=== PATIENT | female | born 2000 | race Caucasian/White ===

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

== ENCOUNTER → 2018-07-03 | Outpatient (CLI) | payer SELFPAY ==
[~2018-07-03] MED LIST changes: +HYDR-4226 PO; -HYDR-757 PO; +NORE1PAT7
--- NOTE | 2018-07-03 13:47 | Diagnostic Imaging Report ---
INDICATION: Graves' disease TECHNIQUE: Grayscale sonographic images of the thyroid gland. CORRELATION STUDY: None FINDINGS: RIGHT LOBE: 4.5 x 1.5 x 1.5 cm. There is normal echotexture about the right lobe. LEFT LOBE: 4.3 x 1.3 x 1.5 cm. There is normal echotexture about the left lobe. Isthmus appears unremarkable. IMPRESSION: Unremarkable appearing thyroid ultrasound examination. (Normal gland size: 4-5 x 2 x 2 cm) Dictated by: Dictated on workstation # [id number]
== END ==
LOC: RAD 12:09
PROVIDERS: ATTEND Physician Assistant
DX: E05.00 Thyrotoxicosis with diffuse goiter without thyrotoxic crisis or storm (principal)
CPT/HCPCS: 76536

== ENCOUNTER 2018-08-21 11:19 | Emergency (ER) | payer MEDICAID, OTHER ==
[~2018-08-21] VITALS: Ht 162.6 cm; Wt 71.7 kg
--- OUTSIDE RECORDS SUMMARY | 2018-08-21 11:24 | XMS REPORT | Encounter Summary ---
Author Author [facility] Organization [facility] Address Unknown Phone Unavailable Care Team Providers Care Hematology Technologist Name Role Phone Unknown, Unknown Md PCP Unavailable Homer Sherman OD Unavailable Reason for Visit * Reason Comments Results Encounter Details Date Type Department Care Team Description 07/01/2018 Telephone [facility] Kalpesh Colvin, Results Physicians - Internal MD Medicine [address] [facility] [place] [address] [address] [place] [address] Social History Tobacco Use Types Packs/Day Years Used Date Never Smoker Smokeless Tobacco: Never Used Sex Assigned at Date Recorded Not on file as of this encounter Miscellaneous Notes * Telephone Encounter - Teena Clarke RN - 07/02/2018 2:59 PM CDT Spoke with pt's grandmother as permitted by privacy form. She reports pt has probably not been consistent with taking medication. She will discuss with pt tomorrow on the drive to thyroid US appt. Advised her to have pt commit to taking daily and then to repeat labs in 1 month. No further questions/concerns. * Telephone Encounter - Teena Clarke RN - 07/02/2018 9:47 AM CDT Called pt and had to [facility] for pt to return my phone call. * Telephone Encounter - Kalpesh Colvin MD - 07/01/2018 7:28 PM CDT Dear, Teena It seems like she does not take her medication. Please call her and ask her if she takes MMI regularly. She is supposed to take MMI 20 mg daily. If not , please ask her to take it and repeat TSH , TT3 , FT4 in 1 month in this encounter Plan of Treatment Not on fileas of this encounter Visit Diagnoses Not on filein this encounter
--- OUTSIDE RECORDS SUMMARY | 2018-08-21 11:24 | XMS REPORT ---
Author Author SINDI COLE [facility] Address [address] [place] [address] Care Team Providers Care Mathematical Physicist Name Role Phone SINDI COLE Unavailable PROBLEMS Type Condition ICD9-CM Code FLW83-ZX Code Onset Dates Condition Status SNOMED Code Problem Graves disease E05.00 Active 066211453 Problem Severe episode of recurrent major depressive disorder, without 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 Active 58249739 Problem Post traumatic stress disorder (PTSD) F43.10 Active 52834286 Problem Chronic migraine G43.709 Active 61139955 Problem Hyperthyroidism E05.90 Active 30309585 ALLERGIES No Information ENCOUNTERS Encounter Location Date Diagnosis [facility] [address] [address] Jul, Encounter for test, result unknown Z32.00 [facility] [address] [address] May, Graves disease E05.00 [facility] [id number] [place] [address] Feb, Dysuria R30.0 and Acute cystitis with hematuria N30.01 [facility] [id number] [place] [address] 6[address] January, [facility] [address] [address] Dec, Severe episode of recurrent major depressive disorder, without 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 [facility] [address] [address] Dec, [facility] [id number] [place] [address]- 9771 Dec, Severe episode of recurrent major depressive disorder, without 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 and Post traumatic stress disorder (PTSD) F43.10 [place] [id number] [place] [address]757- [address]248 Nov, [place] [address] [address] Nov, Severe episode of recurrent major depressive disorder, without 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 and Post traumatic stress disorder (PTSD) F43.10 [place] [id number] [place] [address]72- 5200 Oct, Encounter for counseling regarding contraception Z30.09 ; Hyperthyroidism E05.90 and Chronic migraine G43.[address] [address] Jul, Encounter for surveillance of injectable contraceptive Z30.42 [facility] [address] [address] Jul, Sore throat J02.9 ; Other viral agents as the cause of diseases classified elsewhere B97.89 and Acute upper respiratory infection, unspecified J06.9 [place] [id number] [place] [address] Jun, Visit for TB skin test Z11.1 [place] [id number] [place] [address]- [address]65 May, Physical exam, routine Z00.[address] [address] May, Hyperthyroidism E05.90 and Post traumatic stress disorder ( PTSD) F43.10 [place] [id number] [place] [address] 65[address]- [address]6 Apr, Routine gynecological examination Z01.419 ; High risk sexual behavior Z72.51 ; Encounter for surveillance of injectable contraceptive Z30.42 ; Hyperthyroidism E05.90 and Encounter for Depo-Provera contraception Z30.42 [facility] [place] [id number] [place] [address] Apr, Tinea corporis B35.4 [place] [address] [place] [address] 77[address]- 0[address] Mar, Thyrotoxicosis without thyroid storm, unspecified thyrotoxicosis type E05.90 [place] [id number] [place] [address]36- 23[address] Mar, [place] [id number] [place] [address] 27996- [address] Mar, [place] [id number] [place] [address] 86[address]- 7052 Mar, Post traumatic stress disorder (PTSD) F43.10 and Hyperthyroidism E05.90 [place] [id number] [place] [address] 06990- 6654 Feb, Hyperthyroidism E05.90 ; Post traumatic stress disorder ( PTSD) F43.10 and Overdose, intentional self-harm, subsequent encounter T50.902D [place] [id number] [place] [address]9957- 57[address] January, Post traumatic stress disorder (PTSD) F43.10 [place] [id number] [place] [address] 44155- [address] 18 Dec, 2016 Hx of migraines Z86.69 ; Insect bite (nonvenomous), left thigh, initial encounter S70.362A and Post traumatic stress disorder (PTSD) F43.10 [place] [address] [place] [address]45- 7[address] 11 Dec, 2016 [place] [id number] [place] [address] 45750- 0843 Nov, [place] [id number] [place] [address] 23842- 4524 10 Nov, 2015 Adjustment disorder with depressed mood F43.21 and Major depression, recurrent F33.9 [place] [id number] [place] [address] 34262- 9215 10 Nov, 2015 Oral contraceptive pill surveillance Z30.41 ; Routine screening for STI (sexually transmitted infection) Z11.3 ; Dysmenorrhea N94.6 ; Hx of migraines Z86.69 ; Deliberate self-cutting Z72.89 and Major depressive disorder, recurrent, moderate F33.1 [place] [id number] [place] [address]20- 6561 Nov, [place] [address] [address] May, [place] [address] [address]- [address] 17 May, [address] [address]- [address] 15 May, 2015 Migraine headache 346.90 and Abdominal pain 789.[address] [address]- [address] May, [place] [address] [address]- [address] Apr, Oligomenorrhea 626.1 and Screening for diabetes mellitus V77.[address] 6[address]25- [address]69 Apr, Oligomenorrhea 626.1 ; Dark urine 791.9 and Screening for diabetes mellitus V77.1 [place] [id number] [place] [address] 53762- 1621 Feb, Bipolar disorder, unspecified 296.80 [place] [id number] [place] [address] 14601- 2688 Dec, [address] [address]- [address] Dec, [place] [address] [address]62- [address] Dec, [place] [address] [address]- [address] Dec, [facility] [place] [facility] [address] [id number] [place] [address] Dec, [facility] [place] [facility] [address] [id number] [place] [address]- 4530 Jul, [facility] [place] [facility] [address] [id number] [place] [address]- 7636 Jul, [facility] [place] [facility] [address] [id number] [place] [address]- 7787 Jul, [facility] [place] [facility] [address] [id number] [place] [address]- 4979 Jul, [facility] [place] [facility] [address] [id number] [place] [address]- 5536 Jun, [facility] [place] [facility] [address] [id number] [place] [address]- 5038 May, [facility] [place] [facility] [address] [id number] [place] [address]- 3720 Apr, [facility] [place] [facility] [address] [id number] [place] [address]- 9940 Apr, [facility] [place] [facility] [address] [id number] [place] [address]- 6860 Mar, [facility] [place] [facility] [address] [id number] [address] Feb, [facility] [place] [facility] [address] [id number] [place] [address]- 5762 Feb, [facility] [place] [facility] [address] [id number] [place] [address]- 0611 Feb, [facility] [place] [facility] [address] [id number] [place] [address]- 9460 January, [facility] [place] [facility] [address] [id number] [place] [address]- 9645 January, [facility] [place] [facility] [address] [id number] [place] [address]- 6770 29 Dec, 2012 [facility] [address] [id number] [place] [address]- 9402 Dec, [facility] [place] [facility] [address] [id number] [place] [address] 2546 Nov, [facility] [address] [id number] [place] [address]- 7839 Nov, [facility] [place] [facility] [address] [id number] [place] [address]- 8025 Sep, [facility] [address] [id number] [place] [address]- 0762 Jun, [facility] [address] [id number] [place] [address]- 9771 Jun, [facility] [address] [id number] [place] [address]- 4381 May, [facility] [address] [id number] [place] [address]- 3950 Mar, [facility] [place] [facility] [address] [id number] [place] [address]- 5005 Mar, [facility] [address] [id number] [place] [address]- 2817 Mar, [facility] [place] [facility] [address] [id number] [place] [address]- 0097 30 Mar, 2012 [facility] [place] [facility] [address] [id number] [place] [address]- 9298 Feb, [facility] [place] [facility] [address] [id number] [place] [address]- 7019 Feb, [facility] [place] [facility] [address] [id number] [place] [address]- 2546 18 Feb, 2012 [facility] [place] [facility] [address] [id number] [place] [address]- 6830 Feb, [facility] [address] [id number] [place] [address]- 9273 Feb, [facility] [place] [facility] [address] [id number] [place] [address]- 3936 January, [facility] [place] [facility] [address] [id number] [place] [address]- 3726 January, [facility] [place] [facility] [address] [id number] [place] [address]- 4226 January, [facility] [place] [facility] [address] [id number] [place] [address]- 3049 January, [facility] [place] [facility] [address] [id number] [place] [address]- 5426 January, [facility] [place] [facility] [address] [id number] [place] [address]- 1792 Dec, [facility] [place] [facility] [address] [id number] [place] [address]- 7066 Dec, [facility] [place] [facility] [address] [id number] [place] [address]- 5818 Dec, [facility] [place] [facility] [address] [id number] [place] [address]- 3147 Nov, [facility] [place] [facility] [address] [id number] [place] [address]- 1306 Oct, [facility] [place] [facility] [address] [id number] [place] [address]- 3870 Sep, [facility] [place] [facility] [address] [id number] [place] [address]- 9669 Jul, [facility] [place] [facility] [address] [id number] [place] [address]- 9766 Aug, [facility] [place] [facility] [address] [id number] [place] [address]- 2546 Jul, [facility] [place] [facility] [address] [address] Jun, [facility] [address] [place] [address]- 0179 Jun, [facility] [address] [place] [address]- [address]287 Jul, [facility] [address] [place] [address]- 7214 Jul, [facility] [address] [place] [address]- 7736 Aug, [facility] [address] [place] [address] 149300- 8513 Aug, [facility] [address] [place] [address] 91388- 1710 Jul, [facility] [address] [place] [address] 80944- 9168 Jul, [facility] [address] [place] [address]- 7967 Apr, [facility] [address] [place] [address]- 0129 Oct, [facility] [address] [place] [address]- 0[address] Jul, [facility] [id number] [address]- 15[address] Apr, IMMUNIZATIONS No Known Immunizations SOCIAL HISTORY Never Assessed REASON FOR VISIT test (walk-in) PLAN OF CARE VITAL SIGNS MEDICATIONS Unknown Medications RESULTS Name Result Date Reference Range TEST, URINE (IN HOUSE) 2018-07-25 RESULTS Positive Lot # [id number] Control + Exp date 12/2019 PROCEDURES Procedure Date Ordered Result Body Site URINE TEST Jul 25, 2018 INSTRUCTIONS MEDICATIONS ADMINISTERED No Known Medications MEDICAL (GENERAL) HISTORY Type Description Date Medical History migraine headaches Medical History Unspecified episodic mood disorder Medical History Posttraumatic stress disorder Medical History Deliberate self-cutting Medical History Dysmenorrhea Medical History Overdose Zoloft 2016 Medical History Hyperthyroidism Medical History Gaves disease Surgical History No Surgical history information Hospitalization History rule out appendicitis 2007 Hospitalization History [facility] 2017 Hospitalization History [facility] Hyperthyroidism and overdose on Zoloft 02-23-2017
--- OUTSIDE RECORDS SUMMARY | 2018-08-21 11:24 | XMS REPORT | Clinical Summary ---
Author Author [facility] Organization [facility] Address Unknown Phone Unavailable Care Team Providers Care Vice President Sales And Marketing Name Role Phone Unknown, Unknown Md PCP Unavailable Homer Sherman OD Unavailable Source Comments Some departments are not documenting in the electronic medical record. If you do not see the information that you expected, contact Release of Information in the Health Information Management department at [phone] for further assistance in locating additional records.[facility] Allergies Active Allergy Reactions Severity Noted Date Comments Iodinated Contrast- Oral CHEST TIGHTNESS, HIVES, High 08/15/2017 And Iv Dye RASH, SHORTNESS OF BREATH Current Medications Prescription Sig. Disp. Refills Start End Date Status Date sertraline (ZOLOFT) 100 Take 100 mg by mouth Active mg tablet daily. rizatriptan (MAXALT) 10 Take 10 mg by mouth once Active mg tablet as needed for Headache. May repeat in 2 hours in needed propranolol (INDERAL) 20 Take 20 mg by mouth three Active mg tablet times daily. methIMAzole (TAPAZOLE) 10 Take 2 tablets by mouth 60 tablet 1 Active mg tablet daily. 17 Active Problems Not on file Encounters Date Type Specialty Care Team Description 08/19/2018 Telephone Endocrinology, Metabolism Kalpesh Colvin Results & Genetics 08/14/2018 Orders Only Endocrinology, Metabolism Kalpesh Clovin , Hyperthyroidism & Genetics 07/01/2018 Telephone Endocrinology, Metabolism Kalpesh Colvin Results & Genetics 06/28/2018 Orders Only Endocrinology, Metabolism Kalpesh Colvin , Hyperthyroidism & Genetics MD from Last 3 Months Family History Medical History Relation Name Comments Heart Disease Father Thyroid Disease Maternal Hypothyroidism Grandmother Diabetes Mother High Cholesterol Mother Hypertension Mother Thyroid Disease Mother Hypothyroidism Relation Name Status Comments Father Alive Maternal Grandmother Mother Alive Social History Tobacco Use Types Packs/Day Years Used Date Never Smoker Smokeless Tobacco: Never Used Sex Assigned at Date Recorded Not on file Last Filed Vital Signs Vital Sign Reading Time Taken Blood Pressure 110/67 08/21/2017 2:51 PM LOADING UNIT OPERATOR POWDER CHARGING Pulse 76 08/21/2017 2:51 PM LOADING UNIT OPERATOR POWDER CHARGING Temperature - - Respiratory Rate - - Oxygen Saturation - - Inhaled Oxygen - - Concentration Weight 73 kg (161 lb) 08/21/2017 2:51 PM LOADING UNIT OPERATOR POWDER CHARGING Height 162.5 cm (5' 3.98") 08/21/2017 2:51 PM LOADING UNIT OPERATOR POWDER CHARGING Body Mass Index 27.66 08/21/2017 2:51 PM LOADING UNIT OPERATOR POWDER [employer]ARGING Plan of Treatment Health Maintenance Due Date Last Done Comments PHYSICAL (COMPREHENSIVE) 2005 EXAM HPV VACCINES (1 of 3 - 2009 Female 3-dose series) HIV SCREENING 2013 MENINGOCOCCAL VACCINE 2014 (ACWY,Menactra) (1 of 1 - 2-dose series) DTAP/TDAP VACCINES (1 - 2016 Tdap) INFLUENZA VACCINE 04/24/2018 Procedures Procedure Name Priority Date/Time Associated Diagnosis Comments FREE T4 (FREE THYROXINE) Routine 08/13/2018 Hyperthyroidism Results for this ONLY 12:00 AM LOADING UNIT OPERATOR POWDER CHARGING procedure are in the results section. THYROID STIMULATING Routine 08/13/2018 Hyperthyroidism Results for this HORMONE-TSH 12:00 AM LOADING UNIT OPERATOR POWDER CHARGING procedure are in the results section. THYROID STIMULATING Routine 06/21/2018 Hyperthyroidism Results for this HORMONE-TSH 1:22 PM CDT procedure are in the results section. FREE T4 (FREE THYROXINE) Routine 06/21/2018 Hyperthyroidism Results for this ONLY 12:00 AM CDT procedure are in the results section. from Last 3 Months Results * THYROID STIMULATING HORMONE-TSH (08/13/2018) Only the most recent of 2 results within the time period is included. TSH <0.008 (L)Comment: PT IS 0.350 - 4.940 uIU/mL OTHER OUTSIDE LAB AND HAS STOPPED METHIMAZOLE-SEE ATTACHED FILE FOR FULL LABS Specimen Blood - Blood Narrative Performed At Performing Organization Address City/State/Zipcode Phone Number OTHER OUTSIDE LAB * FREE T4 (FREE THYROXINE) ONLY (08/13/2018) Only the most recent of 2 results within the time period is included. T4-Free 1.20Comment: PT IS 0.70 - 1.48 ng/dL OTHER OUTSIDE LAB AND HAS STOPPED METHIMAZOLE-SEE ATTACHED FILE FOR FULL LABS Specimen Blood - Blood Narrative Performed At Performing Organization Address City/State/Zipcode Phone Number OTHER OUTSIDE LAB from Last 3 Months
--- OUTSIDE RECORDS SUMMARY | 2018-08-21 11:24 | XMS REPORT | Encounter Summary ---
Author Author [facility] Organization [facility] Address Unknown Phone Unavailable Care Team Providers Care Immigration Specialist Name Role Phone Unknown, Unknown Md PCP Unavailable Homer Sherman OD Unavailable Encounter Details Date Type Department Care Team Description 08/14/2018 Orders Only [facility], Hyperthyroidism Physicians - Internal MD Medicine [address] [facility] [place] [address] [address] [place] [address] Social History Tobacco Use Types Packs/Day Years Used Date Never Smoker Smokeless Tobacco: Never Used Sex Assigned at Date Recorded Not on file as of this encounter Progress Notes * Yolanda Jo MD - 08/14/2018 4:31 PM SLIP OPERATOR Reviewed. See phone note. LME in this encounter Plan of Treatment Not on fileas of this encounter Procedures Procedure Name Priority Date/Time Associated Diagnosis Comments THYROID STIMULATING Routine 08/13/2018 Hyperthyroidism Results for this HORMONE-TSH 12:00 AM SLIP OPERATOR procedure are in the results section. FREE T4 (FREE THYROXINE) Routine 08/13/2018 Hyperthyroidism Results for this ONLY 12:00 AM SLIP OPERATOR procedure are in the results section. in this encounter Results * FREE T4 (FREE THYROXINE) ONLY (08/13/2018) T4-Free 1.20Comment: PT IS 0.70 - 1.48 ng/dL OTHER OUTSIDE LAB AND HAS STOPPED METHIMAZOLE-SEE ATTACHED FILE FOR FULL LABS Specimen Blood - Blood Narrative Performed At Performing Organization Address City/State/Zipcode Phone Number OTHER OUTSIDE LAB * THYROID STIMULATING HORMONE-TSH (08/13/2018) TSH <0.008 (L)Comment: PT IS 0.350 - 4.940 uIU/mL OTHER OUTSIDE LAB AND HAS STOPPED METHIMAZOLE-SEE ATTACHED FILE FOR FULL LABS Specimen Blood - Blood Narrative Performed At Performing Organization Address City/State/Zipcode Phone Number OTHER OUTSIDE LAB in this encounter Visit Diagnoses Diagnosis Hyperthyroidism Thyrotoxicosis without mention of goiter or other cause, without mention of thyrotoxic crisis or storm
--- OUTSIDE RECORDS SUMMARY | 2018-08-21 11:24 | XMS REPORT | Encounter Summary ---
Author Author [facility] Organization [facility] Address Unknown Phone Unavailable Care Team Providers Care Filenet Architect Name Role Phone Unknown, Unknown Md PCP Unavailable Homer Sherman OD Unavailable Encounter Details Date Type Department Care Team Description 06/28/2018 Orders Only [facility] prado, Hyperthyroidism Physicians - Internal MD Medicine [address] [facility] [place] [address] [address] [place] [address] Social History Tobacco Use Types Packs/Day Years Used Date Never Smoker Smokeless Tobacco: Never Used Sex Assigned at Date Recorded Not on file as of this encounter Progress Notes * Yolanda Jo MD - 06/28/2018 2:04 PM CDT Reviewed. See phone note. LME in this encounter Plan of Treatment Not on fileas of this encounter Procedures Procedure Name Priority Date/Time Associated Diagnosis Comments THYROID STIMULATING Routine 06/21/2018 Hyperthyroidism Results for this HORMONE-TSH 1:22 PM CDT procedure are in the results section. FREE T4 (FREE THYROXINE) Routine 06/21/2018 Hyperthyroidism Results for this ONLY 12:00 AM CDT procedure are in the results section. in this encounter Results * THYROID STIMULATING HORMONE-TSH (06/21/2018 1:22 PM) TSH 0.01 mIU/L OTHER OUTSIDE LAB T4-Free 2.5 (A) 0.8 - 1.4 ng/dL OTHER OUTSIDE LAB Specimen Blood - Blood Narrative Performed At Performing Organization Address City/State/Zipcode Phone Number OTHER OUTSIDE LAB * FREE T4 (FREE THYROXINE) ONLY (06/21/2018) T4-Free 2.5 (A) 0.8 - 1.4 ng/dL OTHER OUTSIDE LAB Specimen Blood - Blood Narrative Performed At Please see scanned results under TSH dated 06.21.18. OTHER OUTSIDE LAB Performing Organization Address City/State/Zipcode Phone Number OTHER OUTSIDE LAB in this encounter Visit Diagnoses Diagnosis Hyperthyroidism Thyrotoxicosis without mention of goiter or other cause, without mention of thyrotoxic crisis or storm
--- OUTSIDE RECORDS SUMMARY | 2018-08-21 11:24 | XMS REPORT | Encounter Summary ---
Author Author [facility] Organization [facility] Address Unknown Phone Unavailable Care Team Providers Care Food Service Lead Name Role Phone Unknown, Unknown Md PCP Unavailable Homer Sherman OD Unavailable Reason for Visit * Reason Comments Results Encounter Details Date Type Department Care Team Description 08/19/2018 Telephone [facility] Kalpesh Colvin, Results Physicians - Internal MD Medicine [address] [facility] [facility] [place] [address] Pavilion Level 5A [address] [place] [address] Social History Tobacco Use Types Packs/Day Years Used Date Never Smoker Smokeless Tobacco: Never Used Sex Assigned at Date Recorded Not on file as of this encounter Miscellaneous Notes * Telephone Encounter - Yolanda Jo MD - 08/20/2018 2:22 PM DIFFERENTIAL REPAIRER Formatting of this note may be different from the original. Teena -- thank you. Await repeat free T4 / total t3 results to make decision about initiation of PTU in first trimester. Future Appointments Date Time Provider Department Center 09/04/2018 1:30 PM QV [facility] RAY CONTROL EQUIPMENT REPAIRER 09/04/2018 2:00 PM V [facility] X RAY CONTROL EQUIPMENT REPAIRER * Telephone Encounter - Teena Clarke RN - 08/20/2018 1:33 PM DIFFERENTIAL REPAIRER Spoke with patient and she reports she is 8 weeks . Pt was instructed by local physician to d/c MMI on 08/13/18. Pt states her local physician is referring her to glass mechanic. Pt will f/u on referral at local appt next week. Relayed need for labs now. Faxed lab orders to: [facility]# [phone] Fx# [phone]; fax confirmation rec'd 11.27.18@1:44PM. * Telephone Encounter - Yolanda Jo MD - 08/19/2018 9:02 PM DIFFERENTIAL REPAIRER Let us get TSH / TT3 / free T4 now. We do need to know how far she is in should we need to resume anti- thyroid medication: PTU if first trimester / methimazole if beyond first trimester. Thanks, all. LME * Telephone Encounter - Teena Clarke RN - 08/19/2018 2:49 PM DIFFERENTIAL REPAIRER Called pt and had to [facility] for [place] to return my phone call. The cover page from the physician informed us of her and that MMI discontinued; presuming by their direction. * Telephone Encounter - Kalpesh Colvin MD - 08/19/2018 2:36 PM DIFFERENTIAL REPAIRER She has Graves' disease She stopped her medication on her own? We were not informed about this. Is she still following with us ? How far along is her ? I would like to repeat labs and will add TSI, TRab as well in 4 weeks. Follow up with me in 3 months or when first available Thank you * Telephone Encounter - Teena Clarke RN - 08/19/2018 2:23 PM DIFFERENTIAL REPAIRER Please see lab result notes: Patient is and is no longer taking MMI. Please advise as to plan moving forward. * Telephone Encounter - Kalpesh Colvin MD - 08/19/2018 1:42 PM DIFFERENTIAL REPAIRER Pleas let her know that her TSH is still suppressed but FT4 is in normal range Continue her MMI and please check her compliance as well. Pleas ask pt to follow up with me in 3-4 months Will check her TSH , FT4 , TT3 in 6 weeks : standing order ordered Thank you in this encounter Plan of Treatment Name Priority Associated Diagnoses Order Schedule THYROID STIMULATING HORMONE-TSH Routine Hyperthyroidism ONE TIME for 6 Occurrences starting 08/19/2018 until 02/17/2020 FREE T4 (FREE THYROXINE) ONLY Routine Hyperthyroidism ONE TIME for 6 Occurrences starting 08/19/2018 until 02/17/2020 TOTAL T3 (TRIIODOTHYRONINE) Routine Hyperthyroidism ONE TIME for 6 Occurrences starting 08/19/2018 until 02/17/2020 THYROID STIM IMMUNOGLOBULIN(TSI) Routine Hyperthyroidism Expected: 09/18, Expires: 08/19/2019 THYROTROPIN (TSH) RECEPTOR AB Routine Hyperthyroidism Expected: 2017 (Approximate), Expires: 08/19/2019 as of this encounter Visit Diagnoses Diagnosis Hyperthyroidism - Primary Thyrotoxicosis without mention of goiter or other cause, without mention of thyrotoxic crisis or storm
--- OUTSIDE RECORDS SUMMARY | 2018-08-21 11:25 | XMS REPORT ---
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 Name Role Phone DUKESALINE Unavailable PROBLEMS Type Condition ICD9-CM Code RCZ16-IE Code Onset Dates Condition Status SNOMED Code Problem Graves disease E05.00 Active 042185782 Problem Severe episode of recurrent major depressive disorder, without 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 Active 09529517 Problem Post traumatic stress disorder (PTSD) F43.10 Active 17289946 Problem Chronic migraine G43.709 Active 18946718 Problem Hyperthyroidism E05.90 Active 69712278 ALLERGIES Substance Reaction Event Type Date Status IV contrast Unknown Non Drug Allergy May, Active ENCOUNTERS Encounter Location Date Diagnosis [facility] [id number] [place] [address]- [address] May, Graves disease E05.00 [facility] [address] [address] Feb, Dysuria R30.0 and Acute cystitis with hematuria N30.01 [facility] [id number] [place] [address]3677- 8406 January, [facility] [id number] [place] [address]134- 6472 Dec, Severe episode of recurrent major depressive disorder, without 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 [facility] [id number] [place] [address] 58141- 4641 Dec, [facility] [address] [address] Dec, Severe episode of recurrent major depressive disorder, without 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 and Post traumatic stress disorder (PTSD) F43.10 [facility] [address] [place] [address] Nov, [place] [id number] [place] [address]- [address]208 Nov, Severe episode of recurrent major depressive disorder, without 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 and Post traumatic stress disorder (PTSD) F43.10 [place] [id number] [place] [address]6417- 1578 Oct, Encounter for counseling regarding contraception Z30.09 ; Hyperthyroidism E05.90 and Chronic migraine G43.709 [place] [id number] [place] [address]- [address] Jul, Encounter for surveillance of injectable contraceptive Z30.42 [facility] [place] [id number] [place] [address]67 Jul, Sore throat J02.9 ; Other viral agents as the cause of diseases classified elsewhere B97.89 and Acute upper respiratory infection, unspecified J06.9 [place] [id number] [place] [address] 6[address]- 9786 Jun, Visit for TB skin test Z11.[address] [address] May, Physical exam, routine Z00.00 [place] [id number] [place] [address]- 9292 May, Hyperthyroidism E05.90 and Post traumatic stress disorder ( PTSD) F43.10 [place] [id number] [place] [address]86- 1324 Apr, Routine gynecological examination Z01.419 ; High risk sexual behavior Z72.51 ; Encounter for surveillance of injectable contraceptive Z30.42 ; Hyperthyroidism E05.90 and Encounter for Depo-Provera contraception Z30.42 [facility] [id number] [place] [address] Apr, Tinea corporis B35.4 [place] [address] [address] Mar, Thyrotoxicosis without thyroid storm, unspecified thyrotoxicosis type E05.90 [place] [address] [address] Mar, [place] [address] [place] [address]- 5601 Mar, [place] [id number] [place] [address] 65580- 4080 Mar, Post traumatic stress disorder (PTSD) F43.10 and Hyperthyroidism E05.90 [place] [id number] [place] [address] 78482- 1052 13 Feb, 2017 Hyperthyroidism E05.90 ; Post traumatic stress disorder ( PTSD) F43.10 and Overdose, intentional self-harm, subsequent encounter T50.902D [place] [id number] [place] [address] 02231- 8691 January, Post traumatic stress disorder (PTSD) F43.10 [place] [id number] [place] [address] 84526- 0636 18 Dec, 2016 Hx of migraines Z86.69 ; Insect bite (nonvenomous), left thigh, initial encounter S70.362A and Post traumatic stress disorder (PTSD) F43.10 [address] [place] [address] 07064- 1172 11 Dec, 2016 [place] [address] [place] [address] 35854- 5601 29 Nov, 2016 [place] [id number] [place] [address] 64517- 5823 10 Nov, 2015 Adjustment disorder with depressed mood F43.21 and Major depression, recurrent F33.9 [address] [address] 10 Nov, 2016 Oral contraceptive pill surveillance Z30.41 ; Routine screening for STI (sexually transmitted infection) Z11.3 ; Dysmenorrhea N94.6 ; Hx of migraines Z86.69 ; Deliberate self-cutting Z72.89 and Major depressive disorder, recurrent, moderate F33.1 [facility] [id number] [place] [address] 37242- 5404 09 Nov, 2015 [facility] [id number] [place] [address] 62180- 0818 May, [facility] [id number] [place] [address] 11746- 8537 17 May, 2015 [facility] [id number] [place] [address] 60621- 2395 15 May, 2015 Migraine headache 346.90 and Abdominal pain 789.00 [place] [id number] [place] [address] 06358- 4181 May, [place] [address] [address] Apr, Oligomenorrhea 626.1 and Screening for diabetes mellitus V77.1 [place] [id number] [place] [address] 29560- 5348 Apr, Oligomenorrhea 626.1 ; Dark urine 791.9 and Screening for diabetes mellitus V77.1 [place] [id number] [place] [address] 54647- 9478 Feb, Bipolar disorder, unspecified 296.80 [facility] [id number] [place] [address] 08606- 9834 Dec, [facility] [id number] [place] [address] 18914- 7647 Dec, [place] [address] [address]- 7792 Dec, [place] [id number] [place] [address] 38348- 6612 Dec, [facility] [address] [place] [address]- 3905 Dec, [facility] [address] [id number] [place] [address]- 6979 Jul, [facility] [place] [facility] [address] [id number] [place] [address]- 5917 Jul, [facility] [place] [facility] [address] [id number] [place] [address]- 6458 Jul, [facility] [place] [facility] [address] [id number] [place] [address]- 1791 Jul, [facility] [place] [facility] [address] [id number] [place] [address]- 6076 Jun, [facility] [place] [facility] [address] [id number] [place] [address]- 7046 May, [facility] [place] [facility] [address] [id number] [place] [address]- 1246 Apr, [facility] [place] [facility] [address] [id number] [place] [address]- 8227 Apr, [facility] [place] [facility] [address] [id number] [place] [address]- 6313 Mar, [facility] [place] [facility] [address] [id number] [place] [address]- 3917 Feb, [facility] [place] [facility] [address] [id number] [place] [address]- 6171 Feb, [facility] [place] [facility] [address] [id number] [place] [address]- 6003 Feb, [facility] [place] [facility] [address] [id number] [place] [address]- 1107 January, [facility] [place] [facility] [address] [id number] [place] [address]- 7475 January, [facility] [place] [facility] [address] [id number] [place] [address]- 9820 Dec, [facility] [place] [facility] [address] [id number] [place] [address]- 5074 Dec, [facility] [place] [facility] [address] [id number] [place] [address]- 1316 Nov, [facility] [place] [facility] [address] [id number] [place] [address]- 4995 Nov, [facility] [place] [facility] [address] [id number] [place] [address]- 0810 Sep, [facility] [place] [facility] [address] [id number] [place] [address]- 5304 Jun, [facility] [place] [facility] [address] [id number] [place] [address]- 4260 Jun, [facility] [place] [facility] [address] [id number] [place] [address]- 8214 May, [facility] [place] [facility] [address] [id number] [place] [address]- 5766 Mar, [facility] [place] [facility] [address] [id number] [place] [address]- 0683 Mar, [facility] [place] [facility] [address] [id number] [place] [address]- 1848 Mar, [facility] [place] [facility] [address] [id number] [place] [address]- 8577 Mar, [facility] [place] [facility] [address] [id number] [place] [address]- 9269 Feb, [facility] [place] [facility] [address] [id number] [place] [address]- 4922 Feb, [facility] [place] [facility] [address] [id number] [place] [address]- 7075 18 Feb, 2012 [facility] [place] [facility] [address] [id number] [place] [address]- 3848 13 Feb, 2012 [facility] [place] [facility] [address] [id number] [place] [address]- 9394 Feb, [facility] [place] [facility] [address] [id number] [place] [address]- 9036 January, [facility] [place] [facility] [address] [id number] [place] [address]- 0856 January, [facility] [place] [facility] [address] [id number] [place] [address] 2546 January, [facility] [place] [facility] [address] [id number] [place] [address]- 9087 January, [facility] [place] [facility] [address] [id number] [place] [address]- 1243 January, [facility] [place] [facility] [address] [id number] [place] [address]- 4736 Dec, [facility] [place] [facility] [address] [id number] [place] [address]- 4826 Dec, [facility] [place] [facility] [address] [id number] [place] [address]- 7834 Dec, [facility] [place] [facility] [address] [id number] [place] [address]- 7068 Nov, [facility] [place] [facility] [address] [id number] [place] [address]- 6446 Oct, [facility] [place] [facility] [address] [id number] [place] [address]- 9112 Sep, [facility] [place] [facility] [address] [id number] [place] [address]- 1131 Jul, [facility] [place] [facility] [address] [id number] [place] [address]- 5796 Aug, [facility] [place] [facility] [address] [id number] [place] [address]- 7746 Jul, [facility] [place] [facility] [address] [id number] [place] [address]- 4876 Jun, [facility] [place] [facility] [address] [address]- 6[address] Jun, [facility] [address] [address]- 6446 Jul, [facility] [address] Jul, [facility] [address] [place] [address] 883456- 4570 Aug, [facility] [id number] [place] [address] 92174- 5207 Aug, [facility] [id number] [place] [address] 007887- 5180 Jul, [facility] [id number] [place] [address] 20618- 5471 Jul, [facility] [id number] [place] [address] 55004- 7503 Apr, [facility] [address] [address]- 4541 Oct, [facility] [id number] [place] [address] 30819- 1950 Jul, [facility] [address] [address]- 5534 Apr, IMMUNIZATIONS No Known Immunizations SOCIAL HISTORY Never Assessed REASON FOR VISIT New provider visit-MANNY ríos, patient has gaves disease and the medicine she on isn't working. she is having lots of pain PLAN OF CARE Activity Details Follow Up prn Reason: Pending Test Ultrasound : Thyroid VITAL SIGNS Height 64 in 2018-06-21 Weight 160.2 lbs 2018-06-21 Temperature 98.876 degrees Fahrenheit 2018-06-21 Respiratory Rate 18 2018-06-21 Oximetry on room air:98 % 2018-06-21 BMI 27.50 kg/m2 2018-06-21 Blood pressure systolic 100 mmHg 2018-06-21 Blood pressure diastolic 60 mmHg 2018-06-21 MEDICATIONS Medication Instructions Dosage Frequency Start Date End Date Duration Status Propranolol HCl 20 mg TAKE ONE TABLET BY MOUTH THREE TIMES DAILY 30 Active Zoloft 50 MG Orally Once a day 1 tablet 24h 15 days Active Methimazole 5 mg Orally 3 times a day 3 tablets with food 8h 30 Active Maxalt 10 mg Orally Once a day; may repeat in 2 hours if needed, no more than 2 doses in 24 hours 1 tablet at onset of headache May, 30 days Active Trintellix 10 mg orally once a day 1 tablet 24h 28 Nov, 2017 Not- Taking Trintellix 20 mg Orally Once a day 1 tablet 24h 04 Dec, 2017 90 days Not-Taking RESULTS No Results PROCEDURES Procedure Date Ordered Result Body Site ASSAY THYROID STIM HORMONE Jun 21, 2018 ASSAY OF FREE THYROXINE Jun 21, 2018 FREE ASSAY (FT-3) Jun 21, 2018 VENIPUNCT, ROUTINE* Jun 21, 2018 INSTRUCTIONS MEDICATIONS ADMINISTERED No Known Medications [...] 2007 Hospitalization History Rosa Gibbs- Mental Stay 2016 Hospitalization History [facility] Hyperthyroidism and overdose on Zoloft 02-23-2017
--- OUTSIDE RECORDS SUMMARY | 2018-08-21 11:25 | XMS REPORT ---
Author Author RACHEL DUKES Organization [facility] Address [address] [place] [address] Care Team Providers Care Core Machine Operator Name Role Phone RACHEL DUKES Unavailable PROBLEMS Type Condition ICD9-CM Code [id number] Code Onset Dates Condition Status SNOMED Code Problem Severe episode of recurrent major depressive disorder, without 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 Active 66762559 Problem Chronic migraine G43.709 Active 52373017 Problem Hyperthyroidism E05.90 Active 33331505 Problem Post traumatic stress disorder (PTSD) F43.10 Active 61774307 ALLERGIES Substance Reaction Event Type Date Status IV contrast Unknown Non Drug Allergy Feb, Active ENCOUNTERS Encounter Location Date Diagnosis [facility] [id number] [place] [address] -3860 Feb, Dysuria R30.0 and Acute cystitis with hematuria N30.01 [facility] [id number] [place] [address] 07216- 6214 January, [facility] [id number] [place] [address] 59961- 5536 Dec, Severe episode of recurrent major depressive disorder, without 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 [facility] [id number] [place] [address] 06447- 8062 Dec, [facility] [id number] [place] [address] 78748- 4039 Dec, Severe episode of recurrent major depressive disorder, without 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 and Post traumatic stress disorder (PTSD) F43.10 [facility] [id number] [place] [address] 42949- 1509 Nov, [facility] [address] [address]- 6567 Nov, Severe episode of recurrent major depressive disorder, without 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 and Post traumatic stress disorder (PTSD) F43.[address] [address]- 6462 Oct, Encounter for counseling regarding contraception Z30.09 ; Hyperthyroidism E05.90 and Chronic migraine G43.[address] 8[address]10- 6283 Jul, Encounter for surveillance of injectable contraceptive Z30.42 [facility] [address] [place] [address]46 -5178 Jul, Sore throat J02.9 ; Other viral agents as the cause of diseases classified elsewhere B97.89 and Acute upper respiratory infection, unspecified J06.[address] 66899- 6183 Jun, Visit for TB skin test Z11.[address] 65910- 8683 May, Physical exam, routine Z00.[address] 99279- 7644 May, Hyperthyroidism E05.90 and Post traumatic stress disorder ( PTSD) F43.[address] 69016- 6365 Apr, Routine gynecological examination Z01.419 ; High risk sexual behavior Z72.51 ; Encounter for surveillance of injectable contraceptive Z30.42 ; Hyperthyroidism E05.90 and Encounter for Depo-Provera contraception Z30.42 [facility] [address] [place] [address] 79208 -1454 Apr, Tinea corporis B35.[address] 19378- 8727 Mar, Thyrotoxicosis without thyroid storm, unspecified thyrotoxicosis type E05.90 [facility] [id number] [place] [address] 74802- 5140 Mar, [facility] [id number] [place] [address] 84635- 4274 Mar, [facility] [id number] [place] [address] 51225- 7029 Mar, Post traumatic stress disorder (PTSD) F43.10 and Hyperthyroidism E05.90 [facility] [address] 36558- 2290 13 Feb, 2017 Hyperthyroidism E05.90 ; Post traumatic stress disorder ( PTSD) F43.10 and Overdose, intentional self-harm, subsequent encounter T50.902D [facility] [id number] [place] [address] 11758- 3517 16 Jan, 2017 Post traumatic stress disorder (PTSD) F43.10 [facility] [id number] [place] [address] 14252- 6612 18 Dec, 2016 Hx of migraines Z86.69 ; Insect bite (nonvenomous), left thigh, initial encounter S70.362A and Post traumatic stress disorder (PTSD) F43.10 [facility] [id number] [place] [address] 58415- 3119 Dec, [facility] [id number] [place] [address] 91914- 3091 Nov, [place] [id number] [place] [address] 32403- 5117 Nov, Adjustment disorder with depressed mood F43.21 and Major depression, recurrent F33.9 [place] [id number] [place] [address] 80141- 9445 10 Nov, 2016 Oral contraceptive pill surveillance Z30.41 ; Routine screening for STI (sexually transmitted infection) Z11.3 ; Dysmenorrhea N94.6 ; Hx of migraines Z86.69 ; Deliberate self-cutting Z72.89 and Major depressive disorder, recurrent, moderate F33.1 [facility] [address] [address] 3626 09 Nov, 2015 [facility] [id number] [place] [address] 66636- 6325 25 May, 2015 [facility] [id number] [place] [address] 81757- 0101 17 May, 2015 [facility] [id number] [place] [address] 22016- 9705 15 May, 2015 Migraine headache 346.90 and Abdominal pain 789.00 [facility] [id number] [place] [address] 23136- 9046 14 May, 2015 [facility] [id number] [place] [address] 82536- 2692 Apr, Oligomenorrhea 626.1 and Screening for diabetes mellitus V77.1 [facility] [id number] [place] [address] 78154- 9892 Apr, Oligomenorrhea 626.1 ; Dark urine 791.9 and Screening for diabetes mellitus V77.1 [facility] [id number] [place] [address] 08063- 9001 Feb, Bipolar disorder, unspecified 296.80 [facility] [id number] [place] [address] 61375- 6071 Dec, [facility] [id number] [place] [address] 02953- 6694 Dec, [facility] [address] [place] [address] 07697- 0159 Dec, [facility] [id number] [place] [address] 30839- 1267 Dec, [facility] [id number] [place] [address] 09195- 3271 Dec, [facility] [id number] [place] [address] 67679- 3332 Jul, [facility] [place] [facility] [address] [id number] [place] [address]- 7983 Jul, [facility] [place] [facility] [address] [id number] [place] [address]- 1613 Jul, [facility] [place] [facility] [address] [id number] [place] [address]- 4193 Jul, [facility] [place] [facility] [address] [id number] [place] [address]- 6929 Jun, [facility] [place] [facility] [address] [id number] [place] [address]- 7757 May, [facility] [place] [facility] [address] [id number] [place] [address]- 0494 Apr, [facility] [place] [facility] [address] [id number] [place] [address]- 0752 Apr, [facility] [place] [facility] [address] [id number] [place] [address]- 1352 Mar, [facility] [place] [facility] [address] [id number] [place] [address]- 7860 Feb, [facility] [place] [facility] [address] [id number] [address]- 6754 Feb, [facility] [place] [facility] [address] [id number] [address]- 6135 Feb, [facility] [place] [facility] [address] [id number] [address]- 7495 January, [facility] [place] [facility] [address] [id number] [place] [address]- 8248 January, [facility] [place] [facility] [address] [id number] [address]- 1046 29 Dec, 2012 [facility] [place] [facility] [address] [id number] [address]- 8856 Dec, [facility] [place] [facility] [address] [id number] [address]- 6639 Nov, [facility] [place] [facility] [address] [id number] [place] [address]- 0447 Nov, [facility] [place] [facility] [address] [id number] [place] [address]- 4346 Sep, [facility] [place] [facility] [address] [id number] [place] [address]- 5871 Jun, [facility] [place] [facility] [address] [id number] [place] [address]- 1535 Jun, [facility] [place] [facility] [address] [id number] [place] [address]- 2633 May, [facility] [place] [facility] [address] [id number] [place] [address]- 5712 Mar, [facility] [place] [facility] [address] [facility] [id number] [place] [address]- 4762 Mar, [facility] [place] [facility] [address] [id number] [place] [address]- 1302 Mar, [facility] [place] [facility] [address] [id number] [place] [address]- 6280 Mar, [facility] [place] [facility] [address] [facility] [id number] [place] [address]- 7765 Feb, [facility] [place] [facility] [address] [id number] [place] [address]- 7518 Feb, [facility] [place] [facility] [address] [id number] [place] [address]- 6295 Feb, [facility] [place] [facility] [address] [id number] [place] [address]- 7472 Feb, [facility] [place] [facility] [address] [facility] [id number] [place] [address]- 9572 Feb, [facility] [place] [facility] [address] [facility] [id number] [place] [address]- 1278 January, [facility] [place] [facility] [address] [id number] [place] [address]- 6193 January, [facility] [place] [facility] [address] [id number] [place] [address]- 9228 January, [facility] [place] [facility] [address] [id number] [place] [address]- 9536 January, [facility] [place] [facility] [address] [id number] [place] [address]- 4722 January, [facility] [place] [facility] [address] [id number] [place] [address]- 0226 Dec, [facility] [place] [facility] [address] [id number] [place] [address]- 7083 Dec, [facility] [place] [facility] [address] [id number] [place] [address]- 6376 Dec, [facility] [place] [facility] [address] [id number] [place] [address]- 2802 Nov, [facility] [place] [facility] [address] [id number] [place] [address]- 1894 Oct, [facility] [place] [facility] [address] [id number] [place] [address]- 3453 Sep, [facility] [place] [facility] [address] [id number] [place] [address]- 4812 Jul, [facility] [place] [facility] [address] [id number] [place] [address]- 8925 Aug, [facility] [place] [facility] [address] [id number] [place] [address]- 9652 Jul, [facility] [place] [facility] [address] [id number] [place] [address]- 9643 Jun, [facility] [place] [facility] [address] [id number] [place] [address] Jun, [facility] [place] [facility] [address] [id number] [place] [address]- 8394 Jul, [facility] [address] [facility] [id number] 6680 Jul, [facility] [address] [address]- 3833 Aug, [facility] [id number] [address]- 8007 Aug, [facility] [address] 3626 Jul, [facility] [address] 4092 Jul, [facility] [address] [address]- 0860 Apr, [facility] [address] 9197 Oct, [facility] [id number] 8561 Jul, [facility] [id number] 5273 Apr, IMMUNIZATIONS No Known Immunizations SOCIAL HISTORY Never Assessed REASON FOR VISIT uti symptoms started yesterday JStrasserRN PLAN OF CARE Activity Details Follow Up 1 Week, prn Reason:if symptoms worsening or not improving VITAL SIGNS Height 64 in 2018-03-01 Weight 162.8 lbs 2018-03-01 Temperature 99.4 degrees Fahrenheit 2018-03-01 Heart Rate 92 bpm 2018-03-01 Respiratory Rate 18 2018-03-01 BMI 27.94 kg/m2 2018-03-01 Blood pressure systolic 112 mmHg 2018-03-01 Blood pressure diastolic 70 mmHg 2018-03-01 MEDICATIONS Medication Instructions Dosage Frequency Start Date End Date Duration Status Trintellix 10 mg orally once a day 1 tablet 24h Nov, Active Propranolol HCl 20 mg TAKE ONE TABLET BY MOUTH THREE TIMES DAILY 30 Active Methimazole 5 mg Orally 3 times a day 3 tablets with food 8h 30 Active Zoloft 50 MG Orally Once a day 1 tablet 24h 15 days Active Macrobid 100 mg Orally every 12 hrs 1 capsule with food 12h Feb, Feb, 7 day(s) Active Trintellix 20 mg Orally Once a day 1 tablet 24h Dec, 90 days Active Maxalt 10 mg Orally Once a day; may repeat in 2 hours if needed, no more than 2 doses in 24 hours 1 tablet at onset of headache May, 30 days Active RESULTS No Results PROCEDURES Procedure Date Ordered Result Body Site URINALYSIS, AUTO, W/O SCOPE March 01, 2018 URINE CULTURE/COLONY COUNT March 01, 2018 INSTRUCTIONS MEDICATIONS ADMINISTERED No Known Medications MEDICAL (GENERAL) HISTORY Type Description Date Medical History migraine headaches Medical History Unspecified episodic mood disorder Medical History Posttraumatic stress disorder Medical History Deliberate self-cutting Medical History Dysmenorrhea Medical History Overdose Zoloft 2016 Medical History Hyperthyroidism Medical History Gaves disease Hospitalization History rule out appendicitis 2006 Hospitalization History [facility]- [facility] Stay 2016 Hospitalization History [facility] Hyperthyroidism and overdose on Zoloft 02-23-2017
--- OUTSIDE RECORDS SUMMARY | 2018-08-21 11:25 | XMS REPORT ---
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 Name Role Phone KEVIN OLSONCHARLINE Unavailable PROBLEMS Type Condition ICD9-CM Code IKY81-BC Code Onset Dates Condition Status SNOMED Code Problem Severe episode of recurrent major depressive disorder, without 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 Active 54986111 Problem Chronic migraine G43.709 Active 83192354 Problem Hyperthyroidism E05.90 Active 15317878 Problem Post traumatic stress disorder (PTSD) F43.10 Active 04092340 ALLERGIES Substance Reaction Event Type Date Status IV contrast Unknown Non Drug Allergy Dec, Active ENCOUNTERS Encounter Location Date Diagnosis [facility] [id number] [place] [address]473 Feb, Dysuria R30.0 and Acute cystitis with hematuria N30.01 [facility] [address] [address] January, [facility] [id number] [place] [address]03- 2054 Dec, Severe episode of recurrent major depressive disorder, without 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 [facility] [id number] [place] [address] 71065- 2776 Dec, [facility] [id number] [place] [address] 50878- 8338 Dec, Severe episode of recurrent major depressive disorder, without 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 and Post traumatic stress disorder (PTSD) F43.10 [facility] [id number] [place] [address] 16048- 1554 Nov, [facility] [address] [address] Nov, Severe episode of recurrent major depressive disorder, without 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 and Post traumatic stress disorder (PTSD) F43.[address] [address]- [address] Oct, Encounter for counseling regarding contraception Z30.09 ; Hyperthyroidism E05.90 and Chronic migraine G43.[address] [address]- [address] Jul, Encounter for surveillance of injectable contraceptive Z30.42 [facility] [address] [place] [address]8894 Jul, Sore throat J02.9 ; Other viral agents as the cause of diseases classified elsewhere B97.89 and Acute upper respiratory infection, unspecified J06.[address] [address]- [address] Jun, Visit for TB skin test Z11.[address] [address]- [address] May, Physical exam, routine Z00.[address] [address]- [address]797 May, Hyperthyroidism E05.90 and Post traumatic stress disorder ( PTSD) F43.[address] [address]- [address]70 Apr, Routine gynecological examination Z01.419 ; High risk sexual behavior Z72.51 ; Encounter for surveillance of injectable contraceptive Z30.42 ; Hyperthyroidism E05.90 and Encounter for Depo-Provera contraception Z30.42 [facility] [address] [place] [address]98 -1772 Apr, Tinea corporis B35.[address] [address]- [address] Mar, Thyrotoxicosis without thyroid storm, unspecified thyrotoxicosis type E05.90 [place] [id number] [place] [address] 35758- 4137 Mar, [place] [id number] [place] [address] 20396- 4485 Mar, [place] [id number] [place] [address] 59730- 1846 Mar, Post traumatic stress disorder (PTSD) F43.10 and Hyperthyroidism E05.90 [address] [address] [address]- [address] 13 Feb, 2017 Hyperthyroidism E05.90 ; Post traumatic stress disorder ( PTSD) F43.10 and Overdose, intentional self-harm, subsequent encounter T50.902D [place] [id number] [place] [address] 60283- 5773 16 Jan, 2017 Post traumatic stress disorder (PTSD) F43.10 [place] [id number] [place] [address] 24215- 5587 18 Dec, 2016 Hx of migraines Z86.69 ; Insect bite (nonvenomous), left thigh, initial encounter S70.362A and Post traumatic stress disorder (PTSD) F43.10 [place] [id number] [place] [address] 54715- 7742 Dec, [place] [id number] [place] [address] 87489- 4528 Nov, [id number] [place] [address] 64507- 0756 Nov, Adjustment disorder with depressed mood F43.21 and Major depression, recurrent F33.9 [id number] [place] [address] 10521- 8014 10 Nov, 2016 Oral contraceptive pill surveillance Z30.41 ; Routine screening for STI (sexually transmitted infection) Z11.3 ; Dysmenorrhea N94.6 ; Hx of migraines Z86.69 ; Deliberate self-cutting Z72.89 and Major depressive disorder, recurrent, moderate F33.1 [address] [place] [id number] [address] 09 Nov, 2015 [facility] [id number] [place] [address] 93385- 0683 25 May, 2015 [facility] [id number] [place] [address] 74893- 0307 17 May, 2015 [facility] [id number] [place] [address] 68240- 0186 15 May, 2015 Migraine headache 346.90 and Abdominal pain 789.00 [facility] [id number] [place] [address] 41528- 4274 14 May, 2015 [facility] [id number] [place] [address] 10312- 6804 Apr, Oligomenorrhea 626.1 and Screening for diabetes mellitus V77.1 [facility] [id number] [place] [address] 52565- 3692 Apr, Oligomenorrhea 626.1 ; Dark urine 791.9 and Screening for diabetes mellitus V77.1 [facility] [id number] [place] [address] 03542- 2492 Feb, Bipolar disorder, unspecified 296.80 [facility] [id number] [place] [address] 88323- 7932 Dec, [facility] [id number] [place] [address] 33168- 7453 Dec, [facility] [id number] [place] [address] 95417- 8116 Dec, [facility] [id number] [place] [address] 92640- 8060 Dec, [facility] [id number] [place] [address] 34991- 1330 Dec, [facility] [id number] [place] [address] 52959- 0460 Jul, [facility] [place] [facility] [address] [id number] [place] [address]- 8186 Jul, [facility] [place] [facility] [address] [id number] [place] [address]- 6059 Jul, [facility] [place] [facility] [address] [id number] [place] [address]- 3336 Jul, [facility] [place] [facility] [address] [id number] [place] [address]- 0587 Jun, [facility] [place] [facility] [address] [id number] [place] [address]- 8864 May, [facility] [place] [facility] [address] [id number] [place] [address]- 1905 Apr, [facility] [place] [facility] [address] [id number] [place] [address]- 9175 Apr, [facility] [place] [facility] [address] [id number] [place] [address]- 3743 Mar, [facility] [place] [facility] [address] [id number] [place] [address]- 7898 Feb, [facility] [place] [facility] [address] [id number] [address]- 6405 Feb, [facility] [place] [facility] [address] [id number] [address]- 5546 Feb, [facility] [place] [facility] [address] [id number] [address]- 4425 January, [facility] [place] [facility] [address] [id number] [place] [address]- 5176 January, [facility] [place] [facility] [address] [id number], [place] [address]- 2056 29 Dec, 2012 [facility] [place] [facility] [address] [id number], [place] [address]- 0920 Dec, [facility] [place] [facility] [address] [id number] [address]- 8048 Nov, [facility] [place] [facility] [address] [id number] [place] [address]- 6202 Nov, [facility] [place] [facility] [address] [id number] [place] [address]- 8642 Sep, [facility] [place] [facility] [address] [id number] [place] [address]- 1745 Jun, [facility] [place] [facility] [address] [id number] [place] [address]- 9203 Jun, [facility] [place] [facility] [address] [id number] [place] [address]- 0841 May, [facility] [place] [facility] [address] [id number] [place] [address]- 1295 Mar, [facility] [place] [facility] [address] [facility] [id number] [place] [address]- 9444 Mar, [facility] [place] [facility] [address] [id number] [place] [address]- 5468 Mar, [facility] [place] [facility] [address] [id number] [place] [address]- 3234 Mar, [facility] [place] [facility] [address] [facility] [id number] [place] [address]- 2020 Feb, [facility] [place] [facility] [address] [id number] [place] [address]- 3907 Feb, [facility] [place] [facility] [address] [id number] [place] [address]- 5531 Feb, [facility] [place] [facility] [address] [id number] [place] [address]- 9582 Feb, [facility] [place] [facility] [address] [facility] [id number] [place] [address]- 8933 Feb, [facility] [place] [facility] [address] [facility] [id number] [place] [address]- 9086 January, [facility] [place] [facility] [address] [id number] [place] [address]- 3739 January, [facility] [place] [facility] [address] [id number] [place] [address]- 6301 January, [facility] [place] [facility] [address] [id number] [place] [address]- 4806 January, [facility] [place] [facility] [address] [id number] [place] [address]- 6654 January, [facility] [place] [facility] [address] [id number] [place] [address]- 7489 Dec, [facility] [place] [facility] [address] [id number] [place] [address]- 7796 Dec, [facility] [place] [facility] [address] [id number] [place] [address]- 3502 Dec, [facility] [place] [facility] [address] [id number] [place] [address]- 5117 Nov, [facility] [place] [facility] [address] [id number] [place] [address]- 3925 Oct, [facility] [place] [facility] [address] [id number] [place] [address]- 8063 Sep, [facility] [place] [facility] [address] [id number] [place] [address]- 1342 Jul, [facility] [place] [facility] [address] [id number] [place] [address]- 7681 Aug, [facility] [place] [facility] [address] [id number] [place] [address]- 3637 Jul, [facility] [place] [facility] [address] [id number] [place] [address]- 9065 Jun, [facility] [place] [facility] [address] [id number] [place] [address] Jun, [facility] [place] [facility] [address] [id number] [place] [address]- 7490 Jul, [facility] [id number] [address] Jul, [facility] [id number] [address]- 0374 Aug, [facility] [id number] [address]- 7187 Aug, [facility] [id number] [address] Jul, [facility] [id number] 8911 Jul, [facility] [id number] [place] [address]- 3954 Apr, [facility] [id number], [place] [address]- 5873 Oct, [facility] [id number] [address]- 5685 Jul, [facility] [id number] [address]- 3177 Apr, IMMUNIZATIONS No Known Immunizations SOCIAL HISTORY Never Assessed REASON FOR VISIT f/u PLAN OF CARE Activity Details Follow Up 4 Weeks, 6 Weeks Reason: VITAL SIGNS Height 64 in 2017-12-26 Weight 161.6 lbs 2017-12-26 Heart Rate 80 bpm 2017-12-26 Respiratory Rate 20 2017-12-26 BMI 27.74 kg/m2 2017-12-26 Blood pressure systolic 112 mmHg 2017-12-26 Blood pressure diastolic 72 mmHg 2017-12-26 MEDICATIONS Medication Instructions Dosage Frequency Start Date End Date Duration Status Trintellix 20 MG Orally Once a day 1 tablet 24h Dec, 30 day(s) Active Propranolol HCl 20 mg TAKE ONE TABLET BY MOUTH THREE TIMES DAILY 30 Active Trintellix 10 mg orally once a day 1 tablet 24h Nov, Active Zoloft 50 MG Orally Once a day 1 tablet 24h 15 days Active Maxalt 10 mg Orally Once a day; may repeat in 2 hours if needed, no more than 2 doses in 24 hours 1 tablet at onset of headache 15 May, 2015 Not- Taking Methimazole 5 mg Orally 3 times a day 3 tablets with food 8h 30 Active RESULTS No Results PROCEDURES No Known procedures INSTRUCTIONS MEDICATIONS ADMINISTERED No Known Medications MEDICAL [...]
--- OUTSIDE RECORDS SUMMARY | 2018-08-21 11:25 | XMS REPORT ---
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 Name Role Phone MORGANSofia SMITH Unavailable PROBLEMS Type Condition ICD9-CM Code WSO49-IA Code Onset Dates Condition Status SNOMED Code Problem Severe episode of recurrent major depressive disorder, without 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 Active 84685325 Problem Chronic migraine G43.709 Active 19004269 Problem Hyperthyroidism E05.90 Active 13147443 Problem Post traumatic stress disorder (PTSD) F43.10 Active [id number] ALLERGIES No Information ENCOUNTERS Encounter Location Date Diagnosis [facility] [id number] [place] [address]256 -5161 Feb, Dysuria R30.0 and Acute cystitis with hematuria N30.01 [facility] [id number] [place] [address] 36127- 6676 January, [facility] [id number] [place] [address] 17540- 8997 Dec, Severe episode of recurrent major depressive disorder, without 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 [facility] [id number] [place] [address] 14208- 4909 Dec, [facility] [id number] [place] [address] 87285- 7863 Dec, Severe episode of recurrent major depressive disorder, without 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 and Post traumatic stress disorder (PTSD) F43.10 [facility] [id number] [place] [address] 60358- 2493 Nov, [facility] [id number] [place] [address] 93025- 6491 Nov, Severe episode of recurrent major depressive disorder, without 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 and Post traumatic stress disorder (PTSD) F43.10 [facility] [id number] [place] [address] 69204- 1760 Oct, Encounter for counseling regarding contraception Z30.09 ; Hyperthyroidism E05.90 and Chronic migraine G43.709 [facility] [id number] [place] [address] 87981- 8406 Jul, Encounter for surveillance of injectable contraceptive Z30.42 [facility] [place] [id number] [place] [address] 18561 -9890 Jul, Sore throat J02.9 ; Other viral agents as the cause of diseases classified elsewhere B97.89 and Acute upper respiratory infection, unspecified J06.9 [facility] [facility] [id number] [place] [address] 80859- 4051 Jun, Visit for TB skin test Z11.1 [place] [address] 8[address]97- 4364 May, Physical exam, routine Z00.00 [address] [place] [id number] [place] [address] 32011- 0770 May, Hyperthyroidism E05.90 and Post traumatic stress disorder ( PTSD) F43.10 [facility] [facility] [id number] [place] [address] 80755- 3820 Apr, Routine gynecological examination Z01.419 ; High risk sexual behavior Z72.51 ; Encounter for surveillance of injectable contraceptive Z30.42 ; Hyperthyroidism E05.90 and Encounter for Depo-Provera contraception Z30.42 [facility] [place] [id number] [place] [address] 45260 -3124 Apr, Tinea corporis B35.4 [facility] [id number] [place] [address] 34078- 6552 Mar, Thyrotoxicosis without thyroid storm, unspecified thyrotoxicosis type E05.90 [facility] [id number] [place] [address] 55345- 6012 Mar, [facility] [id number] [place] [address] 10726- 6576 Mar, [facility] [id number] [place] [address] 39404- 0721 Mar, Post traumatic stress disorder (PTSD) F43.10 and Hyperthyroidism E05.90 [place] [address] 17451- 1252 13 Feb, 2017 Hyperthyroidism E05.90 ; Post traumatic stress disorder ( PTSD) F43.10 and Overdose, intentional self-harm, subsequent encounter T50.902D [place] [id number] [place] [address] 84469- 0353 16 Jan, 2017 Post traumatic stress disorder (PTSD) F43.10 [facility] [id number] [place] [address] 68540- 1838 18 Dec, 2016 Hx of migraines Z86.69 ; Insect bite (nonvenomous), left thigh, initial encounter S70.362A and Post traumatic stress disorder (PTSD) F43.10 [place] [id number] [place] [address] 85594- 6302 Dec, [place] [id number] [place] [address] 15350- 3433 Nov, [facility] [id number] [place] [address] 21385- 8105 Nov, Adjustment disorder with depressed mood F43.21 and Major depression, recurrent F33.9 [place] [id number] [place] [address] 96541- 4405 10 Nov, 2016 Oral contraceptive pill surveillance Z30.41 ; Routine screening for STI (sexually transmitted infection) Z11.3 ; Dysmenorrhea N94.6 ; Hx of migraines Z86.69 ; Deliberate self-cutting Z72.89 and Major depressive disorder, recurrent, moderate F33.1 [place] [id number] [place] [address] 60081- 8059 Nov, [facility] [address] [address]- 8011 25 May, 2015 [facility] [id number] [place] [address] 04323- 5591 17 May, 2015 [facility] [id number] [place] [address] 70887- 2878 15 May, 2015 Migraine headache 346.90 and Abdominal pain 789.00 [facility] [id number] [place] [address] 87155- 1322 14 May, 2015 [facility] [id number] [place] [address] 63706- 1828 Apr, Oligomenorrhea 626.1 and Screening for diabetes mellitus V77.1 [facility] [id number] [place] [address] 50040- 8203 Apr, Oligomenorrhea 626.1 ; Dark urine 791.9 and Screening for diabetes mellitus V77.1 [facility] [address] [place] [address] 46530- 0583 Feb, Bipolar disorder, unspecified 296.80 [facility] [address] [address]- 6426 Dec, [facility] [address] [address]- 4397 Dec, [facility] [address] [address]- 2388 Dec, [facility] [address] [address]- 5520 Dec, [facility] [id number] [place] [address] 82803- 3095 Dec, [facility] [address] [address]- 2494 Jul, [facility] [id number] [address]- [address] Jul, [facility] [address] [id number] [place] [address]- 2706 Jul, [facility] [address] [id number] [place] [address]- 3722 Jul, [facility] [address] [id number] [place] [address]- 2443 Jun, [facility] [address] [id number] [place] [address]- 8507 May, [facility] [address] [id number] [place] [address]- 6078 Apr, [facility] [address] [id number] [place] [address]- 8955 Apr, [facility] [address] [id number] [place] [address]- 4881 Mar, [facility] [address] [id number] [place] [address]- 5280 Feb, [facility] [address] [id number] [place] [address]- 9490 Feb, [facility] [address] [id number] [place] [address]- 1847 Feb, [facility] [address] [id number] [place] [address]- 7210 January, [facility] [address] [id number] [place] [address]- 2170 January, [facility] [place] [facility] [address] [id number] [place] [address]- 7032 29 Dec, 2012 [facility] [place] [facility] [address] [id number] [place] [address]- 3902 Dec, [facility] [place] [facility] [address] [id number] [place] [address]- 1311 Nov, [facility] [place] [facility] [address] [id number] [place] [address]- 2466 Nov, [facility] [place] [facility] [address] [id number] [place] [address]- 9923 Sep, [facility] [place] [facility] [address] [id number] [place] [address]- 7479 Jun, [facility] [place] [facility] [address] [id number] [place] [address]- 1467 Jun, [facility] [place] [facility] [address] [id number] [place] [address]- 6063 May, [facility] [place] [facility] [address] [id number] [place] [address]- 0796 Mar, [facility] [place] [facility] [address] [id number] [place] [address]- 5995 Mar, [facility] [place] [facility] [address] [id number] [place] [address]- 6108 Mar, [facility] [place] [facility] [address] [id number] [place] [address]- 5021 Mar, [facility] [place] [facility] [address] [id number] [place] [address]- 7082 Feb, [facility] [place] [facility] [address] [id number] [place] [address]- 5958 Feb, [facility] [place] [facility] [address] [id number] [address]- 5107 18 Feb, 2012 [facility] [place] [facility] [address] [id number] [place] [address]- 8066 Feb, [facility] [place] [facility] [address] [id number] [place] [address]- 2016 Feb, [facility] [place] [facility] [address] [id number] [place] [address]- 6401 January, [facility] [place] [facility] [address] [id number] [address]- 4813 January, [facility] [address] [id number] [place] [address]- 6736 January, [facility] [place] [facility] [address] [id number] [place] [address]- 0571 January, [facility] [address] [facility] [id number] [place] [address]- 9600 January, [facility] [place] [facility] [address] [id number] [place] [address]- 1965 Dec, [facility] [address] [id number] [place] [address]- 7611 Dec, [facility] [place] [facility] [address] [id number] [place] [address]- 4538 Dec, [facility] [address] [facility] [id number] [place] [address]- 6047 Nov, [facility] [place] [facility] [address] [id number] [place] [address]- 0112 Oct, [facility] [address] [facility] [id number] [place] [address]- 2972 Sep, [facility] [address] [facility] [id number] [place] [address]- 5625 Jul, [facility] [address] [id number] [place] [address]- 4826 Aug, [facility] [place] [facility] [address] [id number] [address]- 9085 Jul, [facility] [place] [facility] [address] [id number] [place] [address]- 0866 Jun, [facility] [place] [facility] [address] [facility] [id number] [place] [address]- 8912 Jun, [facility] [place] [facility] [address] [facility] [id number] [place] [address]- 1655 Jul, [facility] [place] [facility] [id number] [address]- 9116 Jul, [facility] [id number] [address] Aug, [facility] [address] [address]- 1540 Aug, [facility] [address] [address]- 6707 Jul, [facility] [address] [address]- 5381 Jul, [facility] [address] [address]- 0992 Apr, [facility] [address] [address]- 4585 Oct, [facility] [address] [address]- 8568 Jul, [facility] [id number] [address]- 0889 Apr, IMMUNIZATIONS No Known Immunizations SOCIAL HISTORY Never Assessed REASON FOR VISIT refill request PLAN OF CARE VITAL SIGNS MEDICATIONS Medication Instructions Dosage Frequency Start Date End Date Duration Status Maxalt 10 mg Orally Once a day; may repeat in 2 hours if needed, no more than 2 doses in 24 hours 1 tablet at onset of headache May, 30 days Active RESULTS No Results PROCEDURES No Known procedures INSTRUCTIONS MEDICATIONS ADMINISTERED No Known Medications MEDICAL (GENERAL) HISTORY Type Description Date Medical History migraine headaches Medical History Unspecified episodic mood disorder Medical History Posttraumatic stress disorder Medical History Deliberate self-cutting Medical History Dysmenorrhea Medical History Overdose Zoloft 2016 Medical History Hyperthyroidism Medical History Gaves disease Hospitalization History rule out appendicitis 2007 Hospitalization History [facility]- [facility] Stay 2017 Hospitalization History [facility] Hyperthyroidism and overdose on Zoloft 02-23-2017
--- OUTSIDE RECORDS SUMMARY | 2018-08-21 11:26 | XMS REPORT ---
Author Author KEY OLSON [facility] [address] Address [address] [place] [address] Care Team Providers Care Customer Care Team Coach Name Role Phone KEVIN OLSONCHARLINE Unavailable PROBLEMS Type Condition ICD9-CM Code SPP70-YS Code Onset Dates Condition Status SNOMED Code Problem Severe episode of recurrent major depressive disorder, without 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 Active 74073487 Problem Chronic migraine G43.709 Active 09609018 Problem Hyperthyroidism E05.90 Active 56986572 Problem Post traumatic stress disorder (PTSD) F43.10 Active 43607371 ALLERGIES No Information ENCOUNTERS Encounter Location Date Diagnosis [facility] WALK IN [facility] [id number] [place] [address] 79904 -7427 Feb, Dysuria R30.0 and Acute cystitis with hematuria N30.01 [facility] [id number] [place] [address] 38345- 8312 January, [facility] [id number] [place] [address] 60356- 7703 Dec, Severe episode of recurrent major depressive disorder, without 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 [facility] [id number] [place] [address] 97071- 5197 Dec, [facility] [id number] [place] [address] 28674- 6094 Dec, Severe episode of recurrent major depressive disorder, without 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 and Post traumatic stress disorder (PTSD) F43.10 [facility] [id number] [place] [address] 45601- 6837 Nov, [facility] [id number] [place] [address] 15964- 2501 Nov, Severe episode of recurrent major depressive disorder, without 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 and Post traumatic stress disorder (PTSD) F43.10 [place] [id number] [place] [address] 60242- 1390 Oct, Encounter for counseling regarding contraception Z30.09 ; Hyperthyroidism E05.90 and Chronic migraine G43.709 [place] [id number] [place] [address] 38719- 8479 Jul, Encounter for surveillance of injectable contraceptive Z30.42 [facility] [place] [id number] [place] [address] 37051 -7379 Jul, Sore throat J02.9 ; Other viral agents as the cause of diseases classified elsewhere B97.89 and Acute upper respiratory infection, unspecified J06.9 [place] [id number] [place] [address] 37510- 5585 Jun, Visit for TB skin test Z11.1 [place] [id number] [place] [address] 43278- 7748 May, Physical exam, routine Z00.00 [place] [id number] [place] [address] 73102- 7136 May, Hyperthyroidism E05.90 and Post traumatic stress disorder ( PTSD) F43.10 [place] [id number] [place] [address] 67956- 4919 16 Apr, 2017 Routine gynecological examination Z01.419 ; High risk sexual behavior Z72.51 ; Encounter for surveillance of injectable contraceptive Z30.42 ; Hyperthyroidism E05.90 and Encounter for Depo-Provera contraception Z30.42 [facility] WALK IN [facility] [id number] [place] [address] 95780 -5270 Apr, Tinea corporis B35.4 [place] [id number] [place] [address] 86227- 8519 Mar, Thyrotoxicosis without thyroid storm, unspecified thyrotoxicosis type E05.90 [place] [id number] [place] [address] 50398- 6857 Mar, [place] [id number] [place] [address] 53363- 5017 Mar, [place] [id number] [place] [address] 73072- 4602 Mar, Post traumatic stress disorder (PTSD) F43.10 and Hyperthyroidism E05.90 [place] [address] 40009- 0031 13 Feb, 2017 Hyperthyroidism E05.90 ; Post traumatic stress disorder ( PTSD) F43.10 and Overdose, intentional self-harm, subsequent encounter T50.902D [place] [id number] [place] [address] 47552- 9958 16 Jan, 2017 Post traumatic stress disorder (PTSD) F43.10 [place] [id number] [place] [address] 17254- 5449 18 Dec, 2016 Hx of migraines Z86.69 ; Insect bite (nonvenomous), left thigh, initial encounter S70.362A and Post traumatic stress disorder (PTSD) F43.10 [place] [id number] [place] [address] 56058- 0627 11 Dec, 2016 [place] [id number] [place] [address] 16606- 1468 Nov, [place] [id number] [place] [address] 42106- 5971 Nov, Adjustment disorder with depressed mood F43.21 and Major depression, recurrent F33.9 [place] [id number] [place] [address] 31560- 6658 10 Nov, 2016 Oral contraceptive pill surveillance Z30.41 ; Routine screening for STI (sexually transmitted infection) Z11.3 ; Dysmenorrhea N94.6 ; Hx of migraines Z86.69 ; Deliberate self-cutting Z72.89 and Major depressive disorder, recurrent, moderate F33.1 [place] [id number] [place] [address] 04709- 9494 Nov, [facility] [address] [address]- 5731 25 May, 2015 [facility] [id number] [place] [address] 668203- 0749 17 May, 2015 [facility] [id number] [place] [address] 40146- 6828 15 May, 2015 Migraine headache 346.90 and Abdominal pain 789.00 [facility] [id number] [place] [address] 29917- 1644 14 May, 2015 [facility] [id number] [place] [address] 27595- 1526 Apr, Oligomenorrhea 626.1 and Screening for diabetes mellitus V77.1 [facility] [id number] [place] [address] 39773- 3212 Apr, Oligomenorrhea 626.1 ; Dark urine 791.9 and Screening for diabetes mellitus V77.1 [facility] [id number] [place] [address] 71550- 8417 Feb, Bipolar disorder, unspecified 296.80 [facility] [id number] [address]- 3976 14 Dec, 2014 [facility] [address] [address]- 9626 Dec, [facility] [id number] [place] [address] 05754- 6384 Dec, [facility] [address] [address]- 3486 Dec, [facility] [id number] [place] [address] 20075- 9308 Dec, [facility] [address] [address]- 3356 Jul, [facility] [address] [place] [id number] [place] [address] Jul, [facility] [address] [id number] [place] [address]- 4447 Jul, [facility] [place] [facility] [address] [id number] [place] [address]- 6935 Jul, [facility] [place] [facility] [address] [id number] [place] [address]- 0229 Jun, [facility] [place] [facility] [address] [id number] [place] [address]- 6261 May, [facility] [place] [facility] [address] [id number] [place] [address]- 2279 Apr, [facility] [place] [facility] [address] [id number] [place] [address]- 3445 Apr, [facility] [place] [facility] [address] [id number] [place] [address]- 4915 Mar, [facility] [place] [facility] [address] [id number] [place] [address]- 6420 Feb, [facility] [place] [facility] [address] [id number] [place] [address]- 9614 Feb, [facility] [place] [facility] [address] [id number] [place] [address]- 4968 Feb, [facility] [place] [facility] [address] [id number] [place] [address]- 5594 January, [facility] [place] [facility] [address] [id number] [place] [address]- 4301 January, [facility] [place] [facility] [address] [id number] [place] [address]- 3812 29 Dec, 2012 [facility] [place] [facility] [address] [id number] [place] [address]- 3438 Dec, [facility] [place] [facility] [address] [id number] [place] [address]- 2047 Nov, [facility] [place] [facility] [address] [id number] [place] [address]- 4596 Nov, [facility] [place] [facility] [address] [id number] [place] [address]- 9676 Sep, [facility] [place] [facility] [address] [id number] [place] [address]- 6919 Jun, [facility] [place] [facility] [address] [id number] [place] [address]- 8242 Jun, [facility] [place] [facility] [address] [id number] [place] [address]- 9717 May, [facility] [place] [facility] [address] [id number] [place] [address]- 3426 Mar, [facility] [place] [facility] [address] [id number] [place] [address]- 9633 Mar, [facility] [place] [facility] [address] [id number] [place] [address]- 4845 Mar, [facility] [place] [facility] [address] [id number] [place] [address]- 8876 Mar, [facility] [place] [facility] [address] [id number] [place] [address]- 1491 Feb, [facility] [place] [facility] [address] [id number] [place] [address]- 7857 Feb, [facility] [place] [facility] [address] [id number] [place] [address]- 9670 Feb, [facility] [place] [facility] [address] [id number] [place] [address]- 1862 Feb, [facility] [place] [facility] [address] [id number] [place] [address]- 2009 Feb, [facility] [place] [facility] [address] [id number] [place] [address]- 1104 January, [facility] [place] [facility] [address] [id number] [place] [address]- 7284 January, [facility] [address] [id number] [place] [address]- 2240 January, [facility] [place] [facility] [address] [id number] [place] [address]- 7466 January, [facility] [place] [facility] [address] [id number] [place] [address]- 6421 January, [facility] [place] [facility] [address] [id number] [place] [address]- 6422 Dec, [facility] [place] [facility] [address] [id number] [place] [address]- 7202 Dec, [facility] [place] [facility] [address] [id number] [place] [address]- 3540 Dec, [facility] [address] [id number] [place] [address]- 8474 Nov, [facility] [place] [facility] [address] [id number] [place] [address]- 4954 Oct, [facility] [address] [id number] [place] [address]- 7289 Sep, [facility] [place] [facility] [address] [id number] [place] [address]- 2086 Jul, [facility] [place] [facility] [address] [id number], [place] [address]- 1026 Aug, [facility] [place] [facility] [address] [id number] [place] [address]- 7359 Jul, [facility] [place] [facility] [address] [id number] [place] [address]- 9647 Jun, [facility] [place] [facility] [address] [id number] [place] [address]- 0440 Jun, [facility] [place] [facility] [address] [id number] [place] [address]- 6579 Jul, [facility] [place] [facility] [address] [id number], [place] [address]- 8406 Jul, [facility] [id number] [address]- 1721 Aug, [facility] [id number] [address]- 4304 Aug, [facility] [id number] 9630 Jul, [facility] [address] 7766 Jul, [facility] [address] [place] [address]- 5149 Apr, [facility] [address] [place] [address]- 9023 Oct, [facility] [address] [place] [address]- 5243 Jul, [facility] [id number] [address]- 4255 Apr, IMMUNIZATIONS No Known Immunizations SOCIAL HISTORY Never Assessed REASON FOR VISIT PALS-trintellix PLAN OF CARE VITAL SIGNS MEDICATIONS Medication Instructions Dosage Frequency Start Date End Date Duration Status Trintellix 20 mg Orally Once a day 1 tablet 24h Dec, 90 days Active RESULTS No Results PROCEDURES No [...]
--- OUTSIDE RECORDS SUMMARY | 2018-08-21 11:26 | XMS REPORT ---
Author Author SMITH STEPHENSON Organization [facility] Address [address] [place] [address] Care Team Providers Care Hourly Team Members Name Role Phone MORGANSofia SMITH Unavailable PROBLEMS Type Condition ICD9-CM Code [id number] Code Onset Dates Condition Status SNOMED Code Problem Severe episode of recurrent major depressive disorder, without 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 Active 82663971 Problem Chronic migraine G43.709 Active 46584528 Problem Hyperthyroidism E05.90 Active 62136216 Problem Post traumatic stress disorder (PTSD) F43.10 Active [id number] ALLERGIES No Information ENCOUNTERS Encounter Location Date Diagnosis [facility] [id number] [place] [address]85 -0513 Feb, Dysuria R30.0 and Acute cystitis with hematuria N30.01 [facility] [id number] [place] [address] 35412- 1712 January, [facility] [id number] [place] [address] 04966- 0099 Dec, Severe episode of recurrent major depressive disorder, without 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 [facility] [id number] [place] [address] 70111- 9130 Dec, [facility] [id number] [place] [address] 37072- 8267 Dec, Severe episode of recurrent major depressive disorder, without 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 and Post traumatic stress disorder (PTSD) F43.10 [facility] [id number] [place] [address] 85754- 2866 Nov, [facility] [id number] [place] [address] 55964- 9888 Nov, Severe episode of recurrent major depressive disorder, without 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 and Post traumatic stress disorder (PTSD) F43.10 [place] [id number] [place] [address] 00307- 5786 Oct, Encounter for counseling regarding contraception Z30.09 ; Hyperthyroidism E05.90 and Chronic migraine G43.709 [place] [id number] [place] [address] 99528- 2567 Jul, Encounter for surveillance of injectable contraceptive Z30.42 [facility] [place] [id number] [place] [address] 46382 -0888 Jul, Sore throat J02.9 ; Other viral agents as the cause of diseases classified elsewhere B97.89 and Acute upper respiratory infection, unspecified J06.9 [place] [id number] [place] [address] 68962- 7003 Jun, Visit for TB skin test Z11.1 [place] [address] 07145- 4629 May, Physical exam, routine Z00.00 [place] [id number] [place] [address] 41189- 6669 May, Hyperthyroidism E05.90 and Post traumatic stress disorder ( PTSD) F43.10 [place] [id number] [place] [address] 13728- 9065 Apr, Routine gynecological examination Z01.419 ; High risk sexual behavior Z72.51 ; Encounter for surveillance of injectable contraceptive Z30.42 ; Hyperthyroidism E05.90 and Encounter for Depo-Provera contraception Z30.42 [facility] [place] [id number] [place] [address] 65807 -8175 Apr, Tinea corporis B35.4 [place] [id number] [place] [address] 91456- 8704 Mar, Thyrotoxicosis without thyroid storm, unspecified thyrotoxicosis type E05.90 [place] [id number] [place] [address] 03192- 4441 Mar, [place] [id number] [place] [address] 48320- 1493 Mar, [place] [id number] [place] [address] 59930- 3395 Mar, Post traumatic stress disorder (PTSD) F43.10 and Hyperthyroidism E05.90 [place] [address] 45894- 7548 13 Feb, 2017 Hyperthyroidism E05.90 ; Post traumatic stress disorder ( PTSD) F43.10 and Overdose, intentional self-harm, subsequent encounter T50.902D [place] [id number] [place] [address] 73692- 4606 16 Jan, 2017 Post traumatic stress disorder (PTSD) F43.10 [place] [id number] [place] [address] 00183- 9831 18 Dec, 2016 Hx of migraines Z86.69 ; Insect bite (nonvenomous), left thigh, initial encounter S70.362A and Post traumatic stress disorder (PTSD) F43.10 [place] [id number] [place] [address] 84450- 7429 Dec, [place] [id number] [place] [address] 77404- 7685 Nov, [place] [id number] [place] [address] 19219- 8436 Nov, Adjustment disorder with depressed mood F43.21 and Major depression, recurrent F33.9 [place] [address] [place] [address] 38503- 0852 10 Nov, 2016 Oral contraceptive pill surveillance Z30.41 ; Routine screening for STI (sexually transmitted infection) Z11.3 ; Dysmenorrhea N94.6 ; Hx of migraines Z86.69 ; Deliberate self-cutting Z72.89 and Major depressive disorder, recurrent, moderate F33.1 [place] [id number] [place] [address] 57207- 0966 Nov, [facility] [address] [address] 4055 25 May, 2015 [facility] [address] [place] [address] 05071- 6791 17 May, 2015 [facility] [address] [place] [address] 86784- 5919 15 May, 2015 Migraine headache 346.90 and Abdominal pain 789.00 [facility] [id number] [place] [address] 01895- 4180 14 May, 2015 [facility] [id number] [place] [address] 28482- 1403 Apr, Oligomenorrhea 626.1 and Screening for diabetes mellitus V77.1 [facility] [id number] [place] [address] 46585- 6560 Apr, Oligomenorrhea 626.1 ; Dark urine 791.9 and Screening for diabetes mellitus V77.1 [facility] [address] [place] [address] 41034- 9067 Feb, Bipolar disorder, unspecified 296.80 [facility] [address] [address] 2612 Dec, [facility] [address] [address]- 2342 Dec, [facility] [address] [place] [address] 1959 Dec, [facility] [address] [address]- 0965 Dec, [facility] [address] [place] [address] 23732- 6756 Dec, [facility] [address] [place] [address]- 7094 Jul, [facility] [id number] [place] [address] 2111 Jul, [facility] [address] [id number] [place] [address]- 5407 Jul, [facility] [address] [id number] [place] [address]- 3453 Jul, [facility] [address] [id number] [place] [address]- 0406 Jun, [facility] [address] [id number] [place] [address]- 3564 May, [facility] [address] [id number] [place] [address]- 9712 Apr, [facility] [address] [id number] [place] [address]- 8259 Apr, [facility] [address] [id number] [place] [address]- 7037 Mar, [facility] [address] [id number] [place] [address]- 4959 Feb, [facility] [address] [id number] [place] [address]- 1908 Feb, [facility] [address] [id number] [place] [address]- 9987 Feb, [facility] [address] [id number] [place] [address]- 3255 January, [facility] [address] [id number] [place] [address]- 9468 January, [facility] [place] [facility] [address] [id number] [place] [address]- 7598 29 Dec, 2012 [facility] [place] [facility] [address] [id number] [place] [address]- 2993 Dec, [facility] [place] [facility] [address] [id number] [place] [address]- 5130 Nov, [facility] [place] [facility] [address] [id number] [place] [address]- 9928 Nov, [facility] [place] [facility] [address] [id number] [place] [address]- 1945 Sep, [facility] [place] [facility] [address] [id number] [place] [address]- 5339 Jun, [facility] [place] [facility] [address] [id number] [place] [address]- 5526 Jun, [facility] [place] [facility] [address] [id number] [place] [address]- 1059 May, [facility] [place] [facility] [address] [id number] [place] [address]- 8333 Mar, [facility] [place] [facility] [address] [id number] [place] [address]- 7260 Mar, [facility] [place] [facility] [address] [id number] [place] [address]- 1682 Mar, [facility] [place] [facility] [address] [id number] [place] [address]- 6136 Mar, [facility] [place] [facility] [address] [id number] [place] [address]- 7402 Feb, [facility] [place] [facility] [address] [id number] [place] [address]- 8744 Feb, [facility] [place] [facility] [address] [id number], [place] [address]- 4378 18 Feb, 2012 [facility] [place] [facility] [address] [id number] [place] [address]- 9419 Feb, [facility] [place] [facility] [address] [id number] [place] [address]- 4856 Feb, [facility] [place] [facility] [address] [id number] [place] [address]- 3290 January, [facility] [place] [facility] [address] [id number], [place] [address]- 0982 January, [facility] [address] [id number] [place] [address]- 4450 January, [facility] [place] [facility] [address] [id number] [place] [address]- 9800 January, [facility] [address] [facility] [id number] [place] [address]- 3830 January, [facility] [place] [facility] [address] [id number] [place] [address]- 1474 Dec, [facility] [address] [id number] [place] [address]- 1736 Dec, [facility] [place] [facility] [address] [id number] [place] [address]- 3126 Dec, [facility] [address] [facility] [id number] [place] [address]- 3659 Nov, [facility] [place] [facility] [address] [id number] [place] [address]- 7960 Oct, [facility] [address] [facility] [id number] [place] [address]- 4646 Sep, [facility] [address] [facility] [id number] [place] [address]- 2350 Jul, [facility] [address] [id number] [place] [address]- 5239 Aug, [facility] [place] [facility] [address] [id number], [place] [address]- 2820 Jul, [facility] [place] [facility] [address] [id number] [place] [address]- 6007 Jun, [facility] [place] [facility] [address] [facility] [id number] [place] [address]- 9816 Jun, [facility] [place] [facility] [address] [facility] [id number] [place] [address]- 7662 Jul, [facility] [place] [facility] [id number] [address]- 9642 Jul, [facility] [id number] [address]- 3642 Aug, [facility] [address] [address] Aug, [facility] [id number] 2073 Jul, [facility] [address] 2910 Jul, [facility] [address], [place] [address]- 0091 Apr, [facility] [address], [place] [address]- 9933 Oct, [facility] [address], [place] [address]- 6598 Jul, [facility] [id number] [address]- 3523 Apr, IMMUNIZATIONS No Known Immunizations SOCIAL HISTORY Never Assessed REASON FOR VISIT repository request PLAN OF CARE VITAL SIGNS MEDICATIONS Medication Instructions Dosage Frequency Start Date End Date Duration Status Methimazole 5 mg Orally 3 times a day 3 tablets with food 8h 30 Active RESULTS No Results PROCEDURES No Known procedures INSTRUCTIONS MEDICATIONS ADMINISTERED No Known Medications MEDICAL (GENERAL) HISTORY Type Description Date Medical History migraine headaches Medical History Unspecified episodic mood disorder Medical History Posttraumatic stress disorder Medical History Deliberate self-cutting Medical History Dysmenorrhea Medical History Overdose Zoloft 2017 Medical History Hyperthyroidism Medical History Gaves disease Hospitalization History rule out appendicitis 2007 Hospitalization History [facility]- [facility] Stay 2017 Hospitalization History [facility] Hyperthyroidism and overdose on Zoloft 02-23-2017
--- OUTSIDE RECORDS SUMMARY | 2018-08-21 11:26 | XMS REPORT ---
Author Author KEY OLSON [facility] [address] Address [address] [place] [address] Care Team Providers Care Building Consultant Name Role Phone KEVIN OLSONCHARLINE Unavailable PROBLEMS Type Condition ICD9-CM Code EJO66-JV Code Onset Dates Condition Status SNOMED Code Problem Severe episode of recurrent major depressive disorder, without 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 Active 45416923 Problem Chronic migraine G43.709 Active 96398765 Problem Hyperthyroidism E05.90 Active 69855317 Problem Post traumatic stress disorder (PTSD) F43.10 Active [id number] ALLERGIES Substance Reaction Event Type Date Status IV contrast Unknown Non Drug Allergy Nov, Active ENCOUNTERS Encounter Location Date Diagnosis [facility] [id number] [place] [address]37 -8651 Feb, Dysuria R30.0 and Acute cystitis with hematuria N30.01 [facility] [id number] [place] [address] 05560- 7729 January, [facility] [id number] [place] [address] 87116- 9164 Dec, Severe episode of recurrent major depressive disorder, without 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 [facility] [id number] [place] [address] 50026- 9904 Dec, [facility] [id number] [place] [address] 07125- 6192 Dec, Severe episode of recurrent major depressive disorder, without 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 and Post traumatic stress disorder (PTSD) F43.10 [facility] [id number] [place] [address] 42840- 3816 Nov, [facility] [address] [address]- 4651 Nov, Severe episode of recurrent major depressive disorder, without 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 and Post traumatic stress disorder (PTSD) F43.[address] [address]- [address]27 Oct, Encounter for counseling regarding contraception Z30.09 ; Hyperthyroidism E05.90 and Chronic migraine G43.[address] 19699- 8649 Jul, Encounter for surveillance of injectable contraceptive Z30.42 [facility] [address] [place] [address]146 -2585 Jul, Sore throat J02.9 ; Other viral agents as the cause of diseases classified elsewhere B97.89 and Acute upper respiratory infection, unspecified J06.[address] 88692- 8079 Jun, Visit for TB skin test Z11.[address] 58625- 6447 May, Physical exam, routine Z00.[address] 31730- 1282 May, Hyperthyroidism E05.90 and Post traumatic stress disorder ( PTSD) F43.[address] [address]60- 6618 Apr, Routine gynecological examination Z01.419 ; High risk sexual behavior Z72.51 ; Encounter for surveillance of injectable contraceptive Z30.42 ; Hyperthyroidism E05.90 and Encounter for Depo-Provera contraception Z30.42 [facility] [address] [place] [address] 12134 -9320 Apr, Tinea corporis B35.[address] 83130- 4226 Mar, Thyrotoxicosis without thyroid storm, unspecified thyrotoxicosis type E05.90 [facility] [id number] [place] [address] 00078- 3146 Mar, [facility] [id number] [place] [address] 64439- 8820 Mar, [facility] [id number] [place] [address] 28991- 2615 Mar, Post traumatic stress disorder (PTSD) F43.10 and Hyperthyroidism E05.90 [address] [address] 95302- 6386 13 Feb, 2017 Hyperthyroidism E05.90 ; Post traumatic stress disorder ( PTSD) F43.10 and Overdose, intentional self-harm, subsequent encounter T50.902D [facility] [facility] [id number] [place] [address] 46181- 2292 16 Jan, 2017 Post traumatic stress disorder (PTSD) F43.10 [facility] [facility] [id number] [place] [address] 95668- 0545 18 Dec, 2016 Hx of migraines Z86.69 ; Insect bite (nonvenomous), left thigh, initial encounter S70.362A and Post traumatic stress disorder (PTSD) F43.10 [facility] [facility] [id number] [place] [address] 36583- 1480 Dec, [facility] [id number] [place] [address] 65944- 4957 Nov, [id number] [place] [address] 01894- 3290 Nov, Adjustment disorder with depressed mood F43.21 and Major depression, recurrent F33.9 [id number] [place] [address] 98384- 3475 10 Nov, 2016 Oral contraceptive pill surveillance Z30.41 ; Routine screening for STI (sexually transmitted infection) Z11.3 ; Dysmenorrhea N94.6 ; Hx of migraines Z86.69 ; Deliberate self-cutting Z72.89 and Major depressive disorder, recurrent, moderate F33.1 [place] [address] [address] [address] 09 Nov, 2015 [facility] [id number] [place] [address] 68947- 4623 25 May, 2015 [facility] [id number] [place] [address] 92313- 4559 17 May, 2015 [facility] [id number] [place] [address] 73473- 8111 15 May, 2015 Migraine headache 346.90 and Abdominal pain 789.00 [facility] [id number] [place] [address] 52236- 3619 14 May, 2015 [facility] [id number] [place] [address] 02641- 9749 Apr, Oligomenorrhea 626.1 and Screening for diabetes mellitus V77.1 [facility] [id number] [place] [address] 69034- 1082 Apr, Oligomenorrhea 626.1 ; Dark urine 791.9 and Screening for diabetes mellitus V77.1 [facility] [id number] [place] [address] 95897- 5921 Feb, Bipolar disorder, unspecified 296.80 [facility] [id number] [place] [address] 49962- 5884 Dec, [facility] [id number] [place] [address] 43880- 2001 Dec, [facility] [address] [place] [address] 14247- 4281 Dec, [facility] [id number] [place] [address] 07050- 5525 Dec, [facility] [id number] [place] [address] 57531- 6356 Dec, [facility] [id number] [place] [address] 43508- 0942 Jul, [facility] [place] [facility] [address] [id number] [place] [address]- 3046 Jul, [facility] [place] [facility] [address] [id number] [place] [address]- 7496 Jul, [facility] [place] [facility] [address] [id number] [place] [address]- 3792 Jul, [facility] [place] [facility] [address] [id number] [place] [address]- 3091 Jun, [facility] [place] [facility] [address] [id number] [place] [address]- 7102 May, [facility] [place] [facility] [address] [id number] [place] [address]- 3600 Apr, [facility] [place] [facility] [address] [id number] [place] [address]- 3088 Apr, [facility] [place] [facility] [address] [id number] [place] [address]- 1761 Mar, [facility] [place] [facility] [address] [id number] [place] [address]- 1276 Feb, [facility] [place] [facility] [address] [id number], [place] [address] 5589 Feb, [facility] [place] [facility] [address] [id number], [place] [address]- 4606 Feb, [facility] [place] [facility] [address] [id number], [place] [address] 3696 January, [facility] [place] [facility] [address] [id number] [place] [address]- 9579 January, [facility] [place] [facility] [address] [id number], [place] [address]- 7570 29 Dec, 2012 [facility] [place] [facility] [address] [id number], [place] [address]- 2247 Dec, [facility] [place] [facility] [address] [id number], [place] [address]- 7659 Nov, [facility] [place] [facility] [address] [id number] [place] [address]- 2731 Nov, [facility] [place] [facility] [address] [id number] [place] [address]- 5325 Sep, [facility] [place] [facility] [address] [id number] [place] [address]- 2389 Jun, [facility] [place] [facility] [address] [id number] [place] [address]- 2965 Jun, [facility] [place] [facility] [address] [id number] [place] [address]- 1963 May, [facility] [place] [facility] [address] [id number] [place] [address]- 6974 Mar, [facility] [place] [facility] [address] [facility] [id number] [place] [address]- 7055 Mar, [facility] [place] [facility] [address] [id number] [place] [address]- 5298 Mar, [facility] [place] [facility] [address] [id number] [place] [address]- 1697 Mar, [facility] [place] [facility] [address] [facility] [id number] [place] [address]- 6047 Feb, [facility] [place] [facility] [address] [id number] [place] [address]- 1727 Feb, [facility] [place] [facility] [address] [id number] [place] [address]- 1080 Feb, [facility] [place] [facility] [address] [id number] [place] [address]- 8847 Feb, [facility] [place] [facility] [address] [facility] [id number] [place] [address]- 5963 Feb, [facility] [place] [facility] [address] [facility] [id number] [place] [address]- 2082 January, [facility] [place] [facility] [address] [id number] [place] [address]- 3543 January, [facility] [place] [facility] [address] [id number] [place] [address]- 1771 January, [facility] [place] [facility] [address] [id number] [place] [address]- 2976 January, [facility] [place] [facility] [address] [id number] [place] [address]- 2232 January, [facility] [place] [facility] [address] [id number] [place] [address]- 2509 Dec, [facility] [place] [facility] [address] [id number] [place] [address]- 6707 Dec, [facility] [place] [facility] [address] [id number] [place] [address]- 2662 Dec, [facility] [place] [facility] [address] [id number] [place] [address]- 4418 Nov, [facility] [place] [facility] [address] [id number] [place] [address]- 8271 Oct, [facility] [place] [facility] [address] [id number] [place] [address]- 7778 Sep, [facility] [place] [facility] [address] [id number] [place] [address]- 9166 Jul, [facility] [place] [facility] [address] [id number] [place] [address]- 0059 Aug, [facility] [place] [facility] [address] [id number] [place] [address]- 0766 Jul, [facility] [place] [facility] [address] [id number] [place] [address]- 5434 Jun, [facility] [place] [facility] [address] [id number] [place] [address]398 Jun, [facility] [place] [facility] [address] [id number] [place] [address]- 2818 Jul, [facility] [id number] [address] Jul, [facility] [address] [place] [address]- 1321 Aug, [facility] [address] [address]- 9270 Aug, [facility] [address] [place] [address]- 0569 Jul, [facility] [address] 1225 Jul, [facility] [address] [place] [address] 87683- 6947 Apr, [facility] [address] [address]- 2896 Oct, [facility] [address], [place] [address]- 3419 Jul, [facility] [address] [address]482 Apr, IMMUNIZATIONS No Known Immunizations SOCIAL HISTORY Never Assessed REASON FOR VISIT [facility] intake-here for med refill. Enrique PLAN OF CARE Activity Details Follow Up 2 Weeks Reason: VITAL SIGNS Height 64 in 2017-12-19 Weight 161.9 lbs 2017-12-19 Heart Rate 96 bpm 2017-12-19 Respiratory Rate 20 2017-12-19 BMI 27.79 kg/m2 2017-12-19 Blood pressure systolic 110 mmHg 2017-12-19 Blood pressure diastolic 66 mmHg 2017-12-19 MEDICATIONS Medication Instructions Dosage Frequency Start Date End Date Duration Status Zoloft 50 MG Orally Once a day 1 tablet 24h 15 days Active Propranolol HCl 20 MG TAKE ONE TABLET BY MOUTH THREE TIMES DAILY 30 Active Maxalt 10 mg Orally Once a day; may repeat in 2 hours if needed, no more than 2 doses in 24 hours 1 tablet at onset of headache May, Not- Taking Trintellix 10 mg orally once a day 1 tablet 24h Nov, Active Methimazole 5 mg Orally 3 times [...] History rule out appendicitis 2006 Hospitalization History [facility] 2016 Hospitalization History [facility] Hyperthyroidism and overdose on Zoloft 02-23-2017
--- OUTSIDE RECORDS SUMMARY | 2018-08-21 11:26 | XMS REPORT ---
Author Author SMITH STEPHENSON Organization [facility] Address [address] [place] [address] Care Team Providers Care Consumer Lending Manager Name Role Phone MORGANSofia SMITH Unavailable PROBLEMS Type Condition ICD9-CM Code HUL45-LA Code Onset Dates Condition Status SNOMED Code Problem Severe episode of recurrent major depressive disorder, without 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 Active 56858709 Problem Chronic migraine G43.709 Active 17769824 Problem Hyperthyroidism E05.90 Active 20715773 Problem Post traumatic stress disorder (PTSD) F43.10 Active 36117710 ALLERGIES No Information ENCOUNTERS Encounter Location Date Diagnosis [facility] [id number] [place] [address] 72832 -2470 Feb, Dysuria R30.0 and Acute cystitis with hematuria N30.01 [facility] [id number] [place] [address] 78118- 3241 January, [facility] [id number] [place] [address] 24754- 8537 Dec, Severe episode of recurrent major depressive disorder, without 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 [facility] [id number] [place] [address] 77935- 7886 Dec, 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 [id number] [place] [address] 00953- 7568 Nov, [facility] [id number] [place] [address] 07711- 9550 Nov, Severe episode of recurrent major depressive disorder, without 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 and Post traumatic stress disorder (PTSD) F43.10 [place] [id number] [place] [address] 98871- 8079 Oct, Encounter for counseling regarding contraception Z30.09 ; Hyperthyroidism E05.90 and Chronic migraine G43.709 [place] [id number] [place] [address] 04020- 2789 Jul, Encounter for surveillance of injectable contraceptive Z30.42 [facility] [place] [id number] [place] [address] 22569 -4049 Jul, Sore throat J02.9 ; Other viral agents as the cause of diseases classified elsewhere B97.89 and Acute upper respiratory infection, unspecified J06.9 [place] [id number] [place] [address] 24239- 2500 Jun, Visit for TB skin test Z11.1 [place] [address] 21604- 8676 May, Physical exam, routine Z00.00 [place] [id number] [place] [address] 81829- 1737 May, Hyperthyroidism E05.90 and Post traumatic stress disorder ( PTSD) F43.10 [place] [id number] [place] [address] 12846- 1917 Apr, Routine gynecological examination Z01.419 ; High risk sexual behavior Z72.51 ; Encounter for surveillance of injectable contraceptive Z30.42 ; Hyperthyroidism E05.90 and Encounter for Depo-Provera contraception Z30.42 [facility] [place] [id number] [place] [address] 40628 -7284 Apr, Tinea corporis B35.4 [place] [id number] [place] [address] 77630- 1956 Mar, Thyrotoxicosis without thyroid storm, unspecified thyrotoxicosis type E05.90 [place] [id number] [place] [address] 32177- 6137 Mar, [place] [id number] [place] [address] 30051- 0399 Mar, [place] [id number] [place] [address] 32962- 1437 Mar, Post traumatic stress disorder (PTSD) F43.10 and Hyperthyroidism E05.90 [place] [address] 27347- 3876 13 Feb, 2017 Hyperthyroidism E05.90 ; Post traumatic stress disorder ( PTSD) F43.10 and Overdose, intentional self-harm, subsequent encounter T50.902D [place] [id number] [place] [address] 69111- 8258 16 Jan, 2017 Post traumatic stress disorder (PTSD) F43.10 [place] [id number] [place] [address] 43554- 3986 18 Dec, 2016 Hx of migraines Z86.69 ; Insect bite (nonvenomous), left thigh, initial encounter S70.362A and Post traumatic stress disorder (PTSD) F43.10 [place] [id number] [place] [address] 93217- 7816 Dec, [place] [id number] [place] [address] 43021- 6558 Nov, [place] [id number] [place] [address] 91020- 4075 Nov, Adjustment disorder with depressed mood F43.21 and Major depression, recurrent F33.9 [place] [id number] [place] [address] 06844- 7582 10 Nov, 2016 Oral contraceptive pill surveillance Z30.41 ; Routine screening for STI (sexually transmitted infection) Z11.3 ; Dysmenorrhea N94.6 ; Hx of migraines Z86.69 ; Deliberate self-cutting Z72.89 and Major depressive disorder, recurrent, moderate F33.1 [place] [id number] [place] [address] 27748- 2145 Nov, [facility] [address] [address] 4895 25 May, 2015 [facility] [id number] [place] [address] 71818- 4053 17 May, 2015 [facility] [id number] [place] [address] 94943- 4869 15 May, 2015 Migraine headache 346.90 and Abdominal pain 789.00 [facility] [id number] [place] [address] 74985- 0061 14 May, 2015 [facility] [id number] [place] [address] 11963- 7877 Apr, Oligomenorrhea 626.1 and Screening for diabetes mellitus V77.1 [facility] [id number] [place] [address] 04261- 2333 Apr, Oligomenorrhea 626.1 ; Dark urine 791.9 and Screening for diabetes mellitus V77.1 [facility] [id number] [place] [address] 81342- 3338 Feb, Bipolar disorder, unspecified 296.80 [facility] [address] [address] 0439 Dec, [facility] [address] [address] 5381 Dec, [facility] [address] [address] 7045 Dec, [facility] [address] [address] 6105 Dec, [facility] [id number] [place] [address] 05843- 7712 Dec, [facility] [address] [address]- 7043 Jul, [facility] [id number] [place] [address]- 8693 Jul, [facility] [address] [id number] [place] [address]- 2562 Jul, [facility] [address] [id number] [place] [address]- 3583 Jul, [facility] [address] [id number] [place] [address]- 3114 Jun, [facility] [address] [id number] [place] [address]- 5601 May, [facility] [address] [id number] [place] [address]- 2951 Apr, [facility] [address] [id number] [place] [address]- 8241 Apr, [facility] [address] [id number] [place] [address]- 3218 Mar, [facility] [address] [id number] [place] [address]- 4144 Feb, [facility] [address] [id number] [place] [address]- 1676 Feb, [facility] [address] [id number] [place] [address]- 0012 Feb, [facility] [address] [id number] [place] [address]- 5622 January, [facility] [address] [id number] [place] [address]- 7317 January, [facility] [place] [facility] [address] [id number] [place] [address]- 0682 29 Dec, 2012 [facility] [place] [facility] [address] [id number] [place] [address]- 6538 Dec, [facility] [place] [facility] [address] [id number] [place] [address]- 4234 Nov, [facility] [place] [facility] [address] [id number] [place] [address]- 0818 Nov, [facility] [place] [facility] [address] [id number] [place] [address]- 6409 Sep, [facility] [place] [facility] [address] [id number] [place] [address]- 6001 Jun, [facility] [place] [facility] [address] [id number] [place] [address]- 3591 Jun, [facility] [place] [facility] [address] [id number] [place] [address]- 5461 May, [facility] [place] [facility] [address] [id number] [place] [address]- 1282 Mar, [facility] [place] [facility] [address] [id number] [place] [address]- 6565 Mar, [facility] [place] [facility] [address] [id number] [place] [address]- 6594 Mar, [facility] [place] [facility] [address] [id number] [place] [address]- 0890 Mar, [facility] [place] [facility] [address] [id number] [place] [address]- 7379 Feb, [facility] [place] [facility] [address] [id number] [place] [address]- 6318 Feb, [facility] [place] [facility] [address] [id number], [place] [address]- 9380 18 Feb, 2012 [facility] [place] [facility] [address] [id number] [place] [address]- 9323 Feb, [facility] [place] [facility] [address] [id number] [place] [address]- 0816 Feb, [facility] [place] [facility] [address] [id number] [place] [address]- 2689 January, [facility] [place] [facility] [address] [id number], [place] [address]- 5300 January, [facility] [address] [id number] [place] [address]- 5998 January, [facility] [place] [facility] [address] [id number] [place] [address]- 9447 January, [facility] [address] [facility] [id number] [place] [address]- 1659 January, [facility] [place] [facility] [address] [id number] [place] [address]- 5731 Dec, [facility] [address] [id number] [place] [address]- 1693 Dec, [facility] [place] [facility] [address] [id number] [place] [address]- 5312 Dec, [facility] [address] [facility] [id number] [place] [address]- 9366 Nov, [facility] [place] [facility] [address] [id number] [place] [address]- 1729 Oct, [facility] [address] [facility] [id number] [place] [address]- 4105 Sep, [facility] [address] [facility] [id number] [place] [address]- 6563 Jul, [facility] [address] [id number] [place] [address]- 5948 Aug, [facility] [place] [facility] [address] [id number], [place] [address]- 3423 Jul, [facility] [place] [facility] [address] [id number] [place] [address]- 2023 Jun, [facility] [place] [facility] [address] [facility] [id number] [place] [address]- 7231 Jun, [facility] [place] [facility] [address] [facility] [id number] [place] [address]- 0669 Jul, [facility] [place] [facility] [id number] [address]- 0102 Jul, [facility] [address] [address] 2138 Aug, [facility] [address], [place] [address]- 1715 Aug, [facility] [address], [place] [address]- 6786 Jul, [facility] [address], [place] [address]- 7783 Jul, [facility] [address], [place] [address]- 7938 Apr, [facility] [address] [address] 1632 Oct, [facility] [address], [place] [address]- 1126 Jul, [facility] [id number], [place] [address]- 4263 Apr, IMMUNIZATIONS No Known Immunizations SOCIAL HISTORY Never Assessed REASON FOR VISIT Repository Medication PLAN OF CARE VITAL SIGNS MEDICATIONS Medication Instructions Dosage Frequency Start Date End Date Duration Status Propranolol HCl 20 mg TAKE ONE TABLET BY MOUTH THREE TIMES DAILY 30 Active RESULTS No Results PROCEDURES No [...]
--- OUTSIDE RECORDS SUMMARY | 2018-08-21 11:27 | XMS REPORT ---
Author Author SMITH STEPHENSON [facility] Address [address] [place] [address] Care Team Providers Care Gun Club Manager Name Role Phone SEEMA SMITH Unavailable PROBLEMS Type Condition ICD9-CM Code VGP28-FF Code Onset Dates Condition Status SNOMED Code Problem Severe episode of recurrent major depressive disorder, without 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 Active 99442777 Problem Chronic migraine G43.709 Active 88654139 Problem Hyperthyroidism E05.90 Active 29943798 Problem Post traumatic stress disorder (PTSD) F43.10 Active 17777762 ALLERGIES No Information ENCOUNTERS Encounter Location Date Diagnosis [facility] [address] [address]- 4091 Dec, [facility] [id number] [place] [address] 53207- 2814 Nov, [address] [address]- 1238 Nov, Severe episode of recurrent major depressive disorder, without 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 and Post traumatic stress disorder (PTSD) F43.10 [facility] [id number] [place] [address] 04604- 6826 Oct, Encounter for counseling regarding contraception Z30.09 ; Hyperthyroidism E05.90 and Chronic migraine G43.709 [facility] [id number] [place] [address] 88455- 2379 Jul, Encounter for surveillance of injectable contraceptive Z30.42 [facility] [id number] [place] [address] 51838 -2117 17 Jul, 2017 Sore throat J02.9 ; Other viral agents as the cause of diseases classified elsewhere B97.89 and Acute upper respiratory infection, unspecified J06.9 [place] [address] [place] [address] 13383- 5976 17 Jun, 2017 Visit for TB skin test Z11.1 [place] [id number] [place] [address] 25164- 3748 21 May, 2017 Physical exam, routine Z00.00 [place] [id number] [place] [address] 57523- 9322 May, Hyperthyroidism E05.90 and Post traumatic stress disorder ( PTSD) F43.10 [place] [id number] [place] [address] 79770- 8231 Apr, Routine gynecological examination Z01.419 ; High risk sexual behavior Z72.51 ; Encounter for surveillance of injectable contraceptive Z30.42 ; Hyperthyroidism E05.90 and Encounter for Depo-Provera contraception Z30.42 [facility] [id number] [place] [address] 86507 -2828 Apr, Tinea corporis B35.4 [place] [id number] [place] [address] 90643- 7184 Mar, Thyrotoxicosis without thyroid storm, unspecified thyrotoxicosis type E05.90 [place] [id number] [place] [address] 82888- 7046 Mar, [place] [id number] [place] [address] 94576- 0756 Mar, [place] [id number] [place] [address] 25556- 9228 Mar, Post traumatic stress disorder (PTSD) F43.10 and Hyperthyroidism E05.90 [place] [id number] [place] [address] 13971- 2187 Feb, Hyperthyroidism E05.90 ; Post traumatic stress disorder ( PTSD) F43.10 and Overdose, intentional self-harm, subsequent encounter T50.902D [place] [id number] [place] [address] 48337- 1923 January, Post traumatic stress disorder (PTSD) F43.10 [place] [id number] [place] [address] 36921- 4798 Dec, Hx of migraines Z86.69 ; Insect bite (nonvenomous), left thigh, initial encounter S70.362A and Post traumatic stress disorder (PTSD) F43.10 [place] [address] 25453- 0103 Dec, [place] [address] 83824- 9349 Nov, [place] [address] 89863- 8263 Nov, Adjustment disorder with depressed mood F43.21 and Major depression, recurrent F33.9 [place] [address] 09201- 5901 10 Nov, 2015 Oral contraceptive pill surveillance Z30.41 ; Routine screening for STI (sexually transmitted infection) Z11.3 ; Dysmenorrhea N94.6 ; Hx of migraines Z86.69 ; Deliberate self-cutting Z72.89 and Major depressive disorder, recurrent, moderate F33.1 [place] [id number] [place] [address] 18976- 4613 Nov, [place] [id number] [place] [address] 63134- 9916 May, [place] [address] 11360- 3239 17 May, 2015 [place] [address] 35370- 9852 May, Migraine headache 346.90 and Abdominal pain 789.00 [place] [id number] [place] [address] 19896- 7538 14 May, 2015 [place] [address] 85374- 2023 Apr, Oligomenorrhea 626.1 and Screening for diabetes mellitus V77.1 [facility] [id number] [place] [address] 40064- 9139 Apr, Oligomenorrhea 626.1 ; Dark urine 791.9 and Screening for diabetes mellitus V77.1 [facility] [id number] [place] [address] 66514- 7455 Feb, Bipolar disorder, unspecified 296.80 [facility] [id number] [place] [address] 03265- 2253 Dec, [facility] [id number] [place] [address] 62740- 3988 Dec, [facility] [id number] [place] [address] 71394- 9302 Dec, [facility] [id number] [place] [address] 86852- 4318 Dec, [facility] [id number] [place] [address] 60169- 2216 Dec, [facility] [id number] [place] [address] 86771- 3572 Jul, [facility] [id number] [address]- 9741 Jul, [facility] [id number] [place] [address] 82967- 9505 Jul, [facility] [id number] [address]- 7221 Jul, [facility] [id number] [place] [address] 436320- 3897 Jun, [facility] [id number] [place] [address] 588822- 0647 May, [facility] [id number] 6128 Apr, [facility] [address] [id number] [place] [address]- 1552 Apr, [facility] [place] [facility] [address] [id number] [place] [address]- 0189 Mar, [facility] [place] [facility] [address] [id number] [place] [address]- 2568 Feb, [facility] [place] [facility] [address] [id number] [place] [address]- 0816 Feb, [facility] [place] [facility] [address] [id number] [place] [address]- 0394 Feb, [facility] [place] [facility] [address] [id number] [place] [address]- 9732 January, [facility] [place] [facility] [address] [id number] [place] [address]- 2279 January, [facility] [place] [facility] [address] [id number] [place] [address]- 6396 Dec, [facility] [place] [facility] [address] [id number] [place] [address]- 7373 Dec, [facility] [place] [facility] [address] [id number] [place] [address]- 7585 Nov, [facility] [place] [facility] [address] [id number] [place] [address]- 4062 Nov, [facility] [place] [facility] [address] [id number] [place] [address]- 8831 Sep, [facility] [place] [facility] [address] [id number] [place] [address]- 2006 Jun, [facility] [place] [facility] [address] [id number] [place] [address]- 0246 Jun, [facility] [place] [facility] [address] [id number] [place] [address]- 3326 04 May, 2012 [facility] [place] [facility] [address] [id number] [place] [address]- 4795 Mar, [facility] [place] [facility] [address] [id number] [place] [address]- 0298 Mar, [facility] [place] [facility] [address] [id number] [place] [address]- 1565 Mar, [facility] [place] [facility] [address] [id number] [place] [address]- 4228 Mar, [facility] [place] [facility] [address] [id number] [place] [address]- 1779 Feb, [facility] [place] [facility] [address] [id number] [place] [address]- 9106 Feb, [facility] [place] [facility] [address] [id number] [place] [address]- 5541 Feb, [facility] [place] [facility] [address] [id number] [place] [address]- 4320 Feb, [facility] [place] [facility] [address] [id number] [place] [address]- 6559 Feb, [facility] [place] [facility] [address] [id number] [place] [address]- 4460 January, [facility] [place] [facility] [address] [id number] [place] [address]- 8230 January, [facility] [place] [facility] [address] [id number] [place] [address] January, [facility] [place] [facility] [address] [id number], [place] [address] January, [facility] [place] [facility] [address] [id number] [place] [address] January, [facility] [place] [facility] [address] [id number] [place] [address] Dec, [facility] [place] [facility] [address] [id number] [place] [address] Dec, [facility] [place] [facility] [address] [id number] [place] [address] Dec, [facility] [address] [id number] [place] [address] Nov, [facility] [place] [facility] [address] [id number] [place] [address] Oct, [facility] [address] [id number] [place] [address] Sep, [facility] [address] [id number] [place] [address] Jul, [facility] [address] [id number] [place] [address] Aug, [facility] [address] [id number] [place] [address] Jul, [facility] [address] [facility] [id number] [place] [address] Jun, [facility] [address] [facility] [id number] [place] [address] Jun, [facility] [address] [facility] [id number] [place] [address] Jul, [facility] [address] [facility] [id number] [place] [address] Jul, [facility] [address] [facility] [id number] [place] [address] Aug, [facility] [place] [facility] [address] [facility] [id number] [place] [address] Aug, [facility] [place] [facility] [address] [id number] [place] [address] Jul, [facility] [place] [facility] [address] [facility] [id number] [place] [address] Jul, [facility] [place] [facility] [address] [id number] [place] [address] Apr, [facility] [address] [facility] [id number] [place] [address] Oct, [facility] [address] [facility] [id number] [place] [address] Jul, [facility] [address] [facility] [id number] [place] [address] Apr, IMMUNIZATIONS No Known Immunizations SOCIAL HISTORY Never Assessed REASON FOR VISIT Loestrin refill PLAN OF CARE VITAL SIGNS MEDICATIONS Unknown Medications RESULTS No Results PROCEDURES No Known procedures [...]
--- OUTSIDE RECORDS SUMMARY | 2018-08-21 11:27 | XMS REPORT ---
Author Author SMITH STEPHENSON [facility] Address [address] [place] [address] Care Team Providers Care System Administration Advisor Name Role Phone SEEMA SMITH Unavailable PROBLEMS Type Condition ICD9-CM Code WHW45-IE Code Onset Dates Condition Status SNOMED Code Problem Severe episode of recurrent major depressive disorder, without 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 Active 77776195 Problem Chronic migraine G43.709 Active 96788812 Problem Hyperthyroidism E05.90 Active 83037214 Problem Post traumatic stress disorder (PTSD) F43.10 Active [id number] ALLERGIES No Information ENCOUNTERS Encounter Location Date Diagnosis [place] [id number] [place] [address] 44180- 4444 January, [facility] [id number] [place] [address] 77783- 0978 January, [facility] [id number] [place] [address] 73629- 5130 Dec, Severe episode of recurrent major depressive disorder, without 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 [facility] [id number] [place] [address] 09290- 7694 Dec, [facility] [id number] [place] [address] 65723- 4064 Dec, Severe episode of recurrent major depressive disorder, without 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 and Post traumatic stress disorder (PTSD) F43.10 [facility] [id number] [place] [address] 16581- 1249 Nov, [facility] [id number] [place] [address] 63234- 0511 Nov, Severe episode of recurrent major depressive disorder, without 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 and Post traumatic stress disorder (PTSD) F43.10 [place] [id number] [place] [address] 30990- 1565 Oct, Encounter for counseling regarding contraception Z30.09 ; Hyperthyroidism E05.90 and Chronic migraine G43.709 [place] [id number] [place] [address] 42570- 1183 Jul, Encounter for surveillance of injectable contraceptive Z30.42 [facility] [place] [id number] [place] [address] 90154 -8690 Jul, Sore throat J02.9 ; Other viral agents as the cause of diseases classified elsewhere B97.89 and Acute upper respiratory infection, unspecified J06.9 [place] [id number] [place] [address] 48176- 0218 Jun, Visit for TB skin test Z11.[address] 40358- 0887 May, Physical exam, routine Z00.00 [place] [id number] [place] [address] 84527- 5177 May, Hyperthyroidism E05.90 and Post traumatic stress disorder ( PTSD) F43.10 [place] [id number] [place] [address] 41387- 7198 Apr, Routine gynecological examination Z01.419 ; High risk sexual behavior Z72.51 ; Encounter for surveillance of injectable contraceptive Z30.42 ; Hyperthyroidism E05.90 and Encounter for Depo-Provera contraception Z30.42 [facility] [id number] [place] [address] 32833 -2538 Apr, Tinea corporis B35.4 [place] [id number] [place] [address] 05287- 3012 Mar, Thyrotoxicosis without thyroid storm, unspecified thyrotoxicosis type E05.90 [place] [id number] [place] [address] 66330- 1875 Mar, [place] [address] [address] 1545 Mar, [place] [id number] [place] [address] 38441- 0130 Mar, Post traumatic stress disorder (PTSD) F43.10 and Hyperthyroidism E05.90 [place] [id number] [place] [address] 46114- 6985 Feb, Hyperthyroidism E05.90 ; Post traumatic stress disorder ( PTSD) F43.10 and Overdose, intentional self-harm, subsequent encounter T50.902D [place] [id number] [place] [address] 14500- 0509 January, Post traumatic stress disorder (PTSD) F43.10 [place] [id number] [place] [address] 22928- 2765 18 Dec, 2016 Hx of migraines Z86.69 ; Insect bite (nonvenomous), left thigh, initial encounter S70.362A and Post traumatic stress disorder (PTSD) F43.10 [place] [id number] [place] [address] 99012- 7842 Dec, [place] [id number] [place] [address] 22078- 9153 Nov, [place] [id number] [place] [address] 92380- 2194 Nov, Adjustment disorder with depressed mood F43.21 and Major depression, recurrent F33.9 [place] [id number] [place] [address] 73389- 0071 10 Nov, 2015 Oral contraceptive pill surveillance Z30.41 ; Routine screening for STI (sexually transmitted infection) Z11.3 ; Dysmenorrhea N94.6 ; Hx of migraines Z86.69 ; Deliberate self-cutting Z72.89 and Major depressive disorder, recurrent, moderate F33.1 [place] [id number] [place] [address] 56430- 4268 Nov, [facility] [address] [address]- 5836 25 May, 2015 [facility] [id number] [place] [address] 76128- 1629 17 May, 2015 [facility] [id number] [place] [address] 88093- 9793 15 May, 2015 Migraine headache 346.90 and Abdominal pain 789.00 [facility] [id number] [place] [address] 35551- 8343 14 May, 2015 [facility] [id number] [place] [address] 56925- 2418 Apr, Oligomenorrhea 626.1 and Screening for diabetes mellitus V77.1 [facility] [id number] [place] [address] 40221- 0913 Apr, Oligomenorrhea 626.1 ; Dark urine 791.9 and Screening for diabetes mellitus V77.1 [facility] [id number] [place] [address] 40565- 8821 Feb, Bipolar disorder, unspecified 296.80 [facility] [id number] [place] [address] 24896- 9455 14 Dec, 2014 [facility] [address] [address]- 9855 Dec, [facility] [address] [address]- 6305 Dec, [facility] [id number] [place] [address] 07714- 4079 Dec, [facility] [id number] [place] [address] 36154- 4505 Dec, [facility] [address] [address]- 0076 Jul, [facility] [id number] [place] [address] 35244- 4332 Jul, [facility] [place] [facility] [address] [id number] [place] [address]- 3044 Jul, [facility] [place] [facility] [address] [id number] [place] [address]- 6667 Jul, [facility] [place] [facility] [address] [id number] [place] [address]- 5453 Jun, [facility] [place] [facility] [address] [id number] [place] [address]- 9474 May, [facility] [place] [facility] [address] [id number] [place] [address]- 3125 Apr, [facility] [place] [facility] [address] [id number] [place] [address]- 4612 Apr, [facility] [place] [facility] [address] [id number] [place] [address]- 5927 Mar, [facility] [place] [facility] [address] [id number] [place] [address]- 4956 Feb, [facility] [place] [facility] [address] [id number] [place] [address]- 6671 Feb, [facility] [place] [facility] [address] [id number] [place] [address]- 1013 Feb, [facility] [place] [facility] [address] [id number] [place] [address]- 9194 January, [facility] [place] [facility] [address] [id number] [address]- 7327 January, [facility] [place] [facility] [address] [id number] [place] [address]- 8116 Dec, [facility] [place] [facility] [address] [id number] [place] [address]- 9239 Dec, [facility] [place] [facility] [address] [id number] [place] [address]- 5048 Nov, [facility] [place] [facility] [address] [id number] [place] [address]- 1753 Nov, [facility] [address] [id number] [place] [address]- 5763 Sep, [facility] [place] [facility] [address] [id number] [place] [address]- 0862 Jun, [facility] [place] [facility] [address] [id number] [place] [address]- 5446 Jun, [facility] [place] [facility] [address] [id number] [place] [address]- 4928 May, [facility] [place] [facility] [address] [id number] [place] [address]- 6357 Mar, [facility] [place] [facility] [address] [id number] [place] [address]- 7603 Mar, [facility] [place] [facility] [address] [id number] [place] [address]- 6878 Mar, [facility] [place] [facility] [address] [id number] [place] [address]- 6335 Mar, [facility] [place] [facility] [address] [id number] [place] [address]- 7018 Feb, [facility] [place] [facility] [address] [id number] [place] [address]- 7435 Feb, [facility] [place] [facility] [address] [id number] [place] [address]- 0564 18 Feb, 2012 [facility] [place] [facility] [address] [id number] [place] [address]- 0842 Feb, [facility] [place] [facility] [address] [id number] [place] [address]- 7433 Feb, [facility] [place] [facility] [address] [id number] [place] [address]- 5608 January, [facility] [place] [facility] [address] [id number] [place] [address]- 5426 January, [facility] [place] [facility] [address] [id number] [place] [address]- 6446 January, [facility] [address] [id number] [place] [address]- 8630 January, [facility] [place] [facility] [address] [id number] [place] [address]- 7360 January, [facility] [address] [id number] [place] [address]- 0865 Dec, [facility] [address] [id number] [place] [address]- 2698 Dec, [facility] [place] [facility] [address] [id number] [place] [address]- 8726 Dec, [facility] [address] [id number] [place] [address]- 4788 Nov, [facility] [address] [id number] [place] [address]- 4662 Oct, [facility] [address] [id number] [place] [address]- 2347 Sep, [facility] [address] [id number] [place] [address]- 9678 Jul, [facility] [address] [id number] [place] [address]- 2502 Aug, [facility] [place] [facility] [address] [id number] [place] [address]- 6767 Jul, [facility] [place] [facility] [address] [id number] [place] [address]- 0880 Jun, [facility] [place] [facility] [address] [id number] [place] [address]- 4871 Jun, [facility] [place] [facility] [address] [id number] [place] [address]- 0254 Jul, [facility] [place] [facility] [address] [id number] [address]- 2546 Jul, [facility] [id number] [address]- 3112 Aug, [facility] [id number] [address]- 7306 Aug, [facility] [id number] [address]- 1569 Jul, [facility] [address] [address]- 5899 Jul, [facility] [id number] [address]- 7486 Apr, [facility] [address] [address]- 5869 Oct, [facility] [id number] [address]- 9013 Jul, [facility] [id number] [address]- 9014 Apr, IMMUNIZATIONS No Known Immunizations SOCIAL HISTORY Never Assessed REASON FOR VISIT TB skin test-Monie TURNER, This is the second TB recently. The first TB the PT didn't come back to get it read PLAN OF CARE Activity Details Follow Up 48-72 hours Reason: VITAL SIGNS MEDICATIONS Unknown Medications RESULTS No Results PROCEDURES Procedure Date Ordered Result Body Site TB INTRADERMAL 2017-07-10 N/A TB INTRADERMAL TEST Jul 10, 2017 LAB NOT BILLED BY [facility] Jul 10, 2017 INSTRUCTIONS MEDICATIONS ADMINISTERED No Known Medications MEDICAL [...]
--- OUTSIDE RECORDS SUMMARY | 2018-08-21 11:27 | XMS REPORT ---
Author Author MSITH STEPHENSON [facility] Address [address] [place] [address] Care Team Providers Care Intelligence Agent Name Role Phone MORGANSofia SMITH Unavailable PROBLEMS Type Condition ICD9-CM Code PXS56-IH Code Onset Dates Condition Status SNOMED Code Problem Severe episode of recurrent major depressive disorder, without 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 Active 25622740 Problem Chronic migraine G43.709 Active 09420635 Problem Hyperthyroidism E05.90 Active 48043036 Problem Post traumatic stress disorder (PTSD) F43.10 Active 91291747 ALLERGIES Substance Reaction Event Type Date Status IV contrast Unknown Non Drug Allergy Oct, Active ENCOUNTERS Encounter Location Date Diagnosis [facility] [id number] [place] [address] -0750 Feb, Dysuria R30.0 and Acute cystitis with hematuria N30.01 [facility] [id number] [place] [address] 99936- 6810 January, [facility] [id number] [place] [address] 05451- 3025 Dec, Severe episode of recurrent major depressive disorder, without 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 [facility] [id number] [place] [address] 89313- 2151 Dec, [facility] [id number] [place] [address] 27037- 8797 Dec, Severe episode of recurrent major depressive disorder, without 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 and Post traumatic stress disorder (PTSD) F43.10 [facility] [id number] [place] [address] 98586- 5701 Nov, [facility] [address] 57[address]- 9891 Nov, Severe episode of recurrent major depressive disorder, without 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 and Post traumatic stress disorder (PTSD) F43.10 [address] [id number] [place] [address] 86696- 9738 Oct, Encounter for counseling regarding contraception Z30.09 ; Hyperthyroidism E05.90 and Chronic migraine G43.[address] 18400- 6348 Jul, Encounter for surveillance of injectable contraceptive Z30.42 [facility] [address] [place] [address] -4663 Jul, Sore throat J02.9 ; Other viral agents as the cause of diseases classified elsewhere B97.89 and Acute upper respiratory infection, unspecified J06.[address] 61828- 9533 Jun, Visit for TB skin test Z11.[address] 10752- 8805 May, Physical exam, routine Z00.[address] 27843- 4268 May, Hyperthyroidism E05.90 and Post traumatic stress disorder ( PTSD) F43.10 [id number] [place] [address] 62366- 4682 Apr, Routine gynecological examination Z01.419 ; High risk sexual behavior Z72.51 ; Encounter for surveillance of injectable contraceptive Z30.42 ; Hyperthyroidism E05.90 and Encounter for Depo-Provera contraception Z30.42 [facility] [address] [place] [address] 09466 -3365 Apr, Tinea corporis B35.[address] 46809- 1721 Mar, Thyrotoxicosis without thyroid storm, unspecified thyrotoxicosis type E05.90 [address] [id number] [place] [address] 99629- 9709 Mar, [place] [address] 79085- 0446 14 Mar, 2017 [place] [id number] [place] [address] 91421- 9134 12 Mar, 2017 Post traumatic stress disorder (PTSD) F43.10 and Hyperthyroidism E05.90 [place] [address] 67203- 4537 13 Feb, 2017 Hyperthyroidism E05.90 ; Post traumatic stress disorder ( PTSD) F43.10 and Overdose, intentional self-harm, subsequent encounter T50.902D [place] [id number] [place] [address] 83648- 5054 16 Jan, 2017 Post traumatic stress disorder (PTSD) F43.10 [place] [address] 32855- 8028 18 Dec, 2016 Hx of migraines Z86.69 ; Insect bite (nonvenomous), left thigh, initial encounter S70.362A and Post traumatic stress disorder (PTSD) F43.10 [place] [id number] [place] [address] 95200- 8059 Dec, [place] [id number] [place] [address] 74026- 3399 Nov, [place] [id number] [place] [address] 73179- 0583 Nov, Adjustment disorder with depressed mood F43.21 and Major depression, recurrent F33.[address] 76260- 2146 10 Nov, 2016 Oral contraceptive pill surveillance Z30.41 ; Routine screening for STI (sexually transmitted infection) Z11.3 ; Dysmenorrhea N94.6 ; Hx of migraines Z86.69 ; Deliberate self-cutting Z72.89 and Major depressive disorder, recurrent, moderate F33.1 [facility] [address] [address] 7322 09 Nov, 2015 [facility] [id number] [place] [address] 81800- 0431 25 May, 2015 [facility] [id number] [place] [address] 81306- 5222 17 May, 2015 [facility] [address] 14021- 2133 15 May, 2015 Migraine headache 346.90 and Abdominal pain 789.00 [facility] [id number] [place] [address] 99186- 0845 14 May, 2015 [facility] [id number] [place] [address] 88436- 8979 Apr, Oligomenorrhea 626.1 and Screening for diabetes mellitus V77.1 [facility] [id number] [place] [address] 41354- 2254 Apr, Oligomenorrhea 626.1 ; Dark urine 791.9 and Screening for diabetes mellitus V77.1 [facility] [id number] [place] [address] 73234- 1682 Feb, Bipolar disorder, unspecified 296.80 [facility] [id number] [place] [address] 80975- 4729 14 Dec, 2014 [facility] [id number] [place] [address] 25020- 1701 13 Dec, 2014 [facility] [id number] [place] [address] 76000- 1147 Dec, [facility] [id number] [place] [address] 83430- 3378 Dec, [facility] [id number] [place] [address] 68230- 9839 Dec, [facility] [id number] [place] [address] 72157- 8685 Jul, [facility] [place] [facility] [address] [id number] [place] [address]- 1306 Jul, [facility] [place] [facility] [address] [id number] [place] [address]- 8525 Jul, [facility] [place] [facility] [address] [id number] [place] [address]- 6235 Jul, [facility] [place] [facility] [address] [id number] [place] [address]- 2686 Jun, [facility] [place] [facility] [address] [id number] [place] [address]- 1073 May, [facility] [place] [facility] [address] [id number] [place] [address]- 2292 Apr, [facility] [place] [facility] [address] [id number] [place] [address]- 2589 Apr, [facility] [place] [facility] [address] [id number] [place] [address]- 6512 Mar, [facility] [place] [facility] [address] [id number] [place] [address]- 3128 Feb, [facility] [place] [facility] [address] [id number] [place] [address]- 0057 Feb, [facility] [place] [facility] [address] [id number] [address]- 3450 Feb, [facility] [place] [facility] [address] [id number] [address]- 9034 January, [facility] [place] [facility] [address] [id number] [place] [address]- 8410 January, [facility] [place] [facility] [address] [id number] [place] [address]- 5882 29 Dec, 2012 [facility] [place] [facility] [address] [id number] [place] [address]- 3688 Dec, [facility] [place] [facility] [address] [id number] [place] [address]- 6031 Nov, [facility] [place] [facility] [address] [id number] [place] [address]- 1324 Nov, [facility] [place] [facility] [address] [id number] [place] [address]- 4470 Sep, [facility] [place] [facility] [address] [id number] [place] [address]- 3452 Jun, [facility] [place] [facility] [address] [id number] [place] [address]- 8928 Jun, [facility] [place] [facility] [address] [id number] [place] [address]- 8997 May, [facility] [place] [facility] [address] [id number] [place] [address]- 9572 Mar, [facility] [place] [facility] [address] [id number] [place] [address]- 1143 Mar, [facility] [place] [facility] [address] [id number] [place] [address]- 5937 Mar, [facility] [place] [facility] [address] [id number] [place] [address]- 1323 Mar, [facility] [place] [facility] [address] [id number] [place] [address]- 1974 Feb, [facility] [place] [facility] [address] [id number] [place] [address]- 4741 Feb, [facility] [place] [facility] [address] [id number] [place] [address]- 2254 18 Feb, 2012 [facility] [place] [facility] [address] [id number] [place] [address]- 1766 Feb, [facility] [place] [facility] [address] [id number] [place] [address]- 0829 Feb, [facility] [place] [facility] [address] [id number] [place] [address]- 8264 January, [facility] [place] [facility] [address] [id number] [place] [address]- 8980 January, [facility] [address] [id number] [place] [address]- 7947 January, [facility] [place] [facility] [address] [id number] [place] [address]- 3358 January, [facility] [address] [id number] [place] [address]- 6196 January, [facility] [address] [id number] [place] [address]- 9563 Dec, [facility] [place] [facility] [address] [id number] [place] [address]- 5136 Dec, [facility] [address] [id number] [place] [address]- 5552 Dec, [facility] [address] [id number] [place] [address]- 8182 Nov, [facility] [address] [id number] [place] [address]- 6722 Oct, [facility] [address] [id number] [place] [address]- 5580 Sep, [facility] [address] [id number] [place] [address]- 7134 Jul, [facility] [address] [id number] [place] [address]- 4313 Aug, [facility] [place] [facility] [address] [id number] [place] [address]- 7929 Jul, [facility] [place] [facility] [address] [id number] [place] [address]- 0519 Jun, [facility] [place] [facility] [address] [id number] [place] [address]- 9674 Jun, [facility] [place] [facility] [address] [id number] [address]- 4707 Jul, [facility] [address] [address]- 9412 Jul, [facility] [address] [address] Aug, [facility] [address] [address]- 7876 Aug, [facility] [id number] [place] [address] 505207- 7337 Jul, [facility] [address] 7677 Jul, [facility] [id number] [place] [address] 699408- 1731 Apr, [facility] [id number] [place] [address] 36056- 3996 Oct, [facility] [address] [address]- 7044 Jul, [facility] [address] [address]- 7704 Apr, IMMUNIZATIONS No Known Immunizations SOCIAL HISTORY Never Assessed REASON FOR VISIT control f/u, pt has a patch, states does not work well, states she gets migraines, has had a bad reaction to depo shot-AHarrymanRN, Has lab orders from , recently lost insurance PLAN OF CARE Activity Details Follow Up 6 Months, prn Reason:migraines VITAL SIGNS Height 64 in 2017-11-14 Weight 159.4 lbs 2017-11-14 Temperature 98.9 degrees Fahrenheit 2017-11-14 Heart Rate 72 bpm 2017-11-14 Respiratory Rate 20 2017-11-14 BMI 27.36 kg/m2 2017-11-14 Blood pressure systolic 104 mmHg 2017-11-14 Blood pressure diastolic 68 mmHg 2017-11-14 MEDICATIONS Medication Instructions Dosage Frequency Start Date End Date Duration Status Maxalt 10 mg Orally Once a day; may repeat in 2 hours if needed, no more than 2 doses in 24 hours 1 tablet at onset of headache May, Active Zoloft 100 mg Orally Once a day 1 tablet 24h 30 Active Propranolol HCl 20 MG TAKE ONE TABLET BY MOUTH THREE TIMES DAILY 30 Active Methimazole 5 mg Orally 3 times a day 3 tablets with food 8h 30 Active RESULTS No Results PROCEDURES Procedure Date Ordered Result Body Site FREE ASSAY (FT-3) Nov 14, 2017 VENIPUNCT, ROUTINE* Nov 14, 2017 INSTRUCTIONS MEDICATIONS ADMINISTERED No Known Medications [...]
--- OUTSIDE RECORDS SUMMARY | 2018-08-21 11:27 | XMS REPORT ---
Author Author SMITH STEPHENSON [facility] Address [address] [place] [address] Care Team Providers Care Strategic Planning Director Name Role Phone RAFAEL STEPHENSONA Unavailable PROBLEMS Type Condition ICD9-CM Code LLP07-JJ Code Onset Dates Condition Status SNOMED Code Problem Severe episode of recurrent major depressive disorder, without 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 Active 34150547 Problem Chronic migraine G43.709 Active 35728278 Problem Hyperthyroidism E05.90 Active 29110430 Problem Post traumatic stress disorder (PTSD) F43.10 Active 02081609 ALLERGIES No Information ENCOUNTERS Encounter Location Date Diagnosis [place] [id number] [place] [address] 39190- 3510 January, [place] [id number] [place] [address] 33372- 5199 Dec, Severe episode of recurrent major depressive disorder, without 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 [place] [id number] [place] [address] 89566- 3273 Dec, [place] [id number] [place] [address] 85967- 5884 Dec, Severe episode of recurrent major depressive disorder, without 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 and Post traumatic stress disorder (PTSD) F43.10 [facility] [id number] [place] [address] 75392- 1176 Nov, [facility] [id number] [place] [address] 14278- 1937 Nov, Severe episode of recurrent major depressive disorder, without 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 and Post traumatic stress disorder (PTSD) F43.10 [place] [id number] [place] [address] 28028- 2167 Oct, Encounter for counseling regarding contraception Z30.09 ; Hyperthyroidism E05.90 and Chronic migraine G43.709 [place] [id number] [place] [address] 95160- 5571 Jul, Encounter for surveillance of injectable contraceptive Z30.42 [facility] [id number] [place] [address] 78223 -3430 Jul, Sore throat J02.9 ; Other viral agents as the cause of diseases classified elsewhere B97.89 and Acute upper respiratory infection, unspecified J06.9 [place] [id number] [place] [address] 56381- 2134 Jun, Visit for TB skin test Z11.1 [place] [id number] [place] [address] 92206- 2869 May, Physical exam, routine Z00.[address] 20631- 4516 May, Hyperthyroidism E05.90 and Post traumatic stress disorder ( PTSD) F43.10 [place] [id number] [place] [address] 05789- 4209 Apr, Routine gynecological examination Z01.419 ; High risk sexual behavior Z72.51 ; Encounter for surveillance of injectable contraceptive Z30.42 ; Hyperthyroidism E05.90 and Encounter for Depo-Provera contraception Z30.42 [facility] [id number] [place] [address] 90695 -9102 Apr, Tinea corporis B35.4 [place] [id number] [place] [address] 41376- 6993 Mar, Thyrotoxicosis without thyroid storm, unspecified thyrotoxicosis type E05.90 [place] [id number] [place] [address] 82956- 4676 Mar, [place] [id number] [place] [address] 88242- 1562 Mar, [place] [id number] [place] [address] 61972- 8813 12 Mar, 2017 Post traumatic stress disorder (PTSD) F43.10 and Hyperthyroidism E05.90 [place] [id number] [place] [address] 22691- 1100 13 Feb, 2017 Hyperthyroidism E05.90 ; Post traumatic stress disorder ( PTSD) F43.10 and Overdose, intentional self-harm, subsequent encounter T50.902D [place] [id number] [place] [address] 47245- 4328 16 Jan, 2017 Post traumatic stress disorder (PTSD) F43.10 [place] [id number] [place] [address] 87041- 1149 18 Dec, 2016 Hx of migraines Z86.69 ; Insect bite (nonvenomous), left thigh, initial encounter S70.362A and Post traumatic stress disorder (PTSD) F43.10 [place] [id number] [place] [address] 91005- 4546 Dec, [place] [id number] [place] [address] 65562- 1907 Nov, [place] [id number] [place] [address] 65215- 8502 10 Nov, 2015 Adjustment disorder with depressed mood F43.21 and Major depression, recurrent F33.9 [place] [id number] [place] [address] 97187- 8158 10 Nov, 2015 Oral contraceptive pill surveillance Z30.41 ; Routine screening for STI (sexually transmitted infection) Z11.3 ; Dysmenorrhea N94.6 ; Hx of migraines Z86.69 ; Deliberate self-cutting Z72.89 and Major depressive disorder, recurrent, moderate F33.1 [place] [id number] [place] [address] 22430- 1308 09 Nov, 2015 [place] [id number] [place] [address] 56194- 3147 May, [facility] [address] [address] 2065 17 May, 2015 [facility] [id number] [place] [address] 04910- 5790 15 May, 2015 Migraine headache 346.90 and Abdominal pain 789.00 [facility] [id number] [place] [address] 85391- 3999 14 May, 2015 [facility] [id number] [place] [address] 21241- 7579 Apr, Oligomenorrhea 626.1 and Screening for diabetes mellitus V77.1 [facility] [id number] [place] [address] 59534- 4514 Apr, Oligomenorrhea 626.1 ; Dark urine 791.9 and Screening for diabetes mellitus V77.1 [facility] [id number] [place] [address] 03933- 4256 Feb, Bipolar disorder, unspecified 296.80 [facility] [id number] [place] [address] 18768- 0857 Dec, [facility] [id number] [place] [address] 66171- 2983 Dec, [facility] [address] [address]- 4443 Dec, [facility] [id number] [place] [address] 28905- 2559 Dec, [facility] [id number] [place] [address] 52635- 7484 Dec, [facility] [id number] [place] [address] 886425- 1563 Jul, [facility] [address] 6905 Jul, [facility] [id number] [place] [address] 942367- 3627 Jul, [facility] [place] [facility] [address] [id number] [place] [address]- 7690 Jul, [facility] [place] [facility] [address] [id number] [place] [address]- 2264 Jun, [facility] [place] [facility] [address] [id number] [place] [address]- 1426 May, [facility] [place] [facility] [address] [id number] [place] [address]- 1215 Apr, [facility] [place] [facility] [address] [id number] [place] [address]- 9387 Apr, [facility] [place] [facility] [address] [id number] [place] [address]- 4525 Mar, [facility] [place] [facility] [address] [id number] [place] [address]- 3570 Feb, [facility] [place] [facility] [address] [id number] [place] [address]- 8782 Feb, [facility] [place] [facility] [address] [id number] [place] [address]- 6183 Feb, [facility] [place] [facility] [address] [id number] [place] [address]- 8323 January, [facility] [place] [facility] [address] [id number] [place] [address]- 9023 January, [facility] [place] [facility] [address] [id number], [place] [address]- 7696 Dec, [facility] [place] [facility] [address] [id number] [place] [address]- 7304 Dec, [facility] [place] [facility] [address] [id number] [place] [address]- 5353 Nov, [facility] [place] [facility] [address] [id number] [place] [address]- 0332 Nov, [facility] [place] [facility] [address] [id number] [place] [address]- 9785 08 Sep, 2012 [facility] [place] [facility] [address] [id number] [place] [address]- 4906 Jun, [facility] [place] [facility] [address] [id number] [place] [address]- 9126 Jun, [facility] [place] [facility] [address] [id number] [place] [address]- 3576 May, [facility] [place] [facility] [address] [id number] [place] [address]- 5713 Mar, [facility] [place] [facility] [address] [id number] [place] [address]- 9136 Mar, [facility] [place] [facility] [address] [id number] [place] [address]- 1282 Mar, [facility] [place] [facility] [address] [id number] [place] [address]- 9729 Mar, [facility] [place] [facility] [address] [id number] [place] [address]- 9201 Feb, [facility] [place] [facility] [address] [id number] [place] [address]- 6260 Feb, [facility] [place] [facility] [address] [id number] [place] [address]- 3929 Feb, [facility] [place] [facility] [address] [id number] [place] [address]- 4403 Feb, [facility] [place] [facility] [address] [id number] [place] [address]- 8326 Feb, [facility] [place] [facility] [address] [id number] [place] [address]- 0943 January, [facility] [place] [facility] [address] [id number] [place] [address]- 0336 January, [facility] [place] [facility] [address] [id number] [place] [address]- 0199 January, [facility] [place] [facility] [address] [id number] [place] [address]- 6485 January, [facility] [address] [id number] [place] [address]- 0952 January, [facility] [place] [facility] [address] [id number] [place] [address]- 9993 Dec, [facility] [place] [facility] [address] [id number] [place] [address]- 8871 Dec, [facility] [place] [facility] [address] [id number] [place] [address]- 8956 Dec, [facility] [place] [facility] [address] [id number] [place] [address]- 1438 Nov, [facility] [address] [id number] [place] [address]- 0081 Oct, [facility] [address] [id number] [place] [address]- 7562 Sep, [facility] [address] [id number] [place] [address]- 5667 Jul, [facility] [address] [id number] [place] [address]- 4711 Aug, [facility] [place] [facility] [address] [id number] [place] [address]- 0599 Jul, [facility] [place] [facility] [address] [id number] [place] [address]- 5418 Jun, [facility] [place] [facility] [address] [id number] [place] [address]- 5467 Jun, [facility] [place] [facility] [address] [id number] [place] [address]- 7765 Jul, [facility] [place] [facility] [address] [id number] [place] [address]- 1850 Jul, [facility] [place] [facility] [address] [id number], [place] [address]- 2546 Aug, [facility] [address] [facility] [id number] [address]- 3292 Aug, [facility] [address] [facility] [id number], [place] [address]- 7036 Jul, [facility] [id number] [address]- 6707 Jul, [facility] [id number] [address]- 0824 Apr, [facility] [id number] [address]- 3821 Oct, [facility] [address] [place] [address]- 9507 Jul, [facility] [id number] [address]- 0284 Apr, IMMUNIZATIONS No Known Immunizations SOCIAL HISTORY Never Assessed REASON FOR VISIT Refill request PLAN OF CARE VITAL SIGNS MEDICATIONS Medication Instructions Dosage Frequency Start Date End Date Duration Status Zoloft 100 mg Orally Once a day 1 tablet 24h 30 days Active Methimazole 5 mg Orally 3 times a day 3 tablets with food 8h Active RESULTS No Results PROCEDURES No Known [...]
--- OUTSIDE RECORDS SUMMARY | 2018-08-21 11:28 | XMS REPORT ---
Author Author NERY MARIA Organization [facility] Address [address] 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 [id number] [place] [address] 03135- 1710 Nov, [facility] [address] [address]- [address] Nov, Severe episode of recurrent major depressive disorder, without 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 and Post traumatic stress disorder (PTSD) F43.10 [place] [id number] [place] [address] 76114- 4354 Oct, Encounter for counseling regarding contraception Z30.09 ; Hyperthyroidism E05.90 and Chronic migraine G43.709 [facility] [id number] [place] [address] 30454- 3936 Jul, Encounter for surveillance of injectable contraceptive Z30.42 [facility] [id number] [place] [address] 48144 -6872 Jul, Sore throat J02.9 ; Other viral agents as the cause of diseases classified elsewhere B97.89 and Acute upper respiratory infection, unspecified J06.9 [facility] [id number] [place] [address] 42414- 1896 17 Jun, 2017 Visit for TB skin test Z11.1 [place] [id number] [place] [address] 26265- 3218 21 May, 2017 Physical exam, routine Z00.00 [place] [id number] [place] [address] 80689- 3611 May, Hyperthyroidism E05.90 and Post traumatic stress disorder ( PTSD) F43.10 [place] [id number] [place] [address] 96255- 0171 Apr, Routine gynecological examination Z01.419 ; High risk sexual behavior Z72.51 ; Encounter for surveillance of injectable contraceptive Z30.42 ; Hyperthyroidism E05.90 and Encounter for Depo-Provera contraception Z30.42 [facility] [id number] [place] [address] 52088 -0403 Apr, Tinea corporis B35.4 [place] [id number] [place] [address] 76929- 2934 Mar, Thyrotoxicosis without thyroid storm, unspecified thyrotoxicosis type E05.90 [place] [id number] [place] [address] 36891- 4689 Mar, [place] [id number] [place] [address] 55990- 1613 Mar, [place] [id number] [place] [address] 39304- 6292 Mar, Post traumatic stress disorder (PTSD) F43.10 and Hyperthyroidism E05.90 [place] [id number] [place] [address] 06024- 4750 Feb, Hyperthyroidism E05.90 ; Post traumatic stress disorder ( PTSD) F43.10 and Overdose, intentional self-harm, subsequent encounter T50.902D [place] [id number] [place] [address] 59060- 3545 January, Post traumatic stress disorder (PTSD) F43.10 [facility] [id number] [place] [address] 13470- 8147 Dec, Hx of migraines Z86.69 ; Insect bite (nonvenomous), left thigh, initial encounter S70.362A and Post traumatic stress disorder (PTSD) F43.10 [place] [id number] [place] [address] 08461- 1885 Dec, [place] [id number] [place] [address] 92727- 6645 Nov, [place] [address] 15277- 9136 Nov, Adjustment disorder with depressed mood F43.21 and Major depression, recurrent F33.9 [place] [id number] [place] [address] 41140- 5404 10 Nov, 2015 Oral contraceptive pill surveillance Z30.41 ; Routine screening for STI (sexually transmitted infection) Z11.3 ; Dysmenorrhea N94.6 ; Hx of migraines Z86.69 ; Deliberate self-cutting Z72.89 and Major depressive disorder, recurrent, moderate F33.1 [place] [id number] [place] [address] 30096- 2179 Nov, [place] [id number] [place] [address] 70987- 2441 May, [place] [id number] [place] [address] 59184- 5013 May, [place] [id number] [place] [address] 22686- 8809 15 May, 2015 Migraine headache 346.90 and Abdominal pain 789.00 [place] [id number] [place] [address] 67059- 7057 14 May, 2015 [place] [id number] [place] [address] 31621- 6770 Apr, Oligomenorrhea 626.1 and Screening for diabetes mellitus V77.1 [facility] [address] [address] 5978 Apr, Oligomenorrhea 626.1 ; Dark urine 791.9 and Screening for diabetes mellitus V77.1 [facility] [address] [address] 0368 Feb, Bipolar disorder, unspecified 296.80 [facility] [id number] [place] [address] 96161- 4229 Dec, [facility] [id number] [place] [address] 26043- 0587 Dec, [facility] [id number] [place] [address] 83896- 5447 Dec, [facility] [id number] [place] [address] 77058- 8465 Dec, [facility] [id number] [address] 0415 Dec, [facility] [address] [address] 7284 Jul, [facility] [id number] [address] 5799 Jul, [facility] [address] [address] 1350 Jul, [facility] [address] [address] Jul, [facility] [address] [address] 4822 Jun, [facility] [address] [address]226 May, [facility] [address] [address]- 5924 Apr, [facility] [address] [place] [id number] [place] [address]- 1846 Apr, [facility] [address] [id number] [place] [address]- 0578 Mar, [facility] [address] [id number] [place] [address]- 9606 Feb, [facility] [address] [id number] [place] [address]- 8814 Feb, [facility] [address] [id number] [place] [address]- 8318 Feb, [facility] [address] [id number] [place] [address]- 8169 January, [facility] [address] [id number] [place] [address]- 1136 January, [facility] [address] [id number] [place] [address]- 3729 Dec, [facility] [address] [id number] [place] [address]- 2912 Dec, [facility] [address] [id number] [place] [address]- 6722 Nov, [facility] [address] [id number] [place] [address]- 7911 Nov, [facility] [address] [id number] [place] [address]- 9905 Sep, [facility] [address] [id number] [place] [address]- 2133 Jun, [facility] [place] [facility] [address] [id number] [place] [address]- 8766 Jun, [facility] [address] [id number] [place] [address]- 2546 May, [facility] [address] [id number] [place] [address]- 6085 Mar, [facility] [place] [facility] [address] [id number] [place] [address]- 7268 Mar, [facility] [place] [facility] [address] [id number] [place] [address]- 8592 Mar, [facility] [place] [facility] [address] [id number] [place] [address]- 2341 30 Mar, 2012 [facility] [place] [facility] [address] [id number] [place] [address]- 8662 Feb, [facility] [place] [facility] [address] [id number] [place] [address]- 7569 Feb, [facility] [place] [facility] [address] [id number] [place] [address]- 3276 Feb, [facility] [place] [facility] [address] [id number] [place] [address]- 1751 Feb, [facility] [place] [facility] [address] [id number] [place] [address]- 5948 Feb, [facility] [place] [facility] [address] [id number] [place] [address]- 9826 January, [facility] [place] [facility] [address] [id number] [place] [address]- 9475 January, [facility] [place] [facility] [address] [id number] [place] [address]- 2767 January, [facility] [place] [facility] [address] [id number], [place] [address]- 2620 January, [facility] [place] [facility] [address] [id number] [place] [address]- 9848 January, [facility] [place] [facility] [address] [id number] [place] [address]- 7656 Dec, [facility] [place] [facility] [address] [id number] [place] [address]- 6648 Dec, [facility] [place] [facility] [address] [id number], [place] [address]- 1699 Dec, [facility] [place] [facility] [address] [id number] [place] [address]- 0736 Nov, [facility] [place] [facility] [address] [id number], [place] [address]- 0141 Oct, [facility] [place] [facility] [address] [facility] [id number] [place] [address]- 0319 Sep, [facility] [place] [facility] [address] [id number] [place] [address]- 4193 Jul, [facility] [place] [facility] [address] [facility] [id number] [place] [address]- 6772 Aug, [facility] [place] [facility] [address] [facility] [id number] [place] [address]- 5409 Jul, [facility] [place] [facility] [id number] [address]- 4472 Jun, [facility] [place] [facility] [address] [facility] [id number], [place] [address]- 1332 Jun, [facility] [place] [facility] [id number] [place] [address]- 4933 Jul, [facility] [place] [facility] [id number] [address]- 0951 Jul, [facility] [place] [facility] [address] [facility] [id number], [place] [address]- 1131 Aug, [facility] [place] [facility] [address] [facility] [id number], [place] [address]- 2171 Aug, [facility] [place] [facility] [address] [facility] [id number], [place] [address]- 9206 Jul, [facility] [place] [facility] [address] [facility] [id number], [place] [address]- 5565 Jul, [facility] [place] [facility] [id number] 6301 Apr, [facility] [place] [facility] [address] [facility] [id number] [place] [address]- 4767 Oct, [facility] [address] [facility] [id number], [place] [address]- 6[address] Jul, [facility] [address] [facility] [id number] [place] [address] Apr, IMMUNIZATIONS No Known Immunizations SOCIAL HISTORY Never Assessed REASON FOR VISIT Endo Referral PLAN OF CARE VITAL SIGNS MEDICATIONS Unknown [...] 2006 Hospitalization History [facility]- Mental Stay 2017 Hospitalization History [facility] Hyperthyroidism and overdose on Zoloft 02-23-2017
--- OUTSIDE RECORDS SUMMARY | 2018-08-21 11:28 | XMS REPORT ---
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 Phone LENIN KENNEDY Unavailable PROBLEMS Type Condition ICD9-CM Code [id number] Code Onset Dates Condition Status SNOMED Code Problem Severe episode of recurrent major depressive disorder, without 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 Active 47374361 Problem Chronic migraine G43.709 Active 89315923 Problem Hyperthyroidism E05.90 Active 91570399 Problem Post traumatic stress disorder (PTSD) F43.10 Active [id number] ALLERGIES Substance Reaction Event Type Date Status IV contrast Unknown Non Drug Allergy May, Active ENCOUNTERS Encounter Location Date Diagnosis [place] [id number] [place] [address] 78861- 7490 January, [facility] [id number] [place] [address] 20655- 0919 Dec, Severe episode of recurrent major depressive disorder, without 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 [facility] [id number] [place] [address] 32456- 8531 Dec, [facility] [id number] [place] [address] 94799- 1051 Dec, Severe episode of recurrent major depressive disorder, without 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 and Post traumatic stress disorder (PTSD) F43.10 [facility] [id number] [place] [address] 04559- 4642 Nov, [facility] [id number] [place] [address] 59712- 6156 Nov, Severe episode of recurrent major depressive disorder, without 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 and Post traumatic stress disorder (PTSD) F43.10 [place] [id number] [place] [address] 35822- 8750 Oct, Encounter for counseling regarding contraception Z30.09 ; Hyperthyroidism E05.90 and Chronic migraine G43.709 [place] [id number] [place] [address] 89622- 7987 Jul, Encounter for surveillance of injectable contraceptive Z30.42 [facility] [address] [address] Jul, Sore throat J02.9 ; Other viral agents as the cause of diseases classified elsewhere B97.89 and Acute upper respiratory infection, unspecified J06.[address] 9[address]82- [address]68 Jun, Visit for TB skin test Z11.[address] 38386- 6636 May, Physical exam, routine Z00.[address] 28685- 7545 May, Hyperthyroidism E05.90 and Post traumatic stress disorder ( PTSD) F43.[address] 62339- 3567 Apr, Routine gynecological examination Z01.419 ; High risk sexual behavior Z72.51 ; Encounter for surveillance of injectable contraceptive Z30.42 ; Hyperthyroidism E05.90 and Encounter for Depo-Provera contraception Z30.42 [facility] [place] [id number] [place] [address] 99[address] -1039 Apr, Tinea corporis B35.[address] 09126- 4775 Mar, Thyrotoxicosis without thyroid storm, unspecified thyrotoxicosis type E05.[address] 29688- 5479 Mar, [address] 49878- 3331 14 Mar, 2017 [place] [id number] [place] [address] 62643- 3703 12 Mar, 2017 Post traumatic stress disorder (PTSD) F43.10 and Hyperthyroidism E05.90 [facility] [id number] [place] [address] 36910- 5595 13 Feb, 2017 Hyperthyroidism E05.90 ; Post traumatic stress disorder ( PTSD) F43.10 and Overdose, intentional self-harm, subsequent encounter T50.902D [place] [id number] [place] [address] 33002- 2267 16 Jan, 2017 Post traumatic stress disorder (PTSD) F43.10 [place] [id number] [place] [address] 07020- 5833 18 Dec, 2016 Hx of migraines Z86.69 ; Insect bite (nonvenomous), left thigh, initial encounter S70.362A and Post traumatic stress disorder (PTSD) F43.10 [place] [id number] [place] [address] 23193- 5401 11 Dec, 2016 [place] [id number] [place] [address] 60691- 4900 Nov, [place] [id number] [place] [address] 46333- 6157 10 Nov, 2015 Adjustment disorder with depressed mood F43.21 and Major depression, recurrent F33.9 [place] [id number] [place] [address] 06406- 2759 10 Nov, 2015 Oral contraceptive pill surveillance Z30.41 ; Routine screening for STI (sexually transmitted infection) Z11.3 ; Dysmenorrhea N94.6 ; Hx of migraines Z86.69 ; Deliberate self-cutting Z72.89 and Major depressive disorder, recurrent, moderate F33.1 [place] [id number] [place] [address] 32974- 2289 09 Nov, 2015 [place] [id number] [place] [address] 19737- 5107 25 May, 2015 [facility] [id number] [place] [address] 60903- 9284 17 May, 2015 [facility] [id number] [place] [address] 792783- 7567 15 May, 2015 Migraine headache 346.90 and Abdominal pain 789.00 [facility] [id number] [place] [address] 65661- 3258 14 May, 2015 [facility] [id number] [place] [address] 31434- 9775 Apr, Oligomenorrhea 626.1 and Screening for diabetes mellitus V77.1 [facility] [address] [address]- [address] Apr, Oligomenorrhea 626.1 ; Dark urine 791.9 and Screening for diabetes mellitus V77.1 [facility] [id number] [place] [address] 97979- 1402 Feb, Bipolar disorder, unspecified 296.80 [facility] [id number] [place] [address] 18432- 8160 Dec, [facility] [id number] [place] [address] 11150- 7047 Dec, [facility] [id number] [place] [address] 37774- 1420 Dec, [facility] [id number] [place] [address] 29649- 8893 Dec, [facility] [id number] [place] [address] 86940- 2786 Dec, [facility] [id number] [place] [address] 41925- 9022 Jul, [facility] [id number] [place] [address] 50019- 2079 Jul, [facility] [address] [place] [address]- 2760 Jul, [facility] [address] [id number] [place] [address]- 2317 Jul, [facility] [place] [facility] [address] [id number] [place] [address]- 7139 Jun, [facility] [place] [facility] [address] [id number] [place] [address]- 5693 May, [facility] [place] [facility] [address] [id number] [place] [address]- 2651 Apr, [facility] [place] [facility] [address] [id number] [place] [address]- 2501 Apr, [facility] [place] [facility] [address] [id number] [place] [address]- 7823 Mar, [facility] [address] [id number] [place] [address]- 5138 Feb, [facility] [place] [facility] [address] [id number] [place] [address]- 6032 Feb, [facility] [place] [facility] [address] [id number] [place] [address]- 4063 Feb, [facility] [place] [facility] [address] [id number] [place] [address]- 2563 January, [facility] [place] [facility] [address] [id number] [place] [address]- 8772 January, [facility] [place] [facility] [address] [id number] [place] [address]- 7232 29 Dec, 2012 [facility] [place] [facility] [address] [id number] [place] [address]- 6181 Dec, [facility] [place] [facility] [address] [id number] [place] [address]- 6697 Nov, [facility] [place] [facility] [address] [id number] [place] [address]- 8396 Nov, [facility] [place] [facility] [address] [id number] [place] [address]- 4463 Sep, [facility] [place] [facility] [address] [id number] [place] [address]- 4902 Jun, [facility] [place] [facility] [address] [id number] [place] [address]- 0633 Jun, [facility] [place] [facility] [address] [id number] [place] [address]- 4162 May, [facility] [place] [facility] [address] [id number] [place] [address]- 2444 Mar, [facility] [place] [facility] [address] [id number] [place] [address]- 2261 Mar, [facility] [place] [facility] [address] [id number] [place] [address]- 6075 Mar, [facility] [place] [facility] [address] [id number] [place] [address]- 6991 Mar, [facility] [place] [facility] [address] [id number] [place] [address]- 6968 Feb, [facility] [place] [facility] [address] [id number] [place] [address]- 9369 Feb, [facility] [place] [facility] [address] [id number] [place] [address]- 8745 Feb, [facility] [place] [facility] [address] [id number] [place] [address]- 6815 Feb, [facility] [place] [facility] [address] [id number] [place] [address]- 8202 Feb, [facility] [place] [facility] [address] [id number] [place] [address]- 1794 January, [facility] [place] [facility] [address] [id number] [place] [address]- 0294 January, [facility] [place] [facility] [address] [id number] [place] [address]- 0188 January, [facility] [place] [facility] [address] [id number] [place] [address]- 1220 January, [facility] [place] [facility] [address] [id number] [place] [address]- 9946 January, [facility] [place] [facility] [address] [id number] [place] [address]- 4173 Dec, [facility] [place] [facility] [address] [id number] [place] [address]- 0914 Dec, [facility] [place] [facility] [address] [id number] [place] [address]- 7872 Dec, [facility] [place] [facility] [address] [id number] [place] [address]- 9151 Nov, [facility] [place] [facility] [address] [id number] [place] [address]- 2070 Oct, [facility] [place] [facility] [address] [id number] [place] [address]- 0836 Sep, [facility] [place] [facility] [address] [id number] [place] [address]- 2773 Jul, [facility] [place] [facility] [address] [id number] [place] [address]- 8762 Aug, [facility] [place] [facility] [address] [id number] [address]- 2021 Jul, [facility] [place] [facility] [address] [id number], [place] [address]- 5099 Jun, [facility] [place] [facility] [address] [id number] [place] [address]- 2339 Jun, [facility] [place] [facility] [address] [facility] [id number] [place] [address]- 3993 Jul, [facility] [place] [facility] [address] [id number] [place] [address]- 8086 Jul, [facility] [place] [facility] [address] [id number] [address]- 6285 Aug, [facility] [id number] [place] [address]- 3400 Aug, [facility] [id number] [address]- 9305 Jul, [facility] [id number] [place] [address]- 1704 Jul, [facility] [id number] [place] [address]- 3736 Apr, [facility] [id number] [place] [address]- 9563 Oct, [facility] [id number], [place] [address]- 6958 Jul, [facility] [id number] [place] [address]- 2782 Apr, IMMUNIZATIONS No Known Immunizations SOCIAL HISTORY Never Assessed REASON FOR VISIT 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, 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- Monie [employer] PLAN OF CARE Activity Details Follow Up prn Reason: VITAL SIGNS Height 64 in 2017-06-14 Weight 142.6 lbs 2017-06-14 Temperature 97.8 degrees Fahrenheit 2017-06-14 Heart Rate 96 bpm 2017-06-14 Respiratory Rate 20 2017-06-14 BMI 24.47 kg/m2 2017-06-14 Blood pressure systolic 112 mmHg 2017-06-14 Blood pressure diastolic 62 mmHg 2017-06-14 MEDICATIONS Medication Instructions Dosage Frequency Start Date End Date Duration Status Propranolol HCl 20 mg Orally 3 times a day 1 tablet 8h Active Methimazole 5 mg Orally 3 times a day 3 tablets with food 8h 30 Active Depo-Provera 150 MG/ML Intramuscular 90 days 1 ml Apr, Jul, 90 days Active Zoloft 100 mg Orally Once a day 1 tablet 24h 30 Active Maxalt 10 MG Orally Once a day; may repeat in 2 hours if needed, no more than 2 doses in 24 hours 1 tablet at onset of headache May, Active RESULTS No Results PROCEDURES Procedure Date Ordered Result Body Site TB INTRADERMAL 2017-06-14 N/A LAB NOT BILLED BY [facility] Jun 14, 2017 INSTRUCTIONS MEDICATIONS ADMINISTERED No Known Medications MEDICAL (GENERAL) HISTORY Type Description Date Medical History migraine headaches Medical History Unspecified episodic mood disorder Medical History Posttraumatic stress disorder Medical History Deliberate self-cutting Medical History Dysmenorrhea Medical History Overdose Zoloft 2016 Medical History Hyperthyroidism Medical History Gaves disease Hospitalization History rule out appendicitis 2006 Hospitalization History [facility] 2016 Hospitalization History [facility] Hyperthyroidism and overdose on Zoloft 02-23-2017
--- OUTSIDE RECORDS SUMMARY | 2018-08-21 11:28 | XMS REPORT ---
Author Author NERY MARIA Organization [facility] Address [address] [place] [address] Care Team Providers Care [place] Worker Name Role Phone SHARON MARIAIE Unavailable PROBLEMS Type Condition ICD9-CM Code CNZ09-PE Code Onset Dates Condition Status SNOMED Code Problem Severe episode of recurrent major depressive disorder, without 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 Active 25457014 Problem Chronic migraine G43.709 Active 57623468 Problem Hyperthyroidism E05.90 Active 99038344 Problem Post traumatic stress disorder (PTSD) F43.10 Active 46867497 ALLERGIES Substance Reaction Event Type Date Status IV contrast Unknown Non Drug Allergy Mar, Active ENCOUNTERS Encounter Location Date Diagnosis [facility] [id number] [place] [address] 31528- 4395 Dec, [facility] [address] [address]- [address] Nov, [facility] [address] 22384- 1644 Nov, Severe episode of recurrent major depressive disorder, without 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 and Post traumatic stress disorder (PTSD) F43.10 [facility] [id number] [place] [address] 46418- 0115 Oct, Encounter for counseling regarding contraception Z30.09 ; Hyperthyroidism E05.90 and Chronic migraine G43.709 [facility] [id number] [place] [address] 79569- 4221 Jul, Encounter for surveillance of injectable contraceptive Z30.42 [facility] [id number] [place] [address] 06700 -9516 17 Jul, 2017 Sore throat J02.9 ; Other viral agents as the cause of diseases classified elsewhere B97.89 and Acute upper respiratory infection, unspecified J06.9 [facility] [id number] [place] [address] 01883- 1978 17 Jun, 2017 Visit for TB skin test Z11.1 [facility] [id number] [place] [address] 36310- 7714 21 May, 2017 Physical exam, routine Z00.00 [facility] [id number] [place] [address] 90443- 9457 May, Hyperthyroidism E05.90 and Post traumatic stress disorder ( PTSD) F43.10 [facility] [id number] [place] [address] 46251- 6620 16 Apr, 2017 Routine gynecological examination Z01.419 ; High risk sexual behavior Z72.51 ; Encounter for surveillance of injectable contraceptive Z30.42 ; Hyperthyroidism E05.90 and Encounter for Depo-Provera contraception Z30.42 [facility] [id number] [place] [address] 78449 -0765 Apr, Tinea corporis B35.4 [facility] [id number] [place] [address] 60019- 9889 Mar, Thyrotoxicosis without thyroid storm, unspecified thyrotoxicosis type E05.90 [facility] [id number] [place] [address] 88436- 2162 Mar, [facility] [id number] [place] [address] 94018- 2278 Mar, [facility] [id number] [place] [address] 50171- 7520 Mar, Post traumatic stress disorder (PTSD) F43.10 and Hyperthyroidism E05.90 [facility] [id number] [place] [address] 08111- 7892 13 Feb, 2017 Hyperthyroidism E05.90 ; Post traumatic stress disorder ( PTSD) F43.10 and Overdose, intentional self-harm, subsequent encounter T50.902D [facility] [id number] [place] [address] 78402- 6162 January, Post traumatic stress disorder (PTSD) F43.10 [facility] [id number] [place] [address] 84219- 4833 Dec, Hx of migraines Z86.69 ; Insect bite (nonvenomous), left thigh, initial encounter S70.362A and Post traumatic stress disorder (PTSD) F43.10 [facility] [address] 60903- 5291 Dec, [facility] [id number] [place] [address] 86482- 1901 Nov, [facility] [address] 73189- 7684 10 Nov, 2015 Adjustment disorder with depressed mood F43.21 and Major depression, recurrent F33.[address] 56106- 6730 10 Nov, 2015 Oral contraceptive pill surveillance Z30.41 ; Routine screening for STI (sexually transmitted infection) Z11.3 ; Dysmenorrhea N94.6 ; Hx of migraines Z86.69 ; Deliberate self-cutting Z72.89 and Major depressive disorder, recurrent, moderate F33.1 [facility] [id number] [place] [address] 00702- 1509 09 Nov, 2015 [facility] [id number] [place] [address] 30064- 0031 May, [facility] [address] 27473- 4214 17 May, [address] 80342- 1204 15 May, 2015 Migraine headache 346.90 and Abdominal pain 789.00 [facility] [id number] [place] [address] 17275- 1926 14 May, 2015 [facility] [address] 10921- 3751 Apr, Oligomenorrhea 626.1 and Screening for diabetes mellitus V77.1 [facility] [id number] [place] [address] 338539- 0709 Apr, Oligomenorrhea 626.1 ; Dark urine 791.9 and Screening for diabetes mellitus V77.1 [facility] [id number] [place] [address] 60342- 1390 Feb, Bipolar disorder, unspecified 296.80 [facility] [id number] [place] [address] 29195- 8972 Dec, [facility] [id number] [place] [address] 80851- 1564 Dec, [facility] [id number] [place] [address] 70363- 2026 Dec, [facility] [id number] [place] [address] 59981- 8631 Dec, [facility] [id number] [place] [address] 72690- 9528 Dec, [facility] [id number] [place] [address] 94143- 1618 Jul, [facility] [address] [address] 1051 Jul, [facility] [id number] [place] [address] 68832- 9164 Jul, [facility] [address] [place] [address] 254 Jul, [facility] [id number] [place] [address] 99664- 6527 Jun, [facility] [address] [place] [address]- 4896 May, [facility] [id number] [place] [address] 35497- 7687 Apr, [facility] [place] [facility] [address] [id number] [place] [address]- 6387 Apr, [facility] [place] [facility] [address] [id number] [place] [address]- 2916 Mar, [facility] [place] [facility] [address] [id number] [place] [address]- 9470 Feb, [facility] [place] [facility] [address] [id number] [place] [address]- 5487 Feb, [facility] [place] [facility] [address] [id number] [place] [address]- 9737 Feb, [facility] [place] [facility] [address] [id number] [place] [address]- 2570 January, [facility] [place] [facility] [address] [id number] [place] [address]- 8914 January, [facility] [place] [facility] [address] [id number] [place] [address]- 2445 Dec, [facility] [place] [facility] [address] [id number] [place] [address]- 8965 Dec, [facility] [place] [facility] [address] [id number] [place] [address]- 6255 Nov, [facility] [place] [facility] [address] [id number] [place] [address]- 8827 Nov, [facility] [place] [facility] [address] [id number] [address] 0440 Sep, [facility] [place] [facility] [address] [id number] [place] [address]- 9669 Jun, [facility] [place] [facility] [address] [id number] [place] [address]- 3329 Jun, [facility] [place] [facility] [address] [id number] [place] [address]- 7177 May, [facility] [place] [facility] [address] [id number] [place] [address]- 8623 31 Mar, 2012 [facility] [place] [facility] [address] [id number] [place] [address]- 0343 31 Mar, 2012 [facility] [place] [facility] [address] [id number] [place] [address]- 7787 31 Mar, 2012 [facility] [place] [facility] [address] [id number] [place] [address]- 1649 30 Mar, 2012 [facility] [place] [facility] [address] [id number] [place] [address]- 7320 Feb, [facility] [place] [facility] [address] [id number] [place] [address]- 2213 Feb, [facility] [place] [facility] [address] [id number] [place] [address]- 2008 18 Feb, 2012 [facility] [place] [facility] [address] [id number] [place] [address]- 3827 Feb, [facility] [place] [facility] [address] [id number] [place] [address]- 5818 Feb, [facility] [place] [facility] [address] [id number] [place] [address]- 7102 January, [facility] [place] [facility] [address] [id number] [place] [address]- 2487 January, [facility] [place] [facility] [address] [id number] [place] [address]- 3820 January, [facility] [place] [facility] [address] [id number] [place] [address]- 0878 January, [facility] [place] [facility] [address] [id number] [place] [address]- 5642 January, [facility] [place] [facility] [address] [id number] [place] [address]- 4576 Dec, [facility] [place] [facility] [address] [id number] [place] [address]- 7339 Dec, [facility] [place] [facility] [address] [id number] [place] [address]- 1983 Dec, [facility] [place] [facility] [address] [id number] [place] [address]- 1864 Nov, [facility] [place] [facility] [address] [id number] [place] [address]- 7204 Oct, [facility] [place] [facility] [address] [id number] [place] [address]- 5951 Sep, [facility] [place] [facility] [address] [id number] [place] [address]- 6934 Jul, [facility] [place] [facility] [address] [id number] [place] [address]- 7935 Aug, [facility] [place] [facility] [address] [id number] [place] [address]- 7648 Jul, [facility] [place] [facility] [address] [id number] [place] [address]- 4776 Jun, [facility] [place] [facility] [address] [id number] [place] [address]- 0948 Jun, [facility] [place] [facility] [address] [id number] [place] [address]- 6793 Jul, [facility] [place] [facility] [address] [id number] [place] [address]- 8633 Jul, [facility] [place] [facility] [address] [id number], [place] [address]- 6692 Aug, [facility] [place] [facility] [address] [id number] [place] [address]- 8551 Aug, [facility] [place] [facility] [address] [id number] [place] [address]- 5164 Jul, [facility] [place] [facility] [address] [id number] [place] [address]- 5275 Jul, [facility] [place] [facility] [address] [id number] [place] [address]- 2546 Apr, [facility] [address] [facility] [id number] [place] [address]- 2546 Oct, [facility] [address] [facility] [id number] [address]- 2546 Jul, [facility] [address] [facility] [id number] [place] [address]- 2546 Apr, IMMUNIZATIONS No Known Immunizations SOCIAL HISTORY Never Assessed REASON FOR VISIT [facility] follow up, Coco Landry had referred her to dr. english and she cannot see her till june so would like to have a referral to someone else , GILLES Santiago PLAN OF CARE Activity Details Follow Up with Coco after appt with ALIDA Reason: VITAL SIGNS Height 65 in 2017-04-04 Weight 140.7 lbs 2017-04-04 Temperature 97.6 degrees Fahrenheit 2017-04-04 Heart Rate 77 bpm 2017-04-04 Respiratory Rate 18 2017-04-04 Oximetry 98 % 2017-04-04 BMI 23.41 kg/m2 2017-04-04 Blood pressure systolic 118 mmHg 2017-04-04 Blood pressure diastolic 76 mmHg 2017-04-04 MEDICATIONS Medication Instructions Dosage Frequency Start Date End Date Duration Status Zoloft 100 mg Orally Once a day 1 tablet 24h 30 days Active Methimazole 5 mg Orally 3 times a day 3 tablets with food 8h Active Propranolol HCl 20 mg Orally 3 times a day 1 tablet 8h Active Loestrin 1/20 (21) 1-20 MG-MCG Orally Once a day 1 tablet 24h Apr, Active Maxalt 10 MG Orally Once a day; may repeat in 2 hours if needed, no more than 2 doses in 24 hours 1 tablet at onset of headache May, Active RESULTS No Results PROCEDURES Procedure Date Ordered Result Body Site MEASURE BLOOD OXYGEN LEVEL April 04, 2017 INSTRUCTIONS MEDICATIONS ADMINISTERED No Known Medications [...]
--- NOTE | 2018-08-21 11:30 | ED Abdominal Pain ---
General Stated Complaint: BLEEDING;8 WKS PREG Source of Information: Patient, Family Exam Limitations: No Limitations History of Present Illness Date Seen by Provider: Aug 21, 2018 Time Seen by Provider: 11:29 Initial Comments To ER with reports of vaginal bleeding that started at 10:30 AM this morning. She is about 8 weeks gestation, . No abdominal or back pain, no cramping. She noticed 2 clots of blood on the toilet paper when wiping after urinating this morning. She does have hyperthyroidism followed by [facility]. She is not currently on any medication for this as she was told to stop it when she became . Timing/Duration: 1-3 Hours Associated Symptoms: Denies Symptoms Allergies and Home Medications Allergies Uncoded Allergies: CONTRAST DYE (Allergy, Mild, 01/19/10) Home Medications Methimazole 5 Mg Tablet, 15 MG PO TID, (Reported) TAKES 3 (5 MG) TABLETS Propranolol HCl 20 Mg Tablet, 20 MG PO TID Prescribed by: NERY MARIA on 04/02/17 1044 Rizatriptan Benzoate 10 Mg Tablet, 10 MG PO UD, (Reported) TAKE ONE TABLET BY MOUTH AT ONSET OF HEADACHE; MAY REPEAT IN 2 HOURS IF NEEDED, NO MORE THAN 2 TABS/24 HOURS Sertraline HCl 100 Mg Tablet, 100 MG PO DAILY, (Reported) LAST FILLED 02/06/17 #30 Patient Home Medication List Home Medication List Reviewed: Yes Review of Systems Review of Systems Constitutional: see HPI EENTM: No Symptoms Reported Respiratory: No Symptoms Reported Cardiovascular: No Symptoms Reported Gastrointestinal: See HPI; Denies Abdominal Pain, Denies Diarrhea, Denies Nausea Musculoskeletal: see HPI Skin: no symptoms reported Psychiatric/Neurological: No Symptoms Reported Endocrine: No Symptoms Reported Hematologic/Lymphatic: No Symptoms Reported Past Fekskwq-Edfocc-Getjmm Hx Patient Social History 2nd Hand Smoke Exposure: No Recent Hopitalizations: No Immunizations Up To Date Tetanus Booster (TDap): Less than 5yrs PED Vaccines UTD: Yes Seasonal Allergies Seasonal Allergies: No Past Medical History Surgeries: No Respiratory: No Currently Using CPAP: No Currently Using BIPAP: No Cardiac: Yes (HIGH HEART RATE) Neurological: Yes Headaches /Migraines Reproductive Disorders: No Genitourinary: No Gastrointestinal: No Musculoskeletal: No Endocrine: Yes Hyperthyroidism HEENT: No Cancer: No Psychosocial: Yes Anxiety, Depression Integumentary: No Blood Disorders: No Family Medical History Cardiovascular disease 19 FATHER (heart problems pt not sure what kind) G8 SISTER (heart defect) Congenital disease G8 BROTHER (cerebral palsey) Diabetes mellitus 19 MOTHER Psychosocial problem G8 SISTER (adhd) Physical Exam Vital Signs Vital Signs - First Documented 08/21/18 11:24 Temp 99.5 Pulse 81 Resp 17 B/P (MAP) 111/68 (82) Pulse Ox 97 O2 Delivery Room Air Capillary Refill : Height/Weight/BMI Height: 5'4.00" Weight: 150lbs. 12.8oz. 68.883893rl; 21.09 BMI Method:Stated General Appearance: WD/WN, no apparent distress HEENT: PERRL/EOMI, normal ENT inspection Respiratory: no respiratory distress, no accessory muscle use Cardiovascular: regular rate, rhythm, no murmur Gastrointestinal: normal bowel sounds, non tender, soft Extremities: normal range of motion, non-tender Neurologic/Psychiatric: alert, normal mood/affect, oriented x 3 Skin: normal color, warm/dry Progress/Results/Core Measures Results/Orders Lab Results Laboratory Tests Test 08/21/18 11:35 08/21/18 12:15 Range/Units White Blood Count 8.0 4.3-11.0 10^3/uL Red Blood Count 4.94 4.35-5.85 10^6/uL Hemoglobin 14.0 11.5-16.0 G/DL Hematocrit 39 35-52 % Mean Corpuscular Volume 79 L 80-99 FL Mean Corpuscular Hemoglobin 28 25-34 PG Mean Corpuscular Hemoglobin Concent 36 32-36 G/DL Red Cell Distribution Width 13.6 10.0-14.5 % Platelet Count 282 130-400 10^3/uL Mean Platelet Volume 10.3 7.4-10.4 FL Neutrophils (%) (Auto) 66 42-75 % Lymphocytes (%) (Auto) 24 12-44 % Monocytes (%) (Auto) 8 0-12 % Eosinophils (%) (Auto) 3 0-10 % Basophils (%) (Auto) 0 0-10 % Neutrophils # (Auto) 5.3 1.8-7.8 X 10^3 Lymphocytes # (Auto) 1.9 1.0-4.0 X 10^3 Monocytes # (Auto) 0.6 0.0-1.0 X 10^3 Eosinophils # (Auto) 0.2 0.0-0.3 10^3/uL Basophils # (Auto) 0.0 0.0-0.1 10^3/uL Thyroid Stimulating Hormone (TSH) 0.00 L 0.35-4.94 UIU/ML Free Thyroxine 1.30 0.70-1.48 NG/DL Human Chorionic Gonadotropin, Quant [id number] H <5 MIU/ML Urine Color YELLOW Urine Clarity CLEAR Urine pH 7 5-9 Urine Specific [place] 1.015 L 1.016-1.022 Urine Protein 2+ H NEGATIVE Urine Glucose (UA) NEGATIVE NEGATIVE Urine Ketones NEGATIVE NEGATIVE Urine Nitrite NEGATIVE NEGATIVE Urine Bilirubin NEGATIVE NEGATIVE Urine Urobilinogen NORMAL NORMAL MG/DL Urine Leukocyte Esterase 3+ H NEGATIVE Urine RBC (Auto) 5+ H NEGATIVE Urine RBC 0-2 /HPF Urine WBC 10-25 H /HPF Urine Squamous Epithelial Cells 10-25 H /HPF Urine Renal Epithelial Cells NONE /HPF Urine Crystals NONE /LPF Urine Bacteria MODERATE H /HPF Urine Casts NONE /LPF Urine Mucus LARGE H /LPF Urine Culture Indicated YES My Orders Orders - SHADIA SALDIVAR APRN Abo Rh Type (08/21/18 11:22) Cbc With Automated Diff (08/21/18 11:22) Hcg,Quantitative (08/21/18 11:22) Ua Culture If Indicated (08/21/18 11:22) Thyroid Stimulating Hormone (08/21/18 11:31) Free T4 (Free Thyroxine) (08/21/18 11:31) Us Ob Single Fetus<14 [id number] (08/21/18 11:22) Urine Culture (08/21/18 12:15) Vital Signs/I&O 08/21/18 11:24 Temp 99.5 Pulse 81 Resp 17 B/P (MAP) 111/68 (82) Pulse Ox 97 O2 Delivery Room Air Diagnostic Imaging Diagonstic Imaging: Ultrasound Comments NAME: ILDEFONSOBINTA Varela MED REC#: [id number] PT STATUS: REG ER : 2000 PHYSICIAN: SHADIA SALDIVAR APRN ADMIT DATE: 08/21/18/ER Draft Date of Exam:08/21/18 US OB SINGLE FETUS<14 [id number] PROCEDURE: US OB SINGLE FETUS <14 WKS. TECHNIQUE: Multiple real-time grayscale images were obtained over the gravid uterus in various projections. INDICATION: Bleeding at eight weeks . There is single intrauterine gestation with pole demonstrating crown-rump length of 3.9 cm. Embryonic cardiac activity is present with rate of 160 beats per minutes. There does appear to be elevation of the placenta likely related to subchorionic hematoma. There is blood flow to the placenta. No maternal adnexal region abnormality is seen. IMPRESSION: Subchorionic hematoma along the inferior margin of the placenta. This may involve approximately 30-40% of the placental surface area, however, no embryonic distress is identified. Clinical correlation and short-term ultrasound followup would be useful. Dictated on workstation # [id number] Dict: 08/21/18 1218 Trans: 08/21/18 1236 [facility] [id number] Interpreted by: ANTELMO VERA MD Electronically signed by: Departure Impression Primary Impression: Subchorionic hematoma in first trimester Qualified Codes: O41.8X10 - Other specified disorders of amniotic fluid and membranes, first trimester, not applicable or unspecified; O46.8X1 - Other antepartum hemorrhage, first trimester Additional Impression: Urinary tract infection Qualified Codes: N30.00 - Acute cystitis without hematuria Disposition: HOME, SELF-CARE Condition: Stable Departure-Patient Inst. Decision time for Depature: 12:28 Referrals: SINDI COLE DO (PCP/Family) Primary Care Physician Patient Instructions: Threatened Miscarriage, Urinary Tract Infection, Adult ( DC) Add. Discharge Instructions: 1. Follow-up with your dispatcher service. Call this week to make an appointment. Return to ER for any concerns. Scripts Cefuroxime Axetil (Cefuroxime) 250 Mg Tablet 250 MG PO BID, #10 TAB Prov: SHADIA SALDIVAR MASTER PLANNER 08/21/18 SHADIA SALDIVAR APRN Aug 21, 2018 11:30
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
[2018-08-21 11:45] LABS: BASOPHILS % (AUTO) 0 % (0-10); EOSINOPHILS # (AUTO) 0.2 10^3/uL (0.0-0.3); EOSINOPHILS % (AUTO) 3 % (0-10); HEMATOCRIT 39 % (35-52); LYMPHOCYTES # (AUTO) 1.9 X 10^3 (1.0-4.0); LYMPHOCYTES % (AUTO) 24 % (12-44); MEAN CORPUSCULAR HEMOGLOBIN 28 PG (25-34); MEAN CORPUSCULAR HGB CONC 36 G/DL (32-36); MEAN CORPUSCULAR VOLUME 79 FL (80-99); MEAN PLATELET VOLUME 10.3 FL (7.4-10.4); MONOCYTES # (AUTO) 0.6 X 10^3 (0.0-1.0); MONOCYTES % (AUTO) 8 % (0-12); NEUTROPHILS # (AUTO) 5.3 X 10^3 (1.8-7.8); NEUTROPHILS % (AUTO) 66 % (42-75); PLATELET COUNT 282 10^3/uL (130-400); RED BLOOD COUNT 4.94 10^6/uL (4.35-5.85); RED CELL DISTRIBUTION WIDTH 13.6 % (10.0-14.5)
[2018-08-21 12:23] LABS: FREE T4 (FREE THYROXINE) 1.3 NG/DL (0.70-1.48)
[2018-08-21 12:25] LABS: BILIRUBIN,URINE NEGATIVE (NEGATIVE); CLARITY,URINE CLEAR; COLOR,URINE YELLOW; GLUCOSE, URINE (UA) NEGATIVE (NEGATIVE); KETONES,URINE NEGATIVE (NEGATIVE); LEUKOCYTE ESTERASE ,URINE 3+ (NEGATIVE); NITRITE,URINE NEGATIVE (NEGATIVE); PH,URINE 7 (5-9); PROTEIN,URINE 2+ (NEGATIVE); UROBILINOGEN,URINE NORMAL (NORMAL)
--- NOTE | 2018-08-21 12:36 | Diagnostic Imaging Report ---
PROCEDURE: US OB SINGLE FETUS <14 WKS. TECHNIQUE: Multiple real-time grayscale images were obtained over the gravid uterus in various projections. INDICATION: Bleeding at eight weeks . There is single intrauterine gestation with pole demonstrating crown-rump length of 3.9 cm. Embryonic cardiac activity is present with rate of 160 beats per minutes. There does appear to be elevation of the placenta likely related to subchorionic hematoma. There is blood flow to the placenta. No maternal adnexal region abnormality is seen. IMPRESSION: Subchorionic hematoma along the inferior margin of the placenta. This may involve approximately 30-40% of the placental surface area, however, no embryonic distress is identified. Clinical correlation and short-term ultrasound followup would be useful. Dictated by: Dictated on workstation # [id number]
[2018-08-21 12:41] LABS: RBC,URINE 0-2 /HPF
[2018-08-21 12:42] LABS: BACTERIA,URINE MODERATE /HPF
[2018-08-21] MEDS ORDERED: CEFU250T80 PO (12:57)
[2018-08-21 13:05] VITALS: BP 110/69
== END 2018-08-21 13:05 | disposition home or self-care (01) ==
LOC: EDUNIT# 11:19 → ER 11:20
DX: O41.8X10 Other specified disorders of amniotic fluid and membranes, first trimester, not applicable or unspecified (principal); O23.41 Unspecified infection of urinary tract in pregnancy, first trimester; O99.351 Diseases of the nervous system complicating pregnancy, first trimester; G43.909 Migraine, unspecified, not intractable, without status migrainosus; O99.281 Endocrine, nutritional and metabolic diseases complicating pregnancy, first trimester; E05.90 Thyrotoxicosis, unspecified without thyrotoxic crisis or storm; O99.341 Other mental disorders complicating pregnancy, first trimester; F41.9 Anxiety disorder, unspecified; F32.9 Major depressive disorder, single episode, unspecified; Z3A.08 8 weeks gestation of pregnancy; Z82.49 Family history of ischemic heart disease and other diseases of the circulatory system; Z91.041 Radiographic dye allergy status
CPT/HCPCS: 36415; 76801; 81000; 84439; 84443; 84702; 85025; 86900; 86901; 87088

== ENCOUNTER 2018-09-25 22:17 | Emergency (ER) | payer MEDICAID ==
[~2018-09-25] VITALS: Ht 162.6 cm; Wt 71.2 kg
[~2018-09-25 22:17] MED LIST changes: +CEFU250T80 PO
--- NOTE | 2018-09-25 22:30 | NUR ---
PROVIDER IN ROOM DURING TRIAGE. PT REPORTS HX SUBCHORIONIC BLEEDING @ APPROX 11 WKS. PT REPORTS REPORTS CONDITION RESOLVED ITSELF.
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
[2018-09-25 22:44] LABS: BASOPHILS % (AUTO) 0 % (0-10); EOSINOPHILS # (AUTO) 0.4 10^3/uL (0.0-0.3); EOSINOPHILS % (AUTO) 4 % (0-10); HEMATOCRIT 35 % (35-52); HEMOGLOBIN 12.3 G/DL (11.5-16.0); LYMPHOCYTES # (AUTO) 2.7 X 10^3 (1.0-4.0); LYMPHOCYTES % (AUTO) 24 % (12-44); MEAN CORPUSCULAR HEMOGLOBIN 29 PG (25-34); MEAN CORPUSCULAR HGB CONC 36 G/DL (32-36); MEAN CORPUSCULAR VOLUME 82 FL (80-99); MEAN PLATELET VOLUME 10.2 FL (7.4-10.4); MONOCYTES # (AUTO) 0.8 X 10^3 (0.0-1.0); MONOCYTES % (AUTO) 7 % (0-12); NEUTROPHILS # (AUTO) 7.4 X 10^3 (1.8-7.8); NEUTROPHILS % (AUTO) 65 % (42-75); PLATELET COUNT 246 10^3/uL (130-400); RED BLOOD COUNT 4.19 10^6/uL (4.35-5.85); RED CELL DISTRIBUTION WIDTH 14.2 % (10.0-14.5); WHITE BLOOD COUNT 11.4 10^3/uL (4.3-11.0)
[2018-09-25 22:51] LABS: BILIRUBIN,URINE NEGATIVE (NEGATIVE); CLARITY,URINE SLIGHTLY CLOUDY; COLOR,URINE YELLOW; GLUCOSE, URINE (UA) NEGATIVE (NEGATIVE); KETONES,URINE NEGATIVE (NEGATIVE); LEUKOCYTE ESTERASE ,URINE 2+ (NEGATIVE); NITRITE,URINE NEGATIVE (NEGATIVE); PH,URINE 7 (5-9); PROTEIN,URINE NEGATIVE (NEGATIVE); UROBILINOGEN,URINE NORMAL (NORMAL)
[2018-09-25 23:02] LABS: ALANINE AMINOTRANSFERASE 13 U/L (0-55); ALBUMIN 3.8 GM/DL (3.2-4.5); ALKALINE PHOSPHATASE 37 U/L (40-136); BILIRUBIN,TOTAL 0.2 MG/DL (0.1-1.0); BUN/CREATININE RATIO 14; CALCIUM 8.7 MG/DL (8.5-10.1); CARBON DIOXIDE 19 MMOL/L (21-32); CHLORIDE 109 MMOL/L (98-107); CREATININE SERUM 0.63 MG/DL (0.60-1.30); GFR ESTIMATED > 60; GLUCOSE 72 MG/DL (70-105); POTASSIUM 3.6 MMOL/L (3.6-5.0); SODIUM 138 MMOL/L (135-145); TOTAL PROTEIN 6.6 GM/DL (6.4-8.2)
[2018-09-25 23:03] LABS: AMORPHOUS SEDIMENT,UR LARGE AMOR URATES /LPF; SQUAMOUS EPITHELIAL CELL,UR 25-50 /HPF
--- NOTE | 2018-09-26 00:15 | NUR ---
RHo(D) IIMUNE GLOBULIN BLOOD PRODUCT CONSENT SIGNED. RISKS AND BENEFITS EXPLAINED BY PROVIDER.
--- NOTE | 2018-09-26 00:27 | NUR ---
RHo(D) IMMUNE GLOBULIN IM INJECTION TO RT VENTROGLUTEAL.
[2018-09-26 00:55] VITALS: BP 113/53
== END 2018-09-26 00:55 | disposition home or self-care (01) ==
LOC: EDUNIT# 22:17 → ER 22:19
DX: G43.909 Migraine, unspecified, not intractable, without status migrainosus (principal); O20.9 Hemorrhage in early pregnancy, unspecified; O99.282 Endocrine, nutritional and metabolic diseases complicating pregnancy, second trimester; E05.90 Thyrotoxicosis, unspecified without thyrotoxic crisis or storm; O99.342 Other mental disorders complicating pregnancy, second trimester; F41.9 Anxiety disorder, unspecified; F32.9 Major depressive disorder, single episode, unspecified; Z3A.16 16 weeks gestation of pregnancy; Z91.041 Radiographic dye allergy status; Z82.49 Family history of ischemic heart disease and other diseases of the circulatory system
CPT/HCPCS: 36415; 80053; 81000; 84703; 85025; 87088; 96372

== ENCOUNTER 2018-10-12 17:24 | Emergency (ER) | payer MEDICAID | END 2018-10-12 21:01 | disposition home or self-care (01) | LOC: ER 17:24 ==

== ENCOUNTER 2019-02-07 01:15 | Outpatient (CLI) | payer MEDICAID ==
[~2019-02-07] VITALS: Ht 162.6 cm; Wt 86.6 kg
[~2019-02-07 01:15] MED LIST changes: +ONDN4T PO
--- NOTE | 2019-02-07 01:20 | NUR ---
BINTA FREGOSO presented to unit via W/C from ED, accompanied by cmm technician & SO, with c/o DIZZY,TINGLELY,BACK & ABD PAIN,MUCUS WHEN WIPED. BINTA FREGOSO weighed, gowned, voided, and to bed. EFHM and TOCO applied, VS taken. BINTA FREGOSO oriented to bed controls, call light, TV, heat, and A/C controls.
[2019-02-07 01:36] VITALS: BP 115/61
[2019-02-07] MEDS ORDERED: PREN-142 PO (01:44)
[2019-02-07] MEDS ORDERED: PROP50TA2 PO (01:44)
[2019-02-07 01:46] LABS: BILIRUBIN,URINE NEGATIVE (NEGATIVE); CLARITY,URINE SLIGHTLY CLOUDY; COLOR,URINE YELLOW; GLUCOSE, URINE (UA) NEGATIVE (NEGATIVE); KETONES,URINE NEGATIVE (NEGATIVE); LEUKOCYTE ESTERASE ,URINE 3+ (NEGATIVE); NITRITE,URINE NEGATIVE (NEGATIVE); PH,URINE 7 (5-9); PROTEIN,URINE 1+ (NEGATIVE); UROBILINOGEN,URINE NORMAL (NORMAL)
[2019-02-07 01:54] LABS: BACTERIA,URINE MODERATE /HPF; SQUAMOUS EPITHELIAL CELL,UR 25-50 /HPF
--- NOTE | 2019-02-07 01:56 | NUR ---
Andrés Narvaez RN called Dr. Isaac, no answer.
--- NOTE | 2019-02-07 01:58 | NUR ---
Andrés Narvaez RN called Dr. Isaac, no answer, left message & sent text message.
[2019-02-07] MEDS ORDERED: LEVETIRACETAM 500 MG (KEPPRA) TAB PO ONE (02:11)
[2019-02-07] MEDS ORDERED: CEPH-507 PO (02:12)
[2019-02-07] MEDS ORDERED: CEPHALEXIN 250 MG (KEFLEX) CAP PO ONE ×2 (02:13→02:30)
[2019-02-07 02:28] LABS: BASOPHILS % (AUTO) 0 % (0-10); EOSINOPHILS # (AUTO) 0.2 10^3/uL (0.0-0.3); EOSINOPHILS % (AUTO) 1 % (0-10); HEMATOCRIT 35 % (35-52); HEMOGLOBIN 12.5 G/DL (11.5-16.0); LYMPHOCYTES # (AUTO) 3.2 X 10^3 (1.0-4.0); LYMPHOCYTES % (AUTO) 26 % (12-44); MEAN CORPUSCULAR HEMOGLOBIN 30 PG (25-34); MEAN CORPUSCULAR HGB CONC 36 G/DL (32-36); MEAN CORPUSCULAR VOLUME 84 FL (80-99); MONOCYTES # (AUTO) 1.2 X 10^3 (0.0-1.0); MONOCYTES % (AUTO) 10 % (0-12); NEUTROPHILS # (AUTO) 7.9 X 10^3 (1.8-7.8); NEUTROPHILS % (AUTO) 63 % (42-75); PLATELET COUNT 245 10^3/uL (130-400); RED CELL DISTRIBUTION WIDTH 12.8 % (10.0-14.5); WHITE BLOOD COUNT 12.5 10^3/uL (4.3-11.0)
[2019-02-07 02:45] LABS: ALANINE AMINOTRANSFERASE 13 U/L (0-55); ALBUMIN 3.3 GM/DL (3.2-4.5); ALKALINE PHOSPHATASE 82 U/L (40-136); BILIRUBIN,TOTAL 0.3 MG/DL (0.1-1.0); BUN/CREATININE RATIO 9; CALCIUM 9.2 MG/DL (8.5-10.1); CARBON DIOXIDE 17 MMOL/L (21-32); CHLORIDE 109 MMOL/L (98-107); CREATININE SERUM 0.58 MG/DL (0.60-1.30); GFR ESTIMATED > 60; GLUCOSE 101 MG/DL (70-105); POTASSIUM 3.3 MMOL/L (3.6-5.0); SODIUM 138 MMOL/L (135-145); TOTAL PROTEIN 6.4 GM/DL (6.4-8.2)
--- NOTE | 2019-02-07 03:20 | NUR ---
D/C instructions given & explained per Andrés Narvaez RN, copy of D/C instructions to pt, Rx called to [facility] per pt's request. Pt. left [facility] ambulatory escorted by Andrés Narvaez RN & SO, to home via private vehicle.
--- NOTE | 2019-02-11 22:50 | Physician Query-Final Dx ---
RAHUL ROBERTS 02/11/19 2250: Clinic Account Progress/Dx Physician Query: Please give diagnosis Need diagnosis and weeks of gestation. Date of Service February 07, 2019 at 01:15 LAURENCE GUERRERO DO 02/12/19 0823: Clinic Account Progress/Dx DIAGNOSIS: Diagnosis 35 weeks low back pain RAHUL ROBERTS February 11, 2019 22:50 LAURENCE GUERRERO DO February 12, 2019 08:23
== END 2019-02-07 03:20 | disposition home or self-care (01) ==
LOC: WSo 01:15 → LDRP 01:17 → WSo 03:20
PROVIDERS: ATTEND Obstetrics & Gynecology
DX: M54.5 Low back pain (principal); Z3A.35 35 weeks gestation of pregnancy
CPT/HCPCS: 36415; 80053; 81000; 84443; 85025; 87088; 99213

== ENCOUNTER → 2019-02-26 | Outpatient (CLI) | payer MEDICAID ==
[~2019-02-26] MED LIST changes: +CEPH-507 PO; +PREN-142 PO; +PROP50TA2 PO
--- NOTE | 2019-02-26 12:47 | Diagnostic Imaging Report ---
INDICATION: and Graves' disease. FINDINGS: The fetus is cephalic. The heart rate was recorded at 130 BPM. The amniotic fluid index is 13.7 cm. The overall biophysical profile score is 6 out of 8. A 2 point deduction was given for lack of breathing movements visualized. IMPRESSION: Biophysical profile score of 6 out of 8. Dictated by: Dictated on workstation # [id number]
== END ==
LOC: RAD 10:22
PROVIDERS: ATTEND Obstetrics & Gynecology
DX: O99.280 Endocrine, nutritional and metabolic diseases complicating pregnancy, unspecified trimester (principal); E05.00 Thyrotoxicosis with diffuse goiter without thyrotoxic crisis or storm; Z3A.00 Weeks of gestation of pregnancy not specified
CPT/HCPCS: 76819

== ENCOUNTER 2019-03-05 15:22 | Inpatient (IN) | payer MEDICAID ==
[~2019-03-05] VITALS: Ht 162.6 cm; Wt 87.1 kg
[2019-03-05] VITALS (10 sets, daily range): BP systolic 110–129; BP diastolic 65–78
--- NOTE | 2019-03-05 15:27 | NUR ---
BINTA FREGOSO presented to unit via wheelchair from ED, accompanied by S.O., with c/o N/V, contractions. BINTA FREGOSO weighed, gowned, voided, and to bed. EFHM and TOCO applied, VS taken. BINTA FREGOSO oriented to bed controls, call light, TV, heat, and A/C controls.
--- NOTE | 2019-03-05 15:47 | NUR ---
Dr Stark called and notified of pt arrival. Notified of pt c/o ctx, n/v, constant lower R sided pain and back pain since awaking at approx 1430 today. notified of VS, SVE, ctx pattern, FHR, history, and other assessment findings. Orders rec'd to make pt inpt. and for labs and IV fluids. Addendum: 03/05/19 at 1946 by WILSON ROSALES RN also notified of pt c/o leaking since Sunday, nitrazine negative. US order rec'd to check fluid level. Pt denies vaginal bleeding or recent intercourse. Pt reports not feeling well for approx 2 weeks and does not recall being around anyone who has been ill.
[2019-03-05] MEDS ORDERED: D5 LR IV SOLUTION 1,000 ML IV ONE (15:50)
[2019-03-05] MEDS ORDERED: CATHETER FLUSH 10 ML SYR IV PRN (16:00)
[2019-03-05] MEDS: D5 LR IV SOLUTION 1,000 ML IV SCH (16:02)
[2019-03-05] MEDS ORDERED: ACETAMINOPHEN 500 MG TAB (TYLENOL) PO ONE (16:15)
--- NOTE | 2019-03-05 16:15 | NUR ---
Dr Stark called for pain medication request. Order rec'd for 1,000mg tylenol PO. RN updates and requests he present to evaluate pt. states he has one more clinic pt and will be here.
[2019-03-05 16:18] LABS: BASOPHILS % (AUTO) 0 % (0-10); EOSINOPHILS % (AUTO) 0 % (0-10); HEMATOCRIT 40 % (35-52); LYMPHOCYTES # (AUTO) 1.1 X 10^3 (1.0-4.0); LYMPHOCYTES % (AUTO) 6 % (12-44); MEAN CORPUSCULAR HEMOGLOBIN 29 PG (25-34); MEAN CORPUSCULAR HGB CONC 35 G/DL (32-36); MEAN CORPUSCULAR VOLUME 84 FL (80-99); MEAN PLATELET VOLUME 11.2 FL (7.4-10.4); MONOCYTES # (AUTO) 1.4 X 10^3 (0.0-1.0); MONOCYTES % (AUTO) 8 % (0-12); NEUTROPHILS # (AUTO) 16.1 X 10^3 (1.8-7.8); NEUTROPHILS % (AUTO) 86 % (42-75); PLATELET COUNT 211 10^3/uL (130-400); RED CELL DISTRIBUTION WIDTH 13.2 % (10.0-14.5); WHITE BLOOD COUNT 18.6 10^3/uL (4.3-11.0)
--- NOTE | 2019-03-05 16:30 | NUR ---
Dr. Stark notified pt meeds sepsis risk. states it does not apply as she is , no orders rec'd.
[2019-03-05 16:31] LABS: BILIRUBIN,URINE NEGATIVE (NEGATIVE); CLARITY,URINE SLIGHTLY CLOUDY; COLOR,URINE YELLOW; GLUCOSE, URINE (UA) NEGATIVE (NEGATIVE); KETONES,URINE 4+ (NEGATIVE); LEUKOCYTE ESTERASE ,URINE 2+ (NEGATIVE); NITRITE,URINE NEGATIVE (NEGATIVE); PH,URINE 6 (5-9); PROTEIN,URINE NEGATIVE (NEGATIVE); UROBILINOGEN,URINE NORMAL (NORMAL)
[2019-03-05] MEDS ORDERED: ACETAMINOPHEN 500 MG TAB (TYLENOL) ONE (16:35)
[2019-03-05 16:38] LABS: BACTERIA,URINE FEW /HPF
[2019-03-05 16:40] LABS: ALANINE AMINOTRANSFERASE 13 U/L (0-55); ALBUMIN 3.5 GM/DL (3.2-4.5); ALKALINE PHOSPHATASE 117 U/L (40-136); BILIRUBIN,TOTAL 0.6 MG/DL (0.1-1.0); BUN/CREATININE RATIO 6; CALCIUM 9.2 MG/DL (8.5-10.1); CARBON DIOXIDE 14 MMOL/L (21-32); CHLORIDE 107 MMOL/L (98-107); CREATININE SERUM 0.66 MG/DL (0.60-1.30); GFR ESTIMATED > 60; GLUCOSE 114 MG/DL (70-105); POTASSIUM 3.7 MMOL/L (3.6-5.0); SODIUM 135 MMOL/L (135-145); TOTAL PROTEIN 6.9 GM/DL (6.4-8.2)
[2019-03-05] MEDS ORDERED: cefTRIAXone FOR IV USE 1,000 MG in WATER (STERILE) FOR INJECTION 10 ML IV SCH (16:45)
[2019-03-05] MEDS ORDERED: morphine INJ 10 MG/ML 1ML (SYR OR VIAL) IVP STA (16:55)
[2019-03-05] MEDS ORDERED: morphine INJ 10 MG/ML 1ML (SYR OR VIAL) ONE (16:56)
--- NOTE | 2019-03-05 17:03 | Diagnostic Imaging Report ---
INDICATION: Induction, assess amniotic fluid. COMPARISON: 02/26/2019. TECHNIQUE: Limited target sonographic imaging of the gravid uterus was performed. FINDINGS AND IMPRESSION: 1. The BONITA measures 14.8 cm. 2. Fetus is in cephalic position and has a heart rate of 167 beats per minute. Dictated by: Dictated on workstation # [id number]
[2019-03-05] MEDS ORDERED: metroNIDAZOLE 500MG/100ML IVPB 100 ML ONE (17:16)
[2019-03-05] MEDS: metroNIDAZOLE 500MG/100ML IVPB 100 ML IV SCH (17:26)
--- NOTE | 2019-03-05 18:15 | NUR ---
Dr. Stark called unit to check on pt. Dr. Stark updated on pt status, ctx pattern, FHR. Pt resting currently, so no updated VS as RN wanted to allow pt to rest. No further orders rec'd. Plan to continue with current plan of care, will call unit around 1999 to give further orders.
[2019-03-05] MEDS ORDERED: TERBUTALINE INJ 1 MG/ML (BRETHINE) AMP SC PRN (21:00)
[2019-03-05] MEDS: MISOPROSTOL 100 MCG (CYTOTEC) TAB PO SCH (21:45)
[2019-03-06] VITALS (67 sets, daily range): BP systolic 106–146; BP diastolic 53–91
--- NOTE | 2019-03-06 01:00 | NUR ---
Report received from Yumi Brewer RN.
[2019-03-06] MEDS: MISOPROSTOL 100 MCG (CYTOTEC) TAB PO SCH ×2 (01:46→06:37)
[2019-03-06] MEDS: D5 LR IV SOLUTION 1,000 ML IV SCH (02:50)
[2019-03-06] MEDS: metroNIDAZOLE 500MG/100ML IVPB 100 ML IV SCH (05:50)
[2019-03-06] MEDS ORDERED: SUFENTA 0.6MCG/ML BUPIVA 0.125 100 ML ONE (07:13)
[2019-03-06] MEDS ORDERED: BUPIVACAINE 0.25% 30 ML (SENSORCAINE) VIAL ONE (07:38)
[2019-03-06] MEDS ORDERED: fentaNYL INJECTION 100 MCG/2 ML AMP ONE (07:38)
[2019-03-06] MEDS ORDERED: LACTATED RINGERS 1,000 ML IV ONE (08:13)
[2019-03-06] MEDS ORDERED: EPIDURAL (SUFENTA 0.6MCG/ML BUPIVA 0.125%) 100 ML BAG EPI SCH (08:15)
[2019-03-06] MEDS ORDERED: NALOXONE 0.4 MG/ML 1 ML (NARCAN) VIAL IV PRN (08:15)
[2019-03-06] MEDS ORDERED: CATHETER FLUSH 10 ML SYR IV PRN (08:15)
[2019-03-06] MEDS ORDERED: diphenhydrAMINE 50 MG/ML INJ (BENADRYL) IV PRN (08:15)
[2019-03-06] MEDS ORDERED: ONDANSETRON 4 MG/2 ML (SDV) Z0FRAN IV PRN (08:15)
--- NOTE | 2019-03-06 09:05 | NUR ---
dr jung updated on patient status, latest cervical exam and contraction/fhr pattern. no new orders at this time.
--- NOTE | 2019-03-06 09:41 | History & Physical-OB ---
OB - Chief Complaint & HPI Date/Time Date of Admission: Date of Admission: Mar 05, 2019 at 15:22 Date seen by a Provider: Mar 06, 2019 Time Seen by a Provider: 17:00 Chief Complaint/History OB-Reason for Admission/Chief: Onset of Labor Hx : 1 Expected Date of Delivery: Mar 13, 2019 Gestational Age in Weeks: 38 Gestational Age in Days: 6 Admission Nurse Assessment Rev: Yes Allergies and Home Medications Allergies Uncoded Allergies: CONTRAST DYE (Allergy, Mild, 01/19/10) Home Medications Vit No.124/Iron/FA 1 Each Tablet, 1 EACH PO DAILY, (Reported) Propylthiouracil 50 Mg Tablet, 50 MG PO DAILY, (Reported) Patient Home Medication List Home Medication List Reviewed: Yes OB - History Hx of Present Care: Yes Ultrasounds: Normal mid trimester US Obstetrical Complications: None Medical Complications: Other (Graves disease) Delivery History Hx Blood Disorders: No Adverse Rxn to Tranfusion: No Patient Past Medical History Graves disease Social History/Family History HIV/AIDS: No Sexually Transmitted Disease: No Alcohol Use: Denies Use Recreational Drug Use: No 2nd Hand Smoke Exposure: No Immunizations Tetanus Booster (TDap): Less than 5yrs OB - Admission Exam Physical Exam Vitals: Vital Signs 03/05/19 03/06/19 17:15 06:15 Temp 97.7 Pulse 100 Resp 18 B/P (MAP) 124/74 (91) Pulse Ox 95 O2 Delivery Room Air HEENT: NCAT Heart: Rhythm Normal Lungs: Clear Abdomen: Gravid Extremities: Normal Reflexes: Normal Cervical Dilatation: 2cm Heart Rate: 150's (180s on admission) Decelerations: No Decelerations Short Term Variability: Present Care Home Variability: Average (6-25) Contractions on Admission: < 5 Minutes Apart Intensity: Mild Labs Laboratory Tests Test 03/05/19 16:00 03/05/19 16:02 Range/Units Urine Color YELLOW Urine Clarity SLIGHTLY CLOUDY Urine pH 6 5-9 Urine Specific [place] 1.020 1.016-1.022 Urine Protein NEGATIVE NEGATIVE Urine Glucose (UA) NEGATIVE NEGATIVE Urine Ketones 4+ H NEGATIVE Urine Nitrite NEGATIVE NEGATIVE Urine Bilirubin NEGATIVE NEGATIVE Urine Urobilinogen NORMAL NORMAL MG/DL Urine Leukocyte Esterase 2+ H NEGATIVE Urine RBC (Auto) NEGATIVE NEGATIVE Urine RBC NONE /HPF Urine WBC 2-5 /HPF Urine Squamous Epithelial Cells 10-25 H /HPF Urine Crystals NONE /LPF Urine Bacteria FEW H /HPF Urine Casts NONE /LPF Urine Mucus NEGATIVE /LPF Urine Culture Indicated NO White Blood Count 18.6 H 4.3-11.0 10^3/uL Red Blood Count 4.77 4.35-5.85 10^6/uL Hemoglobin 14.0 11.5-16.0 G/DL Hematocrit 40 35-52 % Mean Corpuscular Volume 84 80-99 FL Mean Corpuscular Hemoglobin 29 25-34 PG Mean Corpuscular Hemoglobin Concent 35 32-36 G/DL Red Cell Distribution Width 13.2 10.0-14.5 % Platelet Count 211 130-400 10^3/uL Mean Platelet Volume 11.2 H 7.4-10.4 FL Neutrophils (%) (Auto) 86 H 42-75 % Lymphocytes (%) (Auto) 6 L 12-44 % Monocytes (%) (Auto) 8 0-12 % Eosinophils (%) (Auto) 0 0-10 % Basophils (%) (Auto) 0 0-10 % Neutrophils # (Auto) 16.1 H 1.8-7.8 X 10^3 Lymphocytes # (Auto) 1.1 1.0-4.0 X 10^3 Monocytes # (Auto) 1.4 H 0.0-1.0 X 10^3 Eosinophils # (Auto) 0.0 0.0-0.3 10^3/uL Basophils # (Auto) 0.0 0.0-0.1 10^3/uL Sodium Level 135 135-145 MMOL/L Potassium Level 3.7 3.6-5.0 MMOL/L Chloride Level 107 98-107 MMOL/L Carbon Dioxide Level 14 L 21-32 MMOL/L Anion Gap 14 5-14 MMOL/L Blood Urea Nitrogen 4 L 7-18 MG/DL Creatinine 0.66 0.60-1.30 MG/DL Estimat Glomerular Filtration Rate > 60 BUN/Creatinine Ratio 6 Glucose Level 114 H 70-105 MG/DL Calcium Level 9.2 8.5-10.1 MG/DL Corrected Calcium 9.6 8.5-10.1 MG/DL Total Bilirubin 0.6 0.1-1.0 MG/DL Aspartate Amino Transf (AST/SGOT) 17 5-34 U/L Alanine Aminotransferase (ALT/SGPT) 13 0-55 U/L Alkaline Phosphatase 117 40-136 U/L Total Protein 6.9 6.4-8.2 GM/DL Albumin 3.5 3.2-4.5 GM/DL Thyroid Stimulating Hormone (TSH) 0.32 L 0.35-4.94 UIU/ML OB - Assessment/Plan/Diagnosis Assessment Assessment: active labor Admission Dx 18 yo @ 38 weeks Acute gastroenteritis Leukocytosis Active labor GBS neg Admission Status: Inpatient Order (span 2 midnights) Reason for Inpatient Admission: 18 yo @ 38 weeks Acute gastroenteritis Leukocytosis Active labor GBS neg Plan Other Plan Due to febrile and tachy on admission although the likely tachycardic due to pain and anxiety, I did treat as suspecion for sepsis and did blood cx, urine cx, and started on Rocephin/ Flagyl. WIll proceed with induction once improved, and tachycardia resolves. ALINE DE LA GARZA DO Mar 06, 2019 09:41
[2019-03-06] MEDS ORDERED: OXYTOCIN/NORMAL SALINE 500 ML IV ONE ×2 (10:25→18:52)
[2019-03-06] MEDS ORDERED: LIDOCAINE/EPI 2% 1:200,00 (XYLOCAINE) 10 ML VIAL ONE (17:55)
--- NOTE | 2019-03-06 18:27 | NUR ---
spontaneous vaginal delivery of intact placenta by dr jung. sent to lab for processing. ebl [address] jung. pitocin increased to 999ml/hr per dr charles. assessing perineum and blood loss.
--- NOTE | 2019-03-06 18:30 | NUR ---
peRICARE PERFORMED BY THIS RN. VPAD AND UNDERWEAR PLACED TO PERINEUM. FFU/2. DENIES NEED AT THIS TIME. 1832 ASSISTED OUT OF STIRRUPS. REPOSITIONED TO HIGH FOWLERS EPIDURAL OFF. AND REMOVED TIP INTACT. PATIENT DENIES FURTHER NEED.
--- NOTE | 2019-03-06 18:40 | NUR ---
fundal massage by this RN. u/2 light flow no clots expressed. denies need at this time.
[2019-03-06] MEDS ORDERED: OXYTOCIN/NORMAL SALINE 500 ML IV SCH (18:46)
--- NOTE | 2019-03-06 18:50 | NUR ---
INFANT SKIN TO SKIN, NURSERY RN AT BEDSIDE ASSISTING WITH .
--- NOTE | 2019-03-06 18:55 | OB Labor & Delivery Record ---
L&D History Date of Service Date of Service: Mar 06, 2019 History Expected Date of Delivery: Mar 13, 2019 Gestational Age in Weeks: 38 Hx : 1 Complications Events: Routine care (Graves disease) Operative Indications (Cesarea: N/A-Vaginal Delivery Intrapartal Events: None L&D Stage1 Stage One Onset of Labor - Date: Mar 06, 2019 Monitors and Tracing Monitor Mode: External Heart Rate: 135 Monitor Accelerations: Uniform Monitor Decelerations: Variable Station: -1 Longterm Variability: Average (6-10) Short Term Variability: Present Presentation: Vertex Vital Signs VS - Last 72 Hours, by Label 03/05/19 03/05/19 03/05/19 03/05/19 15:40 16:40 17:15 18:40 Temp 102.8 101.9 101.6 98.3 Pulse 134 134 124 102 Resp 26 26 26 26 B/P (MAP) 117/67 (84) 129/78 (95) 122/73 (89) Pulse Ox 96 95 O2 Delivery Room Air Room Air 03/05/19 03/05/19 03/05/19 03/05/19 20:30 21:00 21:30 22:00 Temp 97.8 Pulse 95 91 104 104 Resp 18 18 18 18 B/P (MAP) 119/69 (86) 118/72 (87) 117/67 (84) 114/69 (84) O2 Delivery Room Air Room Air Room Air Room Air 03/05/19 03/05/19 03/05/19 03/06/19 22:30 23:00 23:30 00:00 Temp 98.1 Pulse 111 110 101 94 Resp 18 18 18 18 B/P (MAP) 118/65 (82) 116/67 (83) 110/66 (81) 116/72 (87) O2 Delivery Room Air Room Air Room Air Room Air 03/06/19 03/06/19 03/06/19 03/06/19 00:30 01:15 02:15 03:15 Pulse 105 113 103 98 Resp 18 18 18 18 B/P (MAP) 112/63 (79) 124/72 (89) 118/76 (90) 106/57 (73) O2 Delivery Room Air Room Air Room Air Room Air 03/06/19 03/06/19 03/06/19 03/06/19 04:15 05:15 06:15 07:20 Temp 99.2 97.7 98.8 Pulse 104 100 100 88 Resp 18 18 18 20 B/P (MAP) 120/71 (87) 115/61 (79) 124/74 (91) 146/90 (108) O2 Delivery Room Air Room Air Room Air Room Air 03/06/19 03/06/19 03/06/19 03/06/19 08:00 08:05 08:10 08:15 Pulse 100 96 93 97 Resp 22 20 18 18 B/P (MAP) 128/67 (87) 117/66 (83) 109/64 (79) 113/72 (86) Pulse Ox 98 100 100 100 O2 Delivery Room Air Room Air Room Air Room Air 03/06/19 03/06/19 03/06/19 03/06/19 08:20 08:25 08:30 08:45 Pulse 96 100 93 101 Resp 16 18 16 16 B/P (MAP) 124/73 (90) 112/63 (79) 116/68 (84) 125/73 (90) Pulse Ox 100 100 100 100 O2 Delivery Room Air Room Air Room Air Room Air 03/06/19 03/06/19 03/06/19 03/06/19 09:00 09:15 09:30 09:45 Pulse 105 88 106 90 Resp 16 18 18 20 B/P (MAP) 122/59 (80) 112/63 (79) 122/67 (85) 115/73 (87) Pulse Ox 100 100 100 100 O2 Delivery Room Air Room Air Room Air Room Air 03/06/19 03/06/19 03/06/19 03/06/19 10:00 10:15 10:30 10:45 Pulse 103 93 100 92 Resp 20 20 20 18 B/P (MAP) 116/77 (90) 114/70 (85) 116/74 (88) 113/73 (86) Pulse Ox 98 99 98 99 O2 Delivery Room Air Room Air Room Air Room Air 03/06/19 03/06/19 03/06/19 03/06/19 11:00 11:15 11:30 11:40 Pulse 97 95 100 91 Resp 18 20 20 20 B/P (MAP) 116/76 (89) 114/71 (85) 111/71 (84) 116/76 (89) Pulse Ox 99 98 99 100 O2 Delivery Room Air Room Air Room Air Room Air 03/06/19 03/06/19 03/06/19 03/06/19 12:00 12:15 12:30 12:40 Temp 97.8 Pulse 102 96 98 96 Resp 20 20 20 20 B/P (MAP) 120/71 (87) 108/76 (87) 110/76 (87) 111/73 (86) Pulse Ox 99 99 99 99 O2 Delivery Room Air Room Air Room Air Room Air 03/06/19 03/06/19 03/06/19 03/06/19 12:55 13:10 13:30 13:40 Pulse 95 95 92 99 Resp 20 20 20 20 B/P (MAP) 113/70 (84) 114/70 (85) 117/65 (82) 120/74 (89) Pulse Ox 100 100 100 98 O2 Delivery Room Air Room Air Room Air Room Air 03/06/19 03/06/19 03/06/19 03/06/19 14:00 14:20 14:30 14:40 Pulse 103 100 100 107 Resp 20 20 20 20 B/P (MAP) 121/78 (92) 122/86 (98) 119/76 (90) 115/76 (89) Pulse Ox 100 100 99 99 O2 Delivery Room Air Room Air Room Air Room Air 03/06/19 03/06/19 03/06/19 03/06/19 14:50 15:00 15:10 15:40 Pulse 100 104 96 104 Resp 20 18 18 18 B/P (MAP) 119/74 (89) 111/83 (92) 121/76 (91) 134/78 (96) Pulse Ox 92 100 99 94 O2 Delivery Room Air Room Air Room Air Room Air 03/06/19 03/06/19 03/06/19 16:00 16:10 16:20 Pulse 100 103 105 Resp 18 20 20 B/P (MAP) 134/91 (105) 135/90 (105) 139/87 (104) Pulse Ox 94 99 99 O2 Delivery Room Air Room Air Room Air Rupture of Membranes Spontaneous Ruture of Membrane: Yes Amniotic Membrane Rupture Time: 0600 Amniotic Membrane Fluid Desc.: Clear Vaginal Bleeding Description: Normal Show Progress/Notes Patient SROM this AM after receiving cytotec overnight for induction, she received an epidural shortly after SROM due to discomfort, Pitocin augmentation was then used to a max dose of 2 mu/min, she progressed to complete and +1 station L&D Stage2 Stage Two Stage II Date: Mar 06, 2019 Monitors and Tracing Monitor Mode: External Heart Rate: 135 Monitor Accelerations: Uniform Monitor Decelerations: Variable Laundry Operator Finishing Variability: Average (6-10) Position: Right Occiput Anterior Presentation: Vertex Cord Descript/Complications Cord Vessel Description: 3 Vessels Complications Patient progress infant to large crown, and then lost ability to progress further despite dyscomfort and urge, FHR in the 90s at this point so low vacuum extraction done using Kiwi. 450mm Hg applied by hand held device after it is placed between anterior and posterior fontanelles. Gentle extension facilitates delivery over RML. Nuchal cord reduced x 1 Delivery Type Delivery Method: Low Vacuum Extraction Anterior Shoulder: Left Episiotomy/Perineal Laceration Laceraction(s)/Extensions: Yes Episiotomy Description: Right Mediolateral Degree (describe repair) RML repaired in usual fashion using 3-0 and 2-0 vicryl suture Condition of Delivery 1 minute Comment: 8 5 minute Comment: 9 Notes Live female weight 7lbs 2 oz Condition of Infant Condition of Infant: Living Exam: No Observed Abnormalities Resuscitation Resuscitation: N/A - Spontaneous Resp L&D Stage3 Stage Three Stage III Date: Mar 06, 2019 Pictocin Pitocin Administration mu/min: 4 Pitocin ml/hr: 4 Pitocin Administration Comment: 30 mu wide open at delivery of placenta Placenta Delivery Placenta Delivery: Spontaneous Delivery Summary Summary Estimated blood loss (mL): 350 Attending at delivery: Aline De La Garza DO Condition of Delivery Examined: Cervix Examined, Uterus Explored Post Hemorrhage: No Condition of Mother stable Condition of (s) stable ALINE DE LA GARZA DO Mar 06, 2019 18:54
--- NOTE | 2019-03-06 18:57 | Discharge Inst-Women's Service ---
Discharge Inst-Women's Serv Depart Medication/Instructions New, Converted or Re-Newed RX: RX on Chart Final Diagnosis PPD 1 VAVD Consults/Follow Up Orders/Referrals Dr. De La Garza in 6 weeks Activity Activity: Activity as Tolerated Driving Instructions: No Driving for 1 Week NO SMOKING: NO SMOKING Nothing Inside Vagina: No Douching, No Tampons Diet Discharge Diet: No Restrictions Symptoms to Report to : Bleeding Excessive, Pain Increased, Fever Over 101 Degrees F, Vaginal Bleeding Increase, Questions/Concerns For Any Problems or Questions: Contact Your Physician ALINE DE LA GARZA DO Mar 06, 2019 18:57
[2019-03-06] MEDS ORDERED: ACHD5005 PO (18:59)
[2019-03-06] MEDS ORDERED: IBUP-844 PO (18:59)
[2019-03-06] MEDS ORDERED: DOCU100C37 PO (18:59)
[2019-03-06] MEDS ORDERED: Benzocaine/Menthol TP (18:59)
[2019-03-06] MEDS ORDERED: MEASLES,MUMPS,RUBELLA 1 EA INJ SQ ONE (19:00)
[2019-03-06] MEDS ORDERED: HYDROcodone/APAP 5 MG/325 MG (LORTAB) TAB PO PRN (19:00)
[2019-03-06] MEDS ORDERED: WITCH HAZEL(TUCKS) 40 EA JAR TOP PRN (19:00)
[2019-03-06] MEDS ORDERED: TETANUS,DIPTH,PERTUSS P/F (BOOSTRIX) 0.5 ML VIAL IM ONE (19:00)
[2019-03-06] MEDS ORDERED: BENZOCAINE/MENTHOL (DERMOPLAST) 56 ML CAN TP PRN (19:00)
--- NOTE | 2019-03-06 21:10 | NUR ---
Epidural cath tip removed prior to this rn assuming care.
[2019-03-06] MEDS: IBUPROFEN 600 MG (MOTRIN) TAB PO SCH (21:35)
[2019-03-06] MEDS ORDERED: CATHETER FLUSH 10 ML SYR IV SCH (22:00)
--- NOTE | 2019-03-06 22:00 | NUR ---
Pt up to bathroom, pericare pads and gown changed, to w/c and tranfered to pp unit. Oriented to call system, surroundings and info packet, pt attention on phone, denies needs or concerns, Will cont to monitor. Pt remains under care of this RN.
[2019-03-07 00:38] VITALS: BP 112/67
[2019-03-07 03:25] VITALS: BP 104/71
[2019-03-07] MEDS: IBUPROFEN 600 MG (MOTRIN) TAB PO SCH ×4 (03:25→23:07)
[2019-03-07 07:58] LABS: BASOPHILS % (AUTO) 0 % (0-10); EOSINOPHILS # (AUTO) 0.1 10^3/uL (0.0-0.3); EOSINOPHILS % (AUTO) 1 % (0-10); HEMATOCRIT 34 % (35-52); HEMOGLOBIN 11.6 G/DL (11.5-16.0); LYMPHOCYTES # (AUTO) 3.1 X 10^3 (1.0-4.0); LYMPHOCYTES % (AUTO) 25 % (12-44); MEAN CORPUSCULAR HEMOGLOBIN 30 PG (25-34); MEAN CORPUSCULAR HGB CONC 35 G/DL (32-36); MEAN CORPUSCULAR VOLUME 86 FL (80-99); MEAN PLATELET VOLUME 10.7 FL (7.4-10.4); MONOCYTES # (AUTO) 1.2 X 10^3 (0.0-1.0); MONOCYTES % (AUTO) 10 % (0-12); NEUTROPHILS % (AUTO) 64 % (42-75); PLATELET COUNT 204 10^3/uL (130-400); RED CELL DISTRIBUTION WIDTH 13.4 % (10.0-14.5); WHITE BLOOD COUNT 12.4 10^3/uL (4.3-11.0)
--- NOTE | 2019-03-07 09:21 | NUR ---
DR. DE LA GARZA TO PT'S BEDSIDE.
--- NOTE | 2019-03-07 09:25 | NUR ---
ICE CUTTER TO PT'S BEDSIDE.
--- NOTE | 2019-03-07 09:33 | Postpartum Progress Note ---
Note Note Day # 1 Subjective: Patient is without complaints. Ambulating, voiding. Tolerating a regular diet without nausea or vomiting. Normal lochia. Pain is well controlled with oral pain medications. Objective: Physical Exam: General - Alert and oriented, no apparent distress Abdomen - Soft, appropriately tender to palpation, non-distended, fundus firm at umbilicus Extremities - no edema, negative Mac's bilaterally Assessment: PPD 1 VAVD Acute blood loss anemia Plan: Routine care. Encourage breast feeding. Encourage ambulation. Ferrous sulfate supplementation. Plan for discharge tomorrow Vitals - Labs Vital Signs - I&O Vital Signs Date Time Temp Pulse Resp B/P (MAP) Pulse Ox O2 Delivery O2 Flow Rate FiO2 03/07/19 03:25 98.3 88 18 104/71 (82) 98 Room Air 03/07/19 00:38 98.6 88 18 112/67 (82) 97 Room Air 03/06/19 21:07 129 18 142/64 (90) Room Air 03/06/19 20:47 115 18 116/62 (80) Room Air 03/06/19 20:36 120 18 122/67 (85) Room Air 03/06/19 20:26 102 18 117/65 (82) Room Air 03/06/19 20:16 94 18 116/58 (77) Room Air 03/06/19 20:07 93 18 119/58 (78) Room Air 03/06/19 19:47 109 18 142/64 (90) 99 Room Air 03/06/19 19:27 105 18 114/57 (76) Room Air 03/06/19 19:07 111 18 120/71 (87) Room Air 03/06/19 19:00 99.4 105 18 116/76 (89) 99 Room Air 03/06/19 18:45 99.6 111 20 126/67 (86) 99 Room Air 03/06/19 18:35 99.8 123 20 126/61 (82) 99 Room Air 03/06/19 18:30 121 18 122/53 (76) Room Air 03/06/19 17:40 92 18 106/59 (75) 100 Room Air 03/06/19 17:30 88 18 107/63 (78) 100 Room Air 03/06/19 17:10 101 18 127/71 (89) 96 Room Air 03/06/19 17:00 96 20 140/84 (102) 99 Room Air 03/06/19 16:45 96 20 141/83 (102) 99 Room Air 03/06/19 16:30 100 20 143/87 (105) 99 Room Air 03/06/19 16:20 105 20 139/87 (104) 99 Room Air 03/06/19 16:10 103 20 135/90 (105) 99 Room Air 03/06/19 16:00 100 18 134/91 (105) 94 Room Air 03/06/19 15:40 104 18 134/78 (96) 94 Room Air 03/06/19 15:10 96 18 121/76 (91) 99 Room Air 03/06/19 15:00 104 18 111/83 (92) 100 Room Air 03/06/19 14:50 100 20 119/74 (89) 92 Room Air 03/06/19 14:40 107 20 115/76 (89) 99 Room Air 03/06/19 14:30 100 20 119/76 (90) 99 Room Air 03/06/19 14:20 100 20 122/86 (98) 100 Room Air 03/06/19 14:00 103 20 121/78 (92) 100 Room Air 03/06/19 13:40 99 20 120/74 (89) 98 Room Air 03/06/19 13:30 92 20 117/65 (82) 100 Room Air 03/06/19 13:10 95 20 114/70 (85) 100 Room Air 03/06/19 12:55 95 20 113/70 (84) 100 Room Air 03/06/19 12:40 96 20 111/73 (86) 99 Room Air 03/06/19 12:30 98 20 110/76 (87) 99 Room Air 03/06/19 12:15 96 20 108/76 (87) 99 Room Air 03/06/19 12:00 97.8 102 20 120/71 (87) 99 Room Air 03/06/19 11:40 91 20 116/76 (89) 100 Room Air 03/06/19 11:30 100 20 111/71 (84) 99 Room Air 03/06/19 11:15 95 20 114/71 (85) 98 Room Air 03/06/19 11:00 97 18 116/76 (89) 99 Room Air 03/06/19 10:45 92 18 113/73 (86) 99 Room Air 03/06/19 10:30 100 20 116/74 (88) 98 Room Air 03/06/19 10:15 93 20 114/70 (85) 99 Room Air 03/06/19 10:00 103 20 116/77 (90) 98 Room Air 03/06/19 09:45 90 20 115/73 (87) 100 Room Air I & O 03/07/19 07:00 Intake Total 1000 ml Balance 1000 ml Labs Laboratory Tests 03/07/19 07:45: White Blood Count 12.4H, Red Blood Count 3.92L, Hemoglobin 11.6, Hematocrit 34L, Mean Corpuscular Volume 86, Mean Corpuscular Hemoglobin 30, Mean Corpuscular Hemoglobin Concent 35, Red Cell Distribution Width 13.4, Platelet Count 204, Mean Platelet Volume 10.7H, Neutrophils (%) (Auto) 64, Lymphocytes (%) (Auto) 25, Monocytes (%) (Auto) 10, Eosinophils (%) (Auto) 1, Basophils (%) (Auto) 0, Neutrophils # (Auto) 8.0H, Lymphocytes # (Auto) 3.1, Monocytes # (Auto) 1.2H, Eosinophils # (Auto) 0.1, Basophils # (Auto) 0.0 Microbiology 03/05/19 Blood Culture - Preliminary, Resulted No growth 03/05/19 Influenza Types A,B Antigen (RAFFY) - Final, Complete ALINE DE LA GARZA DO Mar 07, 2019 09:33
--- NOTE | 2019-03-07 09:54 | NUR ---
CM/SS spoke with patient in regards to the SS consult. Patient and her s/o stated that they have car seat, crib, and all necessary baby needs. Discussed community resources such as Parents As Teacher / Healthy Families. Parents state they are not interested in these services at this time.
[2019-03-07 09:57] VITALS: BP 88/63
[2019-03-07] MEDS: DOCUSATE SODIUM 100 MG (COLACE) CAP PO SCH ×2 (09:58→21:51)
--- NOTE | 2019-03-07 10:00 | NUR ---
PT IN BED. VS OBTAINED. MEDS GIVEN; SEE EMAR FOR FURTHER. INITIAL SHIFT ASSESSMENT COMPLETED; SEE INTERVENTION FOR FURTHER. S/O AT THE BEDSIDE. PT DENIES ANY PAIN OR NEEDS AT THIS TIME. CALL LIGHT WITHIN REACH.
--- NOTE | 2019-03-07 11:10 | NUR ---
PT SITTING UP ON THE SIDE OF THE BED, FACING 'S CRIB. DENIES ANY NEEDS AT THIS TIME. S/O AT THE BEDSIDE. LIGHTS REMAIN OFF.
[2019-03-07 12:59] VITALS: BP 113/70
--- NOTE | 2019-03-07 12:59 | NUR ---
PT IN BED, ON HER PHONE. VISITORS AT THE BEDSIDE. VS OBTAINED. PT DENIES ANY PAIN OR NEEDS AT THIS TIME.
--- NOTE | 2019-03-07 14:16 | Anesthesia-Regional Post-Op ---
Regional Patient Condition Mental Status: Alert, Oriented x3 Circulation: Same as Pre-Op Headache: Absent Sensation: Full Recovery Motor Block: Absent Post Op Complications Complications None Follow Up Care/Instructions Patient Instructions None needed. Anesthesia/Patient Condition Patient is doing well, no complaints, stable vital signs, no apparent adverse anesthesia problems. JENNA TAVERAS DO Mar 07, 2019 14:16
[2019-03-07 17:08] VITALS: BP 115/64
--- NOTE | 2019-03-07 17:13 | NUR ---
PT IN BED, VISITORS AT THE BEDSIDE. ROUTINE MOTRIN GIVEN PO; SEE EMAR FOR FURTHER. VS OBTAINED. FRESH ICE WATER PROVIDED. NO NEEDS VOICED.
--- NOTE | 2019-03-07 21:00 | NUR ---
pt sitting up in bed. family at bedside. assessment completed. pt requesting wet wipes for the bathroom. 2 packages given. pt denies any other needs at this time. will continue to monitor.
[2019-03-07 22:12] VITALS: BP 101/59
[2019-03-08 04:00] VITALS: BP 94/63
[2019-03-08] MEDS: IBUPROFEN 600 MG (MOTRIN) TAB PO SCH ×3 (06:07→18:14)
--- NOTE | 2019-03-08 06:46 | Postpartum Progress Note ---
Note Note Day # 2 Subjective: Patient is without complaints. Ambulating, voiding. Tolerating a regular diet without nausea or vomiting. Normal lochia. Pain is well controlled with oral pain medications. Objective: [ Physical Exam: General - Alert and oriented, no apparent distress Abdomen - Soft, appropriately tender to palpation, non-distended, fundus firm at umbilicus Extremities - no edema, negative Mac's bilaterally Assessment: PPD 2 VAVD Plan: Routine care. Encourage breast feeding. Encourage ambulation. Ferrous sulfate supplementation. Plan for discharge today Vitals - Labs Vital Signs - I&O Vital Signs Date Time Temp Pulse Resp B/P (MAP) Pulse Ox O2 Delivery O2 Flow Rate FiO2 03/08/19 04:00 98.5 72 18 94/63 (73) 100 Room Air 03/07/19 22:12 98.1 82 18 101/59 (73) 100 Room Air 03/07/19 17:08 97.8 83 18 115/64 (81) 97 Room Air 03/07/19 12:59 97.4 77 18 113/70 (84) 98 Room Air 03/07/19 09:57 97.2 72 18 88/63 (71) 98 Room Air Labs Laboratory Tests 03/07/19 07:45: White Blood Count 12.4H, Red Blood Count 3.92L, Hemoglobin 11.6, Hematocrit 34L, Mean Corpuscular Volume 86, Mean Corpuscular Hemoglobin 30, Mean Corpuscular Hemoglobin Concent 35, Red Cell Distribution Width 13.4, Platelet Count 204, Mean Platelet Volume 10.7H, Neutrophils (%) (Auto) 64, Lymphocytes (%) (Auto) 25, Monocytes (%) (Auto) 10, Eosinophils (%) (Auto) 1, Basophils (%) (Auto) 0, Neutrophils # (Auto) 8.0H, Lymphocytes # (Auto) 3.1, Monocytes # (Auto) 1.2H, Eosinophils # (Auto) 0.1, Basophils # (Auto) 0.0 Microbiology 03/05/19 Blood Culture - Preliminary, Resulted No growth 03/05/19 Influenza Types A,B Antigen (RAFFY) - Final, Complete ALINE DE LA GARZA DO Mar 08, 2019 6:46 am
[2019-03-08 08:00] VITALS: BP 104/62
--- NOTE | 2019-03-08 08:00 | NUR ---
ASSESSMENT COMPLETED. PT HAS BEEN SLEEPING BETWEEN FEEDS. NIPPLES NOTED TOO BE RED WITH EXCORIATION NOTED. USING LANOLIN AND A NIPPLE SHIELD.
[2019-03-08] MEDS ORDERED: TETANUS,DIPTH,PERTUSS P/F (BOOSTRIX) 0.5 ML VIAL IM ONE (09:43)
[2019-03-08] MEDS: DOCUSATE SODIUM 100 MG (COLACE) CAP PO SCH (09:43)
--- NOTE | 2019-03-08 09:50 | NUR ---
TDAP GIVEN IM IN LEFT DELTOID. SITE CLEAR.
--- NOTE | 2019-03-08 10:00 | NUR ---
CONTINUES TO CARE FOR IN ROOM.
--- NOTE | 2019-03-08 12:30 | NUR ---
RESTING WHEN ENTERED ROOM. S.O. AT BEDSIDE. CARING FOR IN ROOM. PT STATES SHE IS TIRED.
[2019-03-08 13:00] VITALS: BP 109/59
--- NOTE | 2019-03-08 14:00 | NUR ---
INFANT WHEN ENTERED ROOM. INFANT HAS TO HAVE A REPEAT BILIRUBIN AT 2000.
--- NOTE | 2019-03-08 17:55 | NUR ---
PT UP IN THE SHOWER. FAMILY AT BEDSIDE WITH INFANT.
[2019-03-08 18:15] VITALS: BP 115/55
--- NOTE | 2019-03-08 18:30 | NUR ---
NURSERY RN HAS BEEN IN WITH MOM TO ASSIST WITH . SEE NURSERY NOTES.
--- NOTE | 2019-03-08 19:10 | NUR ---
DISCHARGE INSTRUCTIONS REVIEWED WITH COPY TO PT. STATES UNDERSTANDING OF ALL INSTRUCTIONS AND NEED TO F/U SCHEDULED AND NEEDED.
--- NOTE | 2019-03-08 19:15 | NUR ---
RHOGAM GIVEN IM IN LEFT VG SITE. SITE CLEAR.
[2019-03-08 19:30] VITALS: BP 115/55
--- NOTE | 2019-03-08 19:30 | NUR ---
DISMISSED FROM WS IN STABLE CONDITION TO ROOMING -IN PARENT R/T INFANT HAVING TO STAY A PT. FAMILY AT BEDSIDE.
== END 2019-03-08 19:30 | disposition home or self-care (01) | DRG 807 ==
LOC: LDRP 15:22
PROVIDERS: ADMIT Obstetrics & Gynecology; ATTEND Obstetrics & Gynecology
PROC: 10D07Z6 Extraction of Products of Conception, Vacuum, Via Natural or Artificial Opening (ICD-10-PCS; principal; 2019-03-06)
PROC: 0W8NXZZ Division of Female Perineum, External Approach (ICD-10-PCS; 2019-03-06)
DX: O99.613 Diseases of the digestive system complicating pregnancy, third trimester (principal); K52.9 Noninfective gastroenteritis and colitis, unspecified; O62.2 Other uterine inertia; O69.81X0 Labor and delivery complicated by cord around neck, without compression, not applicable or unspecified; O99.283 Endocrine, nutritional and metabolic diseases complicating pregnancy, third trimester; E05.00 Thyrotoxicosis with diffuse goiter without thyrotoxic crisis or storm; Z3A.38 38 weeks gestation of pregnancy; Z37.0 Single live birth
CPT/HCPCS: 36415; 76815; 80053; 81000; 83033; 84443; 85025; 86850; 86900; 86901; 87040; 87804; 90715; 99212

== ENCOUNTER 2019-03-15 03:57 | Inpatient (IN) | payer MEDICAID ==
[~2019-03-15] VITALS: Ht 162.6 cm; Wt 81.7 kg
[~2019-03-15 03:57] MED LIST changes: +ACHD5005 PO; +Benzocaine/Menthol TP; +DOCU100C37 PO; +IBUP-844 PO
[2019-03-15] MEDS ORDERED: LACTATED RINGERS 1,000 ML IV ONE ×2 (04:17)
[2019-03-15 04:26] LABS: BASOPHILS % (AUTO) 0 % (0-10); EOSINOPHILS # (AUTO) 0.1 10^3/uL (0.0-0.3); EOSINOPHILS % (AUTO) 1 % (0-10); HEMATOCRIT 42 % (35-52); HEMOGLOBIN 14.5 G/DL (11.5-16.0); LYMPHOCYTES % (AUTO) 5 % (12-44); MEAN CORPUSCULAR HEMOGLOBIN 29 PG (25-34); MEAN CORPUSCULAR HGB CONC 35 G/DL (32-36); MEAN CORPUSCULAR VOLUME 83 FL (80-99); MEAN PLATELET VOLUME 9.2 FL (7.4-10.4); MONOCYTES # (AUTO) 0.6 X 10^3 (0.0-1.0); MONOCYTES % (AUTO) 3 % (0-12); NEUTROPHILS # (AUTO) 19.2 X 10^3 (1.8-7.8); NEUTROPHILS % (AUTO) 92 % (42-75); PLATELET COUNT 411 10^3/uL (130-400); RED CELL DISTRIBUTION WIDTH 12.9 % (10.0-14.5); WHITE BLOOD COUNT 20.9 10^3/uL (4.3-11.0)
--- NOTE | 2019-03-15 04:28 | ED Abdominal Pain ---
General Chief Complaint: Fever-Adult/Adol Stated Complaint: STITCHES HURT,SAUER,NAUSEA Source of Information: Patient, Other (boyfriend) Exam Limitations: No Limitations (SYDNEY ANDERSON) History of Present Illness Date Seen by Provider: Mar 15, 2019 Time Seen by Provider: 04:11 Initial Comments The patient presents to ER by private conveyance with her boyfriend and chief complaint that for about 1 maybe 2 days she's been having progressively worsening abdominal pain bilateral breast pain, nausea and vomiting yesterday and feeling feverish and weak. Her boyfriend brought her in because she was not acting right. She took some ibuprofen 9:00 AM yesterday for the pain and laid down and slept most of the day. She went to the urgent care at [facility] yesterday and they felt her breasts and on her belly and told her that her vi tals were okay and she should go home. They deny that any blood or urine was tested. She says she is feeling a lot of pain where she had an episiotomy and sutures placed. She is known to Dr. DE LA GARZA for her OB and was just status post delivery by spontaneous vaginal about a week ago. She's having some bleeding from the vagina little more than a period. She says she's had chlamydia in the past but was negative on all her tests with Dr. DE LA GARZA. She denies any discharge or foul odor. Constipation with her last bowel movement 2 days ago. Abdominal pain all over. (SYDNEY ANDERSON) Allergies and Home Medications Allergies Uncoded Allergies: CONTRAST DYE (Allergy, Mild, 01/19/10) Home Medications Docusate Sodium 100 Mg Capsule, 100 MG PO BID Prescribed by: ALINE DE LA GARZA on 03/06/191858 Hydrocodone Bit/Acetaminophen 1 Tab Tab, 1 TAB PO Q4H PRN for PAIN-MODERATE Prescribed by: ALINE DE LA GARAZ on 03/06/191858 Ibuprofen 600 Mg Tablet, 600 MG PO Q6HR Prescribed by: ALINE DE LA GARZA on 03/06/191858 Vit No.124/Iron/FA 1 Each Tablet, 1 EACH PO DAILY, (Reported) Patient Home Medication List Home Medication List Reviewed: Yes (SYDNEY ANDERSON) Review of Systems Review of Systems Constitutional: No chills, No diaphoresis EENTM: No Blurred Vision, No Double Vision Respiratory: Denies Cough, Denies Shortness of Air Cardiovascular: Denies Chest Pain, Denies Edema Gastrointestinal: See HPI; Denies Abdomen Distended; Abdominal Pain, Constipated; Denies Diarrhea; Nausea, Poor Fluid Intake, Vomiting Genitourinary: Denies Burning; Discharge; Denies Frequency, Denies Flank Pain (bloody) Musculoskeletal: No back pain, No joint pain Skin: No change in color, No pruritus, No rash Psychiatric/Neurological: Denies Headache, Denies Numbness (SYDNEY ANDERSON) Past Ihnawqr-Nonfml-Yranwx Hx Patient Social History Alcohol Use: Denies Use Recreational Drug Use: No Smoking Status: Never a Smoker 2nd Hand Smoke Exposure: No Recent Foreign Travel: No Contact w/Someone Who Travel: No Recent Hopitalizations: Yes (post delivery) (SYDNEY ANDERSON) Immunizations Up To Date Tetanus Booster (TDap): Less than 5yrs PED Vaccines UTD: Yes (SYDNEY ANDERSON) Seasonal Allergies Seasonal Allergies: No (SYDNEY ANDERSON) Past Medical History Surgeries: No Respiratory: No Currently Using CPAP: No Currently Using BIPAP: No Cardiac: No Neurological: Yes Headaches /Migraines Hx : 1 Hx Para: 1 Reproductive Disorders: No Female Reproductive Disorders: Denies Sexually Transmitted Disease: No HIV/AIDS: No Genitourinary: Yes UTI-Chronic Gastrointestinal: No Gastroesophageal Reflux Musculoskeletal: No Endocrine: Yes (Graves Disease) Hyperthyroidism HEENT: No Loss of Vision: Denies Hearing Impairment: Denies Cancer: No Psychosocial: Yes Sleep Difficulties, Anxiety, PTSD, Suicide Attempts, Bipolar, Depression Integumentary: No Blood Disorders: No Adverse Reaction/Blood Tranf: No (SYDNEY ANDERSON) Family Medical History Alcoholism Grandparents (Maternal Grandmother) Arthritis Grandparents (Maternal Grandmother) Asthma Grandparents (Maternal Grandmother) Cardiovascular disease 19 FATHER (heart problems pt not sure what kind) G8 SISTER (heart defect) Cataracts Grandparents (Maternal Grandmother) Completed stroke 19 FATHER, Onset:30's - 40 Congenital disease Deafness or hearing loss Grandparents (Maternal Grandmother-hearing loss) Diabetes mellitus 19 MOTHER Grandparents (Maternal Grandmother) Drug abuse 19 FATHER 19 MOTHER (Meth, Marijuana-Clean 7 years) FH: aortic stenosis 19 FATHER FH: brain cancer Grandparents (Paternal Grandfather) Fibrocystic disease of breast Grandparents (Paternal Grandmother-) Gastroenteritis Grandparents (Maternal Grandmother) Glaucoma Grandparents (Maternal Grandmother) Heart murmur G8 SISTER Hypercholesterolemia 19 FATHER 19 MOTHER Grandparents (Maternal Grandmother) Osteoporosis Grandparents (Maternal Grandmother) Psychosocial problem 19 FATHER G8 SISTER (adhd) Grandparents (Maternal Grandmother-depression/anxiety) Respiratory disorder Grandparents (Maternal Grandmother-COPD) Thyroid disease 19 MOTHER (Hypothyroidism) Grandparents (Maternal Grandmother-Hypothyroidism) Physical Exam Vital Signs Vital Signs - First Documented 03/15/19 04:05 Temp 103.0 Pulse 146 Resp 22 B/P (MAP) 114/63 (80) Pulse Ox 99 O2 Delivery Room Air (GIGI BARRAGAN MD) Vital Signs Capillary Refill : (SYDNEY ANDERSON) Height/Weight/BMI Height: 5'4.00" Weight: 192lbs. 0.0oz. 87.521871fn; 33.0 BMI Method:Estimated General Appearance: WD/WN, moderate distress HEENT: PERRL/EOMI, normal ENT inspection, pharynx normal Neck: full range of motion, normal inspection Respiratory: lungs clear, normal breath sounds, no respiratory distress, no accessory muscle use Cardiovascular: normal peripheral pulses, regular rate, rhythm, no edema Peripheral Pulses: 2+ Radial Pulses (R), 2+ Radial Pulses (L) Gastrointestinal: normal bowel sounds, guarding, tenderness (all 4 quadrants including McBurney's point tenderness), other (positive for psoas sign and other mesenteric signs.) Genital/Rectal: tenderness (the posterior portion of the vaginal wall 6:00 has some sutures in place that appear to be healing well. Cervix is friable with some brownish thick mucoid discharge. Nothing pooling in the vaginal vault. Chandelier sign positive) Extremities: normal range of motion, non-tender, normal capillary refill (SYDNEY ANDERSON) Focused Exam Lactate Level 03/15/19 04:15: Lactic Acid Level 1.47 (GIGI BARRAGAN MD) Lactic Acid Level Laboratory Tests Test 03/15/19 04:15 Lactic Acid Level 1.47 MMOL/L (0.50-2.00) (GIGI BARRAGAN MD) Progress/Results/Core Measures Results/Orders Lab Results Laboratory Tests Test 03/15/19 04:15 03/15/19 04:40 Range/Units White Blood Count 20.9 H 4.3-11.0 10^3/uL Red Blood Count 4.99 4.35-5.85 10^6/uL Hemoglobin 14.5 11.5-16.0 G/DL Hematocrit 42 35-52 % Mean Corpuscular Volume 83 80-99 FL Mean Corpuscular Hemoglobin 29 25-34 PG Mean Corpuscular Hemoglobin Concent 35 32-36 G/DL Red Cell Distribution Width 12.9 10.0-14.5 % Platelet Count 411 H 130-400 10^3/uL Mean Platelet Volume 9.2 7.4-10.4 FL Neutrophils (%) (Auto) 92 H 42-75 % Lymphocytes (%) (Auto) 5 L 12-44 % Monocytes (%) (Auto) 3 0-12 % Eosinophils (%) (Auto) 1 0-10 % Basophils (%) (Auto) 0 0-10 % Neutrophils # (Auto) 19.2 H 1.8-7.8 X 10^3 Lymphocytes # (Auto) 1.0 1.0-4.0 X 10^3 Monocytes # (Auto) 0.6 0.0-1.0 X 10^3 Eosinophils # (Auto) 0.1 0.0-0.3 10^3/uL Basophils # (Auto) 0.0 0.0-0.1 10^3/uL Neutrophils % (Manual) 95 % Lymphocytes % (Manual) 4 % Monocytes % (Manual) 1 % Prothrombin Time 15.3 H 12.2-14.7 SEC INR Comment 1.2 0.8-1.4 Activated Partial Thromboplast Time 44 H 24-35 SEC Sodium Level 132 L 135-145 MMOL/L Potassium Level 3.3 L 3.6-5.0 MMOL/L Chloride Level 103 98-107 MMOL/L Carbon Dioxide Level 15 L 21-32 MMOL/L Anion Gap 14 5-14 MMOL/L Blood Urea Nitrogen 11 7-18 MG/DL Creatinine 0.94 0.60-1.30 MG/DL Estimat Glomerular Filtration Rate > 60 BUN/Creatinine Ratio 12 Glucose Level 128 H 70-105 MG/DL Lactic Acid Level 1.47 0.50-2.00 MMOL/L Calcium Level 9.3 8.5-10.1 MG/DL Corrected Calcium 9.2 8.5-10.1 MG/DL Total Bilirubin 0.6 0.1-1.0 MG/DL Aspartate Amino Transf (AST/SGOT) 18 5-34 U/L Alanine Aminotransferase (ALT/SGPT) 16 0-55 U/L Alkaline Phosphatase 91 40-136 U/L Total Protein 7.7 6.4-8.2 GM/DL Albumin 4.1 3.2-4.5 GM/DL Lipase 31 8-78 U/L (GIGI BARRAGAN MD) My Orders (GIGI BARRAGAN MD) Medications Given in ED Current Medications Medications Dose Ordered Sig/Baljit Route Start Time Stop Time Status Last Admin Dose Admin Ceftriaxone Sodium 1000 mg/ Sterile Water 10 ml @ 200 mls/hr ONCE ONCE IV 03/15/19 04:30 03/15/19 04:32 DC 03/15/19 04:37 200 MLS/HR Fentanyl Citrate 50 mcg ONCE ONCE IVP 03/15/19 05:30 03/15/19 05:31 DC 03/15/19 05:34 50 MCG Ketorolac Tromethamine 30 mg ONCE ONCE IVP 03/15/19 04:30 03/15/19 04:31 DC 03/15/19 04:34 30 MG Lactated Ringer's 1,000 ml @ 0 mls/hr Q0M ONCE IV 03/15/19 04:17 03/15/19 04:22 DC 03/15/19 04:34 0 MLS/HR Lactated Ringer's 1,000 ml @ 0 mls/hr Q0M ONCE IV 03/15/19 04:17 03/15/19 04:22 DC 03/15/19 04:37 0 MLS/HR Metronidazole 100 ml @ 100 mls/hr ONCE ONCE IV 03/15/19 04:30 03/15/19 05:29 DC 03/15/19 04:38 100 MLS/HR Ondansetron HCl 4 mg PRN PRN IV 03/15/19 04:30 03/15/19 04:34 DC 03/15/19 04:34 4 MG (GIGI BARRAGAN MD) Vital Signs/I&O 03/15/19 03/15/19 03/15/19 03/15/19 04:05 04:15 04:34 04:47 Temp 103.0 103.0 102.8 Pulse 146 117 Resp 22 26 B/P (MAP) 114/63 (80) 119/66 Pulse Ox 99 99 98 O2 Delivery Room Air Room Air Room Air 03/15/19 05:30 Temp 101.6 Pulse 108 Resp 12 B/P (MAP) 124/68 (86) Pulse Ox 96 O2 Delivery Room Air (GIGI BARRAGAN MD) Progress Progress Note : Time: 04:27 Progress Note Plan to do a speculum vaginal exam. Patient has an acute abdomen and is septic with heart rate in the 140s. Zofran, Toradol, 2 L of saline which would be more than 20 mL/kg. She is breast-feeding but grossly her breast do not appear to be consistent with mastitis. She denies discharge. UTI versus endometritis versus PID Versus colitis versus appendicitis versus other. Wet prep, GC and chlamydia obtained. (SYDNEY ANDERSON) Progress Note : Time: 06:44 Progress Note Care of this patient was assumed from Dr. Anderson at shift change. She had received 2 L of LR, Flagyl, Rocephin, fentanyl, Toradol, and Zofran. Per Dr. Anderson's verbal report, pelvic exam was performed and she had an exquisitely tender friable cervix and very tender pelvis. Episiotomy sutures appeared intact with no evidence of localized infection at the episiotomy. Cultures were sent by Dr. Anderson. A general genital culture order had not been placed yet. I placed an order and confirmed that the specimen was available in lab. Patient's symptoms are controlled at present. CT was reviewed and there were no acute findings to suggest any other cause for her pain. Urine returned suggesting possible urinary tract infection as well. Case was discussed with Dr. Tang. He excepts admission and recommends Zosyn. This was added to the bridging orders to start on the floor. (GIGI BARRAGAN MD) Diagnostic Imaging Diagonstic Imaging: Xray Plain Films/CT/US/NM/MRI: chest (one view) Comments No acute cardiopulmonary process noted. Reviewed: Reviewed by Me Diagonstic Imaging: CT (without contrast) Plain Films/CT/US/NM/MRI: abdomen, pelvis Comments No acute inflammatory process. No abnormal fluid collection. No evidence for free air. Reviewed: Reviewed by Me (SYDNEY ANDERSON) Transfer of Care Time: 06:06 Care transferred to: Dr. Sanders (SYDNEY ANDERSON) Departure Communication (Admissions) Time/Spoke to Admitting Phy: 06:35 Dr. Tang (GIGI BARRAGAN MD) Impression Primary Impression: Sepsis Qualified Codes: A41.9 - Sepsis, unspecified organism Additional Impressions: Cervicitis Generalized abdominal pain Urinary tract infection Qualified Codes: N39.0 - Urinary tract infection, site not specified Disposition: ADMITTED INPATIENT Condition: Stable Admissions Decision to Admit Reason: Admit from ER (General) Decision to Admit/Date: Mar 15, 2019 Time/Decision to Admit Time: 05:00 (SYDNEY ANDERSON) Decision to Admit Reason: Admit from ER (General) Decision to Admit/Date: Mar 15, 2019 Time/Decision to Admit Time: 05:00 (GIGI BARRAGAN MD) Departure-Patient Inst. [facility] Primary Care Physician SYDNEY ANDERSON Mar 15, 2019 04:28 GIGI BARRAGAN MD Mar 15, 2019 06:48
[2019-03-15] MEDS ORDERED: cefTRIAXone FOR IV USE 1,000 MG in WATER (STERILE) FOR INJECTION 10 ML IV ONE (04:30)
[2019-03-15] MEDS ORDERED: KETOROLAC 30 MG/ML VIAL IVP ONE (04:30)
[2019-03-15] MEDS ORDERED: ONDANSETRON 4 MG/2 ML (SDV) Z0FRAN IV PRN ×2 (04:30→07:45)
[2019-03-15] MEDS ORDERED: metroNIDAZOLE 500MG/100ML IVPB 100 ML IV ONE (04:30)
[2019-03-15 04:43] LABS: INR 1.2 (0.8-1.4); PROTHROMBIN TIME PATIENT 15.3 SEC (12.2-14.7)
[2019-03-15 04:52] LABS: ALANINE AMINOTRANSFERASE 16 U/L (0-55); ALBUMIN 4.1 GM/DL (3.2-4.5); ALKALINE PHOSPHATASE 91 U/L (40-136); BILIRUBIN,TOTAL 0.6 MG/DL (0.1-1.0); BUN/CREATININE RATIO 12; CALCIUM 9.3 MG/DL (8.5-10.1); CARBON DIOXIDE 15 MMOL/L (21-32); CHLORIDE 103 MMOL/L (98-107); CREATININE SERUM 0.94 MG/DL (0.60-1.30); GFR ESTIMATED > 60; GLUCOSE 128 MG/DL (70-105); LIPASE 31 U/L (8-78); POTASSIUM 3.3 MMOL/L (3.6-5.0); SODIUM 132 MMOL/L (135-145); TOTAL PROTEIN 7.7 GM/DL (6.4-8.2)
--- OUTSIDE RECORDS SUMMARY | 2019-03-15 05:23 | XMS REPORT | Clinical Summary ---
Author Author [facility] Organization [facility] Address Unknown Phone Unavailable Care Team Providers Care Aeronautical Engineering Technologist Name Role Phone Homer Sherman OD Unavailable LincolnJeff DO Unavailable Primitivo, [facility] PCP Source Comments Some departments are not documenting in the electronic medical record. If you d o not see the information that you expected, contact Release of Information in [facility]yla Information Management department at [phone] for further assistan ce in locating additional records.[facility] Allergies Comments Active Allergy Reactions Severity Noted Date Iodinated Contrast- Oral CHEST High 08/15/2017 And Iv Dye TIGHTNESS, HIVES, RASH, SHORTNESS OF BREATH Medications End Date Status Medication Sig Dispensed Refills Start Date Active vit Take by 0 calc,iron,folic ( mouth daily. VITAMIN PO) Active propylthiouracil (PTU) 50 Take one 90 tablet 3 11/26/201 mg tabletIndications: tablet by 9 Hyperthyroidism affecting mouth daily. , antepartum Active Problems Problem Noted Date Thyroid disease affecting 11/20/2018 Estimated Date of Delivery Comments Yes 03/15/2019 Based on Other Basis, per Dr. Baca and LIZZIE Encounters Care Team Description Date Type Specialty Yolanda Jo MD 12/18/2018 Hospital Lab Encounter Yolanda Jo MD Graves disease (Primary Dx); Depression affecting 12/18/2018 Office Visit Diabetes Services from Last 3 Months Immunizations Name Administration Dates Next Due Rho D Immune Globulin 11/20/2018 (Rhogam) Family History Medical History Relation Name Comments Heart Disease Father Thyroid Disease Maternal Hypothyroidism Grandmother Diabetes Mother High Cholesterol Mother Hypertension Mother Thyroid Disease Mother Hypothyroidism Relation Name Status Comments Father Alive Maternal Grandmother Mother Alive Social History Date Tobacco Use Types Packs/Day Years Used Never Smoker Smokeless Tobacco: Never Used Tobacco Cessation: Counseling Given: No Drinks/Week oz/Week Comments Alcohol Use No Alcohol Habits Answer Date Recorded How often do you have a drink containing alcohol? Never 11/20/2018 How many drinks containing alcohol do you have on Not asked a typical day when you are drinking? How often do you have six or more drinks on one Not asked occasion? Estimated Date of Delivery Comments Yes 03/15/2019 Based on Other Basis, per Dr. Baca and LIZZIE Sex Assigned at Date Recorded Not on file Industry Job Start Date Occupation Not on file Not on file Not on file Travel End Travel History Travel Start No recent travel history available. Last Filed Vital Signs Reading Time Taken Comments Vital Sign 111/68 12/18/2018 11:37 AM CDT Blood Pressure 88 12/18/2018 11:37 AM CDT Pulse 37.2 C (98.9 F) 11/20/2018 11:40 AM REHABILITATION LIAISON Temperature - - Respiratory Rate 100% 11/20/2018 2:45 PM REHABILITATION LIAISON Oxygen Saturation - - Inhaled Oxygen Concentration 82.3 kg (181 lb 6.4 oz) 12/18/2018 11:37 AM CDT Weight 162.4 cm (5' 3.94") 12/18/2018 11:37 AM CDT Height 31.2 12/18/2018 11:37 AM CDT Body Mass Index Plan of Treatment Health Maintenance Due Date Last Done Comments PHYSICAL (COMPREHENSIVE) 2005 EXAM HIV SCREENING 2013 HPV VACCINES (1 - Female 2013 3-dose series) DTAP/TDAP VACCINES (1 - 2016 Tdap) INFLUENZA VACCINE 06/24/2019 08/16/2018 MENINGOCOCCAL VACCINE Aged Out No longer eligible based (ACWY,Menactra) on patient's age to complete this topic Procedures Comments Procedure Name Priority Date/Time Associated Diagnosis COMPREHENSIVE METABOLIC Routine 12/18/2018 Graves disease PANEL 12:32 PM CDT THYROTROPIN (TSH) Routine 12/18/2018 Graves disease RECEPTOR AB 12:32 PM CDT THYROID STIMULATING Routine 12/18/2018 Graves disease HORMONE-TSH 12:32 PM CDT FREE T4 (FREE THYROXINE) Routine 12/18/2018 Graves disease ONLY 12:32 PM CDT TOTAL T3 Routine 12/18/2018 Hyperthyroidism (TRIIODOTHYRONINE) 12:32 PM CDT from Last 3 Months Results * THYROTROPIN (TSH) RECEPTOR AB (12/18/2018 12:32 PM CDT) TSH Receptor AB 1.95 (H) REFERENCE LAB Comment: Reference range: 0.00to1.75 Unit: IU/L ADDITIONAL INFORMATION At a decision limit of 1.75 IU/L, this assay has 97% sensitivity and 99% specificity for detection of Graves' disease. In healthy individuals and in patients with thyroid disease without diagnosis of Graves' disease, the upper limit of anti-TSHR values are 1.22 IU/L and 1.58 IU/L, respectively (97.5th percentiles). [facility], [address] [place] [address] Specimen Blood Performing Organization Address [facility] Phone Number REFERENCE LAB REFERENCE LAB See results for address. * TOTAL T3 (TRIIODOTHYRONINE) (12/18/2018 12:32 PM CDT) T3 (Total) 155 87 - 180 NG/DL MAIN LAB Specimen Blood Performing Organization Address [facility] Center[facility] Phone Number MAIN LAB [address] [place] [address] * THYROID STIMULATING HORMONE-TSH (12/18/2018 12:32 PM CDT) TSH 0.150 (L) 0.35 - 5.00 MCU/ML MAIN LAB Specimen Blood Performing Organization Address [facility] Phone Number MAIN LAB [address] [place] [address] * FREE T4 (FREE THYROXINE) ONLY (12/18/2018 12:32 PM CDT) T4-Free 0.7 0.6 - 1.6 NG/DL MAIN LAB Specimen Blood Performing Organization Address [facility] Cent[facility]ode Phone Number MAIN LAB [address] [facility] [place] [address] * COMPREHENSIVE METABOLIC PANEL (12/18/2018 12:32 PM CDT) Sodium 133 (L) 137 - 147 MMOL/L [facility] Potassium 3.7 3.5 - 5.1 MMOL/L [facility] Chloride 104 98 - 110 MMOL/L [facility] Glucose 87 70 - 100 MG/DL [facility] Blood Urea 5 (L) 7 - 25 MG/DL [facility] Nitrogen Creatinine 0.49 0.4 - 1.00 MG/DL [facility] Calcium 9.3 8.5 - 10.6 MG/DL [facility] Total Protein 6.8 6.0 - 8.0 G/DL [facility] Total Bilirubin 0.3 0.3 - 1.2 MG/DL [facility] Albumin 3.6 3.5 - 5.0 G/DL [facility] Alk Phosphatase 49 25 - 110 U/L [facility] AST (SGOT) 12 7 - 40 U/L [facility] CO2 21 21 - 30 MMOL/L [facility] ALT (SGPT) 7 7 - 56 U/L [facility] Anion Gap 8 3 - 12 [facility] eGFR Non >60 >60 mL/min [facility] Comment: [place] The eGFR is not validated for use in drug dosing adjustments.Continue to use estimated creatinine clearance per dosing reference text.Please contact the Clinical Pharmacist for questions. eGFR >60 >60 mL/min [facility] [place] Comment: The eGFR is not validated for use in drug dosing adjustments.Continue to use estimated creatinine clearance per dosing reference text.Please contact the Clinical Pharmacist for questions. Specimen Blood Performing Organization Address City/State/Zipcode Phone Number [facility] [address] [place] [address] from Last 3 Months Insurance Type Payer Benefit Subscriber ID Effective Phone Address Plan / Dates Group Medicaid [facility] MEDICAID [facility] xxxxxxxxxxx [id number] [employer] [place] Advance Directives Patient Radio Repairman Explanation Type Date Recorded Advance Directive/DPOA Date Inactivated Comments Code Status Date Activated 11/20/2018 7:58 PM Full Code 11/20/2018 10:30 AM Provider has discussed Code Status No, discussion not w/Patient or Family? necessary based on Dx
--- OUTSIDE RECORDS SUMMARY | 2019-03-15 05:23 | XMS REPORT | Encounter Summary ---
Author Author [facility] Organization [facility] Address Unknown Phone Unavailable Care Team Providers Care Tumbler Tender Name Role Phone Homer Sherman OD Unavailable LincolnJeff DO Unavailable Primitivo, [facility] PCP Encounter Details Care Team Description Date Type Department Yolanda Jo MD [address] [facility] [address] [place] [address] 12/18/2018 [facility] [address] [address] Social History Date Tobacco Use Types Packs/Day Years Used Never Smoker Smokeless Tobacco: Never Used Drinks/Week oz/Week Comments Alcohol Use No Alcohol Habits Answer Date Recorded How often do you have a drink containing alcohol? Never 11/20/2018 How many drinks containing alcohol do you have on Not asked a typical day when you are drinking? How often do you have six or more drinks on one Not asked occasion? Sex Assigned at Date Recorded Not on file Industry Job Start Date Occupation Not on file Not on file Not on file Travel End Travel History Travel Start No recent travel history available. documented as of this encounter Functional Status Date of Assessment Functional Status Response 11/20/2018 Does the patient have a hearing impairment: No documented as of this encounter Medications at Time of Discharge Start Date End Date Medication Sig Dispensed Refills vit Take by 0 calc,iron,folic ( mouth daily. VITAMIN PO) 11/26/2018 propylthiouracil (PTU) 50 Take one 90 tablet 3 mg tabletIndications: tablet by Hyperthyroidism affecting mouth daily. , antepartum documented as of this encounter Plan of Treatment Not on filedocumented as of this encounter Procedures Comments Procedure Name Priority Date/Time Associated Diagnosis THYROTROPIN (TSH) Routine 12/18/2018 Graves disease RECEPTOR AB 12:32 PM CDT TOTAL T3 Routine 12/18/2018 Hyperthyroidism (TRIIODOTHYRONINE) 12:32 PM CDT THYROID STIMULATING Routine 12/18/2018 Graves disease HORMONE-TSH 12:32 PM CDT FREE T4 (FREE THYROXINE) Routine 12/18/2018 Graves disease ONLY 12:32 PM CDT COMPREHENSIVE METABOLIC Routine 12/18/2018 Graves disease PANEL 12:32 PM CDT documented in this encounter Results * COMPREHENSIVE METABOLIC PANEL (12/18/2018 12:32 PM [...] >60 >60 mL/min [facility] Comment: [place] The eGFR is not validated for use in drug dosing adjustments.Continue to use estimated creatinine clearance per dosing reference text.Please contact the Clinical Pharmacist for questions. eGFR >60 >60 mL/min [facility] [place] Comment: The eGFR is not validated for use in drug dosing adjustments.Continue to use estimated creatinine clearance per dosing reference text.Please contact the Clinical Pharmacist for questions. Specimen Blood Performing Organization Address [facility] Phone Number MA[facility] LAB [address] [place] [address] * THYROTROPIN (TSH) RECEPTOR AB (12/18/2018 12:32 [...] IU/L and 1.58 IU/L, respectively (97.5th percentiles). [facility], [address] [place] [address] Specimen Blood Performing Organization Address [facility] Phone Number REFERENCE LAB REFERENCE LAB See results for address. * THYROID STIMULATING HORMONE-TSH (12/18/2018 12:32 PM CDT) TSH 0.150 (L) 0.35 - 5.00 MCU/ML MAIN LAB Specimen Blood Performing Organization Address [facility] Phone Number MA[facility] LAB [address] [place] [address] * FREE T4 (FREE THYROXINE) ONLY (12/18/2018 12:32 PM CDT) T4-Free 0.7 0.6 - 1.6 NG/DL MAIN LAB Specimen Blood Performing Organization Address [facility] Phone Number MAIN LAB [address] [place] [address] * TOTAL T3 (TRIIODOTHYRONINE) (12/18/2018 12:32 PM CDT) T3 (Total) 155 87 - 180 NG/DL MAIN LAB Specimen Blood Performing Organization Address [facility] Phone Number MAIN LAB [address] [place] [address] documented in this encounter Visit Diagnoses Diagnosis Hyperthyroidism Thyrotoxicosis without mention of goiter or other cause, without mention of thyrotoxic crisis or storm Graves disease Toxic diffuse goiter without mention of thyrotoxic crisis or storm Hyperthyroidism in , antepartum, second trimester documented in this encounter
--- OUTSIDE RECORDS SUMMARY | 2019-03-15 05:23 | XMS REPORT | Encounter Summary ---
Author Author [facility] Address Unknown Phone Unavailable Care Team Providers Care Principal Programmer Name Role Phone Homer Sherman OD Unavailable LincolnJeff DO Unavailable Primitivo, [facility] PCP Reason for Visit * Reason Comments Thyroid Problem Encounter Details Care Team Description Date Type Department Yolanda Jo MD [address] [facility] Ortho/Med Pavilion [address] [place] [id number] Graves disease (Primary Dx); Depression affecting 12/18/2018 Office Visit [facility] [address] [place] [address] Social History Date Tobacco Use Types Packs/Day [...] history available. documented as of this encounter Last Filed Vital Signs Reading Time Taken Comments Vital Sign 111/68 12/18/2018 11:37 AM CDT Blood Pressure 88 12/18/2018 11:37 AM CDT Pulse - - Temperature - - Respiratory Rate - - Oxygen Saturation - - Inhaled Oxygen Concentration 82.3 kg (181 lb 6.4 oz) 12/18/2018 11:37 AM CDT Weight 162.4 cm (5' 3.94") 12/18/2018 11:37 AM CDT Height 31.2 12/18/2018 11:37 AM CDT Body Mass Index documented in this encounter Functional Status Date of Assessment Functional Status Response 11/20/2018 Does the patient have a hearing impairment: No documented as of this encounter Patient Instructions * Patient Instructions* Yolanda Jo MD - 12/18/2018 11:20 AM CDT It was great to see you today. Issues we are addressing today: Graves Disease in Our plan: Labs today We will contact you with testing results via phone. If you are signed up for "my chart", we will release results to you electronical ly. Please call my nurse between appointments with any issues -- Teena at [phone]. Please call my nurse if you are having any issues scheduling your appointment . Please let Teena know if any results are unclear; I will call you personally to discuss further. If you had to wait on me today, my sincerest apologies. My goal in every clinic is to run right on time; however, on occasion, I get behind in clinic due to un expected issues with patients. Your satisfaction with the care you received today is of utmost importance. Ple ase contact me directly via email if there are any issues: [email or web address]. Again, it was great to see you today. Yolanda Martin MD documented in this encounter Progress Notes * Yolanda Jo MD - 12/18/2018 11:20 AM CDT Date of Service: 12/18/2018 Subjective: Jj Fregoso is a 18 y.o. female. 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 Fregoso as well as her mother. confirmed early July. ANDREE: March 13, 2018. Given normal FT4 and TT3 on labs obtained 09.04.2018, no anti-thyroid medication initiated at that time based on those lab results. Repeat TFTs ordered to be done in 4 weeks -- not available in our system. Today - Notes hot flashes. Notes night sweats. Weight gain with . Notes diarrhea. Notes anxiety. The patient underwent a cordocentesis on 11.20.2018 -- labs as per below. She relays that Dr. Elizabeth intiatiated her on PTU 50mg PO daily following this p rocedure. Past Medical History: Diagnosis Date Anxiety Bipolar depression (HCC) Deliberate self-cutting Graves disease Hyperthyroidism Migraine headache PTSD (post-traumatic stress disorder) Suicidal thoughts Unspecified mood (affective) disorder (HCC) History reviewed. No pertinent surgical history. Family History Problem Relation Age of Onset Diabetes Mother High Cholesterol Mother Hypertension Mother Thyroid Disease Mother Hypothyroidism Heart Disease Father Thyroid Disease Maternal Grandmother Hypothyroidism Social History Socioeconomic History Marital status: Single Spouse name: Not on file Number of children: Not on file Years of education: Not on file Highest education level: Not on file Occupational History Not on file Tobacco Use Smoking status: Never Smoker Smokeless tobacco: Never Used Substance and Sexual Activity Alcohol use: No Frequency: Never Drug use: No Sexual activity: Not on file Other Topics Concern Not on file Social History Narrative Graduated high school: 2017. Cares for sibling. Lives with grandmother. Sib lings . [place], [place]. Review of Systems A comprehensive review of systems was as per above in HPI and ear pain / sore th roat / SOB / swelling / frequency of urination / increase in thirst / headaches / sleep problems related to positioning issues. The remainder of the comprehens gregoria 14 point review of systems is negative. Objective: vit calc,iron,folic ( VITAMIN PO) Take by mouth daily. propylthiouracil (PTU) 50 mg tablet Take one tablet by mouth daily. Vitals: 12/18/18 1137 BP: 111/68 Pulse: 88 Weight: 82.3 kg (181 lb 6.4 oz) Height: 162.4 cm (63.94") Body mass index is 31.2 kg/m. Wt Readings from Last 5 Encounters: 12/18/18 82.3 kg (181 lb 6.4 oz) 11/20/18 73.9 kg (163 lb) 09/04/18 71 kg (156 lb 9.6 oz) 09/04/18 71.4 kg (157 lb 6.4 oz) 08/21/17 73 kg (161 lb) (89 %, Z=1.20)* * Growth percentiles are based on CDC 2-20 Years data. Physical Exam Constitutional: She is oriented to person, place, and time. She appears well-dev eloped and well-nourished. No distress. HENT: Head: Normocephalic and atraumatic. Eyes: Pupils are equal, round, and reactive to light. EOM are normal. No proptosis. Neck: Normal range of motion. Neck supple. Mild thyroid enlargement without nodularity. Cardiovascular: Normal rate, regular rhythm and normal heart sounds. No murmur heard. Pulmonary/Chest: Effort normal and breath sounds normal. No respiratory distress . Abdominal: Soft. Musculoskeletal: Normal range of motion. She exhibits no edema. Neurological: She is alert and oriented to person, place, and time. Skin: Skin is warm and dry. Psychiatric: Her behavior is normal. Judgment and thought content normal. A bit flat today. Vitals reviewed. Results for JJ FREGOSO ( ) as of 09/04/2018 11:39 Ref. Range 11/14/2017 17:43 06/21/2018 00:00 06/21/2018 13:22 08/13/2018 00:00 14:48 T3 (Total) Latest Ref Range: 0.87 - 1.78 ng/mL 1.60 T4-Free Unknown 1.6 (A) 2.5 (A) 1.20 1.13 TSH Latest Ref Range: 0.45 - 5.33 0.01 (A) 0.01 <0.008 (L) 0.00 (A) T3-Free Latest Ref Range: 3.0 - 4.7 pg/mL 5.1 (A) TSI Latest Ref Range: 0.00 - 0.55 IU/L 2.21 (A) TSH Receptor AB Latest Ref Range: <=1.75 IU/L 6.48 Results for JJ FREGOSO ( ) as of 12/18/2018 11:38 Ref. Range 08/13/2018 00:00 08/22/2018 14:48 09/04/2018 12:29 11/20/2018 13:19 T3 (Total) Latest Ref Range: 87 - 180 NG/DL 1.60 136 T4-Free Latest Ref Range: 0.6 - 1.6 NG/DL 1.20 1.13 1.1 1.0 TSH Latest Ref Range: 0.35 - 5.00 MCU/ML <0.008 (L) 0.00 (A) <0.010 (L) 11.400 (H) T3-Free Latest Ref Range: 2.1 - 3.9 PG/ML <0.9 (L) T3-Reverse Unknown 215.5 (H) TSI Latest Ref Range: 0.00 - 0.55 IU/L 2.21 (A) TSH Receptor AB Latest Ref Range: <=1.75 IU/L 6.48 Results for JJ FREGOSO ( ) as of 12/18/2018 11:38 Ref. Range 11/20/2018 13:19 T4-Free Latest Ref Range: 0.6 - 1.6 NG/DL 1.0 TSH Latest Ref Range: 0.35 - 5.00 MCU/ML 11.400 (H) T3-Free Latest Ref Range: 2.1 - 3.9 PG/ML <0.9 (L) T3-Reverse Unknown 215.5 (H) Specimen Notes Unknown VENOUS BLOO... Assessment and Plan: 1. Graves Disease in : Recently started on PTU by high school auto repair teacher. Thyroid function testing today on PTU: Hospital Outpatient Visit on 12/18/2018 Component Date Value Ref Range Status T3 (Total) 12/18/2018 155 87 - 180 NG/DL Final T4-Free 12/18/2018 0.7 0.6 - 1.6 NG/DL Final TSH 12/18/2018 0.150* 0.35 - 5.00 MCU/ML Final TSH Receptor AB 12/18/2018 1.95* Final Comment: Reference range: 0.00 to 1.75 Unit: IU/L ADDITIONAL INFORMATION At a decision limit of 1.75 IU/L, this assay has 97% sensitivity and 99% specificity for detection of Graves' disease. In healthy individuals and in patients with thyroid disease without diagnosis of Graves' disease, the upper limit of anti-TSHR values are 1.22 IU/L and 1.58 IU/L, respectively (97.5th percentiles). [facility], [address] [facility], [place] [address] Will plan to repeat TFTs in 4 weeks time. 2. History of depression with psychosis: Ms. Fregoso relays no specific issues with mood today. Mood will need close follow-up throughout and in the sta te. Patient Instructions It was great to see you today. Issues we are addressing today: Graves Disease in Our plan: Labs today We will contact you with testing results via phone. If you are signed up for "my chart", we will release results to you electronical ly. Please call my nurse between appointments with any issues -- Teena at . Please call my nurse if you are having any issues scheduling your appointment . Please let Teena know if any results are unclear; I will call you personally to discuss further. If you had to wait on me today, my sincerest apologies. My goal in every clinic is to run right on time; however, on occasion, I get behind in clinic due to un expected issues with patients. Your satisfaction with the care you received today is of utmost importance. Ple ase contact me directly via email if there are any issues: [email or web address] Again, it was great to see you today. Yolanda Martin MD documented in this encounter Plan of Treatment Order Schedule Name Type Priority Associated Diagnoses Expected: 01/17/2019 (Approximate), Expires: 12/21/2019 FREE T4 (FREE THYROXINE) Lab Routine Graves disease ONLY Expected: 01/17/2019 (Approximate), Expires: 12/21/2019 TOTAL T3 Lab Routine Graves disease (TRIIODOTHYRONINE) Expected: 01/17/2019 (Approximate), Expires: 12/21/2019 THYROID STIMULATING Lab Routine Graves disease HORMONE-TSH documented as of this encounter Results * COMPREHENSIVE METABOLIC PANEL [...] MAIN LAB eGFR Non >60 >60 mL/min MAIN LAB Comment: [place] The eGFR is not validated for use in drug dosing adjustments.Continue to use estimated creatinine clearance per dosing reference text.Please contact the Clinical Pharmacist for questions. eGFR >60 >60 mL/min MAIN LAB [place] Comment: The eGFR is not validated for use in drug dosing adjustments.Continue to use estimated creatinine clearance per dosing reference text.Please contact the Clinical Pharmacist for questions. Specimen Blood Performing Organization Address City/[facility] Phone Number [facility] [address] [place] [address] * THYROTROPIN (TSH) RECEPTOR AB (12/18/2018 12:32 [...] IU/L and 1.58 IU/L, respectively (97.5th percentiles). [facility], [address] [facility], [place] [address] Specimen Blood Performing Organization Address City/State/Zipcode Phone Number REFERENCE LAB REFERENCE LAB See results for address. 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
--- OUTSIDE RECORDS SUMMARY | 2019-03-15 05:24 | XMS REPORT ---
Author Author Migration, Doctor Organization [facility] Address Unknown Phone Unavailable Care Team Providers Care Brake Operator Helper Name Role Phone Migration, Doctor Unavailable Unavailable PROBLEMS Type Condition ICD9-CM Code TQO82-FD Code Onset Dates Condition Status SNOMED Code Problem Severe episode of recurrent major depressive disorder, without 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 Active 80229738 Problem Graves disease E05.00 Active 605495753 Problem Post traumatic stress disorder (PTSD) F43.10 Active 39691860 Problem Hyperthyroidism E05.90 Active 07677231 Problem Chronic migraine G43.709 Active 18185903 ALLERGIES No Information ENCOUNTERS Encounter Location Date Diagnosis [facility] [address] [address] Dec, Acute cyclitis H20.00 and Dysuria R30.0 [facility] [address] [address] Sep, Viral gastroenteritis A08.4 and Rash R21 [facility] [address] [address] 15 Aug, 2018 Eczema of left hand L30.9 [place] [address] [address] Aug, [facility] [address] [address] Aug, [facility] [address] [address] Jul, Nausea and vomiting during O21.9 [place] [address] [address] Jul, [address] [address] Jul, Encounter for test, result unknown Z32.00 [place] [address] [place] [id number] [place] [address] May, Graves disease E05.00 [facility] [address] [place] [id number] [place] [address] Feb, Dysuria R30.0 and Acute cystitis with hematuria N30.01 [place] [address] [address] January, [place] [address] [place] [id number] [place] [address] Dec, Severe episode of recurrent major depressive disorder, without 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 [place] [address] [address] Dec, [place] [address] [address] Dec, Severe episode of recurrent major depressive disorder, without 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 and Post traumatic stress disorder (PTSD) F43.10 [place] [address] [place] [id number] [place] [address] Nov, [place] [address] [address] Nov, Severe episode of recurrent major depressive disorder, without 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 and Post traumatic stress disorder (PTSD) F43.10 [place] [address] [place] [id number] [place] [address] Oct, Encounter for counseling regarding contraception Z30.09 ; Hyperthyroidism E05.90 and Chronic migraine G43.709 [place] [id number] [place] [address] Jul, Encounter for surveillance of injectable contraceptive Z30.42 [facility] [address] [place] [id number] [place] [address] 17 Jul, 2017 Sore throat J02.9 ; Other viral agents as the cause of diseases classified elsewhere B97.89 and Acute upper respiratory infection, unspecified J06.9 [place] [address] [place] [id number] [place] [address] 17 Jun, 2017 Visit for TB skin test Z11.1 [place] [address] [place] [id number] [place] [address] 21 May, 2017 Physical exam, routine Z00.00 [place] [id number] [place] [address] May, Hyperthyroidism E05.90 and Post traumatic stress disorder (PTSD) F43.[address] [address] 16 Apr, 2017 Routine gynecological examination Z01.419 ; High risk sexual behavior Z72.51 ; Encounter for surveillance of injectable contraceptive Z30.42 ; Hyperthyroidism E05.90 and Encounter for Depo-Provera contraception Z30.42 [facility] [address] [place] [id number] [place] [address] Apr, Tinea corporis B35.4 [place] [id number] [place] [address] Mar, Thyrotoxicosis without thyroid storm, unspecified thyrotoxicosis type E05.90 [place] [id number] [place] [address] Mar, [place] [address] [place] [id number] [place] [address] Mar, [place] [address] [place] [id number] [place] [address] Mar, Post traumatic stress disorder (PTSD) F43.10 and Hyperthyroidism E05.90 [place] [address] [place] [id number] [place] [address] Feb, Hyperthyroidism E05.90 ; Post traumatic stress disorder (PTSD) F43.10 and Overdose, intentional self-harm, subsequent encounter T50.902D [place] [address] [place] [id number] [place] [address] 16 Jan, 2017 Post traumatic stress disorder (PTSD) F43.10 [place] [address] [place] [id number] [place] [address] Dec, Hx of migraines Z86.69 ; Insect bite (nonvenomous), left thigh, initial encounter S70.362A and Post traumatic stress disorder (PTSD) F43.10 [place] [address] [place] [id number] [place] [address] 11 Dec, 2016 [place] [address] [place] [id number] [place] [address] Nov, [place] [address] [place] [id number] [place] [address] 10 Nov, 2015 Adjustment disorder with depressed mood F43.21 and Major depression, recurrent F33.9 [place] [address] [place] [id number] [place] [address] 10 Nov, 2015 Oral contraceptive pill surveillance Z30.41 ; Routine screening for STI (sexually transmitted infection) Z11.3 ; Dysmenorrhea N94.6 ; Hx of migraines Z86.69 ; Deliberate self-cutting Z72.89 and Major depressive disorder, recurrent, moderate F33.1 [place] [address] [place] [id number] [place] [address] Nov, [place] [address] [place] [id number] [place] [address] May, [place] [address] [place] [id number] [place] [address] 17 May, 2015 [place] [address] [address] 15 May, 2015 Migraine headache 346.90 and Abdominal pain 789.00 [place] [address] [place] [id number] [place] [address] 14 May, 2015 [place] [address] [place] [address] Apr, Oligomenorrhea 626.1 and Screening for diabetes mellitus V77.1 [facility] [address] [place] [id number] [place] [address] Apr, Oligomenorrhea 626.1 ; Dark urine 791.9 and Screening for diabetes mellitus V77.1 [facility] [address] [place] [id number] [place] [address] Feb, Bipolar disorder, unspecified 296.80 [facility] [address] [place] [id number] [place] [address] Dec, [facility] [address] [place] [id number] [place] [address] Dec, [facility] [address] [place] [id number] [place] [address] Dec, [facility] [address] [place] [id number] [place] [address] Dec, [facility] [address] [place] [id number] [place] [address] Dec, [facility] [address] [place] [id number] [place] [address] Jul, [facility] [address] [address] Jul, [facility] [address] [place] [id number] [place] [address] Jul, [facility] [id number] [place] [address] Jul, [facility] [address] [place] [id number] [place] [address] Jun, [facility] [address] [address] 30 May, 2013 [facility] [address] [place] [id number] [place] [address] Apr, [facility] [address] [id number] [place] [address] Apr, [facility] [place] [facility] [address] [id number] [place] [address] Mar, [facility] [address] [facility] [id number] [place] [address] Feb, [facility] [place] [facility] [address] [id number] [place] [address] Feb, [facility] [address] [id number] [place] [address] Feb, [facility] [place] [facility] [address] [id number] [place] [address] January, [facility] [address] [place] [address] January, [facility] [place] [facility] [address] [id number] [place] [address] Dec, [facility] [address] [place] [id number] [place] [address] Dec, [facility] [place] [facility] [address] [place] [id number] [address] Nov, [facility] [place] [facility] [address] [id number] [place] [address] Nov, [facility] [place] [facility] [address] [id number], [place] [address] Sep, [facility] [place] [facility] [address] [id number] [place] [address] Jun, [facility] [place] [facility] [address] [facility] [id number] [place] [address] Jun, [facility] [place] [facility] [address] [place] [id number] [place] [address] May, [facility] [place] [facility] [address] [id number] [place] [address] 31 Mar, 2012 [facility] [place] [facility] [address] [id number] [place] [address] Mar, [facility] [place] [facility] [address] [id number] [place] [address] Mar, [facility] [place] [facility] [address] [id number] [place] [address] 30 Mar, 2012 [facility] [place] [facility] [address] [id number] [place] [address] Feb, [facility] [place] [facility] [address] [id number] [place] [address] Feb, [facility] [place] [facility] [address] [id number] [place] [address] 18 Feb, 2012 [facility] [place] [facility] [address] [id number] [place] [address] Feb, [facility] [place] [facility] [address] [id number] [place] [address] Feb, [facility] [place] [facility] [address] [id number] [place] [address] January, [facility] [place] [facility] [address] [id number] [place] [address] January, [facility] [place] [facility] [address] [id number] [place] [address] January, [facility] [place] [facility] [address] [id number] [place] [address] January, [facility] [place] [facility] [address] [id number] [place] [address] January, [facility] [place] [facility] [address] [id number] [place] [address] Dec, [facility] [place] [facility] [address] [id number] [place] [address] Dec, [facility] [place] [facility] [address] [id number] [place] [address] Dec, [facility] [place] [facility] [address] [id number] [place] [address] Nov, [facility] [place] [facility] [address] [facility] [id number] [place] [address] Oct, [facility] [place] [facility] [address] [id number] [place] [address] Sep, [facility] [place] [facility] [address] [id number] [place] [address] Jul, [facility] [place] [facility] [address] [id number] [place] [address] Aug, [facility] [place] [facility] [address] [facility] [id number] [place] [address] Jul, [facility] [place] [facility] [address] [id number], [place] [address] Jun, [facility] [place] [facility] [address] [facility] [id number], [place] [address] Jun, [facility] [place] [facility] [address] [facility] [id number], [place] [address] Jul, [facility] [place] [facility] [address] [facility] [id number], [place] [address] Jul, [facility] [place] [facility] [address] [id number], [place] [address] Aug, [facility] [place] [facility] [address] [id number], [place] [address] Aug, [facility] [place] [facility] [address] [facility] [id number], [place] [address] Jul, [facility] [place] [facility] [address] [facility] [id number], [place] [address] Jul, [facility] [place] [facility] [address] [facility] [id number] [place] [address] Apr, [facility] [address] [facility] [id number] [place] [address] Oct, [facility] [address] [facility] [id number] [place] [address] Jul, [facility] [address] [facility] [id number], [place] [address] Apr, IMMUNIZATIONS No Known Immunizations SOCIAL HISTORY Never Assessed REASON FOR VISIT EMR-[facility] [place] PLAN OF CARE VITAL SIGNS MEDICATIONS Unknown Medications RESULTS No Results PROCEDURES No Known procedures INSTRUCTIONS MEDICATIONS ADMINISTERED No Known Medications MEDICAL (GENERAL) HISTORY Type Description Date Medical History migraine headaches Medical History Unspecified episodic mood disorder Medical History Posttraumatic stress disorder Medical History Deliberate self-cutting Medical History Dysmenorrhea Medical History Overdose Zoloft 2016 Medical History Hyperthyroidism Medical History Gaves disease Medical History A- Surgical History No Surgical history information Hospitalization History rule out appendicitis 2006 Hospitalization History [facility] 2017 Hospitalization History [facility] Hyperthyroidism and overdose on Zoloft 02-23-2017
--- OUTSIDE RECORDS SUMMARY | 2019-03-15 05:24 | XMS REPORT | Encounter Summary ---
Author Author [facility] Organization [facility] Address Unknown Phone Unavailable Care Team Providers Care Spar Finisher Name Role Phone Homer Sherman OD Unavailable No Pcp, Na PCP Unavailable Encounter Details Care Team Description Date Type Department Girish Elizabeth MD [address] [facility] [address] [place] [address] Hyperthyroidism affecting , antepartum (Primary Dx) 11/26/2018 Orders Only [facility] [address] [place] [address] Social History Date Tobacco Use [...] impairment: No documented as of this encounter Progress Notes * Nicolasa Flores RN - 11/26/2018 3:39 PM QUILL CLEANING MACHINE OPERATOR blood sampling reviewed by Dr. Elizabeth. Per Dr. Elizabeth pt to be prescribed propylthiouracil 50 mg daily. Pt informed and informed to watch for sore throat and/or fever. Pt informed that id she begins to experience a sore throat or feve r to call [facility] at [phone]. Prescription sent to pt's preferred pharmacy. L CLEANING MACHINE OPERATOR documented in this encounter Plan of Treatment Not on filedocumented as of this encounter Visit Diagnoses Diagnosis Hyperthyroidism affecting , antepartum - Primary documented in this encounter
--- OUTSIDE RECORDS SUMMARY | 2019-03-15 05:24 | XMS REPORT | Encounter Summary ---
Author Author [facility] Organization [facility] Address Unknown Phone Unavailable Care Team Providers Care Oil Change Technician Name Role Phone Homer Sherman OD Unavailable No Pcp, Na PCP Unavailable Reason for Visit * Reason Comments Ultrasound Encounter Details Care Team Description Date Type Department Screening, , for malformation by ultrasound (Primary Dx) 10/23/2018 Clinical [facility] [address] [place] [address] Social History Date Tobacco Use Types Packs/Day Years Used Never Smoker Smokeless Tobacco: Never Used Sex Assigned at Date Recorded Not on file Industry Job Start Date Occupation Not on file Not on file Not on file Travel End Travel History Travel Start No recent travel history available. documented as of this encounter Progress Notes * Ana María Hughes MA - 10/23/2018 1:45 PM MUCKING MACHINE OPERATOR Prateekisai Lovelace presents for an ultrasound encounter. Past Medical, Surgical, Family & Social History; Medications & Allergies contained in the electronic record below were not reviewed today and may not be up-to-date. Please see OBGYN report for all documentation related to this encounter. ING MACHINE OPERATOR documented in this encounter Plan of Treatment Not on filedocumented as of this encounter Procedures Comments Procedure Name Priority Date/Time Associated Diagnosis [facility] Routine 10/23/2018 Screening, , for ORDER malformation by ultrasound documented in this encounter Results * [facility] ORDER (10/23/2018) Specimen Narrative Performed At Performing Organization Address City/State/Zipcode Phone Number [place] [facility] documented in this encounter Visit Diagnoses Diagnosis Screening, , for malformation by ultrasound - Primary Encounter for routine screening for malformation using ultrasonics documented in this encounter
--- OUTSIDE RECORDS SUMMARY | 2019-03-15 05:24 | XMS REPORT | Encounter Summary ---
Author Author [facility] Organization [facility] Address Unknown Phone Unavailable Care Team Providers Care Retort Feeder Ground Bone Name Role Phone Homer Sherman OD Unavailable No Pcp, Na PCP Unavailable Reason for Visit * Reason Comments Other Cordocentesis Encounter Details Care Team Description Date Type Department Girish Elizabeth MD [address] [facility] Lvl [address] [place] [id number] Thyroid disease affecting 11/20/2018 [facility] [address] [place] [address] Social History Date Tobacco Use Types Packs/Day [...] Signs Reading Time Taken Comments Vital Sign 115/73 11/20/2018 2:46 PM FINISHED YARN EXAMINER Blood Pressure 79 11/20/2018 2:46 PM FINISHED YARN EXAMINER Pulse 37.2 C (98.9 F) 11/20/2018 11:40 AM FINISHED YARN EXAMINER Temperature - - Respiratory Rate 100% 11/20/2018 2:45 PM FINISHED YARN EXAMINER Oxygen Saturation - - Inhaled Oxygen Concentration 73.9 kg (163 lb) 11/20/2018 11:25 AM FINISHED YARN EXAMINER Weight 162.6 cm (5' 4") 11/20/2018 11:25 AM FINISHED YARN EXAMINER Height 27.98 11/20/2018 11:25 AM FINISHED YARN EXAMINER Body Mass Index documented in this encounter Functional Status Date of Assessment Functional Status Response 11/20/2018 Does the patient have a hearing impairment: No documented as of this encounter Medications at Time of Discharge Start Date End Date Medication Sig Dispensed Refills vit Take by 0 calc,iron,folic ( mouth daily. VITAMIN PO) 12/18/2018 propranolol (INDERAL) 20 Take 20 mg by 0 mg tablet mouth daily. 12/18/2018 rizatriptan (MAXALT) 10 Take 10 mg by 0 mg tablet mouth once as needed for Headache. May repeat in 2 hours in needed documented as of this encounter Progress Notes * Iris Fernandez MD - 11/20/2018 4:25 PM FINISHED YARN EXAMINER HROB Update Patient underwent invasive procedure in an Rh negative mother. However patient r eceived Rhogam 09/26/18 LOT RH [id number] per [facility] records 8 weeks ago. Will administer Rhogam today. Iris Fernandez MD PGY2 Please page High Risk Obstetrics Pager [phone] Kelly KB negative, will administer single dose Rhogam Iris Fernandez MD PGY2 Please page High Risk Obstetrics Pager [phone] Kelly SHED YARN EXAMINER * Helene Spivey, RN - 11/20/2018 1:41 PM FINISHED YARN EXAMINER 1024- pt placed on EFM. 1140- Assessment completed as charted. Patient reports +FM. Patient denies SAUER, blurry vision, dizziness, nausea or vomiting, RUQ pain, LOF, VB, CTX, fundal te nderness or bilateral lower extremity pain. Patient instructed to notify RN if she begins to experience any of the above symptoms. Patient verbalized understa nding. Plan of care reviewed with patient, addressed all questions and ensured u nderstanding. 1233- pt removed from EFM for procedure 1239- BSUS in use 1250- prepped by Dr. Elizabeth 1253- drape applied 1258- TO completed 1312- FHT wnl per [facility] 1318- Dr. Elizabeth inserted needle via US guidance 1319- blood return. Labs collected by Dr. Elizabeth 1322- FHT 158 per sono tech 1332- pt placed back on EFM 1351- pt removed from EFM for GS with BSUS 1421- pt placed back on EFM. 1430- Complaining of back pain 11/03. Tylenol administered (see NOV). 1506- per JACKIE Grimes for pt to be removed from EFM 1740- discharge orders signed by pt. All questions and concerns addressed at thi s time. 1745- pt ambulated off unit accompanied by family SHED YARN EXAMINER documented in this encounter H&P Notes * Girish Elizabeth MD - 11/20/2018 10:16 AM FINISHED YARN EXAMINER Labor/Delivery Admission History and Physical Examination Nicholasmelissa Lovelace Admission Date: 11/20/2018 Assessment: 18 y.o. @ 23w4d by [facility] 12 wk sono not c/w LMP weeks here for f etal cordocentesis Grave's Disease Rh negative, RI Plan: cordocentesis to be performed by Dr. Glenn Elizabeth to consent for procedure Anticipate administration Rhogam, await blood type confirmation She is consented for delivery in the case of emergency -She is aware of the risks of section, including bleeding, harm to mom/ baby, injury to the bowel/bladder/ureter/vessels and nerves which may need to be repaired intraoperatively or postoperatively. Other risks including DVT/PE, wou nd separation/cellulitis/evisceration, pulmonary/cardiac complications, maternal or were also discussed. She is also aware of the potential need f or blood transfusion and risks associated with blood, including HIV, Hepatitis. The need for classical section at this gestational age and need for fut ure sections. D/w Dr. Glenn Fernandez MD PGY-2 Obstetrics and Gynecology Pager [phone] __ Chief Complaint: Here for procedure History of Present Illness: Jj Lovelace is a 18 y.o. @ 23w4d by [facility] 12 wk US, Estimated Date of Delivery: 03/15/19. Pt presents for scheduled proce dure. She is able to describe in her own words indication and steps of the proce dure but has several questions remaining for Dr. Elizbaeth. +FM/-LOF/-VB/-CTX Review of Systems: A comprehensive review of systems was performed and was negative, except as in H PI Care: Dr. Jeff Stark/HROB consult OB History: Year GA Mode of delivery Wt Complications current Check Weigher History: Pap: Denies h/o abnl STD: Denies PmHx: Denies h/o asthma, HTN, DM, bleeding or clotting disorders Past Medical History: Diagnosis Date Anxiety Bipolar depression (HCC) Deliberate self-cutting Graves disease Hyperthyroidism Migraine headache PTSD (post-traumatic stress disorder) Suicidal thoughts Unspecified mood (affective) disorder (HCC) PsHx: Denies prior abdominal surgeries FmHx: Denies relevant Family History Problem Relation Age of Onset Diabetes Mother High Cholesterol Mother Hypertension Mother Thyroid Disease Mother Hypothyroidism Heart Disease Father Thyroid Disease Maternal Grandmother Hypothyroidism Social: Denies tobacco, EtOH, drug use Allergies: Iv contrast dye, iodine containing [iodinated contrast- oral and iv dye] Medications: No current facility-administered medications on file prior to encounter. Current Outpatient Medications on File Prior to Encounter Medication Sig Dispense Refill vit calc,iron,folic ( VITAMIN PO) Take by mouth daily. propranolol (INDERAL) 20 mg tablet Take 20 mg by mouth daily. rizatriptan (MAXALT) 10 mg tablet Take 10 mg by mouth once as needed for Hea dache. May repeat in 2 hours in needed Physical Exam: Vital Signs: Last Filed In 24 Hours Vital Signs: 24 Hour Range BP: 109/82 (11/20 1022) Pulse: 104 (11/20 1022) SpO2: 100 % (11/20 1030) SpO2 Pulse: 104 (11/20 1030) BP: (109)/(82) Pulse: [104] SpO2: [100 %] Intensity Pain Scale (Self Report): (not recorded) vitals Gen: NAD CV: Regular rate Chest: Unlabored breathing Abd: Gravid, nttp, EFW 600 g per 19 wk sono Ext: No LE edema, nttp LE SSE: def SVE: def TOCO: 0/10 FHR: 145 mod suzy, AGA BSUS: def Lab/Radiology/Other Diagnostic Tests Outside labs 08/13/2018 A neg per outside records, Ab screen negative, Pap unknown, RI, HIV-, HBsAg neg, Hep C Ab neg, Syph AB neg, GC/CT unk/unk Confirmation of blood type pending 24-hour labs: No results found for this visit on 11/20/18 (from the past 24 cb r(s)). Point of Care Testing: Teaching Statement I have interviewed and examined the patient and confirmed the pertinent findings . I have discussed them with the resident/fellow and agree with the findings and plan as documented. I have answered any questions posed by the patient. SHED YARN EXAMINER documented in this encounter Miscellaneous Notes * Critical Results - Shahla Mullins RN - 11/20/2018 12:57 PM FINISHED YARN EXAMINER Critical result or procedure called (document test and value, and read back): P ositive antibody screen Time MD/MAGAZINE DESIGNER Notified: 1257 MD/MAGAZINE DESIGNER Name: Dr. Clarence POZO/MAGAZINE DESIGNER Response/Orders Given: No new orders at this time. SHED YARN EXAMINER documented in this encounter Plan of Treatment Not on filedocumented as of this encounter Procedures Comments Procedure Name Priority Date/Time Associated Diagnosis KLEIHAUER-BETKE HGB STAT 11/20/2018 ST 2:30 PM FINISHED YARN EXAMINER RH IMMUNE GLOBULIN STAT 11/20/2018 EVALUATION (TYPE & RH) 2:30 PM FINISHED YARN EXAMINER PREPARE RH IMMUNE Routine 11/20/2018 GLOBULIN (300 MCG DOSE) 1:45 PM FINISHED YARN EXAMINER NOTES 11/20/2018 1:19 PM FINISHED YARN EXAMINER T3 (TRIIODOTHYRONINE) Routine 11/20/2018 REVERSE 1:19 PM FINISHED YARN EXAMINER FREE T3 (FREE Routine 11/20/2018 TRIIODOTHYONINE) 1:19 PM FINISHED YARN EXAMINER THYROID STIMULATING Routine 11/20/2018 HORMONE-TSH 1:19 PM FINISHED YARN EXAMINER FREE T4 (FREE THYROXINE) Routine 11/20/2018 ONLY 1:19 PM FINISHED YARN EXAMINER BLOOD TYPE CONFIRMATION - ISSA 11/20/2018 ORDER ONLY IF REQUESTED 11:37 AM FINISHED YARN EXAMINER BY LAB SYPHILIS AB SCREEN Routine 11/20/2018 11:10 AM FINISHED YARN EXAMINER CBC STAT 11/20/2018 11:10 AM FINISHED YARN EXAMINER TYPE & CROSSMATCH ISSA 11/20/2018 11:10 AM FINISHED YARN EXAMINER documented in this encounter Results * RH IMMUNE GLOBULIN EVALUATION (TYPE & RH) (11/20/2018 2:30 PM FINISHED YARN EXAMINER) ABO/RH(D) A NEG MAIN LAB Screen NEG MAIN LAB Specimen Blood, venous - Blood Performing Organization Address City/[facility] Services[facility] Phone Number [facility] [address] [place] [address] * KLEIHAUER-BETKE HGB ST (11/20/2018 2:30 PM FINISHED YARN EXAMINER) Stain NEG MAIN LAB Specimen Blood Performing Organization Address [facility] Services[facility] Phone Number [facility] [address] [place] [address] * PREPARE RH IMMUNE GLOBULIN (300 MCG DOSE) (11/20/2018 1:45 PM FINISHED YARN EXAMINER) Blood Component RH IMMUNE GLOBULIN [facility] MAIN LAB Type Units Ordered 1 MAIN LAB Unit Number [id number] MAIN LAB Blood Component RH IMMUNE GLOBULIN [facility] MAIN LAB Type Unit Division 0 [facility] MAIN LAB Status OF Unit TRANSFUSED [facility] MAIN LAB Transfusion OK TO TRANSFUSE MAIN LAB Status Specimen Performing Organization Address City/[facility]/Zipcode Phone Number [facility] [address] [place] [address] * NOTES (11/20/2018 1:19 PM FINISHED YARN EXAMINER) Specimen Notes VENOUS BLOOD PER [facility] Specimen Performing Organization Address City/[facility]/Zipcode Phone Number REFERENCE LAB REFERENCE LAB See results for address. * T3 (TRIIODOTHYRONINE) REVERSE (11/20/2018 1:19 PM FINISHED YARN EXAMINER) T3-Reverse 215.5 (H) REFERENCE LAB Comment: Reference range: 9.0 to 27.0 Unit: ng/dL INTERPRETIVE INFORMATION: Triiodothyronine, Reverse - LC-MS/MS Test developed and characteristics determined by [employer]. See Compliance Statement B: [employer]/CS Performed by [employer], [address] [place] [id number] [email or web address], Eben Meza MD, Lab. Director Specimen Blood Performing Organization Address [facility] Servicescode Phone Number REFERENCE LAB REFERENCE LAB See results for address. * THYROID STIMULATING HORMONE-TSH (11/20/2018 1:19 PM FINISHED YARN EXAMINER) Pathologist [facility] TSH 11.400 (H) 0.35 - 5.00 MCU/ML MAIN LAB Specimen Blood Performing Organization Address [facility] Services[facility]h Phone Number MAIN LAB [address] [place] [phone] * FREE T3 (FREE TRIIODOTHYONINE) (11/20/2018 1:19 PM FINISHED YARN EXAMINER) [facility] T3-Free <0.9 (L) 2.1 - 3.9 PG/ML MAIN LAB Specimen Blood Performing Organization Address [facility] Phone Number MAIN LAB [address] [place] [address] * FREE T4 (FREE THYROXINE) ONLY (11/20/2018 1:19 PM FINISHED YARN EXAMINER) [facility] T4-Free 1.0 0.6 - 1.6 NG/DL MAIN LAB Specimen Blood Performing Organization Address [facility] Services[facility] Phone Number MAIN LAB [address] [place] [address] * BLOOD TYPE CONFIRMATION - ORDER ONLY IF REQUESTED BY LAB (11/20/2018 11:37 AM FINISHED YARN EXAMINER) Pathologist [facility] ABO/RH(D) A NEG MAIN LAB Specimen Blood Performing Organization Address [facility] Services[facility] Phone Number MAIN LAB [address] [place] [address] * TYPE & CROSSMATCH (11/20/2018 11:10 AM FINISHED YARN EXAMINER) Units Ordered 0 MAIN LAB Crossmatch 11/23/2018 MAIN LAB Expires Record Check 2ND TYPE REQUIRED [facility] ABO/RH(D) A NEG MAIN LAB Antibody Screen POS [facility] Blood Bank CRITICAL VALUE CALLED TO AND MAIN LAB Order READ BACK BY/TIME/TECH Modification SHAHLA Beth WN Antibody PASSIVE TRANSFER ANTI-D DUE TO [facility] Identification( RH IMMUNE GLOBULIN RSET) Specimen Blood Performing Organization Address City/[facility] Services[facility] Phone Number MAIN LAB [address] [place] [address] * SYPHILIS AB SCREEN (11/20/2018 11:10 AM FINISHED YARN EXAMINER) Pathologist [facility] Syphilis AB, NEG NEG-NEG [facility] Total Comment: Negative EIA: Negative results indicate no past or present syphilis infection. Early infection can not be excluded. Specimen Blood Performing Organization Address [facility] Servicescode Phone Number [facility] [address] [place] [address] * CBC (11/20/2018 11:10 AM FINISHED YARN EXAMINER) Pathologist [facility] White Blood 12.0 (H) 4.5 - 11.0 K/UL [facility] Cells RBC 4.19 4.0 - 5.0 M/UL [facility] Hemoglobin 12.6 12.0 - 15.0 GM/DL [facility] Hematocrit 37.5 36 - 45 % [facility] MCV 89.4 80 - 100 FL [facility] MCH 30.1 26 - 34 PG [facility] MCHC 33.7 32.0 - 36.0 G/DL [facility] RDW 13.5 11 - 15 % [facility] Platelet Count 265 150 - 400 K/UL [facility] MPV 8.5 7 - 11 FL [facility] Specimen Blood Performing Organization Address [facility] Phone Number MAIN LAB [address] [place] [address] documented in this encounter Visit Diagnoses Diagnosis Thyroid disease affecting - Primary documented in this encounter Admitting Diagnoses Diagnosis Thyroid disease affecting documented in this encounter Administered Medications Action Date Dose Rate Site Medication Order MAR Action 11/20/2018 2:30 PM FINISHED YARN EXAMINER 1,000 mg acetaminophen (TYLENOL) tablet 1,000 mg Given 1,000 mg, Oral, ONCE, 1 dose, 2/27/19 at 1415, TOTAL ACETAMINOPHEN DOSE NOT TO EXCEED 4GM DAILY, 11/20/2018 11:40 AM FINISHED YARN EXAMINER 125 mL/hr lactated ringers infusion Given - New 1,000 mL, Intravenous, at 125 mL/hr, Bag CONTINUOUS, Starting Sun11/20/18 at 1030, Until Sun11/20/18 at 1953 Action Date Dose Rate Site Medication Order MAR Action 11/20/2018 300 mcg Right arm Rho D Immune Globulin (Rhogam) Given Intravenous documented in this encounter
--- OUTSIDE RECORDS SUMMARY | 2019-03-15 05:24 | XMS REPORT | Encounter Summary ---
Author Author [facility] Organization [facility] Address Unknown Phone Unavailable Care Team Providers Care Spring Fitter Helper Name Role Phone Homer Sherman OD Unavailable No Pcp, Na PCP Unavailable Encounter Details Care Team Description Date Type Department Marcia Stevens CRNA [id number] [place] [address] [phone] 11/20/2018 Anesthesia [facility] [address] [place] [address] Anesthesia Record Responsible Anesthesiologist Anesthesia Start Time Anesthesia Stop Time Procedure Name ANESTHESIA PRE-EVAL No events on file. Meds * No agents on file. * No blood administrations on file. Removal Type Details Placement Peripheral 11/20/18; 1110; RN; R; Hand; 18 G; No; 2 11/20/18 1110 by МАРИЯ Mercedes RN documented in this encounter Social History Date Tobacco Use Types Packs/Day [...] impairment: No documented as of this encounter OR Notes * Anesthesia Preprocedure Evaluation - Pal Fuentes CRNA - 11/20/2018 11:29 AM PRINCIPAL PLANNER Anesthesia Pre-Procedure Evaluation Name: Jj Lovelace : 2000 Age: 18 y.o. Sex: female Procedure Date: 11/20/2018 Procedure: * No procedures listed * Physical Assessment Vital Signs (last filed in past 24 hours): BP: 109/82 (11/20 1022) Pulse: 104 (11/20 1022) SpO2: 100 % (11/20 1030) Height: 162.6 cm (64") (11/20 1125) Weight: 73.9 kg (163 lb) (11/20 1125) Patient History Allergies Allergen Reactions Iv Contrast Dye, Iodine Containing [Iodinated Contrast- Oral And Iv Dye] CORY ST TIGHTNESS, HIVES, RASH and SHORTNESS OF BREATH Current Medications Medication Directions vit calc,iron,folic ( VITAMIN PO) Take by mouth daily. propranolol (INDERAL) 20 mg tablet Take 20 mg by mouth daily. rizatriptan (MAXALT) 10 mg tablet Take 10 mg by mouth once as needed for Headach e. May repeat in 2 hours in needed Review of Systems/Medical History Patient summary reviewed Pertinent labs reviewed PONV Screening: Female gender and Non-smoker No history of anesthetic complications No family history of anesthetic complications Airway - negative Pulmonary - negative Denies JENNIFER, smoking, asthma. Cardiovascular Exercise tolerance: >4 METS Beta Brendan therapy: Yes Beta blockers within 24 hours: Yes Patient states Grave's disease has cause tachycardia. Patient denies any hx of CV concerns. Denies CP and HANNA. Father had aortic stenosis and brother has heart murmer. GI/Hepatic/Renal - negative No GERD, Neuro/Psych Headaches (Migraines) Psychiatric history Depression Bipolar disorder (hx of self cutting) Musculoskeletal - negative Endocrine/Other Hyperthyroidism Autoimmune disease (Graves Disease) Admit for thyroid disease. Here for cordocentesis/Percutaneous Umbilic al Blood Sampling. Physical Exam Airway Findings Mallampati: III TM distance: >3 FB Neck ROM: full Mouth opening: good Airway patency: adequate Dental Findings: Negative Cardiovascular Findings: Negative Rhythm: regular Rate: normal Pulmonary Findings: Negative Breath sounds clear to auscultation. Abdominal Findings: Comments: Gravid uterus Neurological Findings: Negative Diagnostic Tests Hematology: Lab Results Component Value Date HGB 13.5 09/04/2018 HCT 39.6 09/04/2018 PLTCT 255 09/04/2018 WBC 8.8 09/04/2018 MCV 85.4 09/04/2018 MCH 29.1 09/04/2018 MCHC 34.0 09/04/2018 MPV 8.7 09/04/2018 RDW 14.4 09/04/2018 General Chemistry: Lab Results Component Value Date NA 133 09/04/2018 K 3.6 09/04/2018 CL 104 09/04/2018 CO2 23 09/04/2018 GAP 6 09/04/2018 BUN 8 09/04/2018 CR 0.51 09/04/2018 GLU 78 09/04/2018 CA 9.3 09/04/2018 ALBUMIN 4.1 09/04/2018 TOTBILI 0.4 09/04/2018 Coagulation: No results found for: PT, PTT, INR Anesthesia Plan ASA score: 2 Plan: epidural Induction method: intravenous NPO status: full stomach Informed Consent Anesthetic plan and risks discussed with patient and mother. Use of blood products discussed with patient and mother Blood Consent: consented Plan discussed with: anesthesiologist and SURFBOARD DESIGNER. CIPAL PLANNER documented in this encounter Plan of Treatment Not on filedocumented as of this encounter Visit Diagnoses Not on filedocumented in this encounter
--- OUTSIDE RECORDS SUMMARY | 2019-03-15 05:25 | XMS REPORT ---
Author Author Migration, Doctor Organization [facility] Address Unknown Phone Unavailable Care Team Providers Care Fiscal Clerk Name Role Phone Migration, Doctor Unavailable Unavailable PROBLEMS Type Condition ICD9-CM Code VSL88-CQ Code Onset Dates Condition Status SNOMED Code Problem Severe episode of recurrent major depressive disorder, without 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 Active 26613875 Problem Graves disease E05.00 Active 750662981 Problem Post traumatic stress disorder (PTSD) F43.10 Active 96564529 Problem Hyperthyroidism E05.90 Active 97064957 Problem Chronic migraine G43.709 Active 73442231 ALLERGIES No Information ENCOUNTERS Encounter Location Date Diagnosis [place] [address] [address] 12 Dec, 2018 [facility] [address] [address] Sep, Viral gastroenteritis A08.4 and Rash R21 [facility] [address] [address] 15 Aug, 2018 Eczema of left hand L30.9 [facility] [address] [place] [id number] [place] [address] 07 Aug, 2018 [facility] [address] [address] Aug, [facility] [address] [address] Jul, Nausea and vomiting during O21.9 [facility] [address] [address] 07 Jul, 2018 [facility] [address] [address] Jul, Encounter for test, result unknown Z32.00 [place] [address] [place] [id number] [place] [address] May, Graves disease E05.00 [facility] [address] [place] [id number] [place] [address] Feb, Dysuria R30.0 and Acute cystitis with hematuria N30.01 [place] [address] [place] [id number] [place] [address] January, [place] [address] [place] [id number] [place] [address] Dec, Severe episode of recurrent major depressive disorder, without 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 [place] [address] [place] [id number] [place] [address] Dec, [place] [address] [place] [id number] [place] [address] Dec, Severe episode of recurrent major depressive disorder, without 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 and Post traumatic stress disorder (PTSD) F43.10 [place] [address] [place] [id number] [place] [address] Nov, [place] [address] [place] [id number] [place] [address] Nov, Severe episode of recurrent major depressive disorder, without 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 and Post traumatic stress disorder (PTSD) F43.10 [place] [address] [place] [id number] [place] [address] Oct, Encounter for counseling regarding contraception Z30.09 ; Hyperthyroidism E05.90 and Chronic migraine G43.709 [address] [place] [address] Jul, Encounter for surveillance of injectable contraceptive Z30.42 [facility] [address] [place] [address] 17 Jul, 2017 Sore throat J02.9 ; Other viral agents as the cause of diseases classified elsewhere B97.89 and Acute upper respiratory infection, unspecified J06.9 [place] [address] [place] [id number] [place] [address] 17 Jun, 2017 Visit for TB skin test Z11.1 [place] [address] [place] [id number] [place] [address] 21 May, 2017 Physical exam, routine Z00.00 [place] [address] [place] [id number] [place] [address] May, Hyperthyroidism E05.90 and Post traumatic stress disorder (PTSD) F43.10 [place] [address] [place] [id number] [place] [address] 16 Apr, 2017 Routine gynecological examination Z01.419 ; High risk sexual behavior Z72.51 ; Encounter for surveillance of injectable contraceptive Z30.42 ; Hyperthyroidism E05.90 and Encounter for Depo-Provera contraception Z30.42 [facility] [address] [place] [id number] [place] [address] Apr, Tinea corporis B35.4 [place] [address] [place] [id number] [place] [address] Mar, Thyrotoxicosis without thyroid storm, unspecified thyrotoxicosis type E05.90 [place] [address] [place] [id number] [place] [address] Mar, [place] [address] [place] [id number] [place] [address] Mar, [place] [address] [place] [id number] [place] [address] Mar, Post traumatic stress disorder (PTSD) F43.10 and Hyperthyroidism E05.90 [place] [id number] [place] [address] 13 Feb, 2017 Hyperthyroidism E05.90 ; Post traumatic stress disorder (PTSD) F43.10 and Overdose, intentional self-harm, subsequent encounter T50.902D [place] [address] [place] [id number] [place] [address] January, Post traumatic stress disorder (PTSD) F43.10 [place] [address] [place] [id number] [place] [address] Dec, Hx of migraines Z86.69 ; Insect bite (nonvenomous), left thigh, initial encounter S70.362A and Post traumatic stress disorder (PTSD) F43.10 [place] [address] [address] Dec, [place] [address] [address] Nov, [place] [address] [address] 10 Nov, 2015 Adjustment disorder with depressed mood F43.21 and Major depression, recurrent F33.9 [place] [address] [address] 10 Nov, 2015 Oral contraceptive pill surveillance Z30.41 ; Routine screening for STI (sexually transmitted infection) Z11.3 ; Dysmenorrhea N94.6 ; Hx of migraines Z86.69 ; Deliberate self-cutting Z72.89 and Major depressive disorder, recurrent, moderate F33.1 [place] [address] [place] [id number] [place] [address] Nov, [place] [address] [place] [id number] [place] [address] May, [place] [address] [address] 17 May, 2015 [place] [address] [address] 15 May, 2015 Migraine headache 346.90 and Abdominal pain 789.00 [place] [address] [place] [id number] [place] [address] 14 May, 2015 [place] [address] [address] Apr, Oligomenorrhea 626.1 and Screening for diabetes mellitus V77.1 [facility] [address] [place] [id number] [place] [address] Apr, Oligomenorrhea 626.1 ; Dark urine 791.9 and Screening for diabetes mellitus V77.1 [facility] [address] [place] [id number] [place] [address] Feb, Bipolar disorder, unspecified 296.80 [facility] [address] [place] [id number] [place] [address] Dec, [facility] [address] [place] [id number] [place] [address] Dec, [facility] [address] [place] [id number] [place] [address] Dec, [facility] [address] [place] [id number] [place] [address] Dec, [facility] [address] [place] [id number] [place] [address] Dec, [facility] [address] [place] [id number] [place] [address] Jul, [facility] [address] [address] Jul, [facility] [address] [place] [address] Jul, [facility] [address] [address] Jul, [facility] [address] [place] [id number] [place] [address] Jun, [facility] [address] [address] May, [facility] [address] [address] Apr, [facility] [place] [facility] [address] [id number] [place] [address] Apr, [facility] [address] [id number] [place] [address] Mar, [facility] [address] [id number] [place] [address] Feb, [facility] [place] [facility] [address] [id number] [place] [address] Feb, [facility] [address] [id number] [place] [address] Feb, [facility] [place] [facility] [address] [id number] [place] [address] January, [facility] [address] [id number] [place] [address] January, [facility] [address] [id number] [place] [address] Dec, [facility] [address] [id number] [place] [address] Dec, [facility] [address] [id number] [place] [address] Nov, [facility] [place] [facility] [address] [id number] [place] [address] Nov, [facility] [address] [id number] [place] [address] Sep, [facility] [place] [facility] [address] [id number] [place] [address] Jun, [facility] [place] [facility] [address] [id number] [place] [address] Jun, [facility] [place] [facility] [address] [id number] [place] [address] May, [facility] [place] [facility] [address] [id number] [place] [address] Mar, [facility] [place] [facility] [address] [id number] [place] [address] Mar, [facility] [place] [facility] [address] [id number] [place] [address] Mar, [facility] [place] [facility] [address] [id number] [place] [address] Mar, [facility] [place] [facility] [address] [id number] [place] [address] Feb, [facility] [place] [facility] [address] [id number] [place] [address] Feb, [facility] [place] [facility] [address] [id number] [place] [address] Feb, [facility] [place] [facility] [address] [id number] [place] [address] Feb, [facility] [place] [facility] [address] [id number] [place] [address] Feb, [facility] [place] [facility] [address] [id number] [place] [address] January, [facility] [place] [facility] [address] [id number] [place] [address] January, [facility] [place] [facility] [address] [id number] [place] [address] January, [facility] [place] [facility] [address] [id number] [place] [address] January, [facility] [place] [facility] [address] [id number] [place] [address] January, [facility] [place] [facility] [address] [id number] [place] [address] Dec, [facility] [place] [facility] [address] [id number] [place] [address] Dec, [facility] [place] [facility] [address] [id number] [place] [address] Dec, [facility] [address] [id number] [place] [address] Nov, [facility] [place] [facility] [address] [id number] [place] [address] Oct, [facility] [address] [id number] [place] [address] Sep, [facility] [place] [facility] [address] [id number] [place] [address] Jul, [facility] [address] [id number] [place] [address] Aug, [facility] [place] [facility] [address] [id number] [place] [address] Jul, [facility] [address] [id number] [place] [address] Jun, [facility] [address] [id number] [place] [address] Jun, [facility] [address] [id number] [place] [address] Jul, [facility] [address] [facility] [id number] [place] [address] Jul, [facility] [place] [facility] [address] [id number] [place] [address] Aug, [facility] [place] [facility] [address] [id number] [place] [address] Aug, [facility] [place] [facility] [address] [id number] [place] [address] Jul, [facility] [place] [facility] [address] [id number] [place] [address] Jul, [facility] [place] [facility] [address] [id number] [place] [address] Apr, [facility] [address] [facility] [id number] [place] [address] Oct, [facility] [address] [facility] [id number] [address] Jul, [facility] [address] [facility] [id number] [place] [address] Apr, IMMUNIZATIONS No Known Immunizations SOCIAL HISTORY Never Assessed REASON FOR VISIT [facility] PLAN OF CARE VITAL SIGNS MEDICATIONS Medication Instructions Dosage Frequency Start Date End Date Duration Status Sulfacetamide Sodium 10 % 2 drop by Ophthalmic route 4 times per day for 7 day(s) Jul, Active RESULTS No Results PROCEDURES No Known procedures INSTRUCTIONS MEDICATIONS ADMINISTERED No Known Medications MEDICAL (GENERAL) HISTORY Type Description Date Medical History migraine headaches Medical History Unspecified episodic mood disorder Medical History Posttraumatic stress disorder Medical History Deliberate self-cutting Medical History Dysmenorrhea Medical History Overdose Zoloft 2016 Medical History Hyperthyroidism Medical History Gaves disease Medical History A- Surgical History No know Surgical history Hospitalization History rule out appendicitis 2006 Hospitalization History [facility] 2017 Hospitalization History [facility] Hyperthyroidism and overdose on Zoloft 02-23-2017
[2019-03-15 05:30] VITALS: BP 124/68
[2019-03-15] MEDS ORDERED: fentaNYL INJECTION 100 MCG/2 ML AMP IVP ONE (05:30)
--- NOTE | 2019-03-15 05:31 | NUR ---
pt reports nausea improved, continues to have pain. erp notified. updated on expected wait times for results.
[2019-03-15 05:33] LABS: LYMPHOCYTES % (MANUAL) 4 %; MONOCYTES % (MANUAL) 1 %; NEUTROPHILS % (MANUAL) 95 %
[2019-03-15 05:55] LABS: BILIRUBIN,URINE NEGATIVE (NEGATIVE); CLARITY,URINE CLEAR; COLOR,URINE YELLOW; GLUCOSE, URINE (UA) NEGATIVE (NEGATIVE); KETONES,URINE 3+ (NEGATIVE); LEUKOCYTE ESTERASE ,URINE 3+ (NEGATIVE); NITRITE,URINE NEGATIVE (NEGATIVE); PH,URINE 6 (5-9); PROTEIN,URINE 2+ (NEGATIVE); UROBILINOGEN,URINE NORMAL (NORMAL)
[2019-03-15 06:10] LABS: BACTERIA,URINE FEW /HPF; WBC,URINE 25-50 /HPF
--- NOTE | 2019-03-15 06:21 | NUR ---
pt reports pain improved, denies needs at this time.
--- NOTE | 2019-03-15 06:54 | Diagnostic Imaging Report ---
EXAMINATION: Portable erect AP chest at 5:17 AM INDICATION: Fever The heart size is within normal limits and stable when compared to 06/19/2017. The lungs are somewhat obscured by the patient's enlarged breast. The patient is . There is no sign of failure, pneumonia or a pleural effusion. Mediastinum is not widened. The osseous structures are intact. IMPRESSION: There is no evidence for an acute cardiopulmonary abnormality in this patient. Dictated by: Dictated on workstation # [id number]
--- NOTE | 2019-03-15 07:05 | Diagnostic Imaging Report ---
PROCEDURE: CT abdomen and pelvis without contrast. TECHNIQUE: Multiple contiguous axial images were obtained through the abdomen and pelvis without the use of intravenous contrast. Auto Exposure Controls were utilized during the CT exam to meet ALARA standards for radiation dose reduction. INDICATION: Fever, abdominal pain The previous CT abdomen/pelvis exam of 11/25/2017 failed to show any sign of an acute abnormality of the abdomen or pelvis. On this exam, the uterus does appear much larger than on the prior study. Reportedly, the patient did give on 03/06/2019. Consequently the size of the uterus is most likely secondary to the patient's status. There is no abnormal density associated with the uterus to suggest myometritis or retained products of conception. However, if further study is desired, then ultrasound would be recommended. As on the prior study, there are few small nodes within the mesentery and there is perhaps mild distortion of the mesenteric fat. This appearance is nonspecific but could relate to mild mesenteric adenitis. The liver, spleen, pancreas, adrenals, gallbladder, kidneys, aorta and inferior vena cava show no sign of an acute abnormality. Both renal pelvis do seem more prominent than on the prior exam. This may be secondary to extrinsic compression of the ureters due to the enlarged uterus. There is no sign of obstructive calculus. There is no pelvic mass or free fluid collection evident. The appendix was not well-visualized but there are no indirect signs of acute appendicitis. The urinary bladder is grossly unremarkable. The bone windows show no evidence for a fracture or for a destructive lesion. The lung bases are generally clear. Both breasts are also much larger than noted on the prior study. This too is most likely secondary to the patient's status. IMPRESSION: 1. There is marked enlargement of the uterus when compared to the prior exam. This would be consistent with the patient's status. There is no abnormality of the enlarged uterus identified but ultrasound should be considered for further evaluation. 2. The prominence of the renal pelves is most likely due to extrinsic compression of the ureters by the enlarged uterus. There is no evidence for obstructive calculus. 3. There is a question of mild mesenteric adenitis. 4. There is no acute abnormality noted otherwise. Dictated by: Dictated on workstation # [id number]
[2019-03-15 07:08] VITALS: BP 98/54
[2019-03-15] MEDS ORDERED: fentaNYL INJECTION 100 MCG/2 ML AMP IV PRN (07:30)
[2019-03-15] MEDS ORDERED: PIPERACILLIN/TAZO 4.5 GM/NS 100 ML IV NR ×2 (07:30)
[2019-03-15] MEDS ORDERED: KETOROLAC 15 MG/ML VIAL IV PRN (07:45)
[2019-03-15] MEDS ORDERED: LACTATED RINGERS 1,000 ML IV SCH (07:45)
[2019-03-15] MEDS ORDERED: CATHETER FLUSH 10 ML SYR IV PRN (07:45)
[2019-03-15] MEDS ORDERED: ONDANSETRON 4 MG/2 ML (SDV) Z0FRAN IVP PRN (07:45)
[2019-03-15] MEDS ORDERED: oxyCODONE/APAP 5/325MG (PERCOCET 5) TABLET PO PRN (07:45)
--- NOTE | 2019-03-15 07:45 | History & Physical ---
History and Physical Date Seen by Provider: Mar 15, 2019 Time Seen by Provider: 07:40 This patient is a 18-year-old [address] of [address] De La Garza. She presented to the ED with complaints of myalgias and abdominal pain. ED evaluation was consistent with sepsis. Cultures of the uterus and cervix were obtained in the ED. Patient's white count was elevated to 20,000. Urine was contaminated and otherwise unremarkable. Patient is breast-feeding. CT was obtained. Clinical impression from the ED was sepsis due to endomyometritis/PID/mastitis/urosepsis. Clinical presentation I think is most consistent with early endomyometritis. Patient has been started on Zosyn. We will follow cultures. Continue IV fluids and symptomatic support. Allergies are to contrast dye. Medications are per the admit ED note Medical social and surgical histories are per her PCP is recent antepartum record General the patient appears mildly uncomfortable. HEENT exam is normal Neck is supple no lymphadenopathy no thyromegaly Abdomen is soft there is some diffuse tenderness. Fundus is tender. Extremities show no clubbing or cyanosis there is some pretibial pitting edema. There is no Homans sign. Pelvic exam was deferred as pelvic exam was performed in the ED. Has been reviewed. Laboratory Tests Test 03/15/19 04:15 03/15/19 04:40 03/15/19 05:49 Range/Units White Blood Count 20.9 H 4.3-11.0 10^3/uL Red Blood Count 4.99 4.35-5.85 10^6/uL Hemoglobin 14.5 11.5-16.0 G/DL Hematocrit 42 35-52 % Mean Corpuscular Volume 83 80-99 FL Mean Corpuscular Hemoglobin 29 25-34 PG Mean Corpuscular Hemoglobin Concent 35 32-36 G/DL Red Cell Distribution Width 12.9 10.0-14.5 % Platelet Count 411 H 130-400 10^3/uL Mean Platelet Volume 9.2 7.4-10.4 FL Neutrophils (%) (Auto) 92 H 42-75 % Lymphocytes (%) (Auto) 5 L 12-44 % Monocytes (%) (Auto) 3 0-12 % Eosinophils (%) (Auto) 1 0-10 % Basophils (%) (Auto) 0 0-10 % Neutrophils # (Auto) 19.2 H 1.8-7.8 X 10^3 Lymphocytes # (Auto) 1.0 1.0-4.0 X 10^3 Monocytes # (Auto) 0.6 0.0-1.0 X 10^3 Eosinophils # (Auto) 0.1 0.0-0.3 10^3/uL Basophils # (Auto) 0.0 0.0-0.1 10^3/uL Neutrophils % (Manual) 95 % Lymphocytes % (Manual) 4 % Monocytes % (Manual) 1 % Prothrombin Time 15.3 H 12.2-14.7 SEC INR Comment 1.2 0.8-1.4 Activated Partial Thromboplast Time 44 H 24-35 SEC Sodium Level 132 L 135-145 MMOL/L Potassium Level 3.3 L 3.6-5.0 MMOL/L Chloride Level 103 98-107 MMOL/L Carbon Dioxide Level 15 L 21-32 MMOL/L Anion Gap 14 5-14 MMOL/L Blood Urea Nitrogen 11 7-18 MG/DL Creatinine 0.94 0.60-1.30 MG/DL Estimat Glomerular Filtration Rate > 60 BUN/Creatinine Ratio 12 Glucose Level 128 H 70-105 MG/DL Lactic Acid Level 1.47 0.50-2.00 MMOL/L Calcium Level 9.3 8.5-10.1 MG/DL Corrected Calcium 9.2 8.5-10.1 MG/DL Total Bilirubin 0.6 0.1-1.0 MG/DL Aspartate Amino Transf (AST/SGOT) 18 5-34 U/L Alanine Aminotransferase (ALT/SGPT) 16 0-55 U/L Alkaline Phosphatase 91 40-136 U/L Total Protein 7.7 6.4-8.2 GM/DL Albumin 4.1 3.2-4.5 GM/DL Lipase 31 8-78 U/L Urine Color YELLOW Urine Clarity CLEAR Urine pH 6 5-9 Urine Specific [place] 1.010 L 1.016-1.022 Urine Protein 2+ H NEGATIVE Urine Glucose (UA) NEGATIVE NEGATIVE Urine Ketones 3+ H NEGATIVE Urine Nitrite NEGATIVE NEGATIVE Urine Bilirubin NEGATIVE NEGATIVE Urine Urobilinogen NORMAL NORMAL MG/DL Urine Leukocyte Esterase 3+ H NEGATIVE Urine RBC (Auto) 5+ H NEGATIVE Urine RBC 5-10 H /HPF Urine WBC 25-50 H /HPF Urine Squamous Epithelial Cells 5-10 /HPF Urine Crystals NONE /LPF Urine Bacteria FEW H /HPF Urine Casts NONE /LPF Urine Mucus NEGATIVE /LPF Urine Culture Indicated CULTURE PENDING Lab work is noted. Cultures are pending of the uterus/bladder/cervix Assessment and plan likely endomyometritis. I doubt sepsis. We will continue Zosyn and supportive care with hydration and pain control. We will recheck the CBC this afternoon. We'll continue inpatient management until patient's symptoms are resolving and her clinical picture is consistent with status ready for discharge Endomyometritis Allergies and Home Medications Allergies Uncoded Allergies: CONTRAST DYE (Allergy, Mild, 01/19/10) Home Medications Docusate Sodium 100 Mg Capsule, 100 MG PO BID Prescribed by: ALINE DE LA GARZA on 03/06/191858 Hydrocodone Bit/Acetaminophen 1 Tab Tab, 1 TAB PO Q4H PRN for PAIN-MODERATE Prescribed by: ALINE DE LA GARZA on 03/06/191858 Ibuprofen 600 Mg Tablet, 600 MG PO Q6HR Prescribed by: ALINE DE LA GARZA on 03/06/191858 Vit No.124/Iron/FA 1 Each Tablet, 1 EACH PO DAILY, (Reported) Patient Home Medication List Home Medication List Reviewed: MICH Lim MD Mar 15, 2019 07:45
[2019-03-15] MEDS: D5 LR IV SOLUTION 1,000 ML IV SCH ×2 (08:46→16:35)
[2019-03-15] MEDS: ACETAMINOPHEN 500 MG TAB (TYLENOL) PO PRN ×2 (08:53→17:57)
--- NOTE | 2019-03-15 09:36 | NUR ---
TEMPERATURE AFTER TYLENOL WAS 104.[address]. TORADOL 30 MG WILL BE GIVEN IV TO HELP WITH HER TEMPERATURE. WILL CONT TO MONITOR THIS PATIENT.
[2019-03-15] MEDS: KETOROLAC 30 MG/ML VIAL IVP PRN ×2 (09:40→16:37)
--- NOTE | 2019-03-15 10:18 | NUR ---
TEMPERATURE AFTER TORADOL IS NOW 98.9 TEMPORALLY. THIS RN WILL CONT TO MONITOR THIS PATIENT.
[2019-03-15 11:57] VITALS: BP 107/69
[2019-03-15] MEDS: PIPERACILLIN/TAZO 4.5 GM/NS 100 ML IV SCH ×4 (14:05→21:17)
[2019-03-15 16:03] LABS: BASOPHILS % (AUTO) 0 % (0-10); EOSINOPHILS # (AUTO) 0.3 10^3/uL (0.0-0.3); EOSINOPHILS % (AUTO) 2 % (0-10); HEMATOCRIT 40 % (35-52); HEMOGLOBIN 13.8 G/DL (11.5-16.0); LYMPHOCYTES % (AUTO) 6 % (12-44); MEAN CORPUSCULAR HEMOGLOBIN 29 PG (25-34); MEAN CORPUSCULAR HGB CONC 34 G/DL (32-36); MEAN CORPUSCULAR VOLUME 85 FL (80-99); MEAN PLATELET VOLUME 8.9 FL (7.4-10.4); MONOCYTES # (AUTO) 0.7 X 10^3 (0.0-1.0); MONOCYTES % (AUTO) 4 % (0-12); NEUTROPHILS # (AUTO) 16.2 X 10^3 (1.8-7.8); NEUTROPHILS % (AUTO) 89 % (42-75); PLATELET COUNT 296 10^3/uL (130-400); RED CELL DISTRIBUTION WIDTH 13.1 % (10.0-14.5); WHITE BLOOD COUNT 18.2 10^3/uL (4.3-11.0)
[2019-03-15 16:35] VITALS: BP 113/68
--- NOTE | 2019-03-15 17:58 | NUR ---
tylenol given for a temp of 100.0, will recheck temperature in one hour
[2019-03-15 20:07] VITALS: BP 104/61
[2019-03-16] VITALS: BP 121/67
[2019-03-16] MEDS: D5 LR IV SOLUTION 1,000 ML IV SCH ×3 (00:55→16:15)
[2019-03-16] MEDS: ACETAMINOPHEN 500 MG TAB (TYLENOL) PO PRN ×2 (00:57→08:22)
[2019-03-16 04:00] VITALS: BP 116/64
[2019-03-16] MEDS: PIPERACILLIN/TAZO 4.5 GM/NS 100 ML IV SCH ×6 (04:38→20:34)
--- NOTE | 2019-03-16 07:49 | Progress Note-Standard ---
Standard Progress Note Progress Notes/Assess & Plan Date Seen by a Provider: Mar 16, 2019 Time Seen by a Provider: 07:45 Progress/Assessment & Plan Patient is without complaint. She indicates that she feels a bit better. Her pain is better. Her nausea is better. She is tolerating oral intake. She denies shortness of breath or chest pain. She denies nausea and headache. Vital Signs Date Time Temp Pulse Resp B/P (MAP) Pulse Ox O2 Delivery O2 Flow Rate FiO2 03/16/19 04:00 99.0 89 18 116/64 (81) 96 Room Air 03/16/19 00:57 102.7 03/16/19 00:00 102.7 92 18 121/67 (85) 100 Room Air 03/15/19 20:07 99.2 98 20 104/61 (75) 98 Room Air 03/15/19 20:00 100 Room Air 03/15/19 17:57 100.0 03/15/19 16:37 99.0 03/15/19 16:35 99.0 102 20 113/68 (83) 99 Room Air 03/15/19 11:57 98.0 98 18 107/69 (82) 97 Room Air 03/15/19 09:40 104.9 03/15/19 08:53 100.0 03/15/19 08:00 100.0 I & O 03/16/19 07:00 Intake Total 4282 ml Output Total 1300 ml Balance 2982 ml Temperature and vitals are as noted. Laboratory Tests Test 03/15/19 16:00 Range/Units White Blood Count 18.2 H 4.3-11.0 10^3/uL Red Blood Count 4.72 4.35-5.85 10^6/uL Hemoglobin 13.8 11.5-16.0 G/DL Hematocrit 40 35-52 % Mean Corpuscular Volume 85 80-99 FL Mean Corpuscular Hemoglobin 29 25-34 PG Mean Corpuscular Hemoglobin Concent 34 32-36 G/DL Red Cell Distribution Width 13.1 10.0-14.5 % Platelet Count 296 130-400 10^3/uL Mean Platelet Volume 8.9 7.4-10.4 FL Neutrophils (%) (Auto) 89 H 42-75 % Lymphocytes (%) (Auto) 6 L 12-44 % Monocytes (%) (Auto) 4 0-12 % Eosinophils (%) (Auto) 2 0-10 % Basophils (%) (Auto) 0 0-10 % Neutrophils # (Auto) 16.2 H 1.8-7.8 X 10^3 Lymphocytes # (Auto) 1.0 1.0-4.0 X 10^3 Monocytes # (Auto) 0.7 0.0-1.0 X 10^3 Eosinophils # (Auto) 0.3 0.0-0.3 10^3/uL Basophils # (Auto) 0.0 0.0-0.1 10^3/uL Cultures thus far are negative. The abdomen is diffusely mildly tender. Exam seems improved from that at admission. Pelvic exam is deferred Extremities show no clubbing or cyanosis. There is no Homans sign. Assessment and plan hospital day 2 with likely endomyometritis. We'll continue her Zosyn. Temperatures continued to spike 102, White blood cell count is stable to slightly decreasing. Patient reports feeling slightly better symptomatically. Plan is to continue current management follow-up cultures as available and recheck CBC in the morning Focused Exam Lactate Level 03/15/19 04:15: Lactic Acid Level 1.47 MICH DELA CRUZ MD Mar 16, 2019 07:48
[2019-03-16 08:20] VITALS: BP 107/59
[2019-03-16 12:26] VITALS: BP 121/66
[2019-03-16 16:12] VITALS: BP 122/60
[2019-03-16 20:17] VITALS: BP 112/77
[2019-03-16] MEDS: KETOROLAC 30 MG/ML VIAL IVP PRN ×2 (20:33→21:03)
[2019-03-17] VITALS: BP 119/69
[2019-03-17] MEDS: D5 LR IV SOLUTION 1,000 ML IV SCH ×2 (00:02→06:39)
[2019-03-17] MEDS: ACETAMINOPHEN 500 MG TAB (TYLENOL) PO PRN (00:13)
[2019-03-17 04:00] VITALS: BP 106/72
[2019-03-17 05:27] LABS: BASOPHILS % (AUTO) 0 % (0-10); EOSINOPHILS # (AUTO) 0.6 10^3/uL (0.0-0.3); EOSINOPHILS % (AUTO) 8 % (0-10); HEMATOCRIT 33 % (35-52); LYMPHOCYTES # (AUTO) 2.1 X 10^3 (1.0-4.0); LYMPHOCYTES % (AUTO) 29 % (12-44); MEAN CORPUSCULAR HEMOGLOBIN 29 PG (25-34); MEAN CORPUSCULAR HGB CONC 33 G/DL (32-36); MEAN CORPUSCULAR VOLUME 87 FL (80-99); MEAN PLATELET VOLUME 9.3 FL (7.4-10.4); MONOCYTES # (AUTO) 0.5 X 10^3 (0.0-1.0); MONOCYTES % (AUTO) 7 % (0-12); NEUTROPHILS # (AUTO) 4.2 X 10^3 (1.8-7.8); NEUTROPHILS % (AUTO) 56 % (42-75); PLATELET COUNT 236 10^3/uL (130-400); RED CELL DISTRIBUTION WIDTH 13.4 % (10.0-14.5); WHITE BLOOD COUNT 7.4 10^3/uL (4.3-11.0)
[2019-03-17] MEDS: PIPERACILLIN/TAZO 4.5 GM/NS 100 ML IV SCH ×2 (05:58)
--- NOTE | 2019-03-17 08:12 | Progress Note-Standard ---
Standard Progress Note Progress Notes/Assess & Plan Date Seen by a Provider: Mar 17, 2019 Time Seen by a Provider: 08:09 Progress/Assessment & Plan Patient is without complaint. She indicates that she feels a bit better. Her pain is better. Her nausea is better. She is tolerating oral intake. She denies shortness of breath or chest pain. She denies nausea and headache. Vital Signs Date Time Temp Pulse Resp B/P (MAP) Pulse Ox O2 Delivery O2 Flow Rate FiO2 03/16/19 04:00 99.0 89 18 116/64 (81) 96 Room Air 03/16/19 00:57 102.7 03/16/19 00:00 102.7 92 18 121/67 (85) 100 Room Air 03/15/19 20:07 99.2 98 20 104/61 (75) 98 Room Air 03/15/19 20:00 100 Room Air 03/15/19 17:57 100.0 03/15/19 16:37 99.0 03/15/19 16:35 99.0 102 20 113/68 (83) 99 Room Air 03/15/19 11:57 98.0 98 18 107/69 (82) 97 Room Air 03/15/19 09:40 104.9 03/15/19 08:53 100.0 03/15/19 08:00 100.0 I & O 03/16/19 07:00 Intake Total 4282 ml Output Total 1300 ml Balance 2982 ml Temperature and vitals are as noted. Laboratory Tests Test 03/15/19 16:00 Range/Units White Blood Count 18.2 H 4.3-11.0 10^3/uL Red Blood Count 4.72 4.35-5.85 10^6/uL Hemoglobin 13.8 11.5-16.0 G/DL Hematocrit 40 35-52 % Mean Corpuscular Volume 85 80-99 FL Mean Corpuscular Hemoglobin 29 25-34 PG Mean Corpuscular Hemoglobin Concent 34 32-36 G/DL Red Cell Distribution Width 13.1 10.0-14.5 % Platelet Count 296 130-400 10^3/uL Mean Platelet Volume 8.9 7.4-10.4 FL Neutrophils (%) (Auto) 89 H 42-75 % Lymphocytes (%) (Auto) 6 L 12-44 % Monocytes (%) (Auto) 4 0-12 % Eosinophils (%) (Auto) 2 0-10 % Basophils (%) (Auto) 0 0-10 % Neutrophils # (Auto) 16.2 H 1.8-7.8 X 10^3 Lymphocytes # (Auto) 1.0 1.0-4.0 X 10^3 Monocytes # (Auto) 0.7 0.0-1.0 X 10^3 Eosinophils # (Auto) 0.3 0.0-0.3 10^3/uL Basophils # (Auto) 0.0 0.0-0.1 10^3/uL Cultures thus far are negative. The abdomen is diffusely mildly tender. Exam seems improved from that at admission. Pelvic exam is deferred Extremities show no clubbing or cyanosis. There is no Homans sign. Assessment and plan hospital day 2 with likely endomyometritis. We'll continue her Zosyn. Temperatures continued to spike 102, White blood cell count is stable to slightly decreasing. Patient reports feeling slightly better symptomatically. Plan is to continue current management follow-up cultures as available and recheck CBC in the morning March 17, 2019 Patient without complaint. She is ambulating, voiding, tolerating oral intake well has good pain control. She denies chest pain, denies shortness of breath, denies nausea vomiting, denies headache. She reports that her preadmission pain is essentially resolved. She does feel ready for discharge home and is requesting discharge home. Vital Signs Date Time Temp Pulse Resp B/P (MAP) Pulse Ox O2 Delivery O2 Flow Rate FiO2 03/17/19 04:00 97.3 53 18 106/72 (83) 98 Room Air 03/17/19 00:00 97.2 52 16 119/69 (86) 98 Room Air 03/16/19 20:17 98.5 71 20 112/77 (89) 97 Room Air 03/16/19 20:00 97 Room Air 0.00 03/16/19 16:12 97.7 69 20 122/60 (80) 96 Room Air 03/16/19 12:26 97.9 66 22 121/66 (84) 97 Room Air 0.00 03/16/19 08:20 97.8 65 25 107/59 (75) 98 Room Air 0.00 I & O 03/17/19 07:00 Intake Total 5164 ml Output Total 1802 ml Balance 3362 ml Vital signs are stable. Patient is afebrile now for over 24 hours. Laboratory Tests Test 03/17/19 05:10 Range/Units White Blood Count 7.4 4.3-11.0 10^3/uL Red Blood Count 3.82 L 4.35-5.85 10^6/uL Hemoglobin 11.0 #L 11.5-16.0 G/DL Hematocrit 33 L 35-52 % Mean Corpuscular Volume 87 80-99 FL Mean Corpuscular Hemoglobin 29 25-34 PG Mean Corpuscular Hemoglobin Concent 33 32-36 G/DL Red Cell Distribution Width 13.4 10.0-14.5 % Platelet Count 236 130-400 10^3/uL Mean Platelet Volume 9.3 7.4-10.4 FL Neutrophils (%) (Auto) 56 42-75 % Lymphocytes (%) (Auto) 29 12-44 % Monocytes (%) (Auto) 7 0-12 % Eosinophils (%) (Auto) 8 0-10 % Basophils (%) (Auto) 0 0-10 % Neutrophils # (Auto) 4.2 1.8-7.8 X 10^3 Lymphocytes # (Auto) 2.1 1.0-4.0 X 10^3 Monocytes # (Auto) 0.5 0.0-1.0 X 10^3 Eosinophils # (Auto) 0.6 H 0.0-0.3 10^3/uL Basophils # (Auto) 0.0 0.0-0.1 10^3/uL White blood cell count has normalized The abdomen is benign. The uterus is minimally tender. There is no guarding rebound or rigidity. Extremities show no clubbing or cyanosis. There is no Homans sign. Pelvic exam is deferred Cultures of urine showed mixed bacteria which is non-definitive. Assessment and plan hospital day 3. Readmitted for either urinary tract infection or endometritis or mastitis. Thank her presentation is most likely consistent with endomyometritis although she may very well have a urinary tract infection. She has defervesced and her white blood cell count has normalized. We will change to oral antibiotics in the form of Augmentin and Flagyl and allow for discharge home with follow-up in clinic. Final Diagnosis Endomyometritis Focused Exam Lactate Level 03/15/19 04:15: Lactic Acid Level 1.47 MICH DELA CRUZ MD Mar 17, 2019 08:12
[2019-03-17] MEDS ORDERED: METR500T PO (08:15)
[2019-03-17] MEDS ORDERED: AMOX-355 PO (08:15)
--- NOTE | 2019-03-17 08:16 | Discharge Instructions ---
Discharge Instructions Discharge Medications New, Converted or Re-Newed RX: Call to Patients Pharmacy Patient Instructions Patient Instructions: As directed Return to The Hospital For: As directed Activity & Diet Discharge Diet: No Restrictions Activity as Tolerated: No Orders-Post D/C & Referrals Follow Up Appt: Keep appointment with your primary physician for her exam Activity: Rest for 24 hours, than as tolerated. Please call in RX to patient pharmacy. Diet: As tolerated-Clear Liquids only if nauseated. Tshower or tub bathe as desired. No nothing per vagina (no tampons, douching, or intercoUrse) for 4 weeks. Patient to return to the clinic as soon as possible for: Temperature greater than 101F, Severe Pain, Foul discharge from incision or vagina, Excessive Bleeding (more than a period). MICH DELA CRUZ MD Mar 17, 2019 08:16
[2019-03-17 08:19] VITALS: BP 103/56
== END 2019-03-17 10:10 | disposition home or self-care (01) | DRG 776 ==
LOC: EDUNIT# 03:57 → ER 03:59 → 4TH 05:30
PROVIDERS: ADMIT Obstetrics & Gynecology; ATTEND Obstetrics & Gynecology
DX: O86.12 Endometritis following delivery (principal); N39.0 Urinary tract infection, site not specified; O99.355 Diseases of the nervous system complicating the puerperium; F41.9 Anxiety disorder, unspecified; O99.345 Other mental disorders complicating the puerperium; G43.909 Migraine, unspecified, not intractable, without status migrainosus; O99.285 Endocrine, nutritional and metabolic diseases complicating the puerperium; E05.00 Thyrotoxicosis with diffuse goiter without thyrotoxic crisis or storm; O99.63 Diseases of the digestive system complicating the puerperium; K21.9 Gastro-esophageal reflux disease without esophagitis; F31.9 Bipolar disorder, unspecified; F43.10 Post-traumatic stress disorder, unspecified; Z87.441 Personal history of nephrotic syndrome
CPT/HCPCS: 36415; 71045; 74176; 80053; 81000; 83605; 83690; 85007; 85025; 85027; 85610; 85730; 87040; 87070; 87077; 87088; 87205; 87210; 87491; 87591; 96361; 96365; 96375

== ENCOUNTER 2019-09-22 02:45 | Emergency (ER) | payer MEDICAID ==
[~2019-09-22] VITALS: Ht 165.1 cm; Wt 79.0 kg
[~2019-09-22 02:45] MED LIST changes: +AMOX-355 PO
[2019-09-22] MEDS ORDERED: TRIM/SULFAMETH 160/800 (SEPTRA DS) TAB PO STA (03:16)
--- NOTE | 2019-09-22 03:24 | ED Lower Extremity ---
General Chief Complaint: Lower Extremity Stated Complaint: INFECTED LT BIG TOE Source: patient Exam Limitations: no limitations History of Present Illness Date Seen by Provider: Sep 22, 2019 Time Seen by Provider: 03:06 Initial Comments Here with complaint of left great toe pain with bleeding to the lateral edge. She had this toenail removed and it is in the process of growing back in. It appears that it is ingrowing I again on that lateral edge. There is surrounding of erythema and some swelling. No purulent drainage. No red streaks past the toe. No report of fever. Came in tonight because she noted it was bleeding. Onset: this morning Pain/Injury Location: left 1st toe Modifying Factors: Worse With Movement; Improves With Rest Allergies and Home Medications Allergies Uncoded Allergies: CONTRAST DYE (Allergy, Mild, 01/19/10) Home Medications Amoxicillin/Potassium Clav 1 Each Tablet, 1 EACH PO QID Prescribed by: MICH MAC on 03/17/19814 Docusate Sodium 100 Mg Capsule, 100 MG PO BID Prescribed by: ALINE DE LA GARZA on 03/06/191858 Hydrocodone Bit/Acetaminophen 1 Tab Tab, 1 TAB PO Q4H PRN for PAIN-MODERATE Prescribed by: ALINE DE LA GARZA on 03/06/191858 Ibuprofen 600 Mg Tablet, 600 MG PO Q6HR Prescribed by: ALINE DE LA GARZA on 03/06/191858 Metronidazole 500 Mg Tablet, 500 MG PO BID Prescribed by: MICH MAC on 03/17/19814 Vit No.124/Iron/FA 1 Each Tablet, 1 EACH PO DAILY, (Reported) Patient Home Medication List Home Medication List Reviewed: Yes Review of Systems Constitutional: see HPI; No chills, No fever Respiratory: no symptoms reported Cardiovascular: no symptoms reported Musculoskeletal: No joint pain, No joint swelling Skin: see HPI, change in color, lesions Past Lychpgy-Utlhwn-Sfrhjh Hx Past Med/Social Hx: Reviewed Nursing Past Med/Soc Hx Patient Social History Alcohol Use: Denies Use Recreational Drug Use: No Smoking Status: Never a Smoker 2nd Hand Smoke Exposure: No Recent Foreign Travel: No Contact w/Someone Who Travel: No Recent Hopitalizations: Yes (post delivery) Immunizations Up To Date Tetanus Booster (TDap): Less than 5yrs PED Vaccines UTD: Yes Seasonal Allergies Seasonal Allergies: No Past Medical History Surgeries: No Respiratory: No Currently Using CPAP: No Currently Using BIPAP: No Cardiac: No Neurological: Yes Headaches /Migraines Reproductive Disorders: No Female Reproductive Disorders: Denies Sexually Transmitted Disease: No HIV/AIDS: No Genitourinary: Yes UTI-Chronic Gastrointestinal: No Gastroesophageal Reflux Musculoskeletal: No Endocrine: Yes (Graves Disease) Hyperthyroidism HEENT: No Loss of Vision: Denies Hearing Impairment: Denies Cancer: No Psychosocial: Yes Sleep Difficulties, Anxiety, PTSD, Suicide Attempts, Bipolar, Depression Integumentary: No Blood Disorders: No Adverse Reaction/Blood Tranf: No Family Medical History Reviewed Nursing Family Hx Alcoholism Grandparents (Maternal Grandmother) Arthritis Grandparents (Maternal Grandmother) Asthma Grandparents (Maternal Grandmother) Cardiovascular disease 19 FATHER (heart problems pt not sure what kind) G8 SISTER (heart defect) Cataracts Grandparents (Maternal Grandmother) Completed stroke 19 FATHER, Onset:30's - 40 Congenital disease Deafness or hearing loss Grandparents (Maternal Grandmother-hearing loss) Diabetes mellitus 19 MOTHER Grandparents (Maternal Grandmother) Drug abuse 19 FATHER 19 MOTHER (Meth, Marijuana-Clean 7 years) FH: aortic stenosis 19 FATHER FH: brain cancer Grandparents (Paternal Grandfather) Fibrocystic disease of breast Grandparents (Paternal Grandmother-) Gastroenteritis Grandparents (Maternal Grandmother) Glaucoma Grandparents (Maternal Grandmother) Heart murmur G8 SISTER Hypercholesterolemia 19 FATHER 19 MOTHER Grandparents (Maternal Grandmother) Osteoporosis Grandparents (Maternal Grandmother) Psychosocial problem 19 FATHER G8 SISTER (adhd) Grandparents (Maternal Grandmother-depression/anxiety) Respiratory disorder Grandparents (Maternal Grandmother-COPD) Thyroid disease 19 MOTHER (Hypothyroidism) Grandparents (Maternal Grandmother-Hypothyroidism) Physical Exam Vital Signs Capillary Refill : Height, Weight, BMI Height: 5'4.00" Weight: 180lbs. 1.0oz. [id number]; 30.9 BMI Method:Stated General Appearance: WD/WN, no apparent distress Cardiovascular: regular rate, rhythm, no murmur Respiratory: lungs clear, normal breath sounds Feet: left foot pain, left foot soft tissue tenderness, left foot other (redness and mild swelling to the lateral edge of the left great toe. Partially growing toenail noted in nailbed. The nail borders are encroaching over the nailbed area) Progress/Results/Core Measures Results/Orders My Orders Orders - POOJA CHATTERJEE MD Bactrim Ds Po (09/22/19 03:16) Progress Progress Note : Progress Note Seen and evaluated. Antibiotic ointment and Band-Aid applied to wound. Bactrim DS one tab by mouth given. Discharged home with return precautions. Patient verbalize understanding instructions and agreement with plan. She is declining pain medicine. Departure Impression Primary Impression: Ingrown toenail of left foot with infection Disposition: HOME, SELF-CARE Condition: Stable Departure-Patient Inst. Decision time for Depature: 03:28 Referrals: NO,LOCAL PHYSICIAN (PCP/Family) Primary Care Physician Patient Instructions: Ingrown Toenail (DC) Add. Discharge Instructions: All discharge instructions reviewed with patient and/or family. Voiced understanding. Use antibiotic ointment and Band-Aid changing twice daily for the next week or 2. He may soak your toe/foot and saltwater daily as well to decrease his infection and to keep the area moist. Take medications as directed. You may take Tylenol/acetaminophen 1000 mg every 8 hours as needed for pain. You may take ibuprofen 600 mg every 8 hours as needed for pain. Follow-up with your doctor later this week for recheck and further evaluation. Return for worse pain, fever, swelling, foul-smelling drainage, red streaks up the foot or other concerns as needed. Scripts Sulfamethoxazole/Trimethoprim (Sulfamethoxazole-Tmp Ds Tablet) 1 Each Tablet 1 EACH PO BID, #20 TAB 0 Refills Prov: POOJA CHATTERJEE MD 09/22/19 POOJA CHATTERJEE MD Sep 22, 2019 03:24
[2019-09-22] MEDS ORDERED: SULF-222 PO (03:31)
[2019-09-22 03:35] VITALS: BP 117/61
== END 2019-09-22 03:35 | disposition home or self-care (01) ==
LOC: EDUNIT# 02:45 → ER 02:47
DX: L60.1 Onycholysis (principal); L08.9 Local infection of the skin and subcutaneous tissue, unspecified; G43.909 Migraine, unspecified, not intractable, without status migrainosus; K21.9 Gastro-esophageal reflux disease without esophagitis; F41.9 Anxiety disorder, unspecified; F43.10 Post-traumatic stress disorder, unspecified; F31.9 Bipolar disorder, unspecified; E05.90 Thyrotoxicosis, unspecified without thyrotoxic crisis or storm; Z87.440 Personal history of urinary (tract) infections; Z91.041 Radiographic dye allergy status; Z82.49 Family history of ischemic heart disease and other diseases of the circulatory system; Z80.8 Family history of malignant neoplasm of other organs or systems

== ENCOUNTER 2019-10-28 16:51 | Emergency (ER) | payer MEDICAID ==
[~2019-10-28] VITALS: Ht 165.1 cm; Wt 79.1 kg
[~2019-10-28 16:51] MED LIST changes: +SULF-222 PO
[2019-10-28 17:30] LABS: BASOPHILS % (AUTO) 0 % (0-10); EOSINOPHILS # (AUTO) 0.1 10^3/uL (0.0-0.3); EOSINOPHILS % (AUTO) 1 % (0-10); HEMATOCRIT 40 % (35-52); HEMOGLOBIN 14.1 G/DL (11.5-16.0); LYMPHOCYTES % (AUTO) 9 % (12-44); MEAN CORPUSCULAR HEMOGLOBIN 28 PG (25-34); MEAN CORPUSCULAR HGB CONC 35 G/DL (32-36); MEAN CORPUSCULAR VOLUME 79 FL (80-99); MEAN PLATELET VOLUME 10.7 FL (7.4-10.4); MONOCYTES # (AUTO) 0.8 X 10^3 (0.0-1.0); MONOCYTES % (AUTO) 7 % (0-12); NEUTROPHILS # (AUTO) 8.9 X 10^3 (1.8-7.8); NEUTROPHILS % (AUTO) 83 % (42-75); PLATELET COUNT 233 10^3/uL (130-400); RED CELL DISTRIBUTION WIDTH 13.2 % (10.0-14.5); WHITE BLOOD COUNT 10.8 10^3/uL (4.3-11.0)
[2019-10-28 17:36] LABS: BILIRUBIN,URINE NEGATIVE (NEGATIVE); CLARITY,URINE SL CLOUDY; COLOR,URINE YELLOW; GLUCOSE, URINE (UA) NEGATIVE (NEGATIVE); KETONES,URINE NEGATIVE (NEGATIVE); LEUKOCYTE ESTERASE ,URINE 1+ (NEGATIVE); NITRITE,URINE NEGATIVE (NEGATIVE); PROTEIN,URINE NEGATIVE (NEGATIVE)
[2019-10-28 17:42] LABS: ALANINE AMINOTRANSFERASE 18 U/L (0-55); ALBUMIN 4.3 GM/DL (3.2-4.5); ALKALINE PHOSPHATASE 57 U/L (40-136); BILIRUBIN,TOTAL 0.9 MG/DL (0.1-1.0); BUN/CREATININE RATIO 10; CALCIUM 9.3 MG/DL (8.5-10.1); CARBON DIOXIDE 23 MMOL/L (21-32); CHLORIDE 106 MMOL/L (98-107); CREATININE SERUM 0.63 MG/DL (0.60-1.30); GFR ESTIMATED > 60; GLUCOSE 96 MG/DL (70-105); SODIUM 136 MMOL/L (135-145); TOTAL PROTEIN 7.4 GM/DL (6.4-8.2)
[2019-10-28 17:46] LABS: BACTERIA,URINE FEW /HPF
[2019-10-28] MEDS ORDERED: PROPRANOLOL 20 MG (INDERAL) TABLET PO ONE (18:15)
[2019-10-28] MEDS ORDERED: METHIMAZOLE TABLET 5 MG TABLET PO SCH (18:15)
--- NOTE | 2019-10-28 18:21 | ED General ---
General Chief Complaint: General Problems/Pain Stated Complaint: WEAKNESS Nursing Triage Note: [facility] OF [place] HAS BEEN WEAK ONSET TODAY. HAS NOT TAKEN MEDS FOR 1 YEAR. Nursing Sepsis Screen: No Definite Risk Source of Information: Patient Exam Limitations: No Limitations History of Present Illness Date Seen by Provider: Oct 28, 2019 Time Seen by Provider: 18:19 Initial Comments to ER with a history of Graves' disease. She's been off her medication for 1 year after being told that her thyroid was normal. She was formerly on methimazole 5 mg 3 times a day and propranolol. She comes in today with general weakness and palpitations. Timing/Duration: 1-2 Days Associated Systoms: Denies Symptoms Allergies and Home Medications Allergies Uncoded Allergies: CONTRAST DYE (Allergy, Mild, 01/19/10) Home Medications Amoxicillin/Potassium Clav 1 Each Tablet, 1 EACH PO QID Prescribed by: MICH MAC on 03/17/19 0815 Docusate Sodium 100 Mg Capsule, 100 MG PO BID Prescribed by: ALINE DE LA GARZA on 03/06/191858 Hydrocodone Bit/Acetaminophen 1 Tab Tab, 1 TAB PO Q4H PRN for PAIN-MODERATE Prescribed by: ALINE DE LA GARZA on 03/06/191858 Ibuprofen 600 Mg Tablet, 600 MG PO Q6HR Prescribed by: ALINE DE LA GARZA on 03/06/191858 Metronidazole 500 Mg Tablet, 500 MG PO BID Prescribed by: MICH MAC on 03/17/19 08 Vit No.124/Iron/FA 1 Each Tablet, 1 EACH PO DAILY, (Reported) Sulfamethoxazole/Trimethoprim 1 Each Tablet, 1 EACH PO BID Prescribed by: POOJA CHATTERJEE on 09/22/19 0331 Patient Home Medication List Home Medication List Reviewed: Yes Review of Systems Review of Systems Constitutional: see HPI EENTM: see HPI Respiratory: no symptoms reported Cardiovascular: see HPI Gastrointestinal: no symptoms reported Genitourinary: no symptoms reported Musculoskeletal: no symptoms reported Skin: no symptoms reported Psychiatric/Neurological: No Symptoms Reported Hematologic/Lymphatic: No Symptoms Reported Past Vhocqhx-Hpwipt-Pkfaod Hx Patient Social History Alcohol Use: Denies Use Recreational Drug Use: No Smoking Status: Never a Smoker 2nd Hand Smoke Exposure: No Recent Foreign Travel: No Contact w/Someone Who Travel: No Recent Infectious Disease Expo: No Recent Hopitalizations: Yes (post delivery) Immunizations Up To Date Tetanus Booster (TDap): Less than 5yrs PED Vaccines UTD: Yes Seasonal Allergies Seasonal Allergies: No Past Medical History Surgeries: No Respiratory: No Currently Using CPAP: No Currently Using BIPAP: No Cardiac: No Neurological: Yes Headaches /Migraines Reproductive Disorders: No Female Reproductive Disorders: Denies Sexually Transmitted Disease: No HIV/AIDS: No Genitourinary: Yes UTI-Chronic Gastrointestinal: No Gastroesophageal Reflux Musculoskeletal: No Endocrine: Yes (Graves Disease) Hyperthyroidism HEENT: No Loss of Vision: Denies Hearing Impairment: Denies Cancer: No Psychosocial: Yes Sleep Difficulties, Anxiety, PTSD, Suicide Attempts, Bipolar, Depression Integumentary: No Blood Disorders: No Adverse Reaction/Blood Tranf: No Family Medical History Alcoholism Grandparents (Maternal Grandmother) Arthritis Grandparents (Maternal Grandmother) Asthma Grandparents (Maternal Grandmother) Cardiovascular disease 19 FATHER (heart problems pt not sure what kind) G8 SISTER (heart defect) Cataracts Grandparents (Maternal Grandmother) Completed stroke 19 FATHER, Onset:30's - 40 Congenital disease Deafness or hearing loss Grandparents (Maternal Grandmother-hearing loss) Diabetes mellitus 19 MOTHER Grandparents (Maternal Grandmother) Drug abuse 19 FATHER 19 MOTHER (Meth, Marijuana-Clean 7 years) FH: aortic stenosis 19 FATHER FH: brain cancer Grandparents (Paternal Grandfather) Fibrocystic disease of breast Grandparents (Paternal Grandmother-) Gastroenteritis Grandparents (Maternal Grandmother) Glaucoma Grandparents (Maternal Grandmother) Heart murmur G8 SISTER Hypercholesterolemia 19 FATHER 19 MOTHER Grandparents (Maternal Grandmother) Osteoporosis Grandparents (Maternal Grandmother) Psychosocial problem 19 FATHER G8 SISTER (adhd) Grandparents (Maternal Grandmother-depression/anxiety) Respiratory disorder Grandparents (Maternal Grandmother-COPD) Thyroid disease 19 MOTHER (Hypothyroidism) Grandparents (Maternal Grandmother-Hypothyroidism) Physical Exam Vital Signs Vital Signs - First Documented 10/28/19 16:56 Temp 37.4 Pulse 128 Resp 18 B/P (MAP) 119/82 (94) Pulse Ox 99 Capillary Refill : Less Than 3 Seconds Height, Weight, BMI Height: 5'4.00" Weight: 180lbs. 1.0oz. 81.240241ry; 29.00 BMI Method:Stated General Appearance: No Apparent Distress, WD/WN Eyes: Bilateral Eye Normal Inspection, Bilateral Eye PERRL, Bilateral Eye EOMI HEENT: PERRL/EOMI, TMs Normal Neck: Full Range of Motion, Normal Inspection Respiratory: No Accessory Muscle Use, No Respiratory Distress Cardiovascular: Tachycardia (narrow complex regular rate 128) Gastrointestinal: Normal Bowel Sounds, Non Tender, Soft Extremity: Normal Capillary Refill, Normal Inspection Neurologic/Psychiatric: Alert, Oriented x3 Skin: Normal Color, Warm/Dry Progress/Results/Core Measures Suspected Sepsis Recent Fever Within 48 Hours: No Infection Criteria Present: None New/Unexplained Altered Menta: No Sepsis Screen: No Definite Risk SIRS Temperature: Pulse: 128 Respiratory Rate: 18 Laboratory Tests 10/28/19 17:18: White Blood Count 10.8 Blood Pressure 119 /82 Mean: 94 Laboratory Tests 10/28/19 17:18: Creatinine 0.63, Platelet Count 233, Total Bilirubin 0.9 Results/Orders Lab Results Laboratory Tests Test 10/28/19 17:18 10/28/19 17:29 Range/Units White Blood Count 10.8 4.3-11.0 10^3/uL Red Blood Count 5.11 4.35-5.85 10^6/uL Hemoglobin 14.1 11.5-16.0 G/DL Hematocrit 40 35-52 % Mean Corpuscular Volume 79 L 80-99 FL Mean Corpuscular Hemoglobin 28 25-34 PG Mean Corpuscular Hemoglobin Concent 35 32-36 G/DL Red Cell Distribution Width 13.2 10.0-14.5 % Platelet Count 233 130-400 10^3/uL Mean Platelet Volume 10.7 H 7.4-10.4 FL Neutrophils (%) (Auto) 83 H 42-75 % Lymphocytes (%) (Auto) 9 L 12-44 % Monocytes (%) (Auto) 7 0-12 % Eosinophils (%) (Auto) 1 0-10 % Basophils (%) (Auto) 0 0-10 % Neutrophils # (Auto) 8.9 H 1.8-7.8 X 10^3 Lymphocytes # (Auto) 1.0 1.0-4.0 X 10^3 Monocytes # (Auto) 0.8 0.0-1.0 X 10^3 Eosinophils # (Auto) 0.1 0.0-0.3 10^3/uL Basophils # (Auto) 0.0 0.0-0.1 10^3/uL Sodium Level 136 135-145 MMOL/L Potassium Level 4.0 3.6-5.0 MMOL/L Chloride Level 106 98-107 MMOL/L Carbon Dioxide Level 23 21-32 MMOL/L Anion Gap 7 5-14 MMOL/L Blood Urea Nitrogen 6 L 7-18 MG/DL Creatinine 0.63 0.60-1.30 MG/DL Estimat Glomerular Filtration Rate > 60 BUN/Creatinine Ratio 10 Glucose Level 96 70-105 MG/DL Calcium Level 9.3 8.5-10.1 MG/DL Corrected Calcium 9.1 8.5-10.1 MG/DL Total Bilirubin 0.9 0.1-1.0 MG/DL Aspartate Amino Transf (AST/SGOT) 14 5-34 U/L Alanine Aminotransferase (ALT/SGPT) 18 0-55 U/L Alkaline Phosphatase 57 40-136 U/L Total Protein 7.4 6.4-8.2 GM/DL Albumin 4.3 3.2-4.5 GM/DL Thyroid Stimulating Hormone (TSH) 0.00 L 0.35-4.94 UIU/ML Free Thyroxine 1.90 H 0.70-1.48 NG/DL Serum Test, Qualitative NEGATIVE NEGATIVE Urine Color YELLOW Urine Clarity SL CLOUDY Urine pH 7.0 5-9 Urine Specific [place] 1.020 1.016-1.022 Urine Protein NEGATIVE NEGATIVE Urine Glucose (UA) NEGATIVE NEGATIVE Urine Ketones NEGATIVE NEGATIVE Urine Nitrite NEGATIVE NEGATIVE Urine Bilirubin NEGATIVE NEGATIVE Urine Urobilinogen 0.2 < = 1.0 MG/DL Urine Leukocyte Esterase 1+ H NEGATIVE Urine RBC (Auto) NEGATIVE NEGATIVE Urine RBC NONE /HPF Urine WBC 5-10 H /HPF Urine Squamous Epithelial Cells 10-25 H /HPF Urine Crystals NONE /LPF Urine Bacteria FEW H /HPF Urine Casts NONE /LPF Urine Mucus NEGATIVE /LPF Urine Culture Indicated NO Micro Results Microbiology 10/28/19 Influenza Types A,B Antigen (RAFFY) - Final, Complete My Orders Orders - SHADIA SALDIVAR APRN Influenza A And B Antigens (10/28/19 17:18) Cbc With Automated Diff (10/28/19 17:18) Comprehensive Metabolic Panel (10/28/19 17:18) Ua Culture If Indicated (10/28/19 17:18) Hcg,Qualitative Serum (10/28/19 17:18) Thyroid Stimulating Hormone (10/28/19 17:18) Free T4 (Free Thyroxine) (10/28/19 17:18) Ed Iv/Invasive Line Start (10/28/19 17:18) Propranolol Tablet (Inderal Tablet) (10/28/19 18:15) Methimazole Tablet (Tapazole Tablet) (10/28/19 18:15) Vital Signs/I&O 10/28/19 16:56 Temp 37.4 Pulse 128 Resp 18 B/P (MAP) 119/82 (94) Pulse Ox 99 Capillary Refill : Less Than 3 Seconds Blood Pressure Mean: 94 Departure Communication (Admissions) With Dr. Ojeda, agrees with outpatient methimazole and propranolol, return to ER for worsening symptoms and follow-up with [facility] this week for recheck. Impression Primary Impression: Hyperthyroidism Disposition: 01 HOME, SELF-CARE Condition: Stable Departure-Patient Inst. Decision time for Depature: 18:25 Referrals: NO,LOCAL PHYSICIAN (PCP/Family) Primary Care Physician Patient Instructions: Hyperthyroidism (Overactive Thyroid) Add. Discharge Instructions: 1. Return to ER for any worsening symptoms 2. Medication as directed 3. Follow-up with [facility]. Call tomorrow to make an appointment to be seen. All discharge instructions reviewed with patient and/or family. Voiced understanding. Scripts Propranolol HCl (Propranolol HCl) 10 Mg Tablet 10 MG PO BID, #14 TAB Prov: SHADIA SALDIVAR [employer] 10/28/19 Methimazole (Methimazole) 5 Mg Tablet 5 MG PO TID, #21 TAB Prov: SHADIA SALDIVAR [employer] 10/28/19 SHADIA SALDIVAR APRN Oct 28, 2019 18:21
[2019-10-28] MEDS ORDERED: METH5TAB5 PO (18:28)
[2019-10-28] MEDS ORDERED: PROP10TA8 PO (18:28)
[2019-10-28 18:39] VITALS: BP 118/58
== END 2019-10-28 18:39 | disposition home or self-care (01) ==
LOC: EDUNIT# 16:51 → ER 16:52
DX: E05.90 Thyrotoxicosis, unspecified without thyrotoxic crisis or storm (principal); Z91.041 Radiographic dye allergy status; Z82.49 Family history of ischemic heart disease and other diseases of the circulatory system; Z80.8 Family history of malignant neoplasm of other organs or systems
CPT/HCPCS: 36415; 80053; 81000; 84439; 84443; 84703; 85025; 87804

== ENCOUNTER 2020-01-23 17:27 | Emergency (ER) | payer MEDICAID ==
[~2020-01-23] VITALS: Ht 162 cm; Wt 84.9 kg
[~2020-01-23 17:27] MED LIST changes: +PROP10TA8 PO
[2020-01-23 17:30] VITALS: BP 115/83
--- OUTSIDE RECORDS SUMMARY | 2020-01-23 17:33 | XMS REPORT | Encounter Summary ---
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 Name Role Phone Homer Sherman OD Unavailable [phone] Jeff Stark DO Unavailable Primitivo, [facility] PCP Reason for Visit * Reason Comments Other Encounter Details Care Team Description Date Type Department Yolanda Jo MD [address] [facility] [address] [place] [address] [phone] Other 11/21/2019 Telephone [facility] [address] [place] [address] Social History Date Tobacco Use Types Packs/Day Years Used Never Smoker Smokeless Tobacco: Never Used Drinks/Week oz/Week Comments Alcohol Use No Alcohol Habits Answer Date Recorded How often do you have a drink containing alcohol? Never 11/20/2018 How many drinks containing alcohol do you have on No t asked a typical day when you are [...] impairment: No documented as of this encounter Miscellaneous Notes * Telephone Encounter - Teena Clarke RN - 11/21/2019 2:39 PM BUTTON SPINDLER Spoke with Kristine to relay information noted below. She states pt did have labs completed recently and Kristine will work on getting r ecords to us for Dr. Jo to review. ON SPINDLER * Telephone Encounter - Yolanda Jo MD - 11/21/2019 2:34 PM BUTTON SPINDLER Let us get thyroid labs now: TSH, FT4, TT3. Per our records, [place] TFT[place] No TFTs on record in our system since . I am happy to review outside records / offer comments. TFTs ordered in case they haven't been done locally recently. ' Also, I can work Cadaysia into clinic if that makes most sense as well. Thank you LME ON SPINDLER * Telephone Encounter - Teena Clarke RN - 11/21/2019 11:50 AM BUTTON SPINDLER Pt's grandmother LVM stating that pt is not doing an better. Grandmother states a physician in [place] wants to totally remove pt's thyroid . Grandmother expresses concern and wondering if they should be seen by Dr. Jo fo r a second opinion re: thyroid removal. R/c and grandmother states that pt delivered baby ~8 months ago. Pt went to another physician in [place] and was referred to a surgeon to have thy roid removed. Pt is scheduled to have thyroid removed 12/02/19. Grandmother states she is concerned about this surgery and would like some addit ional input. Relayed that I could forward note to Dr. Jo and perhaps pt could have records s ent here so we are updated on her current status. ON SPINDLER documented in this encounter Plan of Treatment Order Schedule Name Type Priority Associated Diag noses Expected: 11/21/2019 (Approximate), Expi res: 11/21/2020 FREE T4 (FREE THYROXINE) Lab Routine Hyper thyroidism ONLY Expected: 11/21/2019 (Approximate), Expi res: 11/21/2020 TOTAL T3 Lab Routine Hyperthyroidism (TRIIODOTHYRONINE) Expected: 11/21/2019 (Approximate), Expi res: 11/21/2020 THYROID STIMULATING Lab Routine Hyperthyro idism HORMONE-TSH documented as of this encounter Visit Diagnoses Diagnosis Hyperthyroidism Thyrotoxicosis without mention of goite r or other cause, without mention of thyrotoxic crisis or storm documented in this encounter
--- OUTSIDE RECORDS SUMMARY | 2020-01-23 17:33 | XMS REPORT | Clinical Summary ---
Author Author [facility] Organization [facility] Address Unknown Phone Unavailable Care Team Providers Care Timber Poisoner Name Role Phone Homer Sherman OD Unavailable [phone] AudeliaJeff garvin DO Unavailable Primitivo, [facility] PCP Source Comments Some departments are not documenting in the electronic medical record. If you d o not see the information that you expected, contact Release of Information in [facility] Health Information Management department at [phone] for further assistan ce in locating additional records.[facility] Allergies Comments Active Allergy Reactions Severity Noted Date Iodinated Contrast Media CHEST High 08/15 TIGHTNESS, HIVES, RASH, SHORTNESS OF BREATH Medications No known medications Active Problems Problem Noted Date Thyroid disease affecting 11/20/2018 Encounters Care Team Description Date Type Specialty Yolanda Jo MD Other 11/21/2019 Telephone Endocrinology, [place] [facility] Genetics from Last 3 Months Family History Medical [...] Signs Reading Time Taken Comments Vital Sign 114/72 05/21/2019 9:16 AM CDT Blood Pressure 81 05/21/2019 9:16 AM CDT Pulse 37.2 C (98.9 F) 11/20/2018 11:40 AM ROOM SERVICE WAITER/WAITRESS Temperature - - Respiratory Rate 100% 11/20/2018 2:45 PM ROOM SERVICE WAITER/WAITRESS Oxygen Saturation - - Inhaled Oxygen Concentration 81.6 kg (180 lb) 05/21/2019 9:16 AM CDT Weight 160.8 cm (5' 3.31") 05/21/2019 9:16 AM CDT Height 31.58 05/21/2019 9:16 AM CDT Body Mass Index Plan of Treatment Health Maintenance Due Date Last Done Comments HPV VACCINES (1 - 2-dose 2009 series) HIV SCREENING 2013 DTAP/TDAP VACCINES (1 - 2016 Tdap) HEPATITIS C SCREENING 2016 PHYSICAL (COMPREHENSIVE) 2016 EXAM CERVICAL CANCER SCREENING 2019 INFLUENZA VACCINE 06/24/2020 08/16/2018 MENINGOCOCCAL VACCINE Aged Out 12/20/2009 No longe r eligible based on patient's age to (LAVELLWGifty,Jacqueline) complete this topic Results Not on filefrom Last 3 Months Insurance Type Payer Benefit Subscriber ID Effective Phone Address Plan / Dates Group Medicaid [facility] MEDICAID [facility] xxxxxxxxxxx [id number] COMMUNITY resent PLAN [place] [id number] Advance Directives Patient Paper Supervisor Explanation Type Date Recorded Advance Directive/DPOA Date Inactivated Comments Code Status Date Activated 11/20/2018 7:58 PM Full Code 11/20/2018 10:30 AM Provider has discussed Code Status No, discussion no t w/Patient or Family? necessary based on Dx
--- OUTSIDE RECORDS SUMMARY | 2020-01-23 17:35 | XMS REPORT ---
Author Author Jj Arndt Organization [facility] Address [address] [place] [address] Care Team Providers Care Roaster Helper Name Role Phone JYOTHI Arndt Unavailable PROBLEMS Type Condition ICD9-CM Code BVT08-DT Code Onset Dates Condition S tatus SNOMED Code Problem Post traumatic stress disorder (PTSD) F43.10 Active 14616235 Problem Hyperthyroidism E05.90 Active 3448 6009 Problem Migraine with aura and without status migrainosu s, not intractable G43.109 Active 2760853 Problem Migraine with aura and without status migrainosu s, not intractable G43.109 Active 4344516 Problem Chronic migraine G43.709 Active 377 86543 Problem Severe episode of recurrent major depressive disorder, without 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 Active 27264782 Problem Graves disease E05.00 Active 93767 5004 Problem Anxiety F41.9 Active [id number] ALLERGIES No Information ENCOUNTERS Encounter Location Date Diagnosis [facility] [id number] [place] [address] 10 Oct, 2019 [facility] [address] [address] Oct, [facility] [address] [address] Aug, [facility] [address] [facility] [id number] [address] [place] [address] Aug, Sore throat J02.9 and Strep pharyngitis J02.0 [facility] [id number] [place] [address] Aug, Sore throat J02.9 and Strep throat J02.0 [facility] [id number] [place] [address] Aug, Non-intractable vomiting wit h nausea, unspecified vomiting type R11.2 [facility] [address] [address] Aug, Migraine with aura and witho ut status migrainosus, not intractable G43.109 [facility] [address] [address] Jul, Graves disease E05.00 and So re throat J02.9 [facility] [address] [address] Jun, Vaginal discharge N89.8 ; Un protected sexual intercourse Z72.51 and Bartholin cyst N75.[address] [address] May, Ingrowing nail, left great toe L60.0 [facility] [address] [address] May, Paronychia of great toe of r ight foot L03.[address] [address] May, [address] [address] May, Hyperthyroidism E05.90 and Anxiety F41.[address] [address] Feb, [facility] [address] [place] [address] Feb, Viral gastroenteritis A08.4 and Dehydration E86.0 [facility] [address] [address] Dec, Acute cyclitis H20.00 and Dy suria R30.0 [facility] [address] [address] Sep, Viral gastroenteritis A08.4 and Rash R21 [facility] [address] [place] [address] Aug, Eczema of left hand L30.9 [facility] [address] [address] Aug, [facility] [address] [address] Aug, [facility] [address] [address] 08 Jul, 2018 Nausea and vomiting during p regnancy O21.9 [address] [address] [address] Jul, [place] [address] [address] Jul, Encounter for test, result unk nown Z32.00 [place] [address] [address] May, Graves disease E05.00 [facility] [address] [id number] [place] [address] Feb, Dysuria R30.0 and Acute cyst itis with hematuria N30.01 [place] [address] [address] January, [place] [address] [address] Dec, Severe episode of recurrent major depres sive disorder, without 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 [place] [address] [address] Dec, [place] [address] [address] Dec, Severe episode of recurrent major depres sive disorder, without 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 and Post traumatic stress disorder (PTSD) F43.10 [place] [address] [address] Nov, [place] [address] [address] Nov, Severe episode of recurrent major depres sive disorder, without 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 and Post traumatic stress disorder (PTSD) F43.10 [place] [address] [address] Oct, Encounter for counseling regarding contr aception Z30.09 ; Hyperthyroidism E05.90 and Chronic migraine G43.709 [place] [address] [address] Jul, Encounter for surveillance of injectable contraceptive Z30.42 [facility] [address] [place], [place] [id number] [address] [place] [address] Jul, Sore throat J02.9 ; Other vi ral agents as the cause of diseases classified elsewhere B97.89 and Acute upper respiratory infection, unspecified J06.9 [place] [address] [address] 17 Jun, 2017 Visit for TB skin test Z11.[address] [address] May, Physical exam, routine Z00.[address] [address] May, Hyperthyroidism E05.90 and Post traumati c stress disorder (PTSD) F43.10 [place] [address] [address] 16 Apr, 2017 Routine gynecological examination Z01.41 9 ; High risk sexual behavior Z72.51 ; Encounter for surveillance of injectable contraceptive Z30.42 ; Hyperthyroidism E05.90 and Encounter for Depo-Provera contraception Z30.42 [facility] [address] [place], [place] [id number] [address] [place] [address] Apr, Tinea corporis B35.[address] [address] Mar, Thyrotoxicosis without thyroid storm, un specified thyrotoxicosis type E05.90 [place] [address] [address] Mar, [place] [address] [address] Mar, [place] [address] [address] Mar, Post traumatic stress disorder (PTSD) F4 3.10 and Hyperthyroidism E05.90 [place] [address] [address] Feb, Hyperthyroidism E05.90 ; Post traumatic stress disorder (PTSD) F43.10 and Overdose, intentional self-harm, subsequent encounter T50.902D [address] [address] January, Post traumatic stress disorder (PTSD) F4 3.10 [place] [address] [address] 18 Dec, 2016 Hx of migraines Z86.69 ; Insect bite (no nvenomous), left thigh, initial encounter S70.362A and Post traumatic stress disorder (PTSD) F43.10 [place] [address] [address] 11 Dec, [address] [address] Nov, [address] [address] Nov, Adjustment disorder with depressed mood F43.21 and Major depression, recurrent F33.[address] [address] 10 Nov, 2015 Oral contraceptive pill surveillance Z30 .41 ; Routine screening for STI (sexually transmitted infection) Z11.3 ; Dysmenorrhea N94.6 ; Hx of migraines Z86.69 ; Deliberate self-cutting Z72.89 and Major depressive disorder, recurrent, moderate F33.1 [facility] [address] [address] Nov, [facility] [address] [address] 25 May, 2015 [facility] [address] [address] 17 May, 2015 [facility] [address] [address] 15 May, 2015 Migraine headache 346.90 and Abdominal p ain 789.00 [facility] [address] [address] 14 May, 2015 [facility] [address] [address] Apr, Oligomenorrhea 626.1 and Screening for d iabetes mellitus V77.1 [facility] [address] [address] Apr, Oligomenorrhea 626.1 ; Dark urine 791.9 and Screening for diabetes mellitus V77.1 [facility] [address] [address] Feb, Bipolar disorder, unspecified 296.80 [facility] [address] [address] Dec, [facility] [address] [address] Dec, [facility] [address] [address] Dec, [facility] [address] [address] Dec, [facility] [address] [address] Dec, [facility] [address] [address] Jul, [facility] [address] [id number] [place] [address] Jul, [facility] [address] [id number] [place] [address] Jul, [facility] [address] [id number] [place] [address] Jul, [facility] [address] [id number] [place] [address] Jun, [facility] [address] [id number] [place] [address] May, [facility] [address] [id number] [place] [address] Apr, [facility] [address] [id number] [place] [address] Apr, [facility] [address] [id number] [place] [address] Mar, [facility] [address] [id number] [place] [address] Feb, [facility] [address] [id number] [place] [address] Feb, [facility] [address] [id number] [place] [address] Feb, [facility] [address] [id number] [place] [address] January, [facility] [address] [id number] [place] [address] January, [facility] [address] [id number] [place] [address] Dec, [facility] [id number] [place] [address] Dec, [facility] [address] [id number] [place] [address] Nov, [facility] [address] [id number] [place] [address] Nov, [facility] [address] [id number] [place] [address] Sep, [facility] [address] [id number] [place] [address] Jun, [facility] [address] [id number] [place] [address] Jun, [facility] [address] [id number] [place] [address] May, [facility] [address] [id number] [place] [address] Mar, [facility] [address] [id number] [place] [address] Mar, [facility] [address] [id number] [place] [address] Mar, [facility] [address] [id number] [place] [address] Mar, [facility] [address] [id number] [place] [address] Feb, [facility] [address] [id number] [place] [address] Feb, [facility] [address] [id number] [place] [address] Feb, [facility] [address] [id number] [place] [address] Feb, [facility] [address] [id number] [place] [address] Feb, [facility] [address] [id number] [place] [address] January, [facility] [address] [id number] [place] [address] January, [facility] [address] [id number] [place] [address] January, [facility] [address] [id number] [place] [address] January, [facility] [address] [id number] [place] [address] January, [facility] [address] [id number] [place] [address] Dec, [facility] [address] [id number] [place] [address] Dec, [facility] [address] [id number] [place] [address] Dec, [facility] [address] [id number] [place] [address] Nov, [facility] [address] [id number] [place] [address] Oct, [facility] [address] [id number] [place] [address] Sep, [facility] [address] [id number] [place] [address] Jul, [facility] [address] [id number] [place] [address] Aug, [facility] [address] [id number] [place] [address] Jul, [facility] [address] [id number] [place] [address] Jun, [facility] [id number] [place] [address] Jun, [facility] [address] [id number] [place] [address] Jul, [facility] [id number] [place] [address] Jul, [facility] [address] [id number] [place] [address] Aug, [facility] [address] [id number] [place] [address] Aug, [facility] [address] [id number] [place] [address] Jul, [facility] [address] [id number] [place] [address] Jul, [facility] [address] [id number] [place] [address] Apr, [facility] [address] [id number] [place] [address] Oct, [facility] [address] [id number] [place] [address] Jul, [facility] [address] [id number] [place] [address] Apr, IMMUNIZATIONS No Known Immunizations SOCIAL HISTORY Never Assessed REASON FOR VISIT PLAN OF CARE VITAL SIGNS Height 64 in 2014-01-01 Weight 149.9 lbs 2014-01-01 Temperature 99.4 degrees Fahrenheit 2014-01-01 Heart Rate 78 bpm 2014-01-01 Respiratory Rate 18 2014-01-01 Blood pressure systolic 100 mmHg 2014-01-01 Blood pressure diastolic 68 mmHg 2014-01-01 MEDICATIONS Unknown Medications RESULTS No Results PROCEDURES Procedure Date Ordered Result Body Site URINE CULTURE/COLONY COUNT January 01, 2014 URINALYSIS, AUTO, W/O SCOPE January 01, 2014 INSTRUCTIONS MEDICATIONS ADMINISTERED No Known Medications MEDICAL [...] Hospitalization History [facility] Hyperthyroidism and overdose on Z oloft 02-23-2017 Hospitalization History [facility] X1 night for 03-05-2019
--- OUTSIDE RECORDS SUMMARY | 2020-01-23 17:38 | XMS REPORT | Continuity of Care Document ---
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 OTH MENTAL DISORDERS COMPLICATING PREGNA 08/21/2018 SHADIA SALDIVAR APRN Ot O99.351 DISEASES OF THE NERVOUS SYS COMP PREGNAN 08/21/2018 SHADIA SALDIVAR APRN Ot Z3A.08 8 WEEKS GESTATION OF 08/21/2018 SHADIA SALDIVAR APRN Ot Z82.49 FAMILY HX OF ISCHEM HEART DIS AND OTH DI 08/21/2018 SHADIA SALDIVAR APRN Ot Z91.041 RADIOGRAPHIC DYE ALLERGY STATUS 08/22/2018 SHADIA SALDIVAR APRN Ot E05.90 THYROTOXICOSIS, UNSP WITHOUT THYROTOXIC 08/22/2018 SHADIA SALDIVAR APRN Ot F32 .9 MAJOR DEPRESSIVE DISORDER, SINGLE EPISOD 08/22/2018 SHADIA SALDIVAR APRN Ot F41 .9 ANXIETY DISORDER, UNSPECIFIED 08/22/2018 SHADIA SALDIVAR APRN Ot G43.909 MIGRAINE, UNSP, NOT INTRACTABLE, WITHOUT 08/22/2018 SHADIA SALDIVAR APRN Ot O20 .9 HEMORRHAGE IN EARLY , UNSPECIFI 08/22/2018 SHADIA SALDIVAR APRN Ot O23.41 UNSP INFCT OF URINARY TRACT IN 08/22/2018 SHADIA SALDIVAR APRN Ot O41.8X10 OTH DISRD OF AMNIOTIC FLUID AND MEMBRNS, 08/22/2018 SHADIA SALDIVAR APRN Ot O99.281 ENDO, NUTRITIONAL AND METAB DISEASES COM 08/22/2018 SHADIA SALDIVAR APRN Ot O99.341 OTH MENTAL DISORDERS COMPLICATING PREGNA 08/22/2018 SHADIA SALDIVAR APRN Ot O99.351 DISEASES OF THE NERVOUS SYS COMP PREGNAN 08/22/2018 SHADIA SALDIVAR APRN Ot Z3A.08 8 WEEKS GESTATION OF 08/22/2018 SHADIA SALDIVAR APRN Ot Z82.49 FAMILY HX OF ISCHEM HEART DIS AND OTH DI 08/22/2018 SHADIA SALDIVAR APRN Ot Z91.041 RADIOGRAPHIC DYE ALLERGY STATUS 08/27/2018 SHADIA SALDIVAR APRN Ot E05.90 THYROTOXICOSIS, UNSP WITHOUT THYROTOXIC 08/27/2018 SHADIA SALDIVAR APRN Ot F32 .9 MAJOR DEPRESSIVE DISORDER, SINGLE EPISOD 08/27/2018 SHADIA SALDIVAR APRN Ot F41 .9 ANXIETY DISORDER, UNSPECIFIED 08/27/2018 SHADIA SALDIVAR APRN Ot G43.909 MIGRAINE, UNSP, NOT INTRACTABLE, WITHOUT 08/27/2018 SHADIA SALDIVAR APRN Ot O20 .9 HEMORRHAGE IN EARLY , UNSPECIFI 08/27/2018 SHADIA SALDIVAR APRN Ot O23.41 UNSP INFCT OF URINARY TRACT IN 08/27/2018 SHADIA SALDIVAR APRN Ot O41.8X10 OTH DISRD OF AMNIOTIC FLUID AND MEMBRNS, 08/27/2018 SHADIA SALDIVAR APRN Ot O99.281 ENDO, NUTRITIONAL AND METAB DISEASES COM 08/27/2018 SHADIA SALDIVAR APRN Ot O99.341 OTH MENTAL DISORDERS COMPLICATING PREGNA 08/27/2018 SHADIA SALDIVAR APRN Ot O99.351 DISEASES OF THE NERVOUS SYS COMP PREGNAN 08/27/2018 SHADIA SALDIVAR APRN Ot Z3A.08 8 WEEKS GESTATION OF 08/27/2018 SHADIA SALDIVAR APRN Ot Z82.49 FAMILY HX OF ISCHEM HEART DIS AND OTH DI 08/27/2018 SHADIA SALDIVAR APRN Ot Z91.041 RADIOGRAPHIC DYE ALLERGY STATUS 09/03/2018 ALINE NEVILLE Ot E05.00 THYROTOXICOSIS W DIFFUSE GOITER W/O THYR 09/03/2018 ALINE NEVILLE Ot E05.00 THYROTOXICOSIS W DIFFUSE GOITER W/O THYR 09/09/2018 ALINE NEVILLE Ot E05.00 THYROTOXICOSIS W DIFFUSE GOITER W/O THYR 09/23/2018 ALINE NEVILLE Ot E05.00 THYROTOXICOSIS W DIFFUSE GOITER W/O THYR 09/25/2018 ALINE NEVILLE Ot E05.00 THYROTOXICOSIS W DIFFUSE GOITER W/O THYR 09/26/2018 SYDNEY WATERS MD Ot E05. 90 THYROTOXICOSIS, UNSP WITHOUT THYROTOXIC 09/26/2018 SYDNEY WATERS MD Ot F32. 9 MAJOR DEPRESSIVE DISORDER, SINGLE EPISOD 09/26/2018 SYDNEY WATERS MD Ot F41. 9 ANXIETY DISORDER, UNSPECIFIED 09/26/2018 SYDNEY WATERS MD Ot G43.909 MIGRAINE, UNSP, NOT INTRACTABLE, WITHOUT 09/26/2018 SYDNEY WATERS MD Ot O20. 9 HEMORRHAGE IN EARLY , UNSPECIFI 09/26/2018 SYDNEY WATERS MD Ot O26.892 OTH RELATED CONDITIONS, SECOND 09/26/2018 SYDNEY WATERS MD Ot O99.282 ENDO, NUTRITIONAL AND METAB DISEASES COM 09/26/2018 SYDNEY WATERS MD Ot O99.342 OTH MENTAL DISORDERS COMP , SEC 09/26/2018 SYDNEY WATERS MD Ot Z3A. 16 16 WEEKS GESTATION OF 09/26/2018 SYDNEY WATERS MD Ot Z82. 49 FAMILY HX OF ISCHEM HEART DIS AND OTH DI 09/26/2018 SYDNEY WATERS MD Ot Z91.041 RADIOGRAPHIC DYE ALLERGY STATUS 09/26/2018 ALINE NEVILLE Ot E05.00 THYROTOXICOSIS W DIFFUSE GOITER W/O THYR 09/27/2018 SYDNEY WATERS MD Ot E05. 90 THYROTOXICOSIS, UNSP WITHOUT THYROTOXIC 09/27/2018 SYDNEY WATERS MD Ot F32. 9 MAJOR DEPRESSIVE DISORDER, SINGLE EPISOD 09/27/2018 SYDNEY WATERS MD Ot F41. 9 ANXIETY DISORDER, UNSPECIFIED 09/27/2018 SYDNEY WATERS MD Ot G43.909 MIGRAINE, UNSP, NOT INTRACTABLE, WITHOUT 09/27/2018 SYDNEY WATERS MD Ot O20. 9 HEMORRHAGE IN EARLY , UNSPECIFI 09/27/2018 SYDNEY WATERS MD Ot O26.892 OT RELATED CONDITIONS, SECOND 09/27/2018 SYDNEY WATERS MD Ot O99.282 ENDO, NUTRITIONAL AND METAB DISEASES COM 09/27/2018 SYDNEY WATERS MD Ot O99.342 OT MENTAL DISORDERS COMP , SEC 09/27/2018 SYDNEY WATERS MD Ot Z3A. 16 16 WEEKS GESTATION OF 09/27/2018 SYDNEY WATERS MD Ot Z82. 49 FAMILY HX OF ISCHEM HEART DIS AND OTH DI 09/27/2018 SYDNEY WATERS MD Ot Z91.041 RADIOGRAPHIC DYE ALLERGY STATUS 09/27/2018 ALINE NEVILLE Ot E05.00 THYROTOXICOSIS W DIFFUSE GOITER W/O THYR 10/01/2018 SYDNEY WATERS MD Ot E05. 90 THYROTOXICOSIS, UNSP WITHOUT THYROTOXIC 10/01/2018 SYDNEY WATERS MD Ot F32. 9 MAJOR DEPRESSIVE DISORDER, SINGLE EPISOD 10/01/2018 SYDNEY WATERS MD Ot F41. 9 ANXIETY DISORDER, UNSPECIFIED 10/01/2018 SYDNEY WATERS MD Ot G43.909 MIGRAINE, UNSP, NOT INTRACTABLE, WITHOUT 10/01/2018 EVELIN POZO, SYDNEY Restrepo Ot O20. 9 HEMORRHAGE IN EARLY , UNSPECIFI 10/01/2018 EVELIN POZO, SYDNEY Restrepo Ot O26.892 OTH RELATED CONDITIONS, SECOND 10/01/2018 SYDNEY WATERS MD Ot O99.282 ENDO, NUTRITIONAL AND METAB DISEASES COM 10/01/2018 SYDNEY WATERS MD Ot O99.342 OTH MENTAL DISORDERS COMP , SEC 10/01/2018 SYDNEY WATERS MD Ot Z3A. 16 16 WEEKS GESTATION OF 10/01/2018 SYDNEY WATERS MD Ot Z82. 49 FAMILY HX OF ISCHEM HEART DIS AND OTH DI 10/01/2018 SYDNEY WATERS MD Ot Z91.041 RADIOGRAPHIC DYE ALLERGY STATUS 10/12/2018 SVETA MOORE Ot E05.00 THYROTOXICOSIS W DIFFUSE GOITER W/O THYR 10/12/2018 SVETA MOORE Ot F32.9 MAJOR DEPRESSIVE DISORDER, SINGLE EPISOD 10/12/2018 SVETA MOORE Ot F41.9 ANXIETY DISORDER, UNSPECIFIED 10/12/2018 SVETA MOORE Ot G43.909 MIGRAINE, UNSP, NOT INTRACTABLE, WITHOUT 10/12/2018 SVETA MOORE Ot O20.9 HEMORRHAGE IN EARLY , UNSPECIFI 10/12/2018 SVETA MOORE Ot O26.892 OTH RELATED CONDITIONS, SECOND 10/12/2018 SVETA MOORE Ot O99.282 ENDO, NUTRITIONAL AND METAB DISEASES COM 10/12/2018 SVETA MOORE Ot O99.342 OTH MENTAL DISORDERS COMP , SEC 10/12/2018 SVETA MOORE Ot O99.352 DISEASES OF THE NERVOUS SYS COMP PREGNAN 10/12/2018 SVETA MOORE Ot R19.7 DIARRHEA, UNSPECIFIED 10/12/2018 SVETA MOORE Ot Z3A.18 18 WEEKS GESTATION OF 10/12/2018 SVETA MOORE Ot Z82.49 FAMILY HX OF ISCHEM HEART DIS AND OTH DI 10/12/2018 SVETA MOORE Ot Z86.19 PERSONAL HISTORY OF OTHER INFECTIOUS AND 10/12/2018 SVETA MOORE Ot Z91.041 RADIOGRAPHIC DYE ALLERGY STATUS 10/15/2018 SVETA MOORE Ot E05.00 THYROTOXICOSIS W DIFFUSE GOITER W/O THYR 10/15/2018 OSCAR SVETA Ot F32.9 MAJOR DEPRESSIVE DISORDER, SINGLE EPISOD 10/15/2018 JAVISTEPH SVETA Ot F41.9 ANXIETY DISORDER, UNSPECIFIED 10/15/2018 ANITHA MOOREIS Ot G43.909 MIGRAINE, UNSP, NOT INTRACTABLE, WITHOUT 10/15/2018 OSCAR SVETA Ot O20.9 HEMORRHAGE IN EARLY , UNSPECIFI 10/15/2018 SVETA MOORE Ot O26.892 OTH RELATED CONDITIONS, SECOND 10/15/2018 JAVISVETA CHOI Ot O99.282 ENDO, NUTRITIONAL AND METAB DISEASES COM 10/15/2018 SVETA MOORE Ot O99.342 OTH MENTAL DISORDERS COMP , SEC 10/15/2018 SVETA MOORE Ot O99.352 DISEASES OF THE NERVOUS SYS COMP PREGNAN 10/15/2018 SVETA MOORE Ot R19.7 DIARRHEA, UNSPECIFIED 10/15/2018 SVETA MOORE Ot Z3A.18 18 WEEKS GESTATION OF 10/15/2018 SVETA MOORE Ot Z82.49 FAMILY HX OF ISCHEM HEART DIS AND OTH DI 10/15/2018 SVETA MOORE Ot Z86.19 PERSONAL HISTORY OF OTHER INFECTIOUS AND 10/15/2018 SVETA MOORE Ot Z91.041 RADIOGRAPHIC DYE ALLERGY STATUS 02/07/2019 ALINE NEVILLE Ot E05.00 THYROTOXICOSIS W DIFFUSE GOITER W/O THYR 02/12/2019 LAURENCE GUERRERO DO Ot M54.5 LOW BACK PAIN 02/12/2019 LAURENCE GUERRERO DO Ot Z3A.3 5 35 WEEKS GESTATION OF 03/01/2019 LAURENCE GUERRERO DO Ot N89.8 OTHER SPECIFIED NONINFLAMMATORY DISORDER 03/01/2019 LAURENCE GUERRERO DO Ot O99.8 9 OTH DISEASES AND CONDITIONS COMPL PREG/C 03/01/2019 LAURENCE GUERRERO DO Ot Z3A.3 8 38 WEEKS GESTATION OF 03/03/2019 ALINE DE LA GARZA DO Ot E05.00 THYROTOXICOSIS W DIFFUSE GOITER W/O THYR 03/03/2019 ALINE DE LA GARZA DO Ot O99.280 ENDO, NUTRITIONAL AND METAB DISEASES COM 03/03/2019 ALINE DE LA GARZA DO Ot Z3A.00 WEEKS OF GESTATION OF NOT SPEC 03/08/2019 ALINE DE LA GARZA DO Ot E05.00 THYROTOXICOSIS W DIFFUSE GOITER W/O THYR 03/08/2019 ALINE DE LA GARZA DO Ot K52.9 NONINFECTIVE GASTROENTERITIS AND COLITIS 03/08/2019 ALINE DE LA GARZA DO Ot O62.2 OTHER UTERINE INERTIA 03/08/2019 ALINE DE LA GARZA DO Ot O69.81X0 LABOR AND DEL COMP BY CORD AROUND NECK, 03/08/2019 ALINE DE LA GARZA DO Ot O99.283 ENDO, NUTRITIONAL AND METAB DISEASES COM 03/08/2019 ALINE DE LA GARZA DO Ot O99.613 DISEASES OF THE DGSTV SYS COMP 03/08/2019 ALINE DE LA GARZA DO Ot Z37.0 SINGLE LIVE 03/08/2019 ALINE DE LA GARZA DO Ot Z3A.38 38 WEEKS GESTATION OF 03/17/2019 MICH DELA CRUZ MD, Ot E05.00 THYROTOXICOSIS W DIFFUSE GOITER W/O THYR 03/17/2019 MICH DELA CRUZ MD, Ot F31.9 BIPOLAR DISORDER, UNSPECIFIED 03/17/2019 MICH DELA CRUZ MD, Ot F41.9 ANXIETY DISORDER, UNSPECIFIED 03/17/2019 MICH DELA CRUZ MD, Ot F43.10 POST-TRAUMATIC STRESS DISORDER, UNSPECIF 03/17/2019 MICH DELA CRUZ MD, Ot G43.909 MIGRAINE, UNSP, NOT INTRACTABLE, WITHOUT 03/17/2019 MICH DELA CRUZ MD, Ot K21.9 GASTRO-ESOPHAGEAL REFLUX DISEASE WITHOUT 03/17/2019 MICH DELA CRUZ MD, Ot N39.0 URINARY TRACT INFECTION, SITE NOT SPECIF 03/17/2019 MCIH DELA CRUZ MD, Ot O86.12 ENDOMETRITIS FOLLOWING DELIVERY 03/17/2019 MICH DELA CRUZ MD, Ot O99.285 ENDOCRINE, NUTRITIONAL AND METABOLIC DIS 03/17/2019 MICH DELA CRUZ MD, Ot O99.345 OTHER MENTAL DISORDERS COMPLICATING THE 03/17/2019 MICH DELA CRUZ MD, Ot O99.355 DISEASES OF THE NERVOUS SYSTEM COMPLICAT 03/17/2019 MICH DELA CRUZ MD, Ot O99.63 DISEASES OF THE DIGESTIVE SYSTEM COMPLIC 03/17/2019 MICH DELA CRUZ MD, Ot Z87.441 PERSONAL HISTORY OF NEPHROTIC SYNDROME 03/17/2019 MICH DELA CRUZ MD, Ot E05.00 THYROTOXICOSIS W DIFFUSE GOITER W/O THYR 03/17/2019 MICH DELA CRUZ MD, Ot F31.9 BIPOLAR DISORDER, UNSPECIFIED 03/17/2019 MICH DELA CRUZ MD, Ot F41.9 ANXIETY DISORDER, UNSPECIFIED 03/17/2019 MICH DELA CRUZ MD, Ot F43.10 POST-TRAUMATIC STRESS DISORDER, UNSPECIF 03/17/2019 MICH DELA CRUZ MD, Ot G43.909 MIGRAINE, UNSP, NOT INTRACTABLE, WITHOUT 03/17/2019 MICH DELA CRUZ MD, Ot K21.9 GASTRO-ESOPHAGEAL REFLUX DISEASE WITHOUT 03/17/2019 MICH DELA CRUZ MD, Ot N39.0 URINARY TRACT INFECTION, SITE NOT SPECIF 03/17/2019 MICH DELA CRUZ MD, Ot O86.12 ENDOMETRITIS FOLLOWING DELIVERY 03/17/2019 MICH DELA CRUZ MD, Ot O99.285 ENDOCRINE, NUTRITIONAL AND METABOLIC DIS 03/17/2019 MICH DELA CRUZ MD, Ot O99.345 OTHER MENTAL DISORDERS COMPLICATING THE 03/17/2019 MICH DELA CRUZ MD, Ot O99.355 DISEASES OF THE NERVOUS SYSTEM COMPLICAT 03/17/2019 MICH DELA CRUZ MD, Ot O99.63 DISEASES OF THE DIGESTIVE SYSTEM COMPLIC 03/17/2019 MICH DELA CRUZ MD, Ot Z87.441 PERSONAL HISTORY OF NEPHROTIC SYNDROME 03/17/2019 ALINE DE LA GARZA DO Ot E05.00 THYROTOXICOSIS W DIFFUSE GOITER W/O THYR 03/17/2019 ALINE DE LA GARZA DO Ot O99.280 ENDO, NUTRITIONAL AND METAB DISEASES COM 03/17/2019 ALINE DE LA GARZA DO, Ot Z3A.00 WEEKS OF GESTATION OF NOT SPEC 03/18/2019 LAURENCE GUERRERO DO Ot N89.8 OTHER SPECIFIED NONINFLAMMATORY DISORDER 03/18/2019 LAURENCE GUERRERO DO Ot O99.8 9 OTH DISEASES AND CONDITIONS COMPL PREG/C 03/18/2019 LAURENCE GUERRERO DO Ot Z3A.3 8 38 WEEKS GESTATION OF 09/22/2019 POOJA CHATTERJEE MD, Ot E05.90 THYROTOXICOSIS, UNSP WITHOUT THYROTOXIC 09/22/2019 POOJA CHATTERJEE MD, Ot F31.9 BIPOLAR DISORDER, UNSPECIFIED 09/22/2019 POOJA CHATTERJEE MD, Ot F41.9 ANXIETY DISORDER, UNSPECIFIED 09/22/2019 POOJA CHATTERJEE MD Ot F43.10 POST-TRAUMATIC STRESS DISORDER, UNSPECIF 09/22/2019 POOJA CHATTERJEE MD, Ot G43.909 MIGRAINE, UNSP, NOT INTRACTABLE, WITHOUT 09/22/2019 POOJA CHATTERJEE MD Ot K21.9 GASTRO-ESOPHAGEAL REFLUX DISEASE WITHOUT 09/22/2019 POOJA CHATTERJEE MD Ot L08.9 LOCAL INFECTION OF THE SKIN AND SUBCUTAN 09/22/2019 POOJA CHATTERJEE MD Ot L60.1 ONYCHOLYSIS 09/22/2019 POOJA CHATTERJEE MD Ot M79.675 PAIN IN LEFT TOE(S) 09/22/2019 POOJA CHATTERJEE MD Ot Z80.8 FAMILY HISTORY OF MALIGNANT NEOPLASM OF 09/22/2019 POOJA CHATTERJEE MD Ot Z82.49 FAMILY HX OF ISCHEM HEART DIS AND OTH DI 09/22/2019 POOJA CHATTERJEE MD Ot Z87.440 PERSONAL HISTORY OF URINARY (TRACT) INFE 09/22/2019 POOJA CHATTERJEE MD Ot Z91.041 RADIOGRAPHIC DYE ALLERGY STATUS 09/25/2019 POOJA CHATTERJEE MD Ot E05.90 THYROTOXICOSIS, UNSP WITHOUT THYROTOXIC 09/25/2019 POOJA CHATTERJEE MD, Ot F31.9 BIPOLAR DISORDER, UNSPECIFIED 09/25/2019 POOJA CHATTERJEE MD Ot F41.9 ANXIETY DISORDER, UNSPECIFIED 09/25/2019 POOJA CHATTERJEE MD Ot F43.10 POST-TRAUMATIC STRESS DISORDER, UNSPECIF 09/25/2019 POOJA CHATTERJEE MD Ot G43.909 MIGRAINE, UNSP, NOT INTRACTABLE, WITHOUT 09/25/2019 POOJA CHATTERJEE MD, Ot K21.9 GASTRO-ESOPHAGEAL REFLUX DISEASE WITHOUT 09/25/2019 POOJA CHATTERJEE MD, Ot L08.9 LOCAL INFECTION OF THE SKIN AND SUBCUTAN 09/25/2019 POOJA CHATTERJEE MD, Ot L60.1 ONYCHOLYSIS 09/25/2019 POOJA CHATTERJEE MD, Ot M79.675 PAIN IN LEFT TOE(S) 09/25/2019 POOJA CHATTERJEE MD, Ot Z80.8 FAMILY HISTORY OF MALIGNANT NEOPLASM OF 09/25/2019 POOJA CHATTERJEE MD, Ot Z82.49 FAMILY HX OF ISCHEM HEART DIS AND OTH DI 09/25/2019 POOJA CHATTERJEE MD, Ot Z87.440 PERSONAL HISTORY OF URINARY (TRACT) INFE 09/25/2019 POOJA CHATTERJEE MD, Ot Z91.041 RADIOGRAPHIC DYE ALLERGY STATUS Procedures Code Description [place] [id number] HEMO GLOBIN (IN-HOUSE) 12/19/2012 68628 Gene ogram (Screening) 12/19/2012 84356 STRE P A (IN-HOUSE) 08/04/2013 17778 UA W / CULTURE IF INDICATED 01/01/2014 30831 CULT URE URINE 01/02/2014 [id number] DI VISION OF FEMALE PERINEUM, EXTERNAL AP 03/06/2019 [id number] EX TRACTION OF PRODUCTS OF CONCEPTION, [place] 03/06/2019 Results Test Result Range Complete blood count (CBC) with automate d white blood cell (WBC) differential - 02/23/17 03:30 Blood leukocytes automated count (number/volume) 9.3 10*3/uL 4.3-11.0 Blood erythrocytes automated count (number/volume) 5.13 10*6/uL 4.35-5.85 Venous blood hemoglobin measurement (mass/volume) 14.2 g/dL 11.5-16.0 Blood hematocrit (volume fraction) 40 % 35-52 Automated erythrocyte mean corpuscular volume 79 [ foz_us] 80-99 Automated erythrocyte mean corpuscular h emoglobin (mass per erythrocyte) 28 pg 25-34 Automated erythrocyte mean corpuscular h emoglobin concentration measurement (mass/volume) 35 g/dL 32-36 Automated erythrocyte distribution width ratio 13. 0 % 10.0- 14.5 Automated blood platelet count (count/volume) 258 10*3/uL [...] 10*3 1.0-4.0 Blood monocytes automated count (number/volume) 1. 3 10*3 0.0-1.0 Automated eosinophil count 0.2 10*3/uL 0 .0-0.3 Automated blood basophil count (count/volume) 0.0 10*3/uL 0.0-0.1 PT panel in platelet poor plasma by coag ulation assay - 02/23/17 03:30 Prothrombin time (PT) in platelet poor plasma by coagu lation assay 13.0 s 12.2-14.7 INR in platelet poor plasma or blood by coagulation as say 1.0 0.8-1.4 Activated partial thromboplastin time (a PTT) in platelet poor plasma bycoagulation assay - 02/23/17 03:30 Activated partial thromboplastin time (a PTT) in platelet poor plasma bycoagulation assay 30 s 24-35 Serum or plasma choriogonadotropin (preg vianca test) detection - 02/23/17 03:30 Serum or plasma choriogonadotropin ( test) de tection NEGATIVE NEGATIVE Comprehensive metabolic panel - 02/23/17 03:30 Serum or plasma sodium measurement (moles/volume) 139 mmol/L 135-145 Serum or plasma potassium measurement (moles/volume) 3.4 mmol/L 3.6-5.0 Serum or plasma chloride measurement (moles/volume) 108 mmol/L 98-107 Carbon dioxide 19 mmol/L 21-32 Serum or plasma anion gap determination (moles/volume) 12 mmol/L 5-14 Serum or plasma urea nitrogen measurement (mass/volume ) 14 mg/dL 7-18 Serum or plasma creatinine measurement (mass/volume) 0.72 mg/dL 0.60-1.30 Serum or plasma urea nitrogen/creatinine mass ratio 19 NRG Serum or plasma creatinine measurement w ith calculation of estimated glomerular filtration rate > NRG Serum or plasma glucose measurement (mass/volume) 107 mg/dL 70-105 Serum or plasma calcium measurement (mass/volume) 9.7 mg/dL 8.5-10.1 Serum or plasma total bilirubin measurement (mass/volu me) 0.5 mg/dL 0.1-1.0 Serum or plasma alkaline phosphatase patricia surement (enzymatic activity/volume) 64 U/L 60-350 Serum or plasma aspartate aminotransfera se measurement (enzymatic activity/volume) 23 U/L 5-34 Serum or plasma alanine aminotransferase measurement (enzymatic activity/volume) 22 U/L 0-55 Serum or plasma protein measurement (mass/volume) 7.6 g/dL 6.4-8.2 Serum or plasma albumin measurement (mass/volume) 4.1 g/dL 3.2-4.5 Magnesium - 02/23/17 03:30 Magnesium 2.3 mg/dL 1.8-2.4 Serum or plasma troponin i.cardiac measu rement (mass/volume) - 02/23/17 03:30 Serum or plasma troponin i.cardiac measurement (mass/v olume) < ng/mL <0.30 Serum or plasma amylase measurement (enz ymatic activity/volume) - 02/23/17 03:30 Serum or plasma amylase measurement (enzymatic activit y/volume) 52 U/L 25-125 Serum or plasma thyroxine (T4) free roro urement (mass/volume) - 02/23/17 03:30 Serum or plasma thyroxine (T4) free measurement (mass/ volume) 2.77 ng/dL 0.70-1.48 Serum or plasma thyrotropin measurement by detection limit <=0.05 miu/l (units/volume) - 02/23/17 03:30 Serum or plasma thyrotropin measurement by detection limit <=0.05 miu/l (units/volume) 0.00 u[iU]/mL 0.35-4.94 Serum or plasma salicylates measurement (mass/volume) - 02/23/17 03:30 Serum or plasma salicylates measurement (mass/volume) < mg/dL 5.0-20.0 Serum or plasma acetaminophen measuremen t (mass/volume) - 02/23/17 03:30 Serum or plasma acetaminophen measurement (mass/volume ) 14 ug/mL 10-30 Serum or plasma ethanol measurement (mas s/volume) - 02/23/17 03:30 Serum or plasma ethanol measurement (mass/volume) < mg/dL <10 Urine drug screening test - 02/23/17 04: 00 Urine phencyclidine detection by screening method NEGATIVE NEGATIVE Urine benzodiazepines detection by screening method NEGATIVE NEGATIVE Urine cocaine detection NEGATIVE NEGATI VE Urine amphetamines detection by screening method N EGATIVE NEGATIVE Urine methamphetamine detection by screening method NEGATIVE NEGATIVE Urine cannabinoids detection by screening method N EGATIVE NEGATIVE Urine opiates detection by screening method NEGATI VE NEGATIVE Urine barbiturates detection NEGATIVE N EGATIVE Screening urine tricyclic antidepressants detection NEGATIVE NEGATIVE Urine methadone detection by screening method NEGA TIVE NEGATIVE Urine oxycodone detection NEGATIVE NEGA TIVE Urine propoxyphene detection NEGATIVE N EGATIVE Complete urinalysis with reflex to cultu re - 02/23/17 04:00 Urine color determination YELLOW NRG Urine clarity determination CLEAR NR G Urine pH measurement by test strip 6 5-9 Specific gravity of urine by test strip 1.020 1.016-1.022 Urine protein assay by test strip, semi-quantitative NEGATIVE NEGATIVE Urine glucose detection by automated test strip NE GATIVE NEGATIVE Erythrocytes detection in urine sediment by light micr oscopy NEGATIVE NEGATIVE Urine ketones detection by automated test strip 2+ NEGATIVE Urine nitrite detection by test strip NEGATIVE NEGATIVE Urine total bilirubin detection by test strip NEGA TIVE NEGATIVE Urine urobilinogen measurement by automated test strip (mass/volume) NORMAL NORMAL Urine leukocyte esterase detection by dipstick 1+ NEGATIVE Automated urine sediment erythrocyte cou nt by microscopy (number/high power field) NONE NRG Automated urine sediment leukocyte count by microscopy (number/high power field) NONE NRG Bacteria detection in urine sediment by light microsco py NEGATIVE NRG Squamous epithelial cells detection in u rine sediment by light microscopy 2-5 NRG Crystals detection in urine sediment by light microsco py NONE NRG Casts detection in urine sediment by light microscopy NONE NRG Mucus detection in urine sediment by light microscopy NEGATIVE NRG Complete urinalysis with reflex to culture NO NRG Methicillin resistant Staphylococcus aur eus (MRSA) screening culture - 02/23/17 08:13 Methicillin resistant Staphylococcus aureus (MRSA) scr eening culture NEG NRG Complete blood count (CBC) with automate d white blood cell (WBC) differential - 02/24/17 04:31 Blood leukocytes automated count (number/volume) 4.8 10*3/uL 4.3-11.0 Blood erythrocytes automated count (number/volume) 5.06 10*6/uL 4.35-5.85 Venous blood hemoglobin measurement (mass/volume) 13.7 g/dL 11.5-16.0 Blood hematocrit (volume fraction) 41 % 35-52 Automated erythrocyte mean corpuscular volume 80 [ foz_us] 80-99 Automated erythrocyte mean corpuscular h emoglobin (mass per erythrocyte) 27 pg 25-34 Automated erythrocyte mean corpuscular h emoglobin concentration measurement (mass/volume) 34 g/dL 32-36 Automated erythrocyte distribution width ratio 13. 3 % 10.0- 14.5 Automated blood platelet count (count/volume) 219 10*3/uL [...] 10*3 1.0-4.0 Blood monocytes automated count (number/volume) 0. 6 10*3 0.0-1.0 Automated eosinophil count 0.2 10*3/uL 0 .0-0.3 Automated blood basophil count (count/volume) 0.0 10*3/uL 0.0-0.1 Comprehensive metabolic panel - 02/24/17 04:31 Serum or plasma sodium measurement (moles/volume) 139 mmol/L 135-145 Serum or plasma potassium measurement (moles/volume) 4.0 mmol/L 3.6-5.0 Serum or plasma chloride measurement (moles/volume) 110 mmol/L 98-107 Carbon dioxide 20 mmol/L 21-32 Serum or plasma anion gap determination (moles/volume) 9 mmol/L 5-14 Serum or plasma urea nitrogen measurement (mass/volume ) 4 mg/dL 7-18 Serum or plasma creatinine measurement (mass/volume) 0.69 mg/dL 0.60-1.30 Serum or plasma urea nitrogen/creatinine mass ratio 6 NRG Serum or plasma creatinine measurement w ith calculation of estimated glomerular filtration rate > NRG Serum or plasma glucose measurement (mass/volume) 114 mg/dL 70-105 Serum or plasma calcium measurement (mass/volume) 9.3 mg/dL 8.5-10.1 Serum or plasma total bilirubin measurement (mass/volu me) 0.7 mg/dL 0.1-1.0 Serum or plasma alkaline phosphatase patricia surement (enzymatic activity/volume) 54 U/L 60-350 Serum or plasma aspartate aminotransfera se measurement (enzymatic activity/volume) 19 U/L 5-34 Serum or plasma alanine aminotransferase measurement (enzymatic activity/volume) 22 U/L 0-55 Serum or plasma protein measurement (mass/volume) 6.6 g/dL 6.4-8.2 Serum or plasma albumin measurement (mass/volume) 3.7 g/dL 3.2-4.5 THYROID STIMULATING HORMONE - 02/24/17 0 4:31 THYROID STIMULATING HORMONE 0.00 u[iU]/mL 0.35-4.94 Serum or plasma thyroxine (T4) free roro urement (mass/volume) - 02/24/17 04:31 Serum or plasma thyroxine (T4) free measurement (mass/ volume) 2.28 ng/dL 0.70-1.48 Serum or plasma thyrotropin measurement by detection limit <=0.05 miu/l (units/volume) - 02/24/17 04:31 Serum or plasma thyrotropin measurement by detection limit <=0.05 miu/l (units/volume) 0.00 u[iU]/mL 0.35-4.94 Thyroglobulin measurement with antithyro globulin antibody assay - 02/24/17 04:31 Thyroglobulin [mass/volume] in serum or plasma 88. 20 % 1.60- 59.90 Serum or plasma thyroperoxidase antibody assay (units/volume) - 02/24/17 04:31 Serum or plasma thyroperoxidase antibody assay (units/ volume) 8.05 % 0.00-100.00 TSH+Free T4 - 03/06/17 15:23 TSH <0.006 uIU/mL 0.450-4.500 T4,Free(Direct) 3.19 ng/dL 0.93-1.60 Comp. Metabolic Panel (14) - 03/06/17 15 :23 Glucose, Serum 94 mg/dL 65-99 BUN 9 mg/dL 6-20 Creatinine, Serum 0.60 mg/dL 0.57-1.00 eGFR If NonAfricn Am 133 mL/min/1.73 >59 eGFR If Africn Am 154 mL/min/1.73 >5 9 BUN/Creatinine Ratio 15 9-23 Sodium, Serum 141 [...] 16 IU/L 0-32 Blood lactic acid measurement (moles/vol ume) - 04/01/17 19:37 Blood lactic acid measurement (moles/volume) 1.29 mmol/L 0.50-2.00 Complete blood count (CBC) with automate d white blood cell (WBC) differential - 04/01/17 19:37 Blood leukocytes automated count (number/volume) 9.2 10*3/uL 4.3-11.0 Blood erythrocytes automated count (number/volume) 5.54 10*6/uL 4.35-5.85 Venous blood hemoglobin measurement (mass/volume) 15.2 g/dL 11.5-16.0 Blood hematocrit (volume fraction) 44 % 35-52 Automated erythrocyte mean corpuscular volume 79 [ foz_us] 80-99 Automated erythrocyte mean corpuscular h emoglobin (mass per erythrocyte) 27 pg 25-34 Automated erythrocyte mean corpuscular h emoglobin concentration measurement (mass/volume) 35 g/dL 32-36 Automated erythrocyte distribution width ratio 13. 7 % 10.0- 14.5 Automated blood platelet count (count/volume) 240 10*3/uL [...] 10*3 1.0-4.0 Blood monocytes automated count (number/volume) 0. 5 10*3 0.0-1.0 Automated eosinophil count 0.0 10*3/uL 0 .0-0.3 Automated blood basophil count (count/volume) 0.0 10*3/uL 0.0-0.1 Comprehensive metabolic panel - 04/01/17 19:37 Serum or plasma sodium measurement (moles/volume) 135 mmol/L 135-145 Serum or plasma potassium measurement (moles/volume) 3.7 mmol/L 3.6-5.0 Serum or plasma chloride measurement (moles/volume) 102 mmol/L 98-107 Carbon dioxide 21 mmol/L 21-32 Serum or plasma anion gap determination (moles/volume) 12 mmol/L 5-14 Serum or plasma urea nitrogen measurement (mass/volume ) 10 mg/dL 7-18 Serum or plasma creatinine measurement (mass/volume) 0.77 mg/dL 0.60-1.30 Serum or plasma urea nitrogen/creatinine mass ratio 13 NRG Serum or plasma creatinine measurement w ith calculation of estimated glomerular filtration rate > NRG Serum or plasma glucose measurement (mass/volume) 106 mg/dL 70-105 Serum or plasma calcium measurement (mass/volume) 9.4 mg/dL 8.5-10.1 Serum or plasma total bilirubin measurement (mass/volu me) 0.7 mg/dL 0.1-1.0 Serum or plasma alkaline phosphatase patricia surement (enzymatic activity/volume) 73 U/L 60-350 Serum or plasma aspartate aminotransfera se measurement (enzymatic activity/volume) 18 U/L 5-34 Serum or plasma alanine aminotransferase measurement (enzymatic activity/volume) 25 U/L 0-55 Serum or plasma protein measurement (mass/volume) 7.4 g/dL 6.4-8.2 Serum or plasma albumin measurement (mass/volume) 4.1 g/dL 3.2-4.5 Magnesium - 04/01/17 19:37 Magnesium 1.7 mg/dL 1.8-2.4 Blood manual differential performed dete ction - 04/01/17 19:37 Blood monocytes/100 leukocytes 2 % NRG Manual blood segmented neutrophils/100 leukocytes 85 % NRG Blood band neutrophils/100 leukocytes 3 % NRG Manual blood lymphocytes/100 leukocytes 8 % NRG Manual eosinophils/100 leukocytes in nose 0 % NRG Manual blood basophils/100 leukocytes 1 % NRG Blood lymphocytes variant/100 leukocytes 1 % NRG Blood microcytes detection by light microscopy SLI GHT NRG Blood hypersegmented neutrophils detection by light mi croscopy SLIGHT NRG Blood platelet clump detection by light microscopy SLIGHT NRG THYROID STIMULATING HORMONE - 04/01/17 1 9:37 THYROID STIMULATING HORMONE 0.00 u[iU]/mL 0.35-4.94 Serum or plasma choriogonadotropin measu rement (units/volume) - 04/01/17 19:37 Serum or plasma choriogonadotropin measurement (units/ volume) < m[iU]/mL <5 Bacterial blood culture - 04/01/17 19:37 Bacterial blood culture NG NRG Complete urinalysis with reflex to cultu re - 04/01/17 19:50 Urine color determination YELLOW NRG Urine clarity determination SLIGHTLY CLOUDY NRG Urine pH measurement by test strip 6.5 5-9 Specific gravity of urine by test strip 1.015 1.016-1.022 Urine protein assay by test strip, semi-quantitative 1+ NEGATIVE Urine glucose detection by automated test strip NE GATIVE NEGATIVE Erythrocytes detection in urine sediment by light micr oscopy 1+ NEGATIVE Urine ketones detection by automated test strip 2+ NEGATIVE Urine nitrite detection by test strip NEGATIVE NEGATIVE Urine total bilirubin detection by test strip NEGA TIVE NEGATIVE Urine urobilinogen measurement by automated test strip (mass/volume) NORMAL NORMAL Urine leukocyte esterase detection by dipstick 2+ NEGATIVE Automated urine sediment erythrocyte cou nt by microscopy (number/high power field) [HPF] NRG Automated urine sediment leukocyte count by microscopy (number/high power field) > [HPF] NRG Bacteria detection in urine sediment by light microsco py FEW NRG Squamous epithelial cells detection in u rine sediment by light microscopy >50 NRG Crystals detection in urine sediment by light microsco py NONE NRG Casts detection in urine sediment by light microscopy NONE NRG Mucus detection in urine sediment by light microscopy MODERATE NRG Complete urinalysis with reflex to culture YES NRG Renal epithelial cells detection in urin e sediment by light microscopy NONE NRG Bacterial urine culture - 04/01/17 19:50 Bacterial urine culture [id number] NRG COLONY COUNT 10,000/ML - 100,000/ML NRG FTX;REPORTABLE SENSITIVITY REPORTED 04/03/17 7:15 NR Bacterial susceptibility panel - 7 19:50 Oxacillin susceptibility test by minimum inhibitory co ncentration 0.5 NRG Gentamicin susceptibility test by minimum inhibitory c oncentration <= NRG Trimethoprim/sulfamethoxazole susceptibi lity test by minimum inhibitoryconcentration <= NRG Vancomycin susceptibility test by minimum inhibitory c oncentration 1 NRG Levofloxacin susceptibility test by minimum inhibitory concentration 0.5 NRG Rifampin susceptibility test by minimum inhibitory con centration <= NRG Tetracycline susceptibility test by minimum inhibitory concentration <= NRG Bacterial blood culture - 04/01/17 20:25 FREE TEXT EXTERNAL SENSITIVITY REPORTED 04/03 15:02 NRG QUANTITY OF GROWTH . NRG Bacterial blood culture SEE COMMEN NR Bacterial susceptibility panel - 7 20:25 Oxacillin susceptibility test by minimum inhibitory co ncentration 0.5 NRG Gentamicin susceptibility test by minimum inhibitory c oncentration <= NRG Clindamycin susceptibility test by minimum inhibitory concentration <= NRG Erythromycin susceptibility test by minimum inhibitory concentration <= NRG Trimethoprim/sulfamethoxazole susceptibi lity test by minimum inhibitoryconcentration <= NRG Vancomycin susceptibility test by minimum inhibitory c oncentration 1 NRG Levofloxacin susceptibility test by minimum inhibitory concentration 0.25 NRG Rifampin susceptibility test by minimum inhibitory con centration <= NRG Tetracycline susceptibility test by minimum inhibitory concentration <= NRG Complete urinalysis with reflex to cultu re - 04/01/17 21:33 Urine color determination YELLOW NRG Urine clarity determination CLEAR NR G Urine pH measurement by test strip 6 5-9 Specific gravity of urine by test strip 1.020 1.016-1.022 Urine protein assay by test strip, semi-quantitative 2+ NEGATIVE Urine glucose detection by automated test strip NE GATIVE NEGATIVE Erythrocytes detection in urine sediment by light micr oscopy 2+ NEGATIVE Urine ketones detection by automated test strip 4+ NEGATIVE Urine nitrite detection by test strip NEGATIVE NEGATIVE Urine total bilirubin detection by test strip NEGA TIVE NEGATIVE Urine urobilinogen measurement by automated test strip (mass/volume) NORMAL NORMAL Urine leukocyte esterase detection by dipstick 2+ NEGATIVE Automated urine sediment erythrocyte cou nt by microscopy (number/high power field) [HPF] NRG Automated urine sediment leukocyte count by microscopy (number/high power field) [HPF] NRG Bacteria detection in urine sediment by light microsco py TRACE NRG Squamous epithelial cells detection in u rine sediment by light microscopy 2-5 NRG Crystals detection in urine sediment by light microsco py NONE NRG Casts detection in urine sediment by light microscopy NONE NRG Mucus detection in urine sediment by light microscopy SMALL NRG Complete urinalysis with reflex to culture NO NRG Genital Culture, Routine - 05/09/17 13:2 1 Genital Culture, Routine Note TSH+Free T4 - 05/09/17 13:21 TSH 0.009 uIU/mL 0.450-4.500 T4,Free(Direct) 1.24 ng/dL 0.93-1.60 Complete blood count (CBC) with automate d white blood cell (WBC) differential - 06/19/17 16:02 Blood leukocytes automated count (number/volume) 6.3 10*3/uL 4.3-11.0 Blood erythrocytes automated count (number/volume) 5.05 10*6/uL 4.35-5.85 Venous blood hemoglobin measurement (mass/volume) 14.3 g/dL 11.5-16.0 Blood hematocrit (volume fraction) 41 % 35-52 Automated erythrocyte mean corpuscular volume 81 [ foz_us] 80-99 Automated erythrocyte mean corpuscular h emoglobin (mass per erythrocyte) 28 pg 25-34 Automated erythrocyte mean corpuscular h emoglobin concentration measurement (mass/volume) 35 g/dL 32-36 Automated erythrocyte distribution width ratio 12. 8 % 10.0- 14.5 Automated blood platelet count (count/volume) 275 10*3/uL [...] 10*3 1.0-4.0 Blood monocytes automated count (number/volume) 0. 7 10*3 0.0-1.0 Automated eosinophil count 0.1 10*3/uL 0 .0-0.3 Automated blood basophil count (count/volume) 0.0 10*3/uL 0.0-0.1 Comprehensive metabolic panel - 06/19/17 16:02 Serum or plasma sodium measurement (moles/volume) 137 mmol/L 135-145 Serum or plasma potassium measurement (moles/volume) 4.0 mmol/L 3.6-5.0 Serum or plasma chloride measurement (moles/volume) 107 mmol/L 98-107 Carbon dioxide 21 mmol/L 21-32 Serum or plasma anion gap determination (moles/volume) 9 mmol/L 5-14 Serum or plasma urea nitrogen measurement (mass/volume ) 12 mg/dL 7-18 Serum or plasma creatinine measurement (mass/volume) 0.76 mg/dL 0.60-1.30 Serum or plasma urea nitrogen/creatinine mass ratio 16 NRG Serum or plasma creatinine measurement w ith calculation of estimated glomerular filtration rate > NRG Serum or plasma glucose measurement (mass/volume) 67 mg/dL 70-105 Serum or plasma calcium measurement (mass/volume) 9.5 mg/dL 8.5-10.1 Serum or plasma total bilirubin measurement (mass/volu me) 0.5 mg/dL 0.1-1.0 Serum or plasma alkaline phosphatase patricia surement (enzymatic activity/volume) 69 U/L 60-350 Serum or plasma aspartate aminotransfera se measurement (enzymatic activity/volume) 17 U/L 5-34 Serum or plasma alanine aminotransferase measurement (enzymatic activity/volume) 17 U/L 0-55 Serum or plasma protein measurement (mass/volume) 7.6 g/dL 6.4-8.2 Serum or plasma albumin measurement (mass/volume) 4.3 g/dL 3.2-4.5 THYROID STIMULATING HORMONE - 06/19/17 1 6:02 THYROID STIMULATING HORMONE 0.00 u[iU]/mL 0.35-4.94 Serum or plasma thyroxine (T4) free roro urement (mass/volume) - 06/19/17 16:02 Serum or plasma thyroxine (T4) free measurement (mass/ volume) 1.32 ng/dL 0.70-1.48 Complete urinalysis with reflex to cultu re - 06/19/17 16:45 Urine color determination YELLOW NRG Urine clarity determination CLEAR NR G Urine pH measurement by test strip 6 5-9 Specific gravity of urine by test strip 1.015 1.016-1.022 Urine protein assay by test strip, semi-quantitative NEGATIVE NEGATIVE Urine glucose detection by automated test strip NE GATIVE NEGATIVE Erythrocytes detection in urine sediment by light micr oscopy 2+ NEGATIVE Urine ketones detection by automated test strip NE GATIVE NEGATIVE Urine nitrite detection by test strip NEGATIVE NEGATIVE Urine total bilirubin detection by test strip NEGA TIVE NEGATIVE Urine urobilinogen measurement by automated test strip (mass/volume) NORMAL NORMAL Urine leukocyte esterase detection by dipstick 2+ NEGATIVE Automated urine sediment erythrocyte cou nt by microscopy (number/high power field) [HPF] NRG Automated urine sediment leukocyte count by microscopy (number/high power field) [HPF] NRG Bacteria detection in urine sediment by light microsco py FEW NRG Squamous epithelial cells detection in u rine sediment by light microscopy 25-50 NRG Crystals detection in urine sediment by light microsco py NONE NRG Casts detection in urine sediment by light microscopy NONE NRG Mucus detection in urine sediment by light microscopy SMALL NRG Complete urinalysis with reflex to culture NO NRG Complete urinalysis with reflex to cultu re - 07/23/17 20:09 Urine color determination YELLOW NRG Urine clarity determination CLEAR NR G Urine pH measurement by test strip 6 5-9 Specific gravity of urine by test strip 1.010 1.016-1.022 Urine protein assay by test strip, semi-quantitative NEGATIVE NEGATIVE Urine glucose detection by automated test strip NE GATIVE NEGATIVE Erythrocytes detection in urine sediment by light micr oscopy NEGATIVE NEGATIVE Urine ketones detection by automated test strip NE GATIVE NEGATIVE Urine nitrite detection by test strip NEGATIVE NEGATIVE Urine total bilirubin detection by test strip NEGA TIVE NEGATIVE Urine urobilinogen measurement by automated test strip (mass/volume) NORMAL NORMAL Urine leukocyte esterase detection by dipstick 1+ NEGATIVE Automated urine sediment erythrocyte cou nt by microscopy (number/high power field) RARE NRG Automated urine sediment leukocyte count by microscopy (number/high power field) [HPF] NRG Bacteria detection in urine sediment by light microsco py NONE NRG Squamous epithelial cells detection in u rine sediment by light microscopy 2-5 NRG Crystals detection in urine sediment by light microsco py NONE NRG Casts detection in urine sediment by light microscopy NONE NRG Mucus detection in urine sediment by light microscopy NEGATIVE NRG Complete urinalysis with reflex to culture NO NRG Urine drug screening test - 07/23/17 20: 09 Urine phencyclidine detection by screening method NEGATIVE NEGATIVE Urine benzodiazepines detection by screening method NEGATIVE NEGATIVE Urine cocaine detection NEGATIVE NEGATI VE Urine amphetamines detection by screening method N EGATIVE NEGATIVE Urine methamphetamine detection by screening method NEGATIVE NEGATIVE Urine cannabinoids detection by screening method N EGATIVE NEGATIVE Urine opiates detection by screening method NEGATI VE NEGATIVE Urine barbiturates detection NEGATIVE N EGATIVE Screening urine tricyclic antidepressants detection NEGATIVE NEGATIVE Urine methadone detection by screening method NEGA TIVE NEGATIVE Urine oxycodone detection NEGATIVE NEGA TIVE Urine propoxyphene detection NEGATIVE N EGATIVE Complete blood count (CBC) with automate d white blood cell (WBC) differential - 07/23/17 20:14 Blood leukocytes automated count (number/volume) 7.1 10*3/uL 4.3-11.0 Blood erythrocytes automated count (number/volume) 5.12 10*6/uL 4.35-5.85 Venous blood hemoglobin measurement (mass/volume) 14.7 g/dL 11.5-16.0 Blood hematocrit (volume fraction) 41 % 35-52 Automated erythrocyte mean corpuscular volume 81 [ foz_us] 80-99 Automated erythrocyte mean corpuscular h emoglobin (mass per erythrocyte) 29 pg 25-34 Automated erythrocyte mean corpuscular h emoglobin concentration measurement (mass/volume) 36 g/dL 32-36 Automated erythrocyte distribution width ratio 12. 7 % 10.0- 14.5 Automated blood platelet count (count/volume) 292 10*3/uL [...] 10*3 1.0-4.0 Blood monocytes automated count (number/volume) 0. 6 10*3 0.0-1.0 Automated eosinophil count 0.2 10*3/uL 0 .0-0.3 Automated blood basophil count (count/volume) 0.0 10*3/uL 0.0-0.1 Comprehensive metabolic panel - 07/23/17 20:14 Serum or plasma sodium measurement (moles/volume) 139 mmol/L 135-145 Serum or plasma potassium measurement (moles/volume) 3.4 mmol/L 3.6-5.0 Serum or plasma chloride measurement (moles/volume) 107 mmol/L 98-107 Carbon dioxide 21 mmol/L 21-32 Serum or plasma anion gap determination (moles/volume) 11 mmol/L 5-14 Serum or plasma urea nitrogen measurement (mass/volume ) 7 mg/dL 7-18 Serum or plasma creatinine measurement (mass/volume) 0.79 mg/dL 0.60-1.30 Serum or plasma urea nitrogen/creatinine mass ratio 9 NRG Serum or plasma creatinine measurement w ith calculation of estimated glomerular filtration rate > NRG Serum or plasma glucose measurement (mass/volume) 83 mg/dL 70-105 Serum or plasma calcium measurement (mass/volume) 9.4 mg/dL 8.5-10.1 Serum or plasma total bilirubin measurement (mass/volu me) 0.6 mg/dL 0.1-1.0 Serum or plasma alkaline phosphatase patricia surement (enzymatic activity/volume) 81 U/L 60-350 Serum or plasma aspartate aminotransfera se measurement (enzymatic activity/volume) 18 U/L 5-34 Serum or plasma alanine aminotransferase measurement (enzymatic activity/volume) 17 U/L 0-55 Serum or plasma protein measurement (mass/volume) 7.8 g/dL 6.4-8.2 Serum or plasma albumin measurement (mass/volume) 4.5 g/dL 3.2-4.5 Magnesium - 07/23/17 20:14 Magnesium 2.2 mg/dL 1.8-2.4 THYROID STIMULATING HORMONE - 07/23/17 2 0:14 THYROID STIMULATING HORMONE 0.01 u[iU]/mL 0.35-4.94 Serum or plasma thyroxine (T4) free roro urement (mass/volume) - 07/23/17 20:14 Serum or plasma thyroxine (T4) free measurement (mass/ volume) 1.12 ng/dL 0.70-1.48 Streptococcus pyogenes antigen detection - 08/06/17 00:34 Streptococcus pyogenes antigen detection NEGATIVE NEGATIVE Bacterial throat culture - 08/06/17 00:3 4 Bacterial throat culture NBS NRG T3 FREE - 11/14/17 17:43 T3, FREE 5.1 pg/mL 3.0-4.7 Complete urinalysis with reflex to cultu re - 11/25/17 22:30 Urine color determination YELLOW NRG Urine clarity determination CLEAR NR G Urine pH measurement by test strip 6.5 5-9 Specific gravity of urine by test strip 1.010 1.016-1.022 Urine protein assay by test strip, semi-quantitative NEGATIVE NEGATIVE Urine glucose detection by automated test strip NE GATIVE NEGATIVE Erythrocytes detection in urine sediment by light micr oscopy NEGATIVE NEGATIVE Urine ketones detection by automated test strip NE GATIVE NEGATIVE Urine nitrite detection by test strip NEGATIVE NEGATIVE Urine total bilirubin detection by test strip NEGA TIVE NEGATIVE Urine urobilinogen measurement by automated test strip (mass/volume) NORMAL NORMAL Urine leukocyte esterase detection by dipstick 1+ NEGATIVE Automated urine sediment erythrocyte cou nt by microscopy (number/high power field) NONE NRG Automated urine sediment leukocyte count by microscopy (number/high power field) [HPF] NRG Bacteria detection in urine sediment by light microsco py TRACE NRG Squamous epithelial cells detection in u rine sediment by light microscopy 25-50 NRG Crystals detection in urine sediment by light microsco py NONE NRG Casts detection in urine sediment by light microscopy NONE NRG Mucus detection in urine sediment by light microscopy NEGATIVE NRG Complete urinalysis with reflex to culture NO NRG Complete blood count (CBC) with automate d white blood cell (WBC) differential - 11/25/17 22:35 Blood leukocytes automated count (number/volume) 7.5 10*3/uL 4.3-11.0 Blood erythrocytes automated count (number/volume) 4.78 10*6/uL 4.35-5.85 Venous blood hemoglobin measurement (mass/volume) 13.9 g/dL 11.5-16.0 Blood hematocrit (volume fraction) 39 % 35-52 Automated erythrocyte mean corpuscular volume 81 [ foz_us] 80-99 Automated erythrocyte mean corpuscular h emoglobin (mass per erythrocyte) 29 pg 25-34 Automated erythrocyte mean corpuscular h emoglobin concentration measurement (mass/volume) 36 g/dL 32-36 Automated erythrocyte distribution width ratio 12. 8 % 10.0- 14.5 Automated blood platelet count (count/volume) 267 10*3/uL [...] 10*3 1.0-4.0 Blood monocytes automated count (number/volume) 0. 8 10*3 0.0-1.0 Automated eosinophil count 0.1 10*3/uL 0 .0-0.3 Automated blood basophil count (count/volume) 0.0 10*3/uL 0.0-0.1 Comprehensive metabolic panel - 11/25/17 22:35 Serum or plasma sodium measurement (moles/volume) 138 mmol/L 135-145 Serum or plasma potassium measurement (moles/volume) 3.8 mmol/L 3.6-5.0 Serum or plasma chloride measurement (moles/volume) 107 mmol/L 98-107 Carbon dioxide 21 mmol/L 21-32 Serum or plasma anion gap determination (moles/volume) 10 mmol/L 5-14 Serum or plasma urea nitrogen measurement (mass/volume ) 9 mg/dL 7-18 Serum or plasma creatinine measurement (mass/volume) 0.79 mg/dL 0.60-1.30 Serum or plasma urea nitrogen/creatinine mass ratio 11 NRG Serum or plasma creatinine measurement w ith calculation of estimated glomerular filtration rate > NRG Serum or plasma glucose measurement (mass/volume) 87 mg/dL 70-105 Serum or plasma calcium measurement (mass/volume) 9.6 mg/dL 8.5-10.1 Serum or plasma total bilirubin measurement (mass/volu me) 0.5 mg/dL 0.1-1.0 Serum or plasma alkaline phosphatase patricia surement (enzymatic activity/volume) 65 U/L 40-136 Serum or plasma aspartate aminotransfera se measurement (enzymatic activity/volume) 19 U/L 5-34 Serum or plasma alanine aminotransferase measurement (enzymatic activity/volume) 12 U/L 0-55 Serum or plasma protein measurement (mass/volume) 7.8 g/dL 6.4-8.2 Serum or plasma albumin measurement (mass/volume) 4.5 g/dL 3.2-4.5 Serum or plasma amylase measurement (enz ymatic activity/volume) - 11/25/17 22:35 Serum or plasma amylase measurement (enzymatic activit y/volume) 60 U/L 25-125 Lipase - 11/25/17 22:35 Lipase 31 U/L 8-78 THYROID STIMULATING HORMONE - 11/25/17 2 2:35 THYROID STIMULATING HORMONE 0.00 u[iU]/mL 0.35-4.94 Serum or plasma thyroxine (T4) free roro urement (mass/volume) - 11/25/17 22:35 Serum or plasma thyroxine (T4) free measurement (mass/ volume) 1.39 ng/dL 0.70-1.48 Serum or plasma C reactive protein measu rement (mass/volume) - 11/25/17 22:35 Serum or plasma C reactive protein measurement (mass/v olume) 0.13 mg/dL 0.00-0.50 CULTURE, URINE - 03/01/18 17:53 CULTURE, URINE, ROUTINE SEE NOTE NRG TSH w/ FREE T4 - 06/21/18 13:22 TSH 0.01 mIU/L NRG T4, FREE 2.5 ng/dL 0.8-1.4 Complete blood count (CBC) with automate d white blood cell (WBC) differential - 08/21/18 11:35 Blood leukocytes automated count (number/volume) 8.0 10*3/uL 4.3-11.0 Blood erythrocytes automated count (number/volume) 4.94 10*6/uL 4.35-5.85 Venous blood hemoglobin measurement (mass/volume) 14.0 g/dL 11.5-16.0 Blood hematocrit (volume fraction) 39 % 35-52 Automated erythrocyte mean corpuscular volume 79 [ foz_us] 80-99 Automated erythrocyte mean corpuscular h emoglobin (mass per erythrocyte) 28 pg 25-34 Automated erythrocyte mean corpuscular h emoglobin concentration measurement (mass/volume) 36 g/dL 32-36 Automated erythrocyte distribution width ratio 13. 6 % 10.0- 14.5 Automated blood platelet count (count/volume) 282 10*3/uL 130-400 Automated blood platelet mean volume measurement 10.3 [foz_us] 7.4-10.4 Automated blood neutrophils/100 leukocytes 66 % 42-75 Automated blood lymphocytes/100 leukocytes 24 % 12-44 Blood monocytes/100 leukocytes 8 % 0-12 Automated blood eosinophils/100 leukocytes 3 % 0-10 Automated blood basophils/100 leukocytes 0 % 0-10 Blood neutrophils automated count (number/volume) 5.3 10*3 1.8-7.8 Blood lymphocytes automated count (number/volume) 1.9 10*3 1.0-4.0 Blood monocytes automated count (number/volume) 0. 6 10*3 0.0-1.0 Automated eosinophil count 0.2 10*3/uL 0 .0-0.3 Automated blood basophil count (count/volume) 0.0 10*3/uL 0.0-0.1 ABO+Rh group - 08/21/18 11:35 ABO+Rh group AN NRG THYROID STIMULATING HORMONE - 08/21/18 1 1:35 THYROID STIMULATING HORMONE 0.00 u[iU]/mL 0.35-4.94 Serum or plasma thyroxine (T4) free roro urement (mass/volume) - 08/21/18 11:35 Serum or plasma thyroxine (T4) free measurement (mass/ volume) 1.30 ng/dL 0.70-1.48 Serum or plasma choriogonadotropin measu rement (units/volume) - 08/21/18 11:35 Serum or plasma choriogonadotropin measurement (units/ volume) 60322 m[iU]/mL <5 Complete urinalysis with reflex to cultu re - 08/21/18 12:15 Urine color determination YELLOW NRG Urine clarity determination CLEAR NR G Urine pH measurement by test strip 7 5-9 Specific gravity of urine by test strip 1.015 1.016-1.022 Urine protein assay by test strip, semi-quantitative 2+ NEGATIVE Urine glucose detection by automated test strip NE GATIVE NEGATIVE Erythrocytes detection in urine sediment by light micr oscopy 5+ NEGATIVE Urine ketones detection by automated test strip NE GATIVE NEGATIVE Urine nitrite detection by test strip NEGATIVE NEGATIVE Urine total bilirubin detection by test strip NEGA TIVE NEGATIVE Urine urobilinogen measurement by automated test strip (mass/volume) NORMAL NORMAL Urine leukocyte esterase detection by dipstick 3+ NEGATIVE Automated urine sediment erythrocyte cou nt by microscopy (number/high power field) [HPF] NRG Automated urine sediment leukocyte count by microscopy (number/high power field) [HPF] NRG Bacteria detection in urine sediment by light microsco py MODERATE NRG Squamous epithelial cells detection in u rine sediment by light microscopy 10-25 NRG Crystals detection in urine sediment by light microsco py NONE NRG Casts detection in urine sediment by light microscopy NONE NRG Mucus detection in urine sediment by light microscopy LARGE NRG Complete urinalysis with reflex to culture YES NRG Renal epithelial cells detection in urin e sediment by light microscopy NONE NRG Bacterial urine culture - 08/21/18 12:15 Bacterial urine culture SEE REPORT NRG COLONY COUNT . NRG Complete blood count (CBC) with automate d white blood cell (WBC) differential - 09/25/18 22:35 Blood leukocytes automated count (number/volume) 11.4 10*3/uL 4.3-11.0 Blood erythrocytes automated count (number/volume) 4.19 10*6/uL 4.35-5.85 Venous blood hemoglobin measurement (mass/volume) 12.3 g/dL 11.5-16.0 Blood hematocrit (volume fraction) 35 % 35-52 Automated erythrocyte mean corpuscular volume 82 [ foz_us] 80-99 Automated erythrocyte mean corpuscular h emoglobin (mass per erythrocyte) 29 pg 25-34 Automated erythrocyte mean corpuscular h emoglobin concentration measurement (mass/volume) 36 g/dL 32-36 Automated erythrocyte distribution width ratio 14. 2 % 10.0- 14.5 Automated blood platelet count (count/volume) 246 10*3/uL 130-400 Automated blood platelet mean volume measurement 10.2 [foz_us] 7.4-10.4 Automated blood neutrophils/100 leukocytes 65 % 42-75 Automated blood lymphocytes/100 leukocytes 24 % 12-44 Blood monocytes/100 leukocytes 7 % 0-12 Automated blood eosinophils/100 leukocytes 4 % 0-10 Automated blood basophils/100 leukocytes 0 % 0-10 Blood neutrophils automated count (number/volume) 7.4 10*3 1.8-7.8 Blood lymphocytes automated count (number/volume) 2.7 10*3 1.0-4.0 Blood monocytes automated count (number/volume) 0. 8 10*3 0.0-1.0 Automated eosinophil count 0.4 10*3/uL 0 .0-0.3 Automated blood basophil count (count/volume) 0.0 10*3/uL 0.0-0.1 Serum or plasma choriogonadotropin (preg vianca test) detection - 09/25/18 22:35 Serum or plasma choriogonadotropin ( test) de tection POSITIVE NEGATIVE Comprehensive metabolic panel - 09/25/18 22:35 Serum or plasma sodium measurement (moles/volume) 138 mmol/L 135-145 Serum or plasma potassium measurement (moles/volume) 3.6 mmol/L 3.6-5.0 Serum or plasma chloride measurement (moles/volume) 109 mmol/L 98-107 Carbon dioxide 19 mmol/L 21-32 Serum or plasma anion gap determination (moles/volume) 10 mmol/L 5-14 Serum or plasma urea nitrogen measurement (mass/volume ) 9 mg/dL 7-18 Serum or plasma creatinine measurement (mass/volume) 0.63 mg/dL 0.60-1.30 Serum or plasma urea nitrogen/creatinine mass ratio 14 NRG Serum or plasma creatinine measurement w ith calculation of estimated glomerular filtration rate > NRG Serum or plasma glucose measurement (mass/volume) 72 mg/dL 70-105 Serum or plasma calcium measurement (mass/volume) 8.7 mg/dL 8.5-10.1 Serum or plasma total bilirubin measurement (mass/volu me) 0.2 mg/dL 0.1-1.0 Serum or plasma alkaline phosphatase patricia surement (enzymatic activity/volume) 37 U/L 40-136 Serum or plasma aspartate aminotransfera se measurement (enzymatic activity/volume) 16 U/L 5-34 Serum or plasma alanine aminotransferase measurement (enzymatic activity/volume) 13 U/L 0-55 Serum or plasma protein measurement (mass/volume) 6.6 g/dL 6.4-8.2 Serum or plasma albumin measurement (mass/volume) 3.8 g/dL 3.2-4.5 CALCIUM CORRECTED 8.9 mg/dL 8.5-10.1 Complete urinalysis with reflex to cultu re - 09/25/18 22:45 Urine color determination YELLOW NRG Urine clarity determination SLIGHTLY CLOUDY NRG Urine pH measurement by test strip 7 5-9 Specific gravity of urine by test strip 1.015 1.016-1.022 Urine protein assay by test strip, semi-quantitative NEGATIVE NEGATIVE Urine glucose detection by automated test strip NE GATIVE NEGATIVE Erythrocytes detection in urine sediment by light micr oscopy NEGATIVE NEGATIVE Urine ketones detection by automated test strip NE GATIVE NEGATIVE Urine nitrite detection by test strip NEGATIVE NEGATIVE Urine total bilirubin detection by test strip NEGA TIVE NEGATIVE Urine urobilinogen measurement by automated test strip (mass/volume) NORMAL NORMAL Urine leukocyte esterase detection by dipstick 2+ NEGATIVE Automated urine sediment erythrocyte cou nt by microscopy (number/high power field) NONE NRG Automated urine sediment leukocyte count by microscopy (number/high power field) [HPF] NRG Bacteria detection in urine sediment by light microsco py NONE NRG Squamous epithelial cells detection in u rine sediment by light microscopy 25-50 NRG Crystals detection in urine sediment by light microsco py PRESENT NRG Casts detection in urine sediment by light microscopy NONE NRG Mucus detection in urine sediment by light microscopy NEGATIVE NRG Complete urinalysis with reflex to culture YES NRG Amorphous sediment detection in urine sediment by ligh t microscopy LARGE ASAD URATES NRG Bacterial urine culture - 09/25/18 22:45 Bacterial urine culture SEE COMMEN NRG COLONY COUNT . NRG RH IMMUNE GLOBULIN RHOPHYLAC - 09/25/18 23:50 RH IMMUNE GLOBULIN RHOPHYLAC TRANSFUSED 09/26/18 0002 NRG Transfusion band number - 09/25/18 23:50 Transfusion band number [id number] NRG [id number] - 09/25/18 23:50 [id number] 300ug NRG Lot number - 09/25/18 23:50 Lot number [id number] NRG cell screen - 09/25/18 23:50 cell screen [id number] [facility] cell screen 03/31/21 [facility] Complete blood count (CBC) with automate d white blood cell (WBC) differential - 10/12/18 17:40 Blood leukocytes automated count (number/volume) 5.6 10*3/uL 4.3-11.0 Blood erythrocytes automated count (number/volume) 4.72 10*6/uL 4.35-5.85 Venous blood hemoglobin measurement (mass/volume) 13.9 g/dL 11.5-16.0 Blood hematocrit (volume fraction) 39 % 35-52 Automated erythrocyte mean corpuscular volume 84 [ foz_us] 80-99 Automated erythrocyte mean corpuscular h emoglobin (mass per erythrocyte) 29 pg 25-34 Automated erythrocyte mean corpuscular h emoglobin concentration measurement (mass/volume) 35 g/dL 32-36 Automated erythrocyte distribution width ratio 14. 2 % 10.0- 14.5 Automated blood platelet count (count/volume) 232 10*3/uL 130-400 Automated blood platelet mean volume measurement 10.0 [foz_us] 7.4-10.4 Automated blood neutrophils/100 leukocytes 73 % 42-75 Automated blood lymphocytes/100 leukocytes 18 % 12-44 Blood monocytes/100 leukocytes 8 % 0-12 Automated blood eosinophils/100 leukocytes 1 % 0-10 Automated blood basophils/100 leukocytes 0 % 0-10 Blood neutrophils automated count (number/volume) 4.1 10*3 1.8-7.8 Blood lymphocytes automated count (number/volume) 1.0 10*3 1.0-4.0 Blood monocytes automated count (number/volume) 0. 4 10*3 0.0-1.0 Automated eosinophil count 0.0 10*3/uL 0 .0-0.3 Automated blood basophil count (count/volume) 0.0 10*3/uL 0.0-0.1 Comprehensive metabolic panel - 10/12/18 17:40 Serum or plasma sodium measurement (moles/volume) 137 mmol/L 135-145 Serum or plasma potassium measurement (moles/volume) 3.1 mmol/L 3.6-5.0 Serum or plasma chloride measurement (moles/volume) 104 mmol/L 98-107 Carbon dioxide 22 mmol/L 21-32 Serum or plasma anion gap determination (moles/volume) 11 mmol/L 5-14 Serum or plasma urea nitrogen measurement (mass/volume ) 5 mg/dL 7-18 Serum or plasma creatinine measurement (mass/volume) 0.68 mg/dL 0.60-1.30 Serum or plasma urea nitrogen/creatinine mass ratio 7 NRG Serum or plasma creatinine measurement w ith calculation of estimated glomerular filtration rate > NRG Serum or plasma glucose measurement (mass/volume) 101 mg/dL 70-105 Serum or plasma calcium measurement (mass/volume) 9.0 mg/dL 8.5-10.1 Serum or plasma total bilirubin measurement (mass/volu me) 0.6 mg/dL 0.1-1.0 Serum or plasma alkaline phosphatase patricia surement (enzymatic activity/volume) 40 U/L 40-136 Serum or plasma aspartate aminotransfera se measurement (enzymatic activity/volume) 16 U/L 5-34 Serum or plasma alanine aminotransferase measurement (enzymatic activity/volume) 11 U/L 0-55 Serum or plasma protein measurement (mass/volume) 7.2 g/dL 6.4-8.2 Serum or plasma albumin measurement (mass/volume) 3.8 g/dL 3.2-4.5 CALCIUM CORRECTED 9.2 mg/dL 8.5-10.1 Serum or plasma amylase measurement (enz ymatic activity/volume) - 10/12/18 17:40 Serum or plasma amylase measurement (enzymatic activit y/volume) 55 U/L 25-125 Lipase - 10/12/18 17:40 Lipase 20 U/L 8-78 Serum or plasma thyroxine (T4) free roro urement (mass/volume) - 10/12/18 17:40 Serum or plasma thyroxine (T4) free measurement (mass/ volume) 1.13 ng/dL 0.70-1.48 Serum or plasma thyrotropin measurement by detection limit <=0.05 miu/l (units/volume) - 10/12/18 17:40 Serum or plasma thyrotropin measurement by detection limit <=0.05 miu/l (units/volume) 0.01 u[iU]/mL 0.35-4.94 Complete urinalysis with reflex to cultu re - 10/12/18 18:34 Urine color determination YELLOW NRG Urine clarity determination VERY CLOUDY NRG Urine pH measurement by test strip 6.5 5-9 Specific gravity of urine by test strip 1.020 1.016-1.022 Urine protein assay by test strip, semi-quantitative 2+ NEGATIVE Urine glucose detection by automated test strip NE GATIVE NEGATIVE Erythrocytes detection in urine sediment by light micr oscopy NEGATIVE NEGATIVE Urine ketones detection by automated test strip 4+ NEGATIVE Urine nitrite detection by test strip NEGATIVE NEGATIVE Urine total bilirubin detection by test strip 1+ NEGATIVE Urine urobilinogen measurement by automated test strip (mass/volume) 8 mg/dL NORMAL Urine leukocyte esterase detection by dipstick 3+ NEGATIVE Automated urine sediment erythrocyte cou nt by microscopy (number/high power field) NONE NRG Automated urine sediment leukocyte count by microscopy (number/high power field) [HPF] NRG Bacteria detection in urine sediment by light microsco py MODERATE NRG Squamous epithelial cells detection in u rine sediment by light microscopy >50 NRG Crystals detection in urine sediment by light microsco py PRESENT NRG Casts detection in urine sediment by light microscopy NONE NRG Mucus detection in urine sediment by light microscopy LARGE NRG Complete urinalysis with reflex to culture YES NRG Amorphous sediment detection in urine sediment by ligh t microscopy MOD ASAD URATES NRG Bacterial urine culture - 10/12/18 18:34 Bacterial urine culture NRG COLONY COUNT . NRG FTX;REPORTABLE 80,000 CFU/ML OF 3 OR MORE GRAM NRG FREE TEXT ENTRY 2 POSITIVE ISOLATES SUGGESTING PRO BABLE NRG FREE TEXT ENTRY 3 COLLECTION CONTAMINATION NRG CULTURE, GENITAL - 01/02/19 16:33 CULTURE, GENITAL NRG Complete urinalysis with reflex to cultu re - 02/07/19 01:20 Urine color determination YELLOW NRG Urine clarity determination SLIGHTLY CLOUDY NRG Urine pH measurement by test strip 7 5-9 Specific gravity of urine by test strip 1.010 1.016-1.022 Urine protein assay by test strip, semi-quantitative 1+ NEGATIVE Urine glucose detection by automated test strip NE GATIVE NEGATIVE Erythrocytes detection in urine sediment by light micr oscopy NEGATIVE NEGATIVE Urine ketones detection by automated test strip NE GATIVE NEGATIVE Urine nitrite detection by test strip NEGATIVE NEGATIVE Urine total bilirubin detection by test strip NEGA TIVE NEGATIVE Urine urobilinogen measurement by automated test strip (mass/volume) NORMAL NORMAL Urine leukocyte esterase detection by dipstick 3+ NEGATIVE Automated urine sediment erythrocyte cou nt by microscopy (number/high power field) NONE NRG Automated urine sediment leukocyte count by microscopy (number/high power field) [HPF] NRG Bacteria detection in urine sediment by light microsco py MODERATE NRG Squamous epithelial cells detection in u rine sediment by light microscopy 25-50 NRG Crystals detection in urine sediment by light microsco py NONE NRG Casts detection in urine sediment by light microscopy NONE NRG Mucus detection in urine sediment by light microscopy MODERATE NRG Complete urinalysis with reflex to culture YES NRG Bacterial urine culture - 02/07/19 01:20 Bacterial urine culture NG NRG Complete blood count (CBC) with automate d white blood cell (WBC) differential - 02/07/19 02:18 Blood leukocytes automated count (number/volume) 12.5 10*3/uL 4.3-11.0 Blood erythrocytes automated count (number/volume) 4.18 10*6/uL 4.35-5.85 Venous blood hemoglobin measurement (mass/volume) 12.5 g/dL 11.5-16.0 Blood hematocrit (volume fraction) 35 % 35-52 Automated erythrocyte mean corpuscular volume 84 [ foz_us] 80-99 Automated erythrocyte mean corpuscular h emoglobin (mass per erythrocyte) 30 pg 25-34 Automated erythrocyte mean corpuscular h emoglobin concentration measurement (mass/volume) 36 g/dL 32-36 Automated erythrocyte distribution width ratio 12. 8 % 10.0- 14.5 Automated blood platelet count (count/volume) 245 10*3/uL 130-400 Automated blood platelet mean volume measurement 10.0 [foz_us] 7.4-10.4 Automated blood neutrophils/100 leukocytes 63 % 42-75 Automated blood lymphocytes/100 leukocytes 26 % 12-44 Blood monocytes/100 leukocytes 10 % 0-12 Automated blood eosinophils/100 leukocytes 1 % 0-10 Automated blood basophils/100 leukocytes 0 % 0-10 Blood neutrophils automated count (number/volume) 7.9 10*3 1.8-7.8 Blood lymphocytes automated count (number/volume) 3.2 10*3 1.0-4.0 Blood monocytes automated count (number/volume) 1. 2 10*3 0.0-1.0 Automated eosinophil count 0.2 10*3/uL 0 .0-0.3 Automated blood basophil count (count/volume) 0.0 10*3/uL 0.0-0.1 Comprehensive metabolic panel - 02/07/19 02:18 Serum or plasma sodium measurement (moles/volume) 138 mmol/L 135-145 Serum or plasma potassium measurement (moles/volume) 3.3 mmol/L 3.6-5.0 Serum or plasma chloride measurement (moles/volume) 109 mmol/L 98-107 Carbon dioxide 17 mmol/L 21-32 Serum or plasma anion gap determination (moles/volume) 12 mmol/L 5-14 Serum or plasma urea nitrogen measurement (mass/volume ) 5 mg/dL 7-18 Serum or plasma creatinine measurement (mass/volume) 0.58 mg/dL 0.60-1.30 Serum or plasma urea nitrogen/creatinine mass ratio 9 NRG Serum or plasma creatinine measurement w ith calculation of estimated glomerular filtration rate > NRG Serum or plasma glucose measurement (mass/volume) 101 mg/dL 70-105 Serum or plasma calcium measurement (mass/volume) 9.2 mg/dL 8.5-10.1 Serum or plasma total bilirubin measurement (mass/volu me) 0.3 mg/dL 0.1-1.0 Serum or plasma alkaline phosphatase patricia surement (enzymatic activity/volume) 82 U/L 40-136 Serum or plasma aspartate aminotransfera se measurement (enzymatic activity/volume) 17 U/L 5-34 Serum or plasma alanine aminotransferase measurement (enzymatic activity/volume) 13 U/L 0-55 Serum or plasma protein measurement (mass/volume) 6.4 g/dL 6.4-8.2 Serum or plasma albumin measurement (mass/volume) 3.3 g/dL 3.2-4.5 CALCIUM CORRECTED 9.8 mg/dL 8.5-10.1 THYROID STIMULATING HORMONE - 02/07/19 0 2:18 THYROID STIMULATING HORMONE 0.50 u[iU]/mL 0.35-4.94 Complete urinalysis with reflex to cultu re - 03/01/19 00:40 Urine color determination YELLOW NRG Urine clarity determination CLEAR NR G Urine pH measurement by test strip 7 5-9 Specific gravity of urine by test strip 1.010 1.016-1.022 Urine protein assay by test strip, semi-quantitative NEGATIVE NEGATIVE Urine glucose detection by automated test strip NE GATIVE NEGATIVE Erythrocytes detection in urine sediment by light micr oscopy NEGATIVE NEGATIVE Urine ketones detection by automated test strip NE GATIVE NEGATIVE Urine nitrite detection by test strip NEGATIVE NEGATIVE Urine total bilirubin detection by test strip NEGA TIVE NEGATIVE Urine urobilinogen measurement by automated test strip (mass/volume) NORMAL NORMAL Urine leukocyte esterase detection by dipstick 2+ NEGATIVE Automated urine sediment erythrocyte cou nt by microscopy (number/high power field) NONE NRG Automated urine sediment leukocyte count by microscopy (number/high power field) [HPF] NRG Bacteria detection in urine sediment by light microsco py FEW NRG Squamous epithelial cells detection in u rine sediment by light microscopy 5-10 NRG Crystals detection in urine sediment by light microsco py NONE NRG Casts detection in urine sediment by light microscopy NONE NRG Mucus detection in urine sediment by light microscopy NEGATIVE NRG Complete urinalysis with reflex to culture NO NRG Bacterial urine culture - 03/01/19 00:40 Bacterial urine culture [id number] NRG COLONY COUNT . NRG FTX;REPORTABLE PRESENT NRG Complete urinalysis with reflex to cultu re - 03/05/19 16:00 Urine color determination YELLOW NRG Urine clarity determination SLIGHTLY CLOUDY NRG Urine pH measurement by test strip 6 5-9 Specific gravity of urine by test strip 1.020 1.016-1.022 Urine protein assay by test strip, semi-quantitative NEGATIVE NEGATIVE Urine glucose detection by automated test strip NE GATIVE NEGATIVE Erythrocytes detection in urine sediment by light micr oscopy NEGATIVE NEGATIVE Urine ketones detection by automated test strip 4+ NEGATIVE Urine nitrite detection by test strip NEGATIVE NEGATIVE Urine total bilirubin detection by test strip NEGA TIVE NEGATIVE Urine urobilinogen measurement by automated test strip (mass/volume) NORMAL NORMAL Urine leukocyte esterase detection by dipstick 2+ NEGATIVE Automated urine sediment erythrocyte cou nt by microscopy (number/high power field) NONE NRG Automated urine sediment leukocyte count by microscopy (number/high power field) [HPF] NRG Bacteria detection in urine sediment by light microsco py FEW NRG Squamous epithelial cells detection in u rine sediment by light microscopy 10-25 NRG Crystals detection in urine sediment by light microsco py NONE NRG Casts detection in urine sediment by light microscopy NONE NRG Mucus detection in urine sediment by light microscopy NEGATIVE NRG Complete urinalysis with reflex to culture NO NRG Complete blood count (CBC) with automate d white blood cell (WBC) differential - 03/05/19 16:02 Blood leukocytes automated count (number/volume) 18.6 10*3/uL 4.3-11.0 Blood erythrocytes automated count (number/volume) 4.77 10*6/uL 4.35-5.85 Venous blood hemoglobin measurement (mass/volume) 14.0 g/dL 11.5-16.0 Blood hematocrit (volume fraction) 40 % 35-52 Automated erythrocyte mean corpuscular volume 84 [ foz_us] 80-99 Automated erythrocyte mean corpuscular h emoglobin (mass per erythrocyte) 29 pg 25-34 Automated erythrocyte mean corpuscular h emoglobin concentration measurement (mass/volume) 35 g/dL 32-36 Automated erythrocyte distribution width ratio 13. 2 % 10.0- 14.5 Automated blood platelet count (count/volume) 211 10*3/uL 130-400 Automated blood platelet mean volume measurement 11.2 [foz_us] 7.4-10.4 Automated blood neutrophils/100 leukocytes 86 % 42-75 Automated blood lymphocytes/100 leukocytes 6 % 12-44 Blood monocytes/100 leukocytes 8 % 0-12 Automated blood eosinophils/100 leukocytes 0 % 0-10 Automated blood basophils/100 leukocytes 0 % 0-10 Blood neutrophils automated count (number/volume) 16.1 10*3 1.8-7.8 Blood lymphocytes automated count (number/volume) 1.1 10*3 1.0-4.0 Blood monocytes automated count (number/volume) 1. 4 10*3 0.0-1.0 Automated eosinophil count 0.0 10*3/uL 0 .0-0.3 Automated blood basophil count (count/volume) 0.0 10*3/uL 0.0-0.1 Comprehensive metabolic panel - 03/05/19 16:02 Serum or plasma sodium measurement (moles/volume) 135 mmol/L 135-145 Serum or plasma potassium measurement (moles/volume) 3.7 mmol/L 3.6-5.0 Serum or plasma chloride measurement (moles/volume) 107 mmol/L 98-107 Carbon dioxide 14 mmol/L 21-32 Serum or plasma anion gap determination (moles/volume) 14 mmol/L 5-14 Serum or plasma urea nitrogen measurement (mass/volume ) 4 mg/dL 7-18 Serum or plasma creatinine measurement (mass/volume) 0.66 mg/dL 0.60-1.30 Serum or plasma urea nitrogen/creatinine mass ratio 6 NRG Serum or plasma creatinine measurement w ith calculation of estimated glomerular filtration rate > NRG Serum or plasma glucose measurement (mass/volume) 114 mg/dL 70-105 Serum or plasma calcium measurement (mass/volume) 9.2 mg/dL 8.5-10.1 Serum or plasma total bilirubin measurement (mass/volu me) 0.6 mg/dL 0.1-1.0 Serum or plasma alkaline phosphatase patricia surement (enzymatic activity/volume) 117 U/L 40-136 Serum or plasma aspartate aminotransfera se measurement (enzymatic activity/volume) 17 U/L 5-34 Serum or plasma alanine aminotransferase measurement (enzymatic activity/volume) 13 U/L 0-55 Serum or plasma protein measurement (mass/volume) 6.9 g/dL 6.4-8.2 Serum or plasma albumin measurement (mass/volume) 3.5 g/dL 3.2-4.5 CALCIUM CORRECTED 9.6 mg/dL 8.5-10.1 THYROID STIMULATING HORMONE - 03/05/19 1 6:02 THYROID STIMULATING HORMONE 0.32 u[iU]/mL 0.35-4.94 Blood type T Indirect antibody screen pa heidi - 03/05/19 16:02 [facility] NUMBER [id number] NR ABO+Rh group AN NR Blood group antibody screen NEGATIVE NR Bacterial blood culture - 03/05/19 16:20 Bacterial blood culture NG [facility] Influenza virus A and B antigen detectio n - 03/05/19 16:22 FLU RESULT NEGATIVE FOR INFLUENZA A AND B ANTIGENS BY IA [facility] Bacterial blood culture - 03/05/19 16:29 Bacterial blood culture NG [facility] Complete blood count (CBC) with automate d white blood cell (WBC) differential - 03/07/19 07:45 Blood leukocytes automated count (number/volume) 12.4 10*3/uL 4.3-11.0 Blood erythrocytes automated count (number/volume) 3.92 10*6/uL 4.35-5.85 Venous blood hemoglobin measurement (mass/volume) 11.6 g/dL 11.5-16.0 Blood hematocrit (volume fraction) 34 % 35-52 Automated erythrocyte mean corpuscular volume 86 [ foz_us] 80-99 Automated erythrocyte mean corpuscular h emoglobin (mass per erythrocyte) 30 pg 25-34 Automated erythrocyte mean corpuscular h emoglobin concentration measurement (mass/volume) 35 g/dL 32-36 Automated erythrocyte distribution width ratio 13. 4 % 10.0- 14.5 Automated blood platelet count (count/volume) 204 10*3/uL 130-400 Automated blood platelet mean volume measurement 10.7 [foz_us] 7.4-10.4 Automated blood neutrophils/100 leukocytes 64 % 42-75 Automated blood lymphocytes/100 leukocytes 25 % 12-44 Blood monocytes/100 leukocytes 10 % 0-12 Automated blood eosinophils/100 leukocytes 1 % 0-10 Automated blood basophils/100 leukocytes 0 % 0-10 Blood neutrophils automated count (number/volume) 8.0 10*3 1.8-7.8 Blood lymphocytes automated count (number/volume) 3.1 10*3 1.0-4.0 Blood monocytes automated count (number/volume) 1. 2 10*3 0.0-1.0 Automated eosinophil count 0.1 10*3/uL 0 .0-0.3 Automated blood basophil count (count/volume) 0.0 10*3/uL 0.0-0.1 RH IMMUNE GLOBULIN RHOPHYLAC - 03/07/19 07:45 RH IMMUNE GLOBULIN RHOPHYLAC PRSMD TRFSD 03/08/19 1820 NRG cell screen - 03/07/19 07:45 [facility] NUMBER [id number] [facility] SCREEN LOT NUMBER [id number] [facility] [id number] 300ug NRG Erythrocytes./1000 erythrocytes 04/11/19 NR cell screen 06/09/21 NRG cell screen NEGATIVE NEGATIVE Lot number [id number] [facility] Complete blood count (CBC) with automate d white blood cell (WBC) differential - 03/15/19 04:15 Blood leukocytes automated count (number/volume) 20.9 10*3/uL 4.3-11.0 Blood erythrocytes automated count (number/volume) 4.99 10*6/uL 4.35-5.85 Venous blood hemoglobin measurement (mass/volume) 14.5 g/dL 11.5-16.0 Blood hematocrit (volume fraction) 42 % 35-52 Automated erythrocyte mean corpuscular volume 83 [ foz_us] 80-99 Automated erythrocyte mean corpuscular h emoglobin (mass per erythrocyte) 29 pg 25-34 Automated erythrocyte mean corpuscular h emoglobin concentration measurement (mass/volume) 35 g/dL 32-36 Automated erythrocyte distribution width ratio 12. 9 % 10.0- 14.5 Automated blood platelet count (count/volume) 411 10*3/uL 130-400 Automated blood platelet mean volume measurement 9.2 [foz_us] 7.4-10.4 Automated blood neutrophils/100 leukocytes 92 % 42-75 Automated blood lymphocytes/100 leukocytes 5 % 12-44 Blood monocytes/100 leukocytes 3 % 0-12 Automated blood eosinophils/100 leukocytes 1 % 0-10 Automated blood basophils/100 leukocytes 0 % 0-10 Blood neutrophils automated count (number/volume) 19.2 10*3 1.8-7.8 Blood lymphocytes automated count (number/volume) 1.0 10*3 1.0-4.0 Blood monocytes automated count (number/volume) 0. 6 10*3 0.0-1.0 Automated eosinophil count 0.1 10*3/uL 0 .0-0.3 Automated blood basophil count (count/volume) 0.0 10*3/uL 0.0-0.1 PT panel in platelet poor plasma by coag ulation assay - 03/15/19 04:15 Prothrombin time (PT) in platelet poor plasma by coagu lation assay 15.3 s 12.2-14.7 INR in platelet poor plasma or blood by coagulation as say 1.2 0.8-1.4 Activated partial thromboplastin time (a PTT) in platelet poor plasma bycoagulation assay - 03/15/19 04:15 Activated partial thromboplastin time (a PTT) in platelet poor plasma bycoagulation assay 44 s 24-35 Blood lactic acid measurement (moles/vol ume) - 03/15/19 04:15 Blood lactic acid measurement (moles/volume) 1.47 mmol/L 0.50-2.00 Comprehensive metabolic panel - 03/15/19 04:15 Serum or plasma sodium measurement (moles/volume) 132 mmol/L 135-145 Serum or plasma potassium measurement (moles/volume) 3.3 mmol/L 3.6-5.0 Serum or plasma chloride measurement (moles/volume) 103 mmol/L 98-107 Carbon dioxide 15 mmol/L 21-32 Serum or plasma anion gap determination (moles/volume) 14 mmol/L 5-14 Serum or plasma urea nitrogen measurement (mass/volume ) 11 mg/dL 7-18 Serum or plasma creatinine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
--- NOTE | 2020-01-23 17:46 | ED Integumentary General ---
General Stated Complaint: INFECTION IN FOOT,ANKLE PAIN History of Present Illness Date Seen by Provider: January 23, 2020 Time Seen by Provider: 17:41 Initial Comments 19-year-old female presents with infection under her left great toenail. Patient reports his been there for a couple weeks. She was seen at [facility] for was lanced that she was started on antibiotics. She finished her antibiotic ab out a week ago. She reports that infection had improved. She reports now that it has returned. It is having purulent drainage with some tenderness around the foot. She also complains of a little bit of pain in her left ankle. Patient reports that the drainage started up a couple days ago. She denies any fevers or chills. Allergies and Home Medications Allergies Uncoded Allergies: CONTRAST DYE (Allergy, Mild, 01/19/10) Home Medications Amoxicillin/Potassium Clav 1 Each Tablet, 1 EACH PO QID Prescribed by: MICH MCA on 03/17/19814 Docusate Sodium 100 Mg Capsule, 100 MG PO BID Prescribed by: ALINE DE LA GARZA on 03/06/191858 Doxycycline Hyclate 100 Mg Tablet, 100 MG PO BID Prescribed by: NILES WOLFF on 01/23/20 174 Hydrocodone Bit/Acetaminophen 1 Tab Tab, 1 TAB PO Q4H PRN for PAIN-MODERATE Prescribed by: ALINE DE LA GARZA on 03/06/191858 Ibuprofen 600 Mg Tablet, 600 MG PO Q6HR Prescribed by: ALINE DE LA GARZA on 03/06/191858 Levothyroxine Sodium 25 Mcg Tablet, 25 MCG PO DAILY, (Reported) Methimazole 5 Mg Tablet, 5 MG PO TID Prescribed by: SHADIA SALDIVAR on 10/28/191827 Metronidazole 500 Mg Tablet, 500 MG PO BID Prescribed by: MICH MAC on 03/17/19 0815 Vit No.124/Iron/FA 1 Each Tablet, 1 EACH PO DAILY, (Reported) Propranolol HCl 10 Mg Tablet, 10 MG PO BID Prescribed by: SHADIA SALDIVAR on 10/28/191827 Sulfamethoxazole/Trimethoprim 1 Each Tablet, 1 EACH PO BID Prescribed by: POOJA CHATTERJEE on 09/22/19 0331 Patient Home Medication List Home Medication List Reviewed: Yes Review of Systems Review of Systems Constitutional: No chills, No fever Respiratory: no symptoms reported Cardiovascular: no symptoms reported Gastrointestinal: no symptoms reported Musculoskeletal: see HPI Skin: see HPI Past Boxczhl-Bfoohz-Vpwmdg Hx Past Med/Social Hx: Reviewed Nursing Past Med/Soc Hx Patient Social History 2nd Hand Smoke Exposure: No Recent Foreign Travel: No Contact w/Someone Who Travel: No Recent Hopitalizations: Yes (post delivery) Immunizations Up To Date Tetanus Booster (TDap): Less than 5yrs PED Vaccines UTD: Yes Seasonal Allergies Seasonal Allergies: No Past Medical History Surgeries: No Respiratory: No Currently Using CPAP: No Currently Using BIPAP: No Cardiac: No Neurological: Yes Headaches /Migraines Reproductive Disorders: No Female Reproductive Disorders: Denies Sexually Transmitted Disease: No HIV/AIDS: No Genitourinary: Yes UTI-Chronic Gastrointestinal: No Gastroesophageal Reflux Musculoskeletal: No Endocrine: Yes (Graves Disease) Hyperthyroidism HEENT: No Loss of Vision: Denies Hearing Impairment: Denies Cancer: No Psychosocial: Yes Sleep Difficulties, Anxiety, PTSD, Suicide Attempts, Bipolar, Depression Integumentary: No Blood Disorders: No Adverse Reaction/Blood Tranf: No Family Medical History Alcoholism Grandparents (Maternal Grandmother) Arthritis Grandparents (Maternal Grandmother) Asthma Grandparents (Maternal Grandmother) Cardiovascular disease 19 FATHER (heart problems pt not sure what kind) G8 SISTER (heart defect) Cataracts Grandparents (Maternal Grandmother) Completed stroke 19 FATHER, Onset:30's - 40 Congenital disease Deafness or hearing loss Grandparents (Maternal Grandmother-hearing loss) Diabetes mellitus 19 MOTHER Grandparents (Maternal Grandmother) Drug abuse 19 FATHER 19 MOTHER (Meth, Marijuana-Clean 7 years) FH: aortic stenosis 19 FATHER FH: brain cancer Grandparents (Paternal Grandfather) Fibrocystic disease of breast Grandparents (Paternal Grandmother-) Gastroenteritis Grandparents (Maternal Grandmother) Glaucoma Grandparents (Maternal Grandmother) Heart murmur G8 SISTER Hypercholesterolemia 19 FATHER 19 MOTHER Grandparents (Maternal Grandmother) Osteoporosis Grandparents (Maternal Grandmother) Psychosocial problem 19 FATHER G8 SISTER (adhd) Grandparents (Maternal Grandmother-depression/anxiety) Respiratory disorder Grandparents (Maternal Grandmother-COPD) Thyroid disease 19 MOTHER (Hypothyroidism) Grandparents (Maternal Grandmother-Hypothyroidism) Physical Exam Vital Signs Vital Signs - First Documented 01/23/20 17:30 Temp 36.5 Pulse 78 Resp 16 B/P (MAP) 115/83 (94) Pulse Ox 98 O2 Delivery Room Air Capillary Refill : General Appearance: WD/WN, no apparent distress Cardiovascular: normal peripheral pulses, regular rate, rhythm Respiratory: normal breath sounds 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 Abscess has been previously lanced and is draining appropriately. I will start her on clindamycin mycin since she was on Bactrim previously. I recommend she follow-up with her primary care provider and also gas engine operator to closely monitor it case further man agement as needed and possible admission for IV antibiotics. Departure Impression Primary Impression: Abscess of great toenail, left Disposition: 01 HOME, SELF-CARE Condition: Stable Departure-Patient Inst. Ref[place]: [facility] [place]) Primary Care Physician ANILA DIEGO APRN (Family) Primary Care Physician KAROLINA PRASAD DPSatish Follow-up as soon as possible for recheck of symptoms Patient Instructions: Paronychia, Skin Abscess Add. Discharge Instructions: Follow-up with your primary care provider in a couple days for recheck of symptoms Follow-up with gas engine operator if available on Sunday. Return to the ER if symptoms significantly worsen Scripts Doxycycline Hyclate (Doxycycline Hyclate) 100 Mg Tablet 100 MG PO BID, #20 TAB 0 Refills Prov: NILES WOLFF DO 01/23/20 NILES WOLFF DO January 23, 2020 17:46
[2020-01-23] MEDS ORDERED: DOXY100T2 PO (17:48)
[2020-01-23] MEDS ORDERED: LEVO25TA5 PO (17:51)
== END 2020-01-23 17:56 | disposition home or self-care (01) ==
LOC: EDUNIT# 17:27 → ER 17:29
DX: L03.032 Cellulitis of left toe (principal); G43.909 Migraine, unspecified, not intractable, without status migrainosus; E05.90 Thyrotoxicosis, unspecified without thyrotoxic crisis or storm; Z91.041 Radiographic dye allergy status; Z82.49 Family history of ischemic heart disease and other diseases of the circulatory system; Z80.8 Family history of malignant neoplasm of other organs or systems
CPT/HCPCS: 87070; 87077; 87186; 87205

== ENCOUNTER 2020-03-04 20:08 | Emergency (ER) | payer MEDICAID ==
[~2020-03-04] VITALS: Ht 162.6 cm; Wt 80.9 kg
[~2020-03-04 20:08] MED LIST changes: +DOXY100T2 PO; +LEVO25TA5 PO
[2020-03-04 20:35] VITALS: BP 115/75
[2020-03-04] MEDS ORDERED: TETANUS,DIPTH,PERTUSS P/F (BOOSTRIX) 0.5 ML VIAL IM ONE (21:00)
--- NOTE | 2020-03-04 21:14 | Diagnostic Imaging Report ---
INDICATION: Stepped on a needle. Right foot pain. EXAMINATION: Three views of the right foot. FINDINGS: No fracture, dislocation or other bony abnormality. No foreign body is seen. IMPRESSION: Normal right foot. Dictated by: Dictated on workstation # [id number]
--- NOTE | 2020-03-04 21:18 | ED General ---
General Chief Complaint: Exposure Stated Complaint: STEPPED ON NEEDLE Nursing Triage Note: reports needle stick to right foot. Nursing Sepsis Screen: No Definite Risk History of Present Illness Date Seen by Provider: Mar 04, 2020 Time Seen by Provider: 20:35 Initial Comments 19 year old female presents after stepping on an insulin needle that went through her flip flop. Small puncture wound to right plantar surface, foot. She cleaned the site with soap and water and peroxide. LMP last week. Unsure of her last tetanus. She does not know who the needle belonged to. Timing/Duration: 1 Hour Associated Systoms: Denies Symptoms Allergies and Home Medications Allergies Uncoded Allergies: CONTRAST DYE (Allergy, Mild, 01/19/10) Home Medications Levothyroxine Sodium 25 Mcg Tablet, 25 MCG PO DAILY, (Reported) Patient Home Medication List Home Medication List Reviewed: Yes Review of Systems Review of Systems Constitutional: no symptoms reported, see HPI Skin: see HPI, other (small puncture wound right foot plantar surface.) Hematologic/Lymphatic: No Symptoms Reported, See HPI Immunological/Allergic: no symptoms reported, see HPI All Other Systems Reviewed Negative Unless Noted: Yes Past Exoyznm-Tjvwzb-Gysxwu Hx Past Med/Social Hx: Reviewed Nursing Past Med/Soc Hx Patient Social History Alcohol Use: Denies Use Recreational Drug Use: No Smoking Status: Never a Smoker 2nd Hand Smoke Exposure: No Recent Foreign Travel: No Contact w/Someone Who Travel: No Recent Infectious Disease Expo: No Recent Hopitalizations: No Physical Abuse: No Sexual Abuse: No Mistreated: No Fear: No Immunizations Up To Date Tetanus Booster (TDap): Unknown PED Vaccines UTD: Yes Seasonal Allergies Seasonal Allergies: No Past Medical History Surgeries: Yes (Thyroid removed) Respiratory: No Currently Using CPAP: No Currently Using BIPAP: No Cardiac: No Neurological: Yes Headaches /Migraines : No Last Menstrual Period: Feb 27, 2020 Reproductive Disorders: No Female Reproductive Disorders: Denies Sexually Transmitted Disease: No HIV/AIDS: No Genitourinary: Yes UTI-Chronic Gastrointestinal: No Gastroesophageal Reflux Musculoskeletal: No Endocrine: Yes (Graves Disease, Thyroid removed) Hyperthyroidism HEENT: No Loss of Vision: Denies Hearing Impairment: Denies Cancer: No Psychosocial: Yes Sleep Difficulties, Anxiety, PTSD, Suicide Attempts, Bipolar, Depression Integumentary: No Blood Disorders: No Adverse Reaction/Blood Tranf: No Family Medical History Alcoholism Grandparents (Maternal Grandmother) Arthritis Grandparents (Maternal Grandmother) Asthma Grandparents (Maternal Grandmother) Cardiovascular disease 19 FATHER (heart problems pt not sure what kind) G8 SISTER (heart defect) Cataracts Grandparents (Maternal Grandmother) Completed stroke 19 FATHER, Onset:30's - 40 Congenital disease Deafness or hearing loss Grandparents (Maternal Grandmother-hearing loss) Diabetes mellitus 19 MOTHER Grandparents (Maternal Grandmother) Drug abuse 19 FATHER 19 MOTHER (Meth, Marijuana-Clean 7 years) FH: aortic stenosis 19 FATHER FH: brain cancer Grandparents (Paternal Grandfather) Fibrocystic disease of breast Grandparents (Paternal Grandmother-) Gastroenteritis Grandparents (Maternal Grandmother) Glaucoma Grandparents (Maternal Grandmother) Heart murmur G8 SISTER Hypercholesterolemia 19 FATHER 19 MOTHER Grandparents (Maternal Grandmother) Osteoporosis Grandparents (Maternal Grandmother) Psychosocial problem 19 FATHER G8 SISTER (adhd) Grandparents (Maternal Grandmother-depression/anxiety) Respiratory disorder Grandparents (Maternal Grandmother-COPD) Thyroid disease 19 MOTHER (Hypothyroidism) Grandparents (Maternal Grandmother-Hypothyroidism) Physical Exam Vital Signs Vital Signs - First Documented 03/04/20 20:35 Temp 36.9 Pulse 63 Resp 18 B/P (MAP) 115/75 (88) Pulse Ox 99 O2 Delivery Room Air Capillary Refill : Less Than 3 Seconds Height, Weight, BMI Height: 5'4.00" Weight: 180lbs. 1.0oz. 81.642532ya; 30.00 BMI Method:Stated General Appearance: No Apparent Distress, WD/WN HEENT: PERRL/EOMI, TMs Normal, Normal ENT Inspection, Pharynx Normal Respiratory: Chest Non Tender, Lungs Clear, Normal Breath Sounds Cardiovascular: Regular Rate, Rhythm, No Edema, No Murmur, Normal Peripheral Pulses Extremity: Normal Capillary Refill, Normal Inspection, Other (small puncture wound mid foot, plantar surface right foot. Slight tender, no active bleeding. ) Neurologic/Psychiatric: Alert, Oriented x3, No Motor/Sensory Deficits, Normal Mood/Affect Skin: Normal Color, Warm/Dry Progress/Results/Core Measures Suspected Sepsis Recent Fever Within 48 Hours: No Infection Criteria Present: None New/Unexplained Altered Menta: No Sepsis Screen: No Definite Risk SIRS Temperature: Pulse: 63 Respiratory Rate: 18 Blood Pressure 115 /75 Mean: 88 Results/Orders My Orders Orders - DOROTHY MOSHER Dipht,Pertuss(Acell),Tet Adult (Boostrix (03/04/20 21:00) Foot, Right, 3 View (03/04/20 20:51) Vital Signs/I&O 03/04/20 20:35 Temp 36.9 Pulse 63 Resp 18 B/P (MAP) 115/75 (88) Pulse Ox 99 O2 Delivery Room Air Capillary Refill : Less Than 3 Seconds Blood Pressure Mean: 88 Progress Note : Time: 20:35 Progress Note Patient seen and evaluated, will obtain x-ray of the temperature no foreign bodies are present. Discussed options in testing the patient since unknown if clean or dirty needle and who it belonged to. Will give Tetanus. Diagnostic Imaging Diagonstic Imaging: Xray Plain Films/CT/US/NM/MRI: other (Foot) Comments NAME: BINTA FREGOSO MED REC#: [id number] PT STATUS: REG ER : 2000 PHYSICIAN: DOROTHY MOSHER ADMIT DATE: 03/04/20/ER Signed Date of Exam:03/04/20 FOOT, RIGHT, 3 VIEW INDICATION: Stepped on a needle. Right foot pain. EXAMINATION: Three views of the right foot. FINDINGS: No fracture, dislocation or other bony abnormality. No foreign body is seen. IMPRESSION: Normal right foot. Dictated by: Dictated on workstation # [id number] Dict: 03/04/202110 Trans: 03/04/202113 [facility] [id number] Interpreted by: TALIA SINGH MD Reviewed: Reviewed by Me Departure Impression Primary Impression: Needle stick injury Disposition: HOME, SELF-CARE Condition: Improved Departure-Patient Inst. Decision time for Depature: 21:00 [address]errals: [facility] (PCP) Primary Care Physician ANILA DIEGO APRN (Family) Primary Care Physician Patient Instructions: Wound Care (DC) Add. Discharge Instructions: Keep area clean and dry, clean with soap and water. Follow-up at [facility] if he decided to have additional testing done. Return to the emergency department for new, urgent health care problems. All discharge instructions reviewed with patient and/or family. Voiced understanding. DOROTHY MOSHER Mar 04, 2020 21:18
--- OUTSIDE RECORDS SUMMARY | 2020-03-04 23:23 | XMS REPORT | Clinical Summary ---
Author Author [facility] Organization [facility] Address Unknown Phone Unavailable Care Team Providers Care Concrete Mixing Plant Superintendent Name Role Phone Homer Sherman OD Unavailable [phone] Jeff Stark DO Unavailable Primitivo, [facility] PCP Source Comments Some departments are not documenting in the electronic medical record. If you d o not see the information that you expected, contact Release of Information in [facility] Information Management department at [phone] for further assistan ce in locating additional records.[facility] Allergies Comments Active Allergy Reactions Severity Noted Date Iodinated Contrast Media CHEST High 08/15 TIGHTNESS, HIVES, RASH, SHORTNESS OF BREATH Medications End Date Status Medication Sig Dispensed Refills Start Date Active levothyroxine (SYNTHROID) Take one 90 tablet 0 88 mcg tabletIndications: tablet by 0 Postoperative mouth daily hypothyroidism 30 minutes before breakfast. 03/03/2020 Discontinued (Reorder) levothyroxine (SYNTHROID) Take 88 mcg 0 88 mcg tablet by mouth daily 30 minutes before breakfast. 03/03/2020 Discontinued (Reorder) levothyroxine (SYNTHROID) Take one 30 tablet 0 88 mcg tabletIndications: tablet by 0 Postoperative mouth daily hypothyroidism 30 minutes before breakfast. Active Problems Problem Noted Date Graves disease 03/03/2020 Postoperative hypothyroidism 03/03/2020 Thyroid disease affecting 11/20/2018 Encounters Care Team Description Date Type Specialty Sri Kendrick PA-C Postoperative hypothyroidism (Primary Dx ); Graves disease 03/03/2020 Office Visit Diabetes Services Telehealth Sri Kendrick PA-C Postoperative hypothyroidism 03/03/2020 Refill Endocrinology, [facility] Sri Kendrick PA-C Labs Only 03/03/2020 Telephone Diabetes Services Sri Kendrick PA-C Postoperative hypothyroidism (Primary Dx ) 03/03/2020 Orders Only Diabetes Services 03/03/2020 Travel from Last 3 Months Family History Medical [...] Travel Start No recent travel history available. Date Recorded COVID-19 Exposure Response 03/03/2020 1:10 PM CDT In the last month, have you been in contact with No / Unsure someone who was confirmed or suspected to have Coronavirus / COVID-19? Last Filed Vital Signs Reading Time Taken Comments Vital Sign 114/72 05/21/2019 9:16 AM CDT Blood Pressure 81 05/21/2019 9:16 AM CDT Pulse 37.2 C (98.9 F) 11/20/2018 11:40 AM BUILDING ECONOMIST Temperature - - Respiratory Rate 100% 11/20/2018 2:45 PM BUILDING ECONOMIST Oxygen Saturation - - Inhaled Oxygen Concentration 79.4 kg (175 lb) 03/03/2020 1:10 PM CDT Weight 162.6 cm (5' 4") 03/03/2020 1:10 PM CDT Height 30.04 03/03/2020 1:10 PM CDT Body Mass Index Plan of Treatment Health Maintenance Due Date Last Done Comments HPV VACCINES (1 - 2-dose 2009 series) HIV SCREENING 2013 DTAP/TDAP VACCINES (1 - 2016 Tdap) HEPATITIS C SCREENING 2016 PHYSICAL (COMPREHENSIVE) 2016 EXAM CERVICAL CANCER SCREENING 2019 INFLUENZA VACCINE 06/24/2020 08/16/2018 MENINGOCOCCAL VACCINE Aged Out 12/20/2009 No longe r eligible based on patient's age to (Jacqueline FRANCIS) complete this topic Results Not on filefrom Last 3 Months Insurance Type Payer Benefit Subscriber ID Effective Phone Address Plan / Dates Group Medicaid UHC MEDICAID [place] UHC xxxxxxxxxxx [id number] [place] -[id number] Advance Directives Patient Telecom Analyst Explanation Type Date Recorded Advance Directive/DPOA Date Inactivated Comments Code Status Date Activated 11/20/2018 7:58 PM Full Code 11/20/2018 10:30 AM Provider has discussed Code Status No, discussion no t w/Patient or Family? necessary based on Dx
--- OUTSIDE RECORDS SUMMARY | 2020-03-04 23:23 | XMS REPORT | Encounter Summary ---
Author Author [facility] Organization [facility] Address Unknown Phone Unavailable Care Team Providers Care Internet Network Specialist Name Role Phone Homer Sherman OD Unavailable [phone] Jeff Stark DO Unavailable Primitivo, [facility] PCP Reason for Visit * Reason Comments Labs Only Encounter Details Care Team Description Date Type Department Sri Kendrick PA-C [address] [facility] Orth[facility]/Med Pavilion [address] [place] [id number] Labs Only 03/03/2020 Telephone [facility] [address] [place] [address] Social History Date Tobacco Use [...] or suspected to have Coronavirus / COVID-19? documented as of this encounter Functional Status Date of Assessment Functional Status Response 11/20/2018 Does the patient have a hearing impairment: No documented as of this encounter Miscellaneous Notes * Telephone Encounter - Idalia Rios RN - 03/03/2020 1:50 PM CDT Faxed TSH with T4 reflex to [facility] in [place], [place], fax # [phone] * Telephone Encounter - Sri Kendrick PA-C - 03/03/2020 1:35 PM CDT Can we fax over the TSH w/ FT4 reflex to the [facility] in [facility] for her? Ca n you let her know after it's sent so she can head over there? Thanks! documented in this encounter Plan of Treatment Not on filedocumented as of this encounter Visit Diagnoses Not on filedocumented in this encounter
--- OUTSIDE RECORDS SUMMARY | 2020-03-04 23:23 | XMS REPORT | Encounter Summary ---
Author Author [facility] Organization [facility] Address Unknown Phone Unavailable Care Team Providers Care Learning Administrator Name Role Phone Homer Sherman OD Unavailable [phone] Jeff Stark DO Unavailable Primitivo, [facility] PCP Reason for Visit * Reason Comments Medication Refill Encounter Details Care Team Description Date Type Department Sri Kendrick PA-C [address] Ortho/Med Pavilion [address] [place] [address] [phone] Postoperative hypothyroidism 03/03/2020 Refill [facility] [address] [place] [address] Social History Date Tobacco Use Types Packs/Day [...] Encounter - Idalia Rios RN - 03/03/2020 2:56 PM CDT Per pt insurance, needs 90 day supply of medicaitons Changed per protocol documented in this encounter Plan of Treatment Not on filedocumented as of this encounter Visit Diagnoses Diagnosis Postoperative hypothyroidism Postsurgical hypothyroidism documented in this encounter
--- OUTSIDE RECORDS SUMMARY | 2020-03-04 23:24 | XMS REPORT | Encounter Summary ---
Author Author [facility] Organization [facility] Address Unknown Phone Unavailable Care Team Providers Care Wax Ball Molder Name Role Phone Homer Sherman OD Unavailable [phone] Jeff Stark DO Unavailable Primitivo, [facility] PCP Reason for Visit * Reason Comments Other Encounter Details Care Team Description Date Type Department Yolanda Jo MD [address] Ortho/Med Pavilion [address] [place] [address] [phone] Other 11/21/[address] [facility] [address] [place] [address] Social History Date Tobacco Use Types Packs/Day [...] Teena Clarke RN - 11/21/2019 2:39 PM SALES MERCHANDISING SPECIALIST Spoke with Kristine to relay information noted below. She states pt did have labs completed recently and Kristine will work on getting r ecords to us for Dr. Jo to review. S MERCHANDISING SPECIALIST * Telephone Encounter - Yolanda Jo MD - 11/21/2019 2:34 PM SALES MERCHANDISING SPECIALIST Let us get thyroid labs now: TSH, [...] most sense as well. Thank you LME S MERCHANDISING SPECIALIST * Telephone Encounter - Teena Clarke RN - 11/21/2019 11:50 AM SALES MERCHANDISING SPECIALIST Pt's grandmother LVM stating that pt is not doing an better. Grandmother states a physician in [place] wants to totally remove pt's thyroid . Grandmother expresses concern and wondering if they should be seen by Dr. Jo fo r a second opinion re: thyroid removal. R/c and grandmother states that pt delivered baby ~8 months ago. Pt went to another physician in [place] and was referred to a surgeon to have thy roid removed. Pt is scheduled to have thyroid removed 12/02/19. Grandmother states she is concerned about this surgery and would like some addit ional input. Relayed that I could forward note to Dr. Jo and perhaps pt could have records s ent here so we are updated on her current status. S MERCHANDISING SPECIALIST documented in this encounter Plan of Treatment [...]
--- OUTSIDE RECORDS SUMMARY | 2020-03-04 23:24 | XMS REPORT | Encounter Summary ---
Author Author [facility] Organization [facility] Address Unknown Phone Unavailable Care Team Providers Care Cracker Dough Mixer Name Role Phone Homer Sherman OD Unavailable [phone] Jeff Stark DO Unavailable Primitivo, [facility] PCP Reason for Visit * Reason Comments Hypothyroidism Encounter Details Care Team Description Date Type Department Sri Kendrick PA-C [address] [facility] Ortho/Med [address] [place] [address] Postoperative hypothyroidism (Primary Dx ); Graves disease 03/03/2020 Office Visit [facility] [address] [place] [address] Social History Date Tobacco Use [...] / COVID-19? documented as of this encounter Last Filed Vital Signs Reading Time Taken Comments Vital Sign - - Blood Pressure - - Pulse - - Temperature - - Respiratory Rate - - Oxygen Saturation - - Inhaled Oxygen Concentration 79.4 kg (175 lb) 03/03/2020 1:10 PM CDT Weight 162.6 cm (5' 4") 03/03/2020 1:10 PM CDT Height 30.04 03/03/2020 1:10 PM CDT Body Mass Index documented in this encounter Functional Status Date of Assessment Functional Status Response 11/20/2018 Does the patient have a hearing impairment: No documented as of this encounter Patient Instructions * Patient Instructions* Sri Kendrick PA-C - 03/03/2020 1:30 PM CDT My nurse can be reached at [phone]. Please let us know if you have any questions. Great to see you today! - Sri Kendrick PA-C documented in this encounter Progress Notes * Sri Kendrick PA-C - 03/03/2020 1:30 PM CDT Telehealth Visit Note Date of Service: 03/03/2020 Subjective: Obtained patient's verbal consent to treat them and their agreement to [facility] policy and NPP via this telehealth visit during the [place] [facility] Public [facility] Emergency Cadaysia Nannette Lovelace is a 19 y.o. female with history of Graves disease s/p total thyroidectomy in 11/2019 in [place], [place]. She [facility]. History of Present Illness Since her surgery, she reports energy level has been lower. She has noted some p alpitations at rest-- this happened last night while she was watching TV. She al so notes dry skin, particularly on her hands and arms. She denies changes in her bowel movements, trouble sleeping, tremors, or changes in her hair or nails. She has been taking levothyroxine 88 mcg since her surgery-- she has not had labs since her surgery and is about to run out of her medication. Her daughter has her first birthday over the weekend. Her weight is stable. Review of Systems Constitutional: Positive for fatigue. Negative for activity change, appetite mars nge, chills, fever and unexpected weight change. HENT: Negative. Eyes: Negative. Respiratory: Negative. Negative for cough and shortness of breath. Cardiovascular: Positive for palpitations. Negative for chest pain. Gastrointestinal: Negative. Endocrine: Negative. Genitourinary: Negative. Musculoskeletal: Negative for arthralgias. Skin: Negative. Allergic/Immunologic: Negative. Neurological: Negative. Hematological: Negative. Psychiatric/Behavioral: Positive for sleep disturbance. Negative for dysphoric m ood. Objective: levothyroxine (SYNTHROID) 88 mcg tablet Take 88 mcg by mouth daily 30 minute s before breakfast. Vitals: 03/03/20 1310 Weight: 79.4 kg (175 lb) Height: 162.6 cm (64") PainSc: Zero Body mass index is 30.04 kg/m. Physical Exam Vitals signs and nursing note reviewed. Constitutional: General: She is not in acute distress. Appearance: Normal appearance. She is not ill-appearing. HENT: Head: Normocephalic and atraumatic. Nose: Nose normal. Eyes: Conjunctiva/sclera: Conjunctivae normal. Neurological: Mental Status: She is alert and oriented to person, place, and time. Psychiatric: Mood and Affect: Mood normal. Behavior: Behavior normal. Thought Content: Thought content normal. Judgment: Judgment normal. Labs: - Ordering today. Assessment and Plan: Graves disease s/p total thyroidectomy in [place] Postoperative Hypothyroidism: - We will request notes from [place] from her surgery and post-operative care - Obtain TFTs today-- given script for a short time just in case she runs out pr ior to labs resulting. - Goal TSH in the normal range History of depression with psychosis - Denies current issues with mood. Return to clinic in 6 months. Sri Kendrick PA-C 30 minutes spent on this patient's encounter with counseling and coordination of care taking >50% of the visit. documented in this encounter Plan of Treatment Not on filedocumented as of this encounter Visit Diagnoses Diagnosis Postoperative hypothyroidism Postsurgical hypothyroidism Graves disease Toxic diffuse goiter without mention of thyrotoxic crisis or storm documented in this encounter
--- OUTSIDE RECORDS SUMMARY | 2020-03-04 23:24 | XMS REPORT | Encounter Summary ---
Author Author [facility] Organization [facility] Address Unknown Phone Unavailable Care Team Providers Care Consulting Sales Manager Name Role Phone Homer Sherman OD Unavailable [phone] Jeff Stark DO Unavailable Primitivo, [facility] PCP Encounter Details Care Team Description Date Type Department 03/03/2020 Travel Social History Date Tobacco Use Types Packs/Day [...] impairment: No documented as of this encounter Plan of Treatment Not on filedocumented as of this encounter Visit Diagnoses Not on filedocumented in this encounter
--- OUTSIDE RECORDS SUMMARY | 2020-03-04 23:24 | XMS REPORT | Encounter Summary ---
Author Author [facility] Organization [facility] Address Unknown Phone Unavailable Care Team Providers Care Distance Education Director Name Role Phone Homer Sherman OD Unavailable [phone] Jeff Stark DO Unavailable Primitivo, [facility] PCP Encounter Details Care Team Description Date Type Department Sri Kendrick PA-C [address] [facility] Ortho/Med Pavilion [address] [place] [address] Postoperative hypothyroidism (Primary Dx ) 03/03/2020 Orders Only [facility] [address] [place] [address] Social History Date Tobacco Use [...] as of this encounter Plan of Treatment Order Schedule Name Type Priority Associated Diag noses Expected: 03/03/2020, Expires: 1 TSH WITH FREE T4 REFLEX Lab Routine Postop erative hypothyroidism documented as of this encounter Visit Diagnoses Diagnosis Postoperative hypothyroidism Postsurgical hypothyroidism documented in this encounter
--- OUTSIDE RECORDS SUMMARY | 2020-03-04 23:25 | XMS REPORT ---
Author Author Jj PAPPAS Organization [facility] Address [address] [place] [address] Care Team Providers Care Hospice Chaplain Name Role Phone ELIE PAPPAS Unavailable PROBLEMS Type Condition ICD9-CM Code [id number] Code Onset Dates Condition S tatus SNOMED Code Problem Post traumatic stress disorder (PTSD) F43.10 Active 97969601 Problem Hyperthyroidism E05.90 Active 3448 6009 Problem Migraine with aura and without status migrainosu s, not intractable G43.109 Active 7815008 Problem Migraine with aura and without status migrainosu s, not intractable G43.109 Active 1545899 Problem Chronic migraine G43.709 Active 377 98960 Problem Severe episode of recurrent major depressive disorder, without 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 Active 62484772 Problem Graves disease E05.00 Active 84513 5004 Problem Anxiety F41.9 Active [id number] ALLERGIES No Information ENCOUNTERS Encounter Location Date Diagnosis [facility] [address] [place] [id number] [address] [place] [address] January, [facility] [address] [id number] [address] [place] [address] January, [facility] [address] [facility] [id number] [address] [place] [address] Nov, Fever R50.9 and Influenza-li ke illness R69 [facility] [address] [facility] [id number] [address] [place] [address] Oct, Hyperthyroidism E05.90 [facility] [address] [id number] [address] [place] [address] 10 Oct, 2019 Hyperthyroidism E05.90 and E ncounter for immunization Z23 [facility] [address] [id number] [address] [place] [address] Oct, [place] [address] [address] Aug, [facility] [address] [address] Aug, Sore throat J02.9 and Strep pharyngitis J02.0 [facility] [address] [address] Aug, Sore throat J02.9 and Strep throat J02.0 [facility] [address] [address] Aug, Non-intractable vomiting wit h nausea, unspecified vomiting type R11.2 [facility] [address] [address] Aug, Migraine with aura and witho ut status migrainosus, not intractable G43.109 [facility] [address] [address] Jul, Graves disease E05.00 and So re throat J02.9 [facility] [place] [address] [address] Jun, Vaginal discharge N89.8 ; Un protected sexual intercourse Z72.51 and Bartholin cyst N75.0 [place] [address] [address] May, Ingrowing nail, left great t oe L60.0 [facility] [address] [address] May, Paronychia of great toe of r ight foot L03.031 [place] [address] [address] May, [place] [address] [address] May, Hyperthyroidism E05.90 and A nxiety F41.9 [place] [address] [address] Feb, [facility] [address] [address] Feb, Viral gastroenteritis A08.4 and Dehydration E86.0 [facility] [address] [address] Dec, Acute cyclitis H20.00 and Dy suria R30.0 [facility] [address] [address] Sep, Viral gastroenteritis A08.4 and Rash R21 [facility] [address] [address] 15 Aug, 2018 Eczema of left hand L30.9 [place] [address] [address] Aug, [place] [address] [address] Aug, [facility] [address] [address] 08 Jul, 2018 Nausea and vomiting during p regnancy O21.9 [place] [address] [address] Jul, [place] [address] [address] Jul, Encounter for test , result unknown Z32.00 [place] [address] [address] 28 May, 2018 Graves disease E05.00 [facility] [address] [address] 08 Feb, 2018 Dysuria R30.0 and Acute cyst itis with hematuria N30.01 [place] [address] [facility] [id number] [address] [place] [address] January, [place] [address] [place] [id number] [place] [address] Dec, Severe episode of recurrent major depressive disorder, without 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 [place] [address] [place] [id number] [address] [place] [address] Dec, [place] [address] [place] [id number] [place] [address] Dec, Severe episode of recurrent major depressive disorder, without 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 and Post traumatic stress disorder (PTSD) F43.10 [place] [address] [address] Nov, [place] [address] [place] [id number] [place] [address] Nov, Severe episode of recurrent major depressive disorder, without 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 and Post traumatic stress disorder (PTSD) F43.10 [place] [address] [place] [id number] [address] [place] [address] Oct, Encounter for counseling reg arding contraception Z30.09 ; Hyperthyroidism E05.90 and Chronic migraine G43.709 [facility] [address] [place] [id number] [address] [place] [address] Jul, Encounter for surveillance o f injectable contraceptive Z30.42 [facility] [address] [id number] [address] [place] [address] Jul, Sore throat J02.9 ; Other vi ral agents as the cause of diseases classified elsewhere B97.89 and Acute upper respiratory infection, unspecified J06.9 [facility] [address] [id number] [address] [place] [address] Jun, Visit for TB skin test Z11.1 [place] [address] [place] [id number] [address] [place] [address] May, Physical exam, routine Z00.0 0 [facility] [address] [facility] [id number] [address] [place] [address] May, Hyperthyroidism E05.90 and P ost traumatic stress disorder (PTSD) F43.10 [facility] [address] [facility] [id number] [address] [place] [address] Apr, Routine gynecological examin ation Z01.419 ; High risk sexual behavior Z72.51 ; Encounter for surveillance of injectable contraceptive Z30.42 ; Hyperthyroidism E05.90 and Encounter for Depo-Provera contraception Z30.42 [facility] [address] [facility] [id number] [address] [place] [address] Apr, Tinea corporis B35.4 [facility] [address] [place] [id number] [address] [place] [address] Mar, Thyrotoxicosis without thyro id storm, unspecified thyrotoxicosis type E05.90 [facility] [id number] [place] [address] Mar, [facility] [address] [id number] [address] [place] [address] Mar, [facility] [address] [id number] [place] [address] Mar, Post traumatic stress disord er (PTSD) F43.10 and Hyperthyroidism E05.90 [facility] [address] [id number] [address] [place] [address] Feb, Hyperthyroidism E05.90 ; Pos t traumatic stress disorder (PTSD) F43.10 and Overdose, intentional self-harm, subsequent encounter T50.902D [facility] [address] [id number] [address] [place] [address] January, Post traumatic stress disord er (PTSD) F43.10 [facility] [address] [id number] [address] [place] [address] Dec, Hx of migraines Z86.69 ; Ins ect bite (nonvenomous), left thigh, initial encounter S70.362A and Post traumatic stress disorder (PTSD) F43.10 [place] [address] [place] [id number] [address] [place] [address] Dec, [facility] [address] [id number] [address] [place] [address] Nov, [place] [address] [address] Nov, Adjustment disorder with dep ressed mood F43.21 and Major depression, recurrent F33.9 [place] [address] [address] Nov, Oral contraceptive pill surv eillance Z30.41 ; Routine screening for STI (sexually transmitted infection) Z11.3 ; Dysmenorrhea N94.6 ; Hx of migraines Z86.69 ; Deliberate self-cutting Z72.89 and Major depressive disorder, recurrent, moderate F33.1 [place] [address] [place] [id number] [address] [place] [address] Nov, [place] [address] [address] May, [facility] [address] [address] 17 May, 2015 [place] [address] [address] May, Migraine headache 346.90 and Abdominal pain 789.00 [place] [address] [place] [id number] [address] [place] [address] May, [place] [address] [place] [id number] [place] [address] Apr, Oligomenorrhea 626.1 and Scr eening for diabetes mellitus V77.1 [facility] [address] [place] [id number] [address] [place] [address] Apr, Oligomenorrhea 626.1 ; Dark urine 791.9 and Screening for diabetes mellitus V77.1 [facility] [address] [id number] [address] [place] [address] Feb, Bipolar disorder, unspecifie d 296.80 [facility] [address] [id number] [address] [place] [address] 14 Dec, 2014 [facility] [address] [id number] [address] [place] [address] Dec, [facility] [address] [id number] [address] [place] [address] Dec, [facility] [address] [id number] [address] [place] [address] Dec, [facility] [address] [facility] [id number] [address] [place] [address] Dec, [facility] [address] [id number] [address] [place] [address] Jul, [facility] [address] [id number] [address] [place] [address] Jul, [facility] [address] [id number] [address] [place] [address] Jul, [facility] [address] [facility] [id number] [address] [place] [address] Jul, [facility] [address] [id number] [address] [place] [address] Jun, [facility] [address] [id number] [address] [place] [address] May, [facility] [address] [id number] [address] [place] [address] Apr, [facility] [address] [id number] [address] [place] [address] Apr, [facility] [address] [id number] [address] [place] [address] Mar, [facility] [address] [id number] [address] [place] [address], [place] [address] Feb, [facility] [address] [id number] [address] [place] [address], [place] [address] Feb, [facility] [address] [id number] [address] [place] [address], [place] [address] Feb, [facility] [address] [id number] [address] [place] [address], [place] [address] January, [facility] [address] [id number] [address] [place] [address], [place] [address] January, [facility] [address] [id number] [address] [place] [address], [place] [address] Dec, [facility] [address] [id number] [address] [place] [address], [place] [address] Dec, [facility] [address] [id number] [address] [place] [address], [place] [address] Nov, [facility] [address] [id number] [address] [place] [address], [place] [address] Nov, [facility] [address] [id number] [address] [place] [address], [place] [address] Sep, [facility] [address] [id number] [address] [place] [address], [place] [address] Jun, [facility] [address] [id number] [address] [place] [address], [place] [address] Jun, [facility] [address] [id number] [address] [place] [address], [place] [address] May, [facility] [address] [id number] [address] [place] [address], [place] [address] Mar, [facility] [address] [id number] [address] [place] [address], [place] [address] Mar, [facility] [address] [id number] [address] [place] [address], [place] [address] 31 Mar, 2012 [facility] [address] [id number] [address] [place] [address], [place] [address] 30 Mar, 2012 [facility] [address] [id number] [address] [place] [address], [place] [address] 19 Feb, 2012 [facility] [address] [id number] [address] [place] [address], [place] [address] 19 Feb, 2012 [facility] [address] [id number] [address] [place] [address], [place] [address] 18 Feb, 2012 [facility] [address] [id number] [address] [place] [address], [place] [address] 13 Feb, 2012 [facility] [address] [id number] [address] [place] [address], [place] [address] Feb, [facility] [address] [id number] [address] [place] [address], [place] [address] January, [facility] [address] [id number] [address] [place] [address], [place] [address] January, [facility] [address] [id number] [address] [place] [address], [place] [address] January, [facility] [address] [id number] [address] [place] [address], [place] [address] January, [facility] [address] [id number] [address] [place] [address], [place] [address] January, [facility] [address] [id number] [address] [place] [address], [place] [address] Dec, [facility] [address] [id number] [address] [place] [address], [place] [address] Dec, [facility] [address] [id number] [address] [place] [address], [place] [address] Dec, [facility] [address] [id number] [address] [place] [address], [place] [address] Nov, [facility] [address] [id number] [address] [place] [address], [place] [address] Oct, [facility] [address] [id number] [address] [place] [address], [place] [address] Sep, [facility] [address] [id number] [address] [place] [address], [place] [address] Jul, [facility] [address] [id number] [address] [place] [address], [place] [address] Aug, [facility] [address] [id number] [address] [place] [address], [place] [address] Jul, [facility] [address] [id number] [address] [place] [address], [place] [address] Jun, [facility] [address] [id number] [address] [place] [address], [place] [address] Jun, [facility] [address] [id number] [address] [place] [address] Jul, [facility] [address] [id number] [address] [place] [address], [place] [address] Jul, [facility] [address] [id number] [address] [place] [address] Aug, [facility] [address] [id number] [address] [place] [address], [place] [address] Aug, [facility] [address] [id number] [address] [place] [address] Jul, [facility] [address] [id number] [address] [place] [address], [place] [address] Jul, [facility] [address] [id number] [address] [place] [address] Apr, [facility] [address] [id number] [address] [place] [address], [place] [address] 16 Oct, 2004 [facility] [address] [id number] [address] [place] [address] Jul, [facility] [address] [facility] [id number] [address] [place] [address] Apr, IMMUNIZATIONS No Known Immunizations SOCIAL HISTORY Never Assessed REASON FOR VISIT PLAN OF CARE VITAL SIGNS Height 64 in 2013-08-04 Weight 151.3 lbs 2013-08-04 Temperature 99.1 degrees Fahrenheit 2013-08-04 Heart Rate 80 bpm 2013-08-04 Respiratory Rate 16 2013-08-04 Blood pressure systolic 96 mmHg 2013-08-04 Blood pressure diastolic 54 mmHg 2013-08-04 MEDICATIONS Unknown Medications RESULTS No Results PROCEDURES Procedure Date Ordered Result Body Site STREP A ASSAY W/OPTIC Aug 04, 2013 INSTRUCTIONS MEDICATIONS ADMINISTERED No Known Medications MEDICAL (GENERAL) HISTORY Type Description Date Medical History migraine headaches Medical History Unspecified episodic mood disorder Medical History Posttraumatic stress disorder Medical History Deliberate self-cutting Medical History Dysmenorrhea Medical History Overdose Zoloft 2016 Medical History Hyperthyroidism Medical History Gaves disease Medical History A- Surgical History thyroid removal 11/2019 Hospitalization History rule out appendicitis 2007 Hospitalization History [facility] 2016 Hospitalization History [facility] Hyperthyroidism and overdose on Z oloft 02-23-2017 Hospitalization History [facility] X1 night for 03-05-2019
--- OUTSIDE RECORDS SUMMARY | 2020-03-04 23:26 | XMS REPORT ---
Author Author Jj Cruz Doctor Organization [facility] Address Unknown Phone Unavailable Care Team Providers Care Pet Adoption Counselor Name Role Phone Migration, Doctor Unavailable Unavailable PROBLEMS Type Condition ICD9-CM Code [id number] Code Onset Dates Condition S tatus SNOMED Code Problem Post traumatic stress disorder (PTSD) F43.10 Active 48516188 Problem Hyperthyroidism E05.90 Active 3448 6009 Problem Migraine with aura and without status migrainosu s, not intractable G43.109 Active 2549132 Problem Migraine with aura and without status migrainosu s, not intractable G43.109 Active 7389453 Problem Chronic migraine G43.709 Active 377 10148 Problem Severe episode of recurrent major depressive disorder, without 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 Active 87387973 Problem Graves disease E05.00 Active 42315 5004 Problem Anxiety F41.9 Active [id number] ALLERGIES No Information ENCOUNTERS Encounter Location Date Diagnosis [facility] [address] [address] January, [facility] [address] [address] Nov, Fever R50.9 and Influenza-li ke illness R69 [facility] [address] [place] [id number] [address] [place] [id number] 19 Oct, 2019 Hyperthyroidism E05.90 [facility] [address] [place] [id number] [address] [place] [address] 10 Oct, 2019 Hyperthyroidism E05.90 and E ncounter for immunization Z23 [facility] [address] [id number] [address] [place] [address] 06 Oct, 2019 [facility] [address] [id number] [place] [address] Aug, [facility] [address] [address] 16 Aug, 2019 Sore throat J02.9 and Strep pharyngitis J02.0 [facility] [address] [address] Aug, Sore throat J02.9 and Strep throat J02.0 [facility] [address] [address] Aug, Non-intractable vomiting wit h nausea, unspecified vomiting type R11.2 [facility] [address] [address] Aug, Migraine with aura and witho ut status migrainosus, not intractable G43.109 [facility] [address] [address] Jul, Graves disease E05.00 and So re throat J02.9 [facility] [address] [address] Jun, Vaginal discharge N89.8 ; Un protected sexual intercourse Z72.51 and Bartholin cyst N75.0 [place] [address] [address] May, Ingrowing nail, left great t oe L60.0 [facility] [place] [address] [address] May, Paronychia of great toe of r ight foot L03.031 [place] [address] [address] May, [place] [address] [address] May, Hyperthyroidism E05.90 and A nxiety F41.9 [place] [address] [address] Feb, [facility] [address] [place] [address] [id number] [address] [place] [address] Feb, Viral gastroenteritis A08.4 and Dehydration E86.0 [facility] [address] [place] [id number] [place] [address] Dec, Acute cyclitis H20.00 and Dy suria R30.0 [facility] [address] [place] [id number] [place] [address] Sep, Viral gastroenteritis A08.4 and Rash R21 [facility] [address] [place] [id number] [place] [address] Aug, Eczema of left hand L30.9 [place] [address] [address] Aug, [place] [address] [address] Aug, [facility] [address] [address] Jul, Nausea and vomiting during p regnancy O21.9 [place] [address] [address] Jul, [place] [address] [address] Jul, Encounter for test , result unknown Z32.00 [place] [address] [address] May, Graves disease E05.00 [facility] [address] [address] Feb, Dysuria R30.0 and Acute cyst itis with hematuria N30.01 [facility] [address] [address] January, [place] [address] [address] Dec, Severe episode of recurrent major depressive disorder, without 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 [facility] [address] [facility] [id number] [address] [place] [address] Dec, [place] [address] [place] [id number] [address] [place] [address] Dec, Severe episode of recurrent major depressive disorder, without 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 and Post traumatic stress disorder (PTSD) F43.10 [place] [address] [place] [id number] [place] [address] Nov, [place] [address] [place] [id number] [place] [address] Nov, Severe episode of recurrent major depressive disorder, without 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 and Post traumatic stress disorder (PTSD) F43.10 [place] [address] [address] Oct, Encounter for counseling reg arding contraception Z30.09 ; Hyperthyroidism E05.90 and Chronic migraine G43.709 [facility] [address] [place] [id number] [place] [address] Jul, Encounter for surveillance o f injectable contraceptive Z30.42 [facility] [address] [place] [id number] [place] [id number] 17 Jul, 2017 Sore throat J02.9 ; Other vi ral agents as the cause of diseases classified elsewhere B97.89 and Acute upper respiratory infection, unspecified J06.9 [facility] [address] [place] [id number] [place] [address] Jun, Visit for TB skin test Z11.1 [place] [address] [address] May, Physical exam, routine Z00.0 0 [place] [address] [place] [id number] [place] [address] May, Hyperthyroidism E05.90 and P ost traumatic stress disorder (PTSD) F43.10 [place] [address] [place] [id number] [place] [address] 16 Apr, 2017 Routine gynecological examin ation Z01.419 ; High risk sexual behavior Z72.51 ; Encounter for surveillance of injectable contraceptive Z30.42 ; Hyperthyroidism E05.90 and Encounter for Depo-Provera contraception Z30.42 [facility] [address] [address] Apr, Tinea corporis B35.4 [place] [address] [address] Mar, Thyrotoxicosis without thyro id storm, unspecified thyrotoxicosis type E05.90 [place] [address] [address] Mar, [place] [address] [address] Mar, [place] [address] [address] Mar, Post traumatic stress disord er (PTSD) F43.10 and Hyperthyroidism E05.90 [place] [address] [address] 13 Feb, 2017 Hyperthyroidism E05.90 ; Pos t traumatic stress disorder (PTSD) F43.10 and Overdose, intentional self-harm, subsequent encounter T50.902D [place] [address] [address] January, Post traumatic stress disord er (PTSD) F43.10 [place] [address] [address] 18 Dec, 2016 Hx of migraines Z86.69 ; Ins ect bite (nonvenomous), left thigh, initial encounter S70.362A and Post traumatic stress disorder (PTSD) F43.10 [place] [address] [address] Dec, [place] [address] [address] Nov, [place] [address] [address] Nov, Adjustment disorder with dep ressed mood F43.21 and Major depression, recurrent F33.9 [place] [address] [address] Nov, Oral contraceptive pill surv eillance Z30.41 ; Routine screening for STI (sexually transmitted infection) Z11.3 ; Dysmenorrhea N94.6 ; Hx of migraines Z86.69 ; Deliberate self-cutting Z72.89 and Major depressive disorder, recurrent, moderate F33.1 [place] [address] [address] Nov, [place] [address] [address] May, [place] [address] [address] 17 May, 2015 [place] [address] [address] 15 May, 2015 Migraine headache 346.90 and Abdominal pain 789.00 [place] [address] [address] May, [place] [address] [address] Apr, Oligomenorrhea 626.1 and Scr eening for diabetes mellitus V77.[address] [address] Apr, Oligomenorrhea 626.1 ; Dark urine 791.9 and Screening for diabetes mellitus V77.1 [place] [address] [address] Feb, Bipolar disorder, unspecifie d 296.80 [facility] [address] [id number] [address] [place] [address], [place] [address] 14 Dec, 2014 [facility] [address] [id number] [address] [place] [address], [place] [address] 13 Dec, 2014 [facility] [address] [id number] [address] [place] [address], [place] [address] 11 Dec, 2013 [facility] [address] [id number] [address] [place] [address], [place] [address] Dec, [facility] [address] [id number] [address] [place] [address], [place] [address] Dec, [facility] [address] [id number] [address] [place] [address], [place] [address] Jul, [facility] [address] [id number] [address] [place] [address], [place] [address] Jul, [facility] [address] [id number] [address] [place] [address] Jul, [facility] [address] [id number] [address] [place] [address], [place] [address] Jul, [facility] [address] [id number] [address] [place] [address] Jun, [facility] [address] [id number] [address] [place] [address] 30 May, 2013 [facility] [address] [id number] [address] [place] [address] Apr, [facility] [address] [id number] [address] [place] [address], [place] [address] Apr, [facility] [address] [id number] [address] [place] [address] 24 Mar, 2013 [facility] [address] [id number] [address] [place] [address] Feb, [facility] [address] [id number] [address] [place] [address], [place] [address] Feb, [facility] [address] [id number] [address] [place] [address], [place] [address] Feb, [facility] [address] [id number] [address] [place] [address], [place] [address] January, [facility] [address] [id number] [address] [place] [address], [place] [address] January, [facility] [address] [id number] [address] [place] [address], [place] [address] Dec, [facility] [address] [id number] [address] [place] [address], [place] [address] Dec, [facility] [address] [id number] [address] [place] [address], [place] [address] Nov, [facility] [address] [id number] [address] [place] [address], [place] [address] Nov, [facility] [address] [id number] [address] [place] [address], [place] [address] Sep, [facility] [address] [id number] [address] [place] [address], [place] [address] Jun, [facility] [address] [id number] [address] [place] [address], [place] [address] Jun, [facility] [address] [id number] [address] [place] [address], [place] [address] May, [facility] [address] [id number] [address] [place] [address], [place] [address] Mar, [facility] [address] [id number] [address] [place] [address], [place] [address] Mar, [facility] [address] [id number] [address] [place] [address], [place] [address] Mar, [facility] [address] [id number] [address] [place] [address], [place] [address] Mar, [facility] [address] [id number] [address] [place] [address], [place] [address] Feb, [facility] [address] [id number] [address] [place] [address], [place] [address] 19 Feb, 2012 [facility] [address] [id number] [address] [place] [address], [place] [address] 18 Feb, 2012 [facility] [address] [id number] [address] [place] [address], [place] [address] 13 Feb, 2012 [facility] [address] [id number] [address] [place] [address], [place] [address] Feb, [facility] [address] [id number] [address] [place] [address], [place] [address] January, [facility] [address] [id number] [address] [place] [address], [place] [address] January, [facility] [address] [id number] [address] [place] [address], [place] [address] January, [facility] [address] [id number] [address] [place] [address], [place] [address] January, [facility] [address] [id number] [address] [place] [address], [place] [address] January, [facility] [address] [id number] [address] [place] [address], [place] [address] Dec, [facility] [address] [id number] [address] [place] [address], [place] [address] Dec, [facility] [address] [id number] [address] [place] [address], [place] [address] Dec, [facility] [address] [id number] [address] [place] [address], [place] [address] Nov, [facility] [address] [id number] [address] [place] [address], [place] [address] Oct, [facility] [address] [id number] [place] [address] Sep, [facility] [address] [id number] [address] [place] [address] Jul, [facility] [address] [id number] [address] [place] [address] Aug, [facility] [address] [id number] [address] [place] [id number] Jul, [facility] [address] [id number] [address] [place] [address] Jun, [facility] [address] [id number] [address] [place] [address] Jun, [facility] [address] [id number] [address] [place] [phone] Jul, [facility] [address] [id number] [address] [place] [address] Jul, [facility] [address] [id number] [address] [place] [phone] Aug, [facility] [address] [id number] [address] [place] [phone] Aug, [facility] [address] [id number] [address] [place] [id number] Jul, [facility] [address] [id number] [address] [place] [address] Jul, [facility] [address] [id number] [address] [place] [phone] Apr, [facility] [address] [id number] [address] [place] [id number] Oct, [facility] [address] [id number] [address] [place] [phone] Jul, [facility] [address] [id number] [address] [place] [id number] Apr, IMMUNIZATIONS No Known Immunizations SOCIAL HISTORY Never Assessed REASON FOR VISIT PLAN OF CARE VITAL SIGNS MEDICATIONS Unknown [...] removal 11/2019 Hospitalization History rule out appendicitis 2006 Hospitalization History [facility] 2016 Hospitalization History [facility] Hyperthyroidism and overdose on Z oloft 02-23-2017 Hospitalization History [facility] X1 night for 03-05-2019
--- OUTSIDE RECORDS SUMMARY | 2020-03-04 23:26 | XMS REPORT ---
Author Author Jj Cruz Doctor Organization [facility] Address Unknown Phone Unavailable Care Team Providers Care Manager Hvac Name Role Phone Migration, Doctor Unavailable Unavailable PROBLEMS Type Condition ICD9-CM Code XSY09-CI Code Onset Dates Condition S tatus SNOMED Code Problem Post traumatic stress disorder (PTSD) F43.10 Active 49558913 Problem Hyperthyroidism E05.90 Active 3448 6009 Problem Migraine with aura and without status migrainosu s, not intractable G43.109 Active 2178328 Problem Migraine with aura and without status migrainosu s, not intractable G43.109 Active 5811696 Problem Chronic migraine G43.709 Active 377 98352 Problem Severe episode of recurrent major depressive disorder, without 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 Active 20254132 Problem Graves disease E05.00 Active 77880 5004 Problem Anxiety F41.9 Active [id number] ALLERGIES No Information ENCOUNTERS Encounter Location Date Diagnosis [facility] [address] [address] January, [facility] [address] [address] Nov, Fever R50.9 and Influenza-li ke illness R69 [facility] [address] [place] [id number] [address] [place] [address] 19 Oct, 2019 Hyperthyroidism E05.90 [facility] [address] [place] [id number] [address] [place] [address] 10 Oct, 2019 Hyperthyroidism E05.90 and E ncounter for immunization Z23 [facility] [id number] [address] [place] [address] 06 Oct, 2019 [facility] [address] [id number] [address] [place] [address] Aug, [facility] [address] [address] 16 Aug, 2019 Sore throat J02.9 and Strep pharyngitis J02.0 [facility] [address] [address] Aug, Sore throat J02.9 and Strep throat J02.0 [facility] [address] [address] Aug, Non-intractable vomiting wit h nausea, unspecified vomiting type R11.2 [facility] [address] [address] Aug, Migraine with aura and witho ut status migrainosus, not intractable G43.109 [facility] [address] [address] Jul, Graves disease E05.00 and So re throat J02.9 [facility] [address] [address] Jun, Vaginal discharge N89.8 ; Un protected sexual intercourse Z72.51 and Bartholin cyst N75.0 [place] [address] [address] May, Ingrowing nail, left great t oe L60.0 [facility] [place] [address] [address] May, Paronychia of great toe of r ight foot L03.031 [place] [address] [address] May, [place] [address] [address] May, Hyperthyroidism E05.90 and A nxiety F41.9 [place] [address] [address] Feb, [facility] [id number] [address] [place] [address] Feb, Viral gastroenteritis A08.4 and Dehydration E86.0 [facility] [address] [place] [id number] [place] [address] Dec, Acute cyclitis H20.00 and Dy suria R30.0 [facility] [address] [place] [id number] [place] [address] Sep, Viral gastroenteritis A08.4 and Rash R21 [facility] [address] [place] [id number] [place] [address] Aug, Eczema of left hand L30.9 [place] [address] [address] Aug, [place] [address] [address] Aug, [facility] [address] [address] Jul, Nausea and vomiting during p regnancy O21.9 [place] [address] [address] Jul, [place] [address] [address] Jul, Encounter for test , result unknown Z32.00 [place] [address] [address] May, Graves disease E05.00 [facility] [address] [address] Feb, Dysuria R30.0 and Acute cyst itis with hematuria N30.01 [facility] [address] [address] January, [place] [address] [address] Dec, Severe episode of recurrent major depressive disorder, without 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 [facility] [address] [facility] [id number] [address] [place] [address] Dec, [place] [address] [place] [id number] [address] [place] [address] Dec, Severe episode of recurrent major depressive disorder, without 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 and Post traumatic stress disorder (PTSD) F43.10 [place] [address] [place] [id number] [place] [address] Nov, [place] [address] [place] [id number] [place] [address] Nov, Severe episode of recurrent major depressive disorder, without 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 and Post traumatic stress disorder (PTSD) F43.10 [place] [address] [address] Oct, Encounter for counseling reg arding contraception Z30.09 ; Hyperthyroidism E05.90 and Chronic migraine G43.709 [facility] [address] [id number] [place] [address] Jul, Encounter for surveillance o f injectable contraceptive Z30.42 [facility] [address] [place] [id number] [address] [place] [address] 17 Jul, 2017 Sore throat J02.9 ; Other vi ral agents as the cause of diseases classified elsewhere B97.89 and Acute upper respiratory infection, unspecified J06.9 [facility] [address] [place] [id number] [address] [place] [address] Jun, Visit for TB skin test Z11.1 [place] [address] [address] May, Physical exam, routine Z00.0 0 [place] [address] [place] [id number] [place] [address] May, Hyperthyroidism E05.90 and P ost traumatic stress disorder (PTSD) F43.10 [place] [address] [place] [id number] [place] [address] 16 Apr, 2017 Routine gynecological examin ation Z01.419 ; High risk sexual behavior Z72.51 ; Encounter for surveillance of injectable contraceptive Z30.42 ; Hyperthyroidism E05.90 and Encounter for Depo-Provera contraception Z30.42 [facility] [address] [address] Apr, Tinea corporis B35.4 [place] [address] [address] Mar, Thyrotoxicosis without thyro id storm, unspecified thyrotoxicosis type E05.90 [place] [address] [address] Mar, [place] [address] [address] Mar, [place] [address] [address] Mar, Post traumatic stress disord er (PTSD) F43.10 and Hyperthyroidism E05.90 [place] [address] [address] 13 Feb, 2017 Hyperthyroidism E05.90 ; Pos t traumatic stress disorder (PTSD) F43.10 and Overdose, intentional self-harm, subsequent encounter T50.902D [place] [address] [address] January, Post traumatic stress disord er (PTSD) F43.10 [place] [address] [address] 18 Dec, 2016 Hx of migraines Z86.69 ; Ins ect bite (nonvenomous), left thigh, initial encounter S70.362A and Post traumatic stress disorder (PTSD) F43.10 [place] [address] [address] Dec, [place] [address] [address] Nov, [place] [address] [address] Nov, Adjustment disorder with dep ressed mood F43.21 and Major depression, recurrent F33.9 [place] [address] [address] Nov, Oral contraceptive pill surv eillance Z30.41 ; Routine screening for STI (sexually transmitted infection) Z11.3 ; Dysmenorrhea N94.6 ; Hx of migraines Z86.69 ; Deliberate self-cutting Z72.89 and Major depressive disorder, recurrent, moderate F33.1 [place] [address] [address] Nov, [place] [address] [address] May, [place] [address] [address] 17 May, 2015 [place] [address] [address] 15 May, 2015 Migraine headache 346.90 and Abdominal pain 789.00 [place] [address] [address] May, [place] [address] [address] Apr, Oligomenorrhea 626.1 and Scr eening for diabetes mellitus V77.[address] [address] Apr, Oligomenorrhea 626.1 ; Dark urine 791.9 and Screening for diabetes mellitus V77.1 [place] [address] [address] Feb, Bipolar disorder, unspecifie d 296.80 [facility] [address] [id number] [address] [place] [address], [place] [address] 14 Dec, 2014 [facility] [address] [id number] [address] [place] [address], [place] [address] 13 Dec, 2014 [facility] [address] [id number] [address] [place] [address], [place] [address] 11 Dec, 2013 [facility] [address] [id number] [address] [place] [address], [place] [address] Dec, [facility] [address] [id number] [address] [place] [address], [place] [address] Dec, [facility] [address] [id number] [address] [place] [address], [place] [address] Jul, [facility] [address] [id number] [address] [place] [address], [place] [address] Jul, [facility] [address] [id number] [address] [place] [address] Jul, [facility] [address] [id number] [address] [place] [address], [place] [address] Jul, [facility] [address] [id number] [address] [place] [address] Jun, [facility] [address] [id number] [address] [place] [address] 30 May, 2013 [facility] [address] [id number] [address] [place] [address] Apr, [facility] [address] [id number] [address] [place] [address], [place] [address] Apr, [facility] [address] [id number] [address] [place] [address] 24 Mar, 2013 [facility] [address] [id number] [address] [place] [address] Feb, [facility] [address] [id number] [address] [place] [address], [place] [address] Feb, [facility] [address] [id number] [address] [place] [address], [place] [address] Feb, [facility] [address] [id number] [address] [place] [address], [place] [address] January, [facility] [address] [id number] [address] [place] [address], [place] [address] January, [facility] [address] [id number] [address] [place] [address], [place] [address] Dec, [facility] [address] [id number] [address] [place] [address], [place] [address] Dec, [facility] [address] [id number] [address] [place] [address], [place] [address] Nov, [facility] [address] [id number] [address] [place] [address], [place] [address] Nov, [facility] [address] [id number] [address] [place] [address], [place] [address] Sep, [facility] [address] [id number] [address] [place] [address], [place] [address] Jun, [facility] [address] [id number] [address] [place] [address], [place] [address] Jun, [facility] [address] [id number] [address] [place] [address], [place] [address] May, [facility] [address] [id number] [address] [place] [address], [place] [address] Mar, [facility] [address] [id number] [address] [place] [address], [place] [address] Mar, [facility] [address] [id number] [address] [place] [address], [place] [address] Mar, [facility] [address] [id number] [address] [place] [address], [place] [address] Mar, [facility] [address] [id number] [address] [place] [address], [place] [address] Feb, [facility] [address] [id number] [address] [place] [address], [place] [address] 19 Feb, 2012 [facility] [address] [id number] [address] [place] [address], [place] [address] 18 Feb, 2012 [facility] [address] [id number] [address] [place] [address], [place] [address] 13 Feb, 2012 [facility] [address] [id number] [address] [place] [address], [place] [address] Feb, [facility] [address] [id number] [address] [place] [address], [place] [address] January, [facility] [address] [id number] [address] [place] [address], [place] [address] January, [facility] [address] [id number] [address] [place] [address], [place] [address] January, [facility] [address] [id number] [address] [place] [address], [place] [address] January, [facility] [address] [id number] [address] [place] [address], [place] [address] January, [facility] [address] [id number] [address] [place] [address], [place] [address] Dec, [facility] [address] [id number] [address] [place] [address], [place] [address] Dec, [facility] [address] [id number] [address] [place] [address], [place] [address] Dec, [facility] [address] [id number] [address] [place] [address], [place] [address] Nov, [facility] [address] [id number] [address] [place] [address], [place] [address] Oct, [facility] [address] [id number] [place] [address] Sep, [facility] [address] [id number] [address] [place] [address] Jul, [facility] [address] [id number] [address] [place] [address] Aug, [facility] [address] [id number] [address] [place] [address] Jul, [facility] [address] [id number] [address] [place] [address] Jun, [facility] [address] [id number] [address] [place] [address] Jun, [facility] [address] [id number] [address] [place] [address] Jul, [facility] [address] [id number] [address] [place] [address] Jul, [facility] [address] [id number] [address] [place] [address] Aug, [facility] [address] [id number] [address] [place] [address] Aug, [facility] [address] [id number] [address] [place] [address] Jul, [facility] [address] [id number] [address] [place] [address] Jul, [facility] [address] [id number] [address] [place] [address] Apr, [facility] [address] [id number] [address] [place] [address] Oct, [facility] [address] [id number] [address] [place] [address] Jul, [facility] [address] [id number] [address] [place] [address] Apr, IMMUNIZATIONS No Known Immunizations SOCIAL HISTORY Never Assessed REASON FOR VISIT PLAN OF CARE VITAL SIGNS Height 63 in 2012-03-11 Weight 126 lbs 2012-03-11 Heart Rate 80 bpm 2012-03-11 Respiratory Rate 20 2012-03-11 Blood pressure systolic 102 mmHg 2012-03-11 Blood pressure diastolic 72 mmHg 2012-03-11 MEDICATIONS Unknown Medications RESULTS No Results PROCEDURES [...]
--- OUTSIDE RECORDS SUMMARY | 2020-03-04 23:26 | XMS REPORT ---
Author Author Jj Cruz Doctor Organization [facility] Address Unknown Phone Unavailable Care Team Providers Care Oxygen Equipment Aide Name Role Phone Migration, Doctor Unavailable Unavailable PROBLEMS Type Condition ICD9-CM Code [id number] Code Onset Dates Condition S tatus SNOMED Code Problem Post traumatic stress disorder (PTSD) F43.10 Active 29353725 Problem Hyperthyroidism E05.90 Active 3448 6009 Problem Migraine with aura and without status migrainosu s, not intractable G43.109 Active 7360823 Problem Migraine with aura and without status migrainosu s, not intractable G43.109 Active 1567115 Problem Chronic migraine G43.709 Active 377 45264 Problem Severe episode of recurrent major depressive disorder, without 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 Active 99844344 Problem Graves disease E05.00 Active 79868 5004 Problem Anxiety F41.9 Active [id number] ALLERGIES No Information ENCOUNTERS Encounter Location Date Diagnosis [facility] [address] [place] [address] January, [facility] [address] [place] [id number] [address] [place] [address] 04 Jan, 2020 [facility] [address] [place] [id number] [address] [place] [address] Nov, Fever R50.9 and Influenza-li ke illness R69 [facility] [address] [facility] [id number] [address] [place] [address] 19 Oct, 2019 Hyperthyroidism E05.90 [facility] [address] [id number] [address] [place] [address] 10 Oct, 2019 Hyperthyroidism E05.90 and E ncounter for immunization Z23 [facility] [address] [id number] [place] [address] 06 Oct, 2019 [facility] [address] [address] Aug, [facility] [place]note 2] [address] [address] Aug, Sore throat J02.9 and Strep pharyngitis J02.0 [facility] [place]note 2] [address] [address] Aug, Sore throat J02.9 and Strep throat J02.0 [facility] [place]note 2] [address] [address] Aug, Non-intractable vomiting wit h nausea, unspecified vomiting type R11.2 [facility] [place]note 2] [address] [address] Aug, Migraine with aura and witho ut status migrainosus, not intractable G43.109 [facility] [place]note 2] [address] [address] Jul, Graves disease E05.00 and So re throat J02.9 [facility] [place] [address] [address] Jun, Vaginal discharge N89.8 ; Un protected sexual intercourse Z72.51 and Bartholin cyst N75.0 [place] [address] [address] May, Ingrowing nail, left great t oe L60.0 [facility] [place]note 2] [address] [address] May, Paronychia of great toe of r ight foot L03.031 [place] [address] [address] May, [place] [address] [address] 04 May, 2019 Hyperthyroidism E05.90 and A nxiety F41.9 [place] [address] [address] Feb, [facility] [address] [address] Feb, Viral gastroenteritis A08.4 and Dehydration E86.0 [facility] [address] [address] Dec, Acute cyclitis H20.00 and Dy suria R30.0 [facility] [address] Sep, Viral gastroenteritis A08.4 and Rash R21 [facility] [place]note 2[facility] [address] [address] 15 Aug, 2018 Eczema of left hand L30.9 [place] [address] [address] 07 Aug, 2018 [place] [address] [address] 2018 [facility] [place]note 2] [address] [address] 08 Jul, 2018 Nausea and vomiting during p regnancy O21.9 [place] [address] [address] 07 Jul, 2018 [place] [address] [address] Jul, Encounter for test , result unknown Z32.00 [place] [address] [address] May, Graves disease E05.00 [facility] [place]note 2[facility] [address] [address] 08 Feb, 2018 Dysuria R30.0 and Acute cyst itis with hematuria N30.01 [place] [address] [address] January, [facility] [address] [place] [address] Dec, Severe episode of recurrent major depressive disorder, without 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 [facility] [address] [place] [id number] [address] [place] [address] Dec, [facility] [address] [address] Dec, Severe episode of recurrent major depressive disorder, without 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 and Post traumatic stress disorder (PTSD) F43.10 [facility] [address] [address] Nov, [place] [address] [address] Nov, Severe episode of recurrent major depressive disorder, without 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 and Post traumatic stress disorder (PTSD) F43.10 [place] [address] [address] Oct, Encounter for counseling reg arding contraception Z30.09 ; Hyperthyroidism E05.90 and Chronic migraine G43.709 [place] [address] [place] [id number] [place] [address] Jul, Encounter for surveillance o f injectable contraceptive Z30.42 [facility] [address] [id number] [place] [address] Jul, Sore throat J02.9 ; Other vi ral agents as the cause of diseases classified elsewhere B97.89 and Acute upper respiratory infection, unspecified J06.9 [facility] [address] [address] Jun, Visit for TB skin test Z11.1 [place] [address] [address] May, Physical exam, routine Z00.0 0 [place] [address] [place] [address] May, Hyperthyroidism E05.90 and P ost traumatic stress disorder (PTSD) F43.10 [facility] [address] [address] 16 Apr, 2017 Routine gynecological examin ation Z01.419 ; High risk sexual behavior Z72.51 ; Encounter for surveillance of injectable contraceptive Z30.42 ; Hyperthyroidism E05.90 and Encounter for Depo-Provera contraception Z30.42 [facility] [address] [address] Apr, Tinea corporis B35.4 [facility] [address] [address] Mar, Thyrotoxicosis without thyro id storm, unspecified thyrotoxicosis type E05.90 [place] [address] [address] Mar, [place] [address] [address] Mar, [facility] [address] [address] Mar, Post traumatic stress disord er (PTSD) F43.10 and Hyperthyroidism E05.90 [facility] [address] [address] Feb, Hyperthyroidism E05.90 ; Pos t traumatic stress disorder (PTSD) F43.10 and Overdose, intentional self-harm, subsequent encounter T50.902D [facility] [address] [place] [id number] [place] [address] January, Post traumatic stress disord er (PTSD) F43.10 [place] [address] [address] 18 Dec, 2016 Hx of migraines Z86.69 ; Ins ect bite (nonvenomous), left thigh, initial encounter S70.362A and Post traumatic stress disorder (PTSD) F43.10 [facility] [address] [place] [id number] [address] [place] [address] Dec, [facility] [address] [address] 29 Nov, 2016 [place] [address] [address] 10 Nov, 2015 Adjustment disorder with dep ressed mood F43.21 and Major depression, recurrent F33.9 [place] [address] [address] 10 Nov, 2015 Oral contraceptive pill surv eillance Z30.41 ; Routine screening for STI (sexually transmitted infection) Z11.3 ; Dysmenorrhea N94.6 ; Hx of migraines Z86.69 ; Deliberate self-cutting Z72.89 and Major depressive disorder, recurrent, moderate F33.1 [place] [address] [address] Nov, [place] [address] [place] [id number] [place] [address] May, [place] [address] [address] 17 May, 2015 [place] [address] [address] 15 May, 2015 Migraine headache 346.90 and Abdominal pain 789.00 [place] [address] [place] [id number] [place] [address] 14 May, 2015 [place] [address] [address] Apr, Oligomenorrhea 626.1 and Scr eening for diabetes mellitus V77.1 [place] [address] [place] [id number] [address] [place] [address] Apr, Oligomenorrhea 626.1 ; Dark urine 791.9 and Screening for diabetes mellitus V77.1 [facility] [address] [id number] [address] [place] [address], [place] [address] Feb, Bipolar disorder, unspecifie d 296.80 [facility] [address] [id number] [address] [place] [address], [place] [address] 14 Dec, 2014 [facility] [address] [id number] [address] [place] [address], [place] [address] Dec, [facility] [address] [id number] [address] [place] [address], [place] [address] Dec, [facility] [address] [id number] [address] [place] [address], [place] [address] Dec, [facility] [address] [id number] [address] [place] [address], [place] [address] Dec, [facility] [address] [id number] [address] [place] [address], [place] [address] Jul, [facility] [address] [id number] [address] [place] [address] Jul, [facility] [address] [id number] [address] [place] [address], [place] [address] Jul, [facility] [address] [id number] [address] [place] [address] Jul, [facility] [address] [id number] [address] [place] [address] Jun, [facility] [address] [id number] [address] [place] [address] May, [facility] [address] [id number] [address] [place] [address], [place] [address] Apr, [facility] [address] [id number] [address] [place] [address] Apr, [facility] [address] [id number] [address] [place] [address], [place] [address] Mar, [facility] [address] [id number] [address] [place] [address], [place] [address] Feb, [facility] [address] [id number] [address] [place] [address], [place] [address] Feb, [facility] [address] [id number] [address] [place] [address], [place] [address] Feb, [facility] [address] [id number] [address] [place] [address], [place] [address] January, [facility] [address] [id number] [address] [place] [address], [place] [address] January, [facility] [address] [id number] [address] [place] [address], [place] [address] Dec, [facility] [address] [id number] [address] [place] [address], [place] [address] Dec, [facility] [address] [id number] [address] [place] [address], [place] [address] Nov, [facility] [address] [id number] [address] [place] [address], [place] [address] Nov, [facility] [address] [id number] [address] [place] [address], [place] [address] Sep, [facility] [address] [id number] [address] [place] [address], [place] [address] Jun, [facility] [address] [id number] [address] [place] [address], [place] [address] Jun, [facility] [address] [id number] [address] [place] [address], [place] [address] May, [facility] [address] [id number] [address] [place] [address], [place] [address] Mar, [facility] [address] [id number] [address] [place] [address], [place] [address] Mar, [facility] [address] [id number] [address] [place] [address], [place] [address] Mar, [facility] [address] [id number] [address] [place] [address], [place] [address] 30 Mar, 2012 [facility] [address] [id number] [address] [place] [address], [place] [address] Feb, [facility] [address] [id number] [address] [place] [address], [place] [address] Feb, [facility] [address] [id number] [address] [place] [address], [place] [address] Feb, [facility] [address] [id number] [address] [place] [address], [place] [address] Feb, [facility] [address] [id number] [address] [place] [address], [place] [address] Feb, [facility] [address] [id number] [address] [place] [address], [place] [address] January, [facility] [address] [id number] [address] [place] [address], [place] [address] January, [facility] [address] [id number] [address] [place] [address], [place] [address] January, [facility] [address] [id number] [address] [place] [address], [place] [address] January, [facility] [address] [id number] [address] [place] [address], [place] [address] January, [facility] [address] [id number] [address] [place] [address], [place] [address] Dec, [facility] [address] [id number] [address] [place] [address], [place] [address] Dec, [facility] [address] [id number] [address] [place] [address], [place] [address] Dec, [facility] [address] [id number] [address] [place] [address], [place] [address] Nov, [facility] [address] [id number] [address] [place] [address], [place] [address] Oct, [facility] [address] [id number] [address] [place] [address], [place] [address] Sep, [facility] [address] [id number] [address] [place] [address], [place] [address] Jul, [facility] [address] [id number] [address] [place] [address] Aug, [facility] [address] [id number] [address] [place] [address] Jul, [facility] [address] [id number] [address] [place] [address], [place] [address] Jun, [facility] [address] [id number] [address] [place] [address] Jun, [facility] [address] [id number] [address] [place] [address], [place] [address] Jul, [facility] [address] [id number] [address] [place] [address] Jul, [facility] [address] [id number] [address] [place] [address] Aug, [facility] [address] [id number] [address] [place] [address] Aug, [facility] [address] [id number] [address] [place] [address] Jul, [facility] [address] [id number] [address] [place] [address] Jul, [facility] [address] [id number] [address] [place] [address], [place] [address] Apr, [facility] [address] [id number] [address] [place] [address] Oct, [facility] [address] [id number] [address] [place] [address] Jul, [facility] [address] [id number] [address] [place] [address] Apr, IMMUNIZATIONS No Known Immunizations SOCIAL HISTORY [...]
--- OUTSIDE RECORDS SUMMARY | 2020-03-04 23:26 | XMS REPORT ---
Author Author Jj Cruz Doctor Organization [facility] Address Unknown Phone Unavailable Care Team Providers Care Guidance Secretary Name Role Phone Migration, Doctor Unavailable Unavailable PROBLEMS Type Condition ICD9-CM Code DTM18-GO Code Onset Dates Condition S tatus SNOMED Code Problem Post traumatic stress disorder (PTSD) F43.10 Active 48892217 Problem Hyperthyroidism E05.90 Active 3448 6009 Problem Migraine with aura and without status migrainosu s, not intractable G43.109 Active 7313247 Problem Migraine with aura and without status migrainosu s, not intractable G43.109 Active 4401664 Problem Chronic migraine G43.709 Active 377 14221 Problem Severe episode of recurrent major depressive disorder, without 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 Active 84244544 Problem Graves disease E05.00 Active 59718 5004 Problem Anxiety F41.9 Active [id number] ALLERGIES No Information ENCOUNTERS Encounter Location Date Diagnosis [facility] [address] [place] [address] January, [facility] [address] [place] [id number] [address] [place] [address] 04 Jan, 2020 [facility] [address] [place] [id number] [address] [place] [address] Nov, Fever R50.9 and Influenza-li ke illness R69 [facility] [address] [facility] [id number] [address] [place] [id number] 19 Oct, 2019 Hyperthyroidism E05.90 [facility] [address] [place] [id number] [address] [place] [address] 10 Oct, 2019 Hyperthyroidism E05.90 and E ncounter for immunization Z23 [facility] [address] [place] [id number] [address] [place] [address] 06 Oct, 2019 [facility] [address] [address] Aug, [facility] [address] [address] Aug, Sore throat J02.9 and Strep pharyngitis J02.0 [facility] [address] [address] Aug, Sore throat J02.9 and Strep throat J02.0 [facility] [address] [address] Aug, Non-intractable vomiting wit h nausea, unspecified vomiting type R11.2 [facility] [address] [address] Aug, Migraine with aura and witho ut status migrainosus, not intractable G43.109 [facility] [address] [address] Jul, Graves disease E05.00 and So re throat J02.9 [facility] [place] [address] [address] Jun, Vaginal discharge N89.8 ; Un protected sexual intercourse Z72.51 and Bartholin cyst N75.0 [place] [address] [address] May, Ingrowing nail, left great t oe L60.0 [facility] [address] [address] May, Paronychia of great toe of r ight foot L03.031 [place] [address] [address] May, [place] [address] [address] 04 May, 2019 Hyperthyroidism E05.90 and A nxiety F41.9 [place] [address] [address] Feb, [facility] [address] [address] Feb, Viral gastroenteritis A08.4 and Dehydration E86.0 [facility] [address] [address] Dec, Acute cyclitis H20.00 and Dy suria R30.0 [facility] [address] Sep, Viral gastroenteritis A08.4 and Rash R21 [facility] [address] [address] 15 Aug, 2018 Eczema of left hand L30.9 [place] [address] [address] 07 Aug, 2018 [place] [address] [address] 2018 [facility] [address] [address] 08 Jul, 2018 Nausea and vomiting during p regnancy O21.9 [place] [address] [address] 07 Jul, 2018 [place] [address] [address] Jul, Encounter for test , result unknown Z32.00 [place] [address] [address] May, Graves disease E05.00 [facility] [address] [address] 08 Feb, 2018 Dysuria R30.0 and Acute cyst itis with hematuria N30.01 [place] [address] [address] January, [facility] [address] [place] [address] Dec, Severe episode of recurrent major depressive disorder, without 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 [facility] [address] [place] [id number] [address] [place] [address] Dec, [facility] [address] [address] Dec, Severe episode of recurrent major depressive disorder, without 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 and Post traumatic stress disorder (PTSD) F43.10 [facility] [address] [address] Nov, [place] [address] [address] Nov, Severe episode of recurrent major depressive disorder, without 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 and Post traumatic stress disorder (PTSD) F43.10 [place] [address] [address] Oct, Encounter for counseling reg arding contraception Z30.09 ; Hyperthyroidism E05.90 and Chronic migraine G43.709 [place] [address] [place] [id number] [address] [place] [address] Jul, Encounter for surveillance o f injectable contraceptive Z30.42 [facility] [address] [place] [id number] [address] [place] [address] Jul, Sore throat J02.9 ; Other vi ral agents as the cause of diseases classified elsewhere B97.89 and Acute upper respiratory infection, unspecified J06.9 [facility] [address] [address] Jun, Visit for TB skin test Z11.1 [place] [address] [address] May, Physical exam, routine Z00.0 0 [place] [address] [place] [address] May, Hyperthyroidism E05.90 and P ost traumatic stress disorder (PTSD) F43.10 [facility] [address] [address] 16 Apr, 2017 Routine gynecological examin ation Z01.419 ; High risk sexual behavior Z72.51 ; Encounter for surveillance of injectable contraceptive Z30.42 ; Hyperthyroidism E05.90 and Encounter for Depo-Provera contraception Z30.42 [facility] [address] [address] Apr, Tinea corporis B35.4 [facility] [address] [address] Mar, Thyrotoxicosis without thyro id storm, unspecified thyrotoxicosis type E05.90 [place] [address] [address] Mar, [place] [address] [address] Mar, [facility] [address] [address] Mar, Post traumatic stress disord er (PTSD) F43.10 and Hyperthyroidism E05.90 [facility] [address] [address] Feb, Hyperthyroidism E05.90 ; Pos t traumatic stress disorder (PTSD) F43.10 and Overdose, intentional self-harm, subsequent encounter T50.902D [facility] [address] [place] [id number] [address] [place] [address] January, Post traumatic stress disord er (PTSD) F43.10 [place] [address] [address] 18 Dec, 2016 Hx of migraines Z86.69 ; Ins ect bite (nonvenomous), left thigh, initial encounter S70.362A and Post traumatic stress disorder (PTSD) F43.10 [facility] [address] [place] [id number] [address] [place] [address] Dec, [facility] [address] [address] 29 Nov, 2016 [place] [address] [address] 10 Nov, 2015 Adjustment disorder with dep ressed mood F43.21 and Major depression, recurrent F33.9 [place] [address] [address] 10 Nov, 2015 Oral contraceptive pill surv eillance Z30.41 ; Routine screening for STI (sexually transmitted infection) Z11.3 ; Dysmenorrhea N94.6 ; Hx of migraines Z86.69 ; Deliberate self-cutting Z72.89 and Major depressive disorder, recurrent, moderate F33.1 [place] [address] [address] Nov, [place] [address] [place] [id number] [address] [place] [address] May, [place] [address] [address] 17 May, 2015 [place] [address] [address] 15 May, 2015 Migraine headache 346.90 and Abdominal pain 789.00 [place] [address] [place] [id number] [address] [place] [address] 14 May, 2015 [place] [address] [address] Apr, Oligomenorrhea 626.1 and Scr eening for diabetes mellitus V77.1 [place] [address] [place] [id number] [address] [place] [address] Apr, Oligomenorrhea 626.1 ; Dark urine 791.9 and Screening for diabetes mellitus V77.1 [facility] [address] [id number] [address] [place] [address], [place] [address] Feb, Bipolar disorder, unspecifie d 296.80 [facility] [address] [id number] [address] [place] [address], [place] [address] 14 Dec, 2014 [facility] [address] [id number] [address] [place] [address], [place] [address] Dec, [facility] [address] [id number] [address] [place] [address], [place] [address] Dec, [facility] [address] [id number] [address] [place] [address], [place] [address] Dec, [facility] [address] [id number] [address] [place] [address], [place] [address] Dec, [facility] [address] [id number] [address] [place] [address], [place] [address] Jul, [facility] [address] [id number] [address] [place] [address] Jul, [facility] [address] [id number] [address] [place] [address], [place] [address] Jul, [facility] [address] [id number] [address] [place] [address] Jul, [facility] [address] [id number] [address] [place] [address] Jun, [facility] [address] [id number] [address] [place] [address] May, [facility] [address] [id number] [address] [place] [address], [place] [address] Apr, [facility] [address] [id number] [address] [place] [address] Apr, [facility] [address] [id number] [address] [place] [address], [place] [address] Mar, [facility] [address] [id number] [address] [place] [address], [place] [address] Feb, [facility] [address] [id number] [address] [place] [address], [place] [address] Feb, [facility] [address] [id number] [address] [place] [address], [place] [address] Feb, [facility] [address] [id number] [address] [place] [address], [place] [address] January, [facility] [address] [id number] [address] [place] [address], [place] [address] January, [facility] [address] [id number] [address] [place] [address], [place] [address] Dec, [facility] [address] [id number] [address] [place] [address], [place] [address] Dec, [facility] [address] [id number] [address] [place] [address], [place] [address] Nov, [facility] [address] [id number] [address] [place] [address], [place] [address] Nov, [facility] [address] [id number] [address] [place] [address], [place] [address] Sep, [facility] [address] [id number] [address] [place] [address], [place] [address] Jun, [facility] [address] [id number] [address] [place] [address], [place] [address] Jun, [facility] [address] [id number] [address] [place] [address], [place] [address] May, [facility] [address] [id number] [address] [place] [address], [place] [address] Mar, [facility] [address] [id number] [address] [place] [address], [place] [address] Mar, [facility] [address] [id number] [address] [place] [address], [place] [address] Mar, [facility] [address] [id number] [address] [place] [address], [place] [address] 30 Mar, 2012 [facility] [address] [id number] [address] [place] [address], [place] [address] Feb, [facility] [address] [id number] [address] [place] [address], [place] [address] Feb, [facility] [address] [id number] [address] [place] [address], [place] [address] Feb, [facility] [address] [id number] [address] [place] [address], [place] [address] Feb, [facility] [address] [id number] [address] [place] [address], [place] [address] Feb, [facility] [address] [id number] [address] [place] [address], [place] [address] January, [facility] [address] [id number] [address] [place] [address], [place] [address] January, [facility] [address] [id number] [address] [place] [address], [place] [address] January, [facility] [address] [id number] [address] [place] [address], [place] [address] January, [facility] [address] [id number] [address] [place] [address], [place] [address] January, [facility] [address] [id number] [address] [place] [address], [place] [address] Dec, [facility] [address] [id number] [address] [place] [address], [place] [address] Dec, [facility] [address] [id number] [address] [place] [address], [place] [address] Dec, [facility] [address] [id number] [address] [place] [address], [place] [address] Nov, [facility] [address] [id number] [address] [place] [address], [place] [address] Oct, [facility] [address] [id number] [address] [place] [address], [place] [address] Sep, [facility] [address] [id number] [address] [place] [address], [place] [address] Jul, [facility] [address] [id number] [address] [place] [address] Aug, [facility] [address] [id number] [address] [place] [address] Jul, [facility] [address] [id number] [address] [place] [address], [place] [address] Jun, [facility] [address] [id number] [address] [place] [address] Jun, [facility] [address] [id number] [address] [place] [address], [place] [address] Jul, [facility] [address] [id number] [address] [place] [address] Jul, [facility] [address] [id number] [address] [place] [id number] Aug, [facility] [address] [id number] [address] [place] [address] Aug, [facility] [address] [id number] [address] [place] [address] Jul, [facility] [address] [id number] [address] [place] [address] Jul, [facility] [address] [id number] [address] [place] [address], [place] [address] Apr, [facility] [address] [id number] [address] [place] [address] Oct, [facility] [address] [id number] [address] [place] [address] Jul, [facility] [address] [id number] [address] [place] [address] Apr, IMMUNIZATIONS No Known Immunizations SOCIAL HISTORY [...]
--- OUTSIDE RECORDS SUMMARY | 2020-03-04 23:26 | XMS REPORT ---
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 Name Role Phone MANISHA ZAAMRRIPA Unavailable PROBLEMS Type Condition ICD9-CM Code DSS79-[place] Code Onset Dates Condition S tatus SNOMED Code Problem Post traumatic stress disorder (PTSD) F43.10 Active 57325146 Problem Hyperthyroidism E05.90 Active 3448 6009 Problem Migraine with aura and without status migrainosu s, not intractable G43.109 Active 6749559 Problem Migraine with aura and without status migrainosu s, not intractable G43.109 Active 3537124 Problem Chronic migraine G43.709 Active 377 34270 Problem Severe episode of recurrent major depressive disorder, without 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 Active 90431441 Problem Graves disease E05.00 Active 47414 5004 Problem Anxiety F41.9 Active [id number] ALLERGIES No Information ENCOUNTERS Encounter Location Date Diagnosis [facility] [address] [address] January, [facility] [address] [address] Nov, Fever R50.9 and Influenza-li ke illness R69 [facility] [address] [place] [id number] [place] [address] 19 Oct, 2019 Hyperthyroidism E05.90 [facility] [address] [address] 10 Oct, 2019 Hyperthyroidism E05.90 and E ncounter for immunization Z23 [facility] [address] [address] 06 Oct, 2019 [facility] [address] [address] Aug, [facility] [address] [address] Aug, Sore throat J02.9 and Strep pharyngitis J02.0 [facility] [address] [address] Aug, Sore throat J02.9 and Strep throat J02.0 [facility] [address] [address] Aug, Non-intractable vomiting wit h nausea, unspecified vomiting type R11.2 [facility] [address] [address] Aug, Migraine with aura and witho ut status migrainosus, not intractable G43.109 [facility] [address] [address] Jul, Graves disease E05.00 and So re throat J02.9 [facility] [place] [address] [address] Jun, Vaginal discharge N89.8 ; Un protected sexual intercourse Z72.51 and Bartholin cyst N75.0 [place] [address] [address] May, Ingrowing nail, left great t oe L60.0 [facility] [address] [address] May, Paronychia of great toe of r ight foot L03.031 [place] [address] [address] May, [place] [address] [address] May, Hyperthyroidism E05.90 and A nxiety F41.9 [place] [address] [address] Feb, [facility] [address] [address] Feb, Viral gastroenteritis A08.4 and Dehydration E86.0 [facility] [address] [address] Dec, Acute cyclitis H20.00 and Dy suria R30.0 [facility] [address] [address] Sep, Viral gastroenteritis A08.4 and Rash R21 [facility] [address] [address] 15 Aug, 2018 Eczema of left hand L30.9 [place] [address] [address] 07 Aug, 2018 [place] [address] [address] 2018 [facility] [address] [address] 08 Jul, 2018 Nausea and vomiting during p regnancy O21.9 [place] [address] [address] 07 Jul, 2018 [place] [address] [address] Jul, Encounter for test , result unknown Z32.00 [place] [address] [address] May, Graves disease E05.00 [facility] [address] [address] 08 Feb, 2018 Dysuria R30.0 and Acute cyst itis with hematuria N30.01 [place] [address] [address] January, [facility] [address] [place] [id number] [place] [address] Dec, Severe episode of recurrent major depressive disorder, without 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 [facility] [address] [place] [id number] [place] [address] Dec, [facility] [address] [place] [id number] [address] [place] [address] Dec, Severe episode of recurrent major depressive disorder, without 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 and Post traumatic stress disorder (PTSD) F43.10 [facility] [address] [place] [address] Nov, [place] [address] [address] Nov, Severe episode of recurrent major depressive disorder, without 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 and Post traumatic stress disorder (PTSD) F43.10 [place] [address] [address] Oct, Encounter for counseling reg arding contraception Z30.09 ; Hyperthyroidism E05.90 and Chronic migraine G43.709 [place] [address] [place] [id number] [place] [address] Jul, Encounter for surveillance o f injectable contraceptive Z30.42 [facility] [address] [place] [address] Jul, Sore throat J02.9 ; Other vi ral agents as the cause of diseases classified elsewhere B97.89 and Acute upper respiratory infection, unspecified J06.9 [facility] [address] [place] [id number] [place] [address] Jun, Visit for TB skin test Z11.1 [place] [address] [place] [id number] [place] [address] May, Physical exam, routine Z00.0 0 [place] [address] [address] May, Hyperthyroidism E05.90 and P ost traumatic stress disorder (PTSD) F43.10 [facility] [address] [place] [address] [place] [address] 16 Apr, 2017 Routine gynecological examin ation Z01.419 ; High risk sexual behavior Z72.51 ; Encounter for surveillance of injectable contraceptive Z30.42 ; Hyperthyroidism E05.90 and Encounter for Depo-Provera contraception Z30.42 [facility] [address] [place] [address] Apr, Tinea corporis B35.4 [facility] [address] [place] [id number] [place] [address] Mar, Thyrotoxicosis without thyro id storm, unspecified thyrotoxicosis type E05.90 [facility] [address] [address] Mar, [facility] [address] [address] Mar, [facility] [address] [address] Mar, Post traumatic stress disord er (PTSD) F43.10 and Hyperthyroidism E05.90 [facility] [address] [place] [id number] [place] [address] 13 Feb, 2017 Hyperthyroidism E05.90 ; Pos t traumatic stress disorder (PTSD) F43.10 and Overdose, intentional self-harm, subsequent encounter T50.902D [facility] [address] [place] [address] January, Post traumatic stress disord er (PTSD) F43.10 [place] [address] [place] [address] 18 Dec, 2016 Hx of migraines Z86.69 ; Ins ect bite (nonvenomous), left thigh, initial encounter S70.362A and Post traumatic stress disorder (PTSD) F43.10 [facility] [address] [place] [id number] [place] [address] Dec, [facility] [address] [address] Nov, [place] [address] [address] 10 Nov, 2015 Adjustment disorder with dep ressed mood F43.21 and Major depression, recurrent F33.9 [place] [address] [place] [id number] [place] [address] 10 Nov, 2015 Oral contraceptive pill surv eillance Z30.41 ; Routine screening for STI (sexually transmitted infection) Z11.3 ; Dysmenorrhea N94.6 ; Hx of migraines Z86.69 ; Deliberate self-cutting Z72.89 and Major depressive disorder, recurrent, moderate F33.1 [place] [address] [address] Nov, [place] [address] [place] [address] [place] [address] May, [place] [address] [address] 17 May, 2015 [place] [address] [address] 15 May, 2015 Migraine headache 346.90 and Abdominal pain 789.00 [place] [address] [place] [id number] [place] [address] 14 May, 2015 [place] [address] [place] [address] [place] [address] Apr, Oligomenorrhea 626.1 and Scr eening for diabetes mellitus V77.1 [place] [address] [place] [id number] [place] [address] Apr, Oligomenorrhea 626.1 ; Dark urine 791.9 and Screening for diabetes mellitus V77.1 [facility] [address] [id number] [address] [place] [address] Feb, Bipolar disorder, unspecifie d 296.80 [facility] [address] [id number] [address] [place] [address], [place] [address] 14 Dec, 2014 [facility] [address] [id number] [address] [place] [address] Dec, [facility] [address] [id number] [address] [place] [address] Dec, [facility] [address] [id number] [address] [place] [address], [place] [address] Dec, [facility] [address] [id number] [address] [place] [address] Dec, [facility] [address] [id number] [address] [place] [address] Jul, [facility] [address] [id number] [address] [place] [address] Jul, [facility] [address] [id number] [address] [place] [address] Jul, [facility] [address] [id number] [address] [place] [address] Jul, [facility] [address] [id number] [address] [place] [address] Jun, [facility] [address] [id number] [address] [place] [address] May, [facility] [address] [id number] [address] [place] [address] Apr, [facility] [address] [id number] [address] [place] [address] Apr, [facility] [address] [id number] [address] [place] [address] Mar, [facility] [address] [id number] [address] [place] [address] Feb, [facility] [address] [id number] [address] [place] [address], [place] [address] Feb, [facility] [address] [id number] [address] [place] [address], [place] [address] Feb, [facility] [address] [id number] [address] [place] [address], [place] [address] January, [facility] [address] [id number] [address] [place] [address], [place] [address] January, [facility] [address] [id number] [address] [place] [address], [place] [address] Dec, [facility] [address] [id number] [address] [place] [address], [place] [address] Dec, [facility] [address] [id number] [address] [place] [address], [place] [address] Nov, [facility] [address] [id number] [address] [place] [address], [place] [address] Nov, [facility] [address] [id number] [address] [place] [address], [place] [address] Sep, [facility] [address] [id number] [address] [place] [address], [place] [address] Jun, [facility] [address] [id number] [address] [place] [address], [place] [address] Jun, [facility] [address] [id number] [address] [place] [address], [place] [address] May, [facility] [address] [id number] [address] [place] [address], [place] [address] Mar, [facility] [address] [id number] [address] [place] [address], [place] [address] Mar, [facility] [address] [id number] [address] [place] [address], [place] [address] Mar, [facility] [address] [id number] [address] [place] [address], [place] [address] 30 Mar, 2012 [facility] [address] [id number] [address] [place] [address], [place] [address] Feb, [facility] [address] [id number] [address] [place] [address], [place] [address] Feb, [facility] [address] [id number] [address] [place] [address], [place] [address] 18 Feb, 2012 [facility] [address] [id number] [address] [place] [address], [place] [address] Feb, [facility] [address] [id number] [address] [place] [address], [place] [address] Feb, [facility] [address] [id number] [address] [place] [address], [place] [address] January, [facility] [address] [id number] [address] [place] [address], [place] [address] January, [facility] [address] [id number] [address] [place] [address], [place] [address] January, [facility] [address] [id number] [address] [place] [address], [place] [address] January, [facility] [address] [id number] [address] [place] [address], [place] [address] January, [facility] [address] [id number] [address] [place] [address], [place] [address] Dec, [facility] [address] [id number] [address] [place] [address], [place] [address] Dec, [facility] [address] [id number] [address] [place] [address], [place] [address] Dec, [facility] [address] [id number] [address] [place] [address], [place] [address] Nov, [facility] [address] [id number] [address] [place] [address] [address] Oct, [facility] [address] [id number] [address] [place] [address], [place] [address] Sep, [facility] [address] [id number] [address] [place] [address], [place] [address] Jul, [facility] [address] [id number] [address] [place] [address], [place] [address] Aug, [facility] [address] [id number] [address] [place] [address], [place] [address] Jul, [facility] [address] [id number] [address] [place] [address], [place] [address] Jun, [facility] [address] [id number] [address] [place] [address], [place] [address] Jun, [facility] [address] [id number] [address] [place] [address], [place] [address] Jul, [facility] [address] [id number] [address] [place] [address] Jul, [facility] [address] [id number] [address] [place] [address], [place] [address] Aug, [facility] [address] [id number] [address] [place] [address] Aug, [facility] [address] [id number] [address] [place] [address] Jul, [facility] [address] [id number] [address] [place] [address] Jul, [facility] [address] [id number] [address] [place] [address] Apr, [facility] [address] [id number] [address] [place] [address] Oct, [facility] [address] [id number] [address] [place] [address] Jul, [facility] [address] [id number] [address] [place] [address] Apr, IMMUNIZATIONS No Known Immunizations SOCIAL HISTORY [...]
--- OUTSIDE RECORDS SUMMARY | 2020-03-04 23:26 | XMS REPORT ---
Author Author Jj Arndt Organization [facility] Address [address] [place] [address] Care Team Providers Care Hazardous Substances Engineer Name Role Phone JYOTHI Arndt Unavailable PROBLEMS Type Condition ICD9-CM Code [id number] Code Onset Dates Condition S tatus SNOMED Code Problem Post traumatic stress disorder (PTSD) F43.10 Active 42476127 Problem Hyperthyroidism E05.90 Active 3448 6009 Problem Migraine with aura and without status migrainosu s, not intractable G43.109 Active 6232909 Problem Migraine with aura and without status migrainosu s, not intractable G43.109 Active 3094920 Problem Chronic migraine G43.709 Active 377 63851 Problem Severe episode of recurrent major depressive disorder, without 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 Active 95295240 Problem Graves disease E05.00 Active 03345 5004 Problem Anxiety F41.9 Active [id number] ALLERGIES No Information ENCOUNTERS Encounter Location Date Diagnosis [facility] [address] [id number] [address] [place] [address] January, [facility] [address] [address] January, [facility] [address] [id number] [address] [place] [address] Nov, Fever R50.9 and Influenza-li ke illness R69 [facility] [address] [id number] [address] [place] [address] Oct, Hyperthyroidism E05.90 [facility] [address] [id number] [address] [place] [address] 10 Oct, 2019 Hyperthyroidism E05.90 and E ncounter for immunization Z23 [facility] [address] [address] 06 Oct, 2019 [facility] [address] [address] Aug, [facility] [address] [address] Aug, Sore throat J02.9 and Strep pharyngitis J02.0 [facility] [address] [address] Aug, Sore throat J02.9 and Strep throat J02.0 [facility] [address] [address] Aug, Non-intractable vomiting wit h nausea, unspecified vomiting type R11.2 [facility] [place] [address] [address] Aug, Migraine with aura and witho ut status migrainosus, not intractable G43.109 [facility] [address] [address] Jul, Graves disease E05.00 and So re throat J02.9 [facility] [place] [address] [address] 14 Jun, 2019 Vaginal discharge N89.8 ; Un protected sexual intercourse Z72.51 and Bartholin cyst N75.0 [place] [address] [address] May, Ingrowing nail, left great t oe L60.0 [facility] [address] [address] May, Paronychia of great toe of r ight foot L03.031 [place] [address] [address] 04 May, 2019 [facility] [address] [address] 04 May, 2019 Hyperthyroidism E05.90 and A nxiety F41.9 [place] [address] [address] Feb, [facility] [address] [address] Feb, Viral gastroenteritis A08.4 and Dehydration E86.0 [facility] [address] [address] Dec, Acute cyclitis H20.00 and Dy suria R30.0 [facility] [address] [address] Sep, Viral gastroenteritis A08.4 and Rash R21 [facility] [place] [address] [address] 15 Aug, 2018 Eczema of left hand L30.9 [place] [address] [address] Aug, [place] [address] [address] Aug, [facility] [place] [address] [address] 08 Jul, 2018 Nausea and vomiting during p regnancy O21.9 [place] [address] [address] Jul, [place] [address] [address] Jul, Encounter for test , result unknown Z32.00 [place] [address] [address] 28 May, 2018 Graves disease E05.00 [facility] [address] [address] 08 Feb, 2018 Dysuria R30.0 and Acute cyst itis with hematuria N30.01 [facility] [address] [facility] [id number] [address] [place] [address] January, [facility] [id number] [place] [address] Dec, Severe episode of recurrent major depressive disorder, without 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 [facility] [address] [id number] [address] [place] [address] Dec, [place] [address] [place] [id number] [place] [address] Dec, Severe episode of recurrent major depressive disorder, without 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 and Post traumatic stress disorder (PTSD) F43.10 [place] [address] [place] [id number] [place] [address] Nov, [place] [address] [address] Nov, Severe episode of recurrent major depressive disorder, without 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 and Post traumatic stress disorder (PTSD) F43.10 [place] [address] [address] Oct, Encounter for counseling reg arding contraception Z30.09 ; Hyperthyroidism E05.90 and Chronic migraine G43.709 [facility] [address] [id number] [address] [place] [address] Jul, Encounter for surveillance o f injectable contraceptive Z30.42 [facility] [address] [id number] [address] [place] [address] Jul, Sore throat J02.9 ; Other vi ral agents as the cause of diseases classified elsewhere B97.89 and Acute upper respiratory infection, unspecified J06.9 [facility] [address] [id number] [address] [place] [address] Jun, Visit for TB skin test Z11.1 [facility] [address] [id number] [place] [address] May, Physical exam, routine Z00.0 0 [facility] [address] [facility] [id number] [address] [place] [address] May, Hyperthyroidism E05.90 and P ost traumatic stress disorder (PTSD) F43.10 [facility] [address] [id number] [address] [place] [address] Apr, Routine gynecological examin ation Z01.419 ; High risk sexual behavior Z72.51 ; Encounter for surveillance of injectable contraceptive Z30.42 ; Hyperthyroidism E05.90 and Encounter for Depo-Provera contraception Z30.42 [facility] [address] [facility] [id number] [address] [place] [address] Apr, Tinea corporis B35.4 [facility] [address] [place] [id number] [address] [place] [address] Mar, Thyrotoxicosis without thyro id storm, unspecified thyrotoxicosis type E05.90 [facility] [address] [id number] [address] [place] [address] Mar, [place] [address] [id number] [place] [address] Mar, [facility] [id number] [place] [address] Mar, Post traumatic stress disord er (PTSD) F43.10 and Hyperthyroidism E05.90 [place] [address] [id number] [address] [place] [address] Feb, Hyperthyroidism E05.90 ; Pos t traumatic stress disorder (PTSD) F43.10 and Overdose, intentional self-harm, subsequent encounter T50.902D [place] [address] [id number] [address] [place] [address] January, Post traumatic stress disord er (PTSD) F43.10 [place] [address] [place] [id number] [address] [place] [address] Dec, Hx of migraines Z86.69 ; Ins ect bite (nonvenomous), left thigh, initial encounter S70.362A and Post traumatic stress disorder (PTSD) F43.10 [facility] [address] [address] Dec, [facility] [address] [address] Nov, [facility] [address] [address] Nov, Adjustment disorder with dep ressed mood F43.21 and Major depression, recurrent F33.9 [place] [address] [address] 10 Nov, 2015 Oral contraceptive pill surv eillance Z30.41 ; Routine screening for STI (sexually transmitted infection) Z11.3 ; Dysmenorrhea N94.6 ; Hx of migraines Z86.69 ; Deliberate self-cutting Z72.89 and Major depressive disorder, recurrent, moderate F33.1 [place] [address] [address] Nov, [place] [address] [address] May, [place] [address] [address] 17 May, 2015 [facility] [address] [address] 15 May, 2015 Migraine headache 346.90 and Abdominal pain 789.00 [facility] [address] [id number] [address] [place] [address] May, [place] [address] [address] Apr, Oligomenorrhea 626.1 and Scr eening for diabetes mellitus V77.1 [place] [address] [id number] [place] [address] Apr, Oligomenorrhea 626.1 ; Dark urine 791.9 and Screening for diabetes mellitus V77.1 [facility] [address] [id number] [address] [place] [address] Feb, Bipolar disorder, unspecifie d 296.80 [facility] [address] [id number] [address] [place] [address] Dec, [facility] [address] [id number] [address] [place] [address] Dec, [facility] [address] [id number] [address] [place] [address] Dec, [facility] [address] [id number] [address] [place] [address] Dec, [facility] [address] [facility] [id number] [address] [place] [address] Dec, [facility] [address] [id number] [address] [place] [address] Jul, [facility] [address] [id number] [address] [place] [address] Jul, [facility] [address] [facility] [id number] [address] [place] [address] Jul, [facility] [address] [id number] [address] [place] [address] Jul, [facility] [address] [id number] [address] [place] [address] Jun, [facility] [address] [id number] [address] [place] [address] May, [facility] [address] [id number] [address] [place] [address] Apr, [facility] [address] [id number] [address] [place] [address] Apr, [facility] [address] [id number] [address] [place] [address] Mar, [facility] [address] [id number] [address] [place] [address], [place] [address] Feb, [facility] [address] [id number] [address] [place] [address], [place] [address] Feb, [facility] [address] [id number] [address] [place] [address], [place] [address] Feb, [facility] [address] [id number] [address] [place] [address], [place] [address] January, [facility] [address] [id number] [address] [place] [address], [place] [address] January, [facility] [address] [id number] [address] [place] [address], [place] [address] Dec, [facility] [address] [id number] [address] [place] [address], [place] [address] Dec, [facility] [address] [id number] [address] [place] [address], [place] [address] Nov, [facility] [address] [id number] [address] [place] [address], [place] [address] Nov, [facility] [address] [id number] [address] [place] [address], [place] [address] Sep, [facility] [address] [id number] [address] [place] [address], [place] [address] Jun, [facility] [address] [id number] [address] [place] [address], [place] [address] Jun, [facility] [address] [id number] [address] [place] [address], [place] [address] May, [facility] [address] [id number] [address] [place] [address], [place] [address] Mar, [facility] [address] [id number] [address] [place] [address], [place] [address] Mar, [facility] [address] [id number] [address] [place] [address], [place] [address] 31 Mar, 2012 [facility] [address] [id number] [address] [place] [address], [place] [address] 30 Mar, 2012 [facility] [address] [id number] [address] [place] [address], [place] [address] 19 Feb, 2012 [facility] [address] [id number] [address] [place] [address], [place] [address] Feb, [facility] [address] [id number] [address] [place] [address], [place] [address] 18 Feb, 2012 [facility] [address] [id number] [address] [place] [address], [place] [address] Feb, [facility] [address] [id number] [address] [place] [address], [place] [address] Feb, [facility] [address] [id number] [address] [place] [address], [place] [address] January, [facility] [address] [id number] [address] [place] [address], [place] [address] January, [facility] [address] [id number] [address] [place] [address], [place] [address] January, [facility] [address] [id number] [address] [place] [address], [place] [address] January, [facility] [address] [id number] [address] [place] [address], [place] [address] January, [facility] [address] [id number] [address] [place] [address], [place] [address] Dec, [facility] [address] [id number] [address] [place] [address], [place] [address] Dec, [facility] [address] [id number] [address] [place] [address], [place] [address] Dec, [facility] [address] [id number] [address] [place] [address] [address] Nov, [facility] [address] [id number] [address] [place] [address], [place] [address] Oct, [facility] [address] [id number] [address] [place] [address], [place] [address] Sep, [facility] [address] [id number] [address] [place] [address], [place] [address] Jul, [facility] [address] [id number] [address] [place] [address], [place] [address] Aug, [facility] [address] [id number] [address] [place] [address], [place] [address] Jul, [facility] [address] [id number] [address] [place] [address], [place] [address] Jun, [facility] [address] [id number] [address] [place] [address], [place] [address] Jun, [facility] [address] [id number] [address] [place] [address], [place] [address] Jul, [facility] [address] [id number] [address] [place] [address], [place] [address] Jul, [facility] [address] [id number] [address] [place] [address] Aug, [facility] [address] [id number] [address] [place] [address] Aug, [facility] [address] [id number] [address] [place] [address] Jul, [facility] [address] [id number] [address] [place] [address], [place] [address] Jul, [facility] [address] [id number] [address] [place] [address] Apr, [facility] [address] [id number] [address] [place] [address] 16 Oct, 2004 [facility] [address] [id number] [address] [place] [address] Jul, [facility] [address] [facility] [id number] [address] [place] [address] Apr, IMMUNIZATIONS No Known Immunizations SOCIAL HISTORY Never Assessed REASON FOR VISIT PLAN OF CARE VITAL SIGNS Height 63.75 in 2013-04-16 Weight 140.44 lbs 2013-04-16 Temperature 97.9 degrees Fahrenheit 2013-04-16 Heart Rate 80 bpm 2013-04-16 Respiratory Rate 16 2013-04-16 Blood pressure systolic 100 mmHg 2013-04-16 Blood pressure diastolic 60 mmHg 2013-04-16 MEDICATIONS Unknown Medications RESULTS No Results PROCEDURES Procedure Date Ordered Result Body Site URINE TEST April 16, 2013 INSTRUCTIONS MEDICATIONS ADMINISTERED No Known Medications [...]
--- OUTSIDE RECORDS SUMMARY | 2020-03-04 23:26 | XMS REPORT ---
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 Role Phone MANISHA ZAMARRIPA Unavailable PROBLEMS Type Condition ICD9-CM Code ASW55-YS Code Onset Dates Condition S tatus SNOMED Code Problem Post traumatic stress disorder (PTSD) F43.10 Active 33937765 Problem Hyperthyroidism E05.90 Active 3448 6009 Problem Migraine with aura and without status migrainosu s, not intractable G43.109 Active 5326781 Problem Migraine with aura and without status migrainosu s, not intractable G43.109 Active 3350846 Problem Chronic migraine G43.709 Active 377 63276 Problem Severe episode of recurrent major depressive disorder, without 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 Active 70278532 Problem Graves disease E05.00 Active 97838 5004 Problem Anxiety F41.9 Active [id number] ALLERGIES No Information ENCOUNTERS Encounter Location Date Diagnosis [facility] [address] [address] January, [facility] [address] [address] Nov, Fever R50.9 and Influenza-li ke illness R69 [facility] [address] [place] [id number] [place] [address] 19 Oct, 2019 Hyperthyroidism E05.90 [facility] [address] [address] 10 Oct, 2019 Hyperthyroidism E05.90 and E ncounter for immunization Z23 [facility] [address] [address] 06 Oct, 2019 [facility] [address] [address] Aug, [facility] [address] [address] Aug, Sore throat J02.9 and Strep pharyngitis J02.0 [facility] [address] [address] Aug, Sore throat J02.9 and Strep throat J02.0 [facility] [address] [address] Aug, Non-intractable vomiting wit h nausea, unspecified vomiting type R11.2 [facility] [address] [address] Aug, Migraine with aura and witho ut status migrainosus, not intractable G43.109 [facility] [address] [address] Jul, Graves disease E05.00 and So re throat J02.9 [facility] [place] [address] [address] Jun, Vaginal discharge N89.8 ; Un protected sexual intercourse Z72.51 and Bartholin cyst N75.0 [place] [address] [address] May, Ingrowing nail, left great t oe L60.0 [facility] [address] [address] May, Paronychia of great toe of r ight foot L03.031 [place] [address] [address] May, [place] [address] [address] May, Hyperthyroidism E05.90 and A nxiety F41.9 [place] [address] [address] Feb, [facility] [address] [address] Feb, Viral gastroenteritis A08.4 and Dehydration E86.0 [facility] [address] [address] Dec, Acute cyclitis H20.00 and Dy suria R30.0 [facility] [address] [address] Sep, Viral gastroenteritis A08.4 and Rash R21 [facility] [address] [address] 15 Aug, 2018 Eczema of left hand L30.9 [place] [address] [address] 07 Aug, 2018 [place] [address] [address] 2018 [facility] [address] [address] 08 Jul, 2018 Nausea and vomiting during p regnancy O21.9 [place] [address] [address] 07 Jul, 2018 [place] [address] [address] Jul, Encounter for test , result unknown Z32.00 [place] [address] [address] May, Graves disease E05.00 [facility] [address] [address] 08 Feb, 2018 Dysuria R30.0 and Acute cyst itis with hematuria N30.01 [place] [address] [address] January, [facility] [address] [place] [id number] [place] [address] Dec, Severe episode of recurrent major depressive disorder, without 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 [facility] [address] [place] [id number] [place] [address] Dec, [facility] [address] [place] [id number] [address] [place] [address] Dec, Severe episode of recurrent major depressive disorder, without 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 and Post traumatic stress disorder (PTSD) F43.10 [facility] [address] [place] [address] Nov, [place] [address] [address] Nov, Severe episode of recurrent major depressive disorder, without 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 and Post traumatic stress disorder (PTSD) F43.10 [place] [address] [address] Oct, Encounter for counseling reg arding contraception Z30.09 ; Hyperthyroidism E05.90 and Chronic migraine G43.709 [place] [address] [place] [id number] [place] [address] Jul, Encounter for surveillance o f injectable contraceptive Z30.42 [facility] [address] [place] [address] Jul, Sore throat J02.9 ; Other vi ral agents as the cause of diseases classified elsewhere B97.89 and Acute upper respiratory infection, unspecified J06.9 [facility] [address] [place] [id number] [address] [place] [address] Jun, Visit for TB skin test Z11.1 [place] [address] [place] [id number] [place] [address] May, Physical exam, routine Z00.0 0 [place] [address] [address] May, Hyperthyroidism E05.90 and P ost traumatic stress disorder (PTSD) F43.10 [facility] [address] [place] [id number] [address] [place] [address] 16 Apr, 2017 Routine gynecological examin ation Z01.419 ; High risk sexual behavior Z72.51 ; Encounter for surveillance of injectable contraceptive Z30.42 ; Hyperthyroidism E05.90 and Encounter for Depo-Provera contraception Z30.42 [facility] [address] [place] [address] Apr, Tinea corporis B35.4 [facility] [address] [place] [id number] [address] [place] [address] Mar, Thyrotoxicosis without thyro id storm, unspecified thyrotoxicosis type E05.90 [facility] [address] [address] Mar, [facility] [address] [address] Mar, [facility] [address] [address] Mar, Post traumatic stress disord er (PTSD) F43.10 and Hyperthyroidism E05.90 [facility] [address] [place] [id number] [place] [address] 13 Feb, 2017 Hyperthyroidism E05.90 ; Pos t traumatic stress disorder (PTSD) F43.10 and Overdose, intentional self-harm, subsequent encounter T50.902D [facility] [address] [place] [address] January, Post traumatic stress disord er (PTSD) F43.10 [place] [address] [place] [address] 18 Dec, 2016 Hx of migraines Z86.69 ; Ins ect bite (nonvenomous), left thigh, initial encounter S70.362A and Post traumatic stress disorder (PTSD) F43.10 [facility] [address] [place] [id number] [place] [address] Dec, [facility] [address] [address] Nov, [place] [address] [address] 10 Nov, 2015 Adjustment disorder with dep ressed mood F43.21 and Major depression, recurrent F33.9 [place] [address] [place] [id number] [place] [address] 10 Nov, 2015 Oral contraceptive pill surv eillance Z30.41 ; Routine screening for STI (sexually transmitted infection) Z11.3 ; Dysmenorrhea N94.6 ; Hx of migraines Z86.69 ; Deliberate self-cutting Z72.89 and Major depressive disorder, recurrent, moderate F33.1 [place] [address] [address] Nov, [place] [address] [place] [id number] [place] [address] May, [place] [address] [address] 17 May, 2015 [place] [address] [address] 15 May, 2015 Migraine headache 346.90 and Abdominal pain 789.00 [place] [address] [place] [id number] [place] [address] 14 May, 2015 [place] [address] [place] [id number] [place] [address] Apr, Oligomenorrhea 626.1 and Scr eening for diabetes mellitus V77.1 [place] [address] [place] [id number] [place] [address] Apr, Oligomenorrhea 626.1 ; Dark urine 791.9 and Screening for diabetes mellitus V77.1 [facility] [address] [id number] [address] [place] [address] Feb, Bipolar disorder, unspecifie d 296.80 [facility] [address] [id number] [address] [place] [address], [place] [address] 14 Dec, 2014 [facility] [address] [id number] [address] [place] [address] Dec, [facility] [address] [id number] [address] [place] [address] Dec, [facility] [address] [id number] [address] [place] [address], [place] [address] Dec, [facility] [address] [id number] [address] [place] [address] Dec, [facility] [address] [id number] [address] [place] [address] Jul, [facility] [address] [id number] [address] [place] [address] Jul, [facility] [address] [id number] [address] [place] [address] Jul, [facility] [address] [id number] [address] [place] [address] Jul, [facility] [address] [id number] [address] [place] [address] Jun, [facility] [address] [id number] [address] [place] [address] May, [facility] [address] [id number] [address] [place] [address] Apr, [facility] [address] [id number] [address] [place] [address] Apr, [facility] [address] [id number] [address] [place] [address] Mar, [facility] [address] [id number] [address] [place] [address] Feb, [facility] [address] [id number] [address] [place] [address], [place] [address] Feb, [facility] [address] [id number] [address] [place] [address], [place] [address] Feb, [facility] [address] [id number] [address] [place] [address], [place] [address] January, [facility] [address] [id number] [address] [place] [address], [place] [address] January, [facility] [address] [id number] [address] [place] [address], [place] [address] Dec, [facility] [address] [id number] [address] [place] [address], [place] [address] Dec, [facility] [address] [id number] [address] [place] [address], [place] [address] Nov, [facility] [address] [id number] [address] [place] [address], [place] [address] Nov, [facility] [address] [id number] [address] [place] [address], [place] [address] Sep, [facility] [address] [id number] [address] [place] [address], [place] [address] Jun, [facility] [address] [id number] [address] [place] [address], [place] [address] Jun, [facility] [address] [id number] [address] [place] [address], [place] [address] May, [facility] [address] [id number] [address] [place] [address], [place] [address] Mar, [facility] [address] [id number] [address] [place] [address], [place] [address] Mar, [facility] [address] [id number] [address] [place] [address], [place] [address] Mar, [facility] [address] [id number] [address] [place] [address], [place] [address] 30 Mar, 2012 [facility] [address] [id number] [address] [place] [address], [place] [address] Feb, [facility] [address] [id number] [address] [place] [address], [place] [address] Feb, [facility] [address] [id number] [address] [place] [address], [place] [address] 18 Feb, 2012 [facility] [address] [id number] [address] [place] [address], [place] [address] Feb, [facility] [address] [id number] [address] [place] [address], [place] [address] Feb, [facility] [address] [id number] [address] [place] [address], [place] [address] January, [facility] [address] [id number] [address] [place] [address], [place] [address] January, [facility] [address] [id number] [address] [place] [address], [place] [address] January, [facility] [address] [id number] [address] [place] [address], [place] [address] January, [facility] [address] [id number] [address] [place] [address], [place] [address] January, [facility] [address] [id number] [address] [place] [address], [place] [address] Dec, [facility] [address] [id number] [address] [place] [address], [place] [address] Dec, [facility] [address] [id number] [address] [place] [address], [place] [address] Dec, [facility] [address] [id number] [address] [place] [address], [place] [address] Nov, [facility] [address] [id number] [address] [place] [address] [address] Oct, [facility] [address] [id number] [address] [place] [address], [place] [address] Sep, [facility] [address] [id number] [address] [place] [address], [place] [address] Jul, [facility] [address] [id number] [address] [place] [address], [place] [address] Aug, [facility] [address] [id number] [address] [place] [address], [place] [address] Jul, [facility] [address] [id number] [address] [place] [address], [place] [address] Jun, [facility] [address] [id number] [address] [place] [address], [place] [address] Jun, [facility] [address] [id number] [address] [place] [address], [place] [address] Jul, [facility] [address] [id number] [address] [place] [address] Jul, [facility] [address] [id number] [address] [place] [address], [place] [address] Aug, [facility] [address] [id number] [address] [place] [address] Aug, [facility] [address] [id number] [address] [place] [address] Jul, [facility] [address] [id number] [address] [place] [address] Jul, [facility] [address] [id number] [address] [place] [address] Apr, [facility] [address] [id number] [address] [place] [address] Oct, [facility] [address] [id number] [address] [place] [address] Jul, [facility] [address] [id number] [address] [place] [address] Apr, IMMUNIZATIONS No Known Immunizations SOCIAL HISTORY [...]
--- OUTSIDE RECORDS SUMMARY | 2020-03-04 23:27 | XMS REPORT ---
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 Name Role Phone MANISHA ZAMARRIPA Unavailable PROBLEMS Type Condition ICD9-CM Code KUA29-LB Code Onset Dates Condition S tatus SNOMED Code Problem Post traumatic stress disorder (PTSD) F43.10 Active 63604966 Problem Hyperthyroidism E05.90 Active 3448 6009 Problem Migraine with aura and without status migrainosu s, not intractable G43.109 Active 9518150 Problem Migraine with aura and without status migrainosu s, not intractable G43.109 Active 0693653 Problem Chronic migraine G43.709 Active 377 99991 Problem Severe episode of recurrent major depressive disorder, without 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 Active 29714620 Problem Graves disease E05.00 Active 84247 5004 Problem Anxiety F41.9 Active 63624386 ALLERGIES No Information ENCOUNTERS Encounter Location Date Diagnosis [facility] [address] [address] January, [facility] [address] [address] Nov, Fever R50.9 and Influenza-li ke illness R69 [facility] [address] [place] [id number] [address] [place] [address] 19 Oct, 2019 Hyperthyroidism E05.90 [facility] [address] [address] 10 Oct, 2019 Hyperthyroidism E05.90 and E ncounter for immunization Z23 [facility] [address] [address] 06 Oct, 2019 [facility] [address] [address] Aug, [facility] [address] [address] Aug, Sore throat J02.9 and Strep pharyngitis J02.0 [facility] [address] [address] Aug, Sore throat J02.9 and Strep throat J02.0 [facility] [address] [address] Aug, Non-intractable vomiting wit h nausea, unspecified vomiting type R11.2 [facility] [address] [address] Aug, Migraine with aura and witho ut status migrainosus, not intractable G43.109 [facility] [address] [address] Jul, Graves disease E05.00 and So re throat J02.9 [facility] [place] [address] [address] Jun, Vaginal discharge N89.8 ; Un protected sexual intercourse Z72.51 and Bartholin cyst N75.0 [place] [address] [address] May, Ingrowing nail, left great t oe L60.0 [facility] [address] [address] May, Paronychia of great toe of r ight foot L03.031 [place] [address] [address] May, [place] [address] [address] May, Hyperthyroidism E05.90 and A nxiety F41.9 [place] [address] [address] Feb, [facility] [address] [address] Feb, Viral gastroenteritis A08.4 and Dehydration E86.0 [facility] [address] [address] Dec, Acute cyclitis H20.00 and Dy suria R30.0 [facility] [address] [address] Sep, Viral gastroenteritis A08.4 and Rash R21 [facility] [address] [address] 15 Aug, 2018 Eczema of left hand L30.9 [place] [address] [address] 07 Aug, 2018 [place] [address] [address] 2018 [facility] [address] [address] 08 Jul, 2018 Nausea and vomiting during p regnancy O21.9 [place] [address] [address] 07 Jul, 2018 [place] [address] [address] Jul, Encounter for test , result unknown Z32.00 [place] [address] [address] May, Graves disease E05.00 [facility] [address] [address] 08 Feb, 2018 Dysuria R30.0 and Acute cyst itis with hematuria N30.01 [place] [address] [address] January, [facility] [address] [place] [id number] [place] [address] Dec, Severe episode of recurrent major depressive disorder, without 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 [facility] [address] [place] [id number] [place] [address] Dec, [facility] [address] [place] [id number] [address] [place] [address] Dec, Severe episode of recurrent major depressive disorder, without 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 and Post traumatic stress disorder (PTSD) F43.10 [facility] [address] [place] [address] Nov, [place] [address] [address] Nov, Severe episode of recurrent major depressive disorder, without 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 and Post traumatic stress disorder (PTSD) F43.10 [place] [address] [address] Oct, Encounter for counseling reg arding contraception Z30.09 ; Hyperthyroidism E05.90 and Chronic migraine G43.709 [place] [address] [place] [id number] [place] [address] Jul, Encounter for surveillance o f injectable contraceptive Z30.42 [facility] [address] [place] [address] Jul, Sore throat J02.9 ; Other vi ral agents as the cause of diseases classified elsewhere B97.89 and Acute upper respiratory infection, unspecified J06.9 [facility] [address] [place] [id number] [address] [place] [address] Jun, Visit for TB skin test Z11.1 [place] [address] [place] [id number] [place] [address] May, Physical exam, routine Z00.0 0 [place] [address] [address] May, Hyperthyroidism E05.90 and P ost traumatic stress disorder (PTSD) F43.10 [facility] [address] [place] [id number] [address] [place] [address] 16 Apr, 2017 Routine gynecological examin ation Z01.419 ; High risk sexual behavior Z72.51 ; Encounter for surveillance of injectable contraceptive Z30.42 ; Hyperthyroidism E05.90 and Encounter for Depo-Provera contraception Z30.42 [facility] [address] [place] [address] Apr, Tinea corporis B35.4 [facility] [address] [place] [id number] [address] [place] [address] Mar, Thyrotoxicosis without thyro id storm, unspecified thyrotoxicosis type E05.90 [facility] [address] [address] Mar, [facility] [address] [address] Mar, [facility] [address] [address] Mar, Post traumatic stress disord er (PTSD) F43.10 and Hyperthyroidism E05.90 [facility] [address] [place] [id number] [address] [place] [address] 13 Feb, 2017 Hyperthyroidism E05.90 ; Pos t traumatic stress disorder (PTSD) F43.10 and Overdose, intentional self-harm, subsequent encounter T50.902D [facility] [address] [place] [address] January, Post traumatic stress disord er (PTSD) F43.10 [place] [address] [place] [address] 18 Dec, 2016 Hx of migraines Z86.69 ; Ins ect bite (nonvenomous), left thigh, initial encounter S70.362A and Post traumatic stress disorder (PTSD) F43.10 [facility] [address] [place] [id number] [place] [address] Dec, [facility] [address] [address] Nov, [place] [address] [address] 10 Nov, 2015 Adjustment disorder with dep ressed mood F43.21 and Major depression, recurrent F33.9 [place] [address] [place] [id number] [place] [address] 10 Nov, 2015 Oral contraceptive pill surv eillance Z30.41 ; Routine screening for STI (sexually transmitted infection) Z11.3 ; Dysmenorrhea N94.6 ; Hx of migraines Z86.69 ; Deliberate self-cutting Z72.89 and Major depressive disorder, recurrent, moderate F33.1 [place] [address] [address] Nov, [place] [address] [place] [id number] [place] [address] May, [place] [address] [address] 17 May, 2015 [place] [address] [address] 15 May, 2015 Migraine headache 346.90 and Abdominal pain 789.00 [place] [address] [place] [id number] [place] [address] 14 May, 2015 [place] [address] [place] [id number] [place] [address] Apr, Oligomenorrhea 626.1 and Scr eening for diabetes mellitus V77.1 [place] [address] [place] [id number] [place] [address] Apr, Oligomenorrhea 626.1 ; Dark urine 791.9 and Screening for diabetes mellitus V77.1 [facility] [address] [id number] [address] [place] [address] Feb, Bipolar disorder, unspecifie d 296.80 [facility] [address] [id number] [address] [place] [address], [place] [address] 14 Dec, 2014 [facility] [address] [id number] [address] [place] [address] Dec, [facility] [address] [id number] [address] [place] [address] Dec, [facility] [address] [id number] [address] [place] [address], [place] [address] Dec, [facility] [address] [id number] [address] [place] [address] Dec, [facility] [address] [id number] [address] [place] [address] Jul, [facility] [address] [id number] [address] [place] [address] Jul, [facility] [address] [id number] [address] [place] [address] Jul, [facility] [address] [id number] [address] [place] [address] Jul, [facility] [address] [id number] [address] [place] [address] Jun, [facility] [address] [id number] [address] [place] [address] May, [facility] [address] [id number] [address] [place] [address] Apr, [facility] [address] [id number] [address] [place] [address] Apr, [facility] [address] [id number] [address] [place] [address] Mar, [facility] [address] [id number] [address] [place] [address] Feb, [facility] [address] [id number] [address] [place] [address], [place] [address] Feb, [facility] [address] [id number] [address] [place] [address], [place] [address] Feb, [facility] [address] [id number] [address] [place] [address], [place] [address] January, [facility] [address] [id number] [address] [place] [address], [place] [address] January, [facility] [address] [id number] [address] [place] [address], [place] [address] Dec, [facility] [address] [id number] [address] [place] [address], [place] [address] Dec, [facility] [address] [id number] [address] [place] [address], [place] [address] Nov, [facility] [address] [id number] [address] [place] [address], [place] [address] Nov, [facility] [address] [id number] [address] [place] [address], [place] [address] Sep, [facility] [address] [id number] [address] [place] [address], [place] [address] Jun, [facility] [address] [id number] [address] [place] [address], [place] [address] Jun, [facility] [address] [id number] [address] [place] [address], [place] [address] May, [facility] [address] [id number] [address] [place] [address], [place] [address] Mar, [facility] [address] [id number] [address] [place] [address], [place] [address] Mar, [facility] [address] [id number] [address] [place] [address], [place] [address] Mar, [facility] [address] [id number] [address] [place] [address], [place] [address] 30 Mar, 2012 [facility] [address] [id number] [address] [place] [address], [place] [address] Feb, [facility] [address] [id number] [address] [place] [address], [place] [address] Feb, [facility] [address] [id number] [address] [place] [address], [place] [address] 18 Feb, 2012 [facility] [address] [id number] [address] [place] [address], [place] [address] Feb, [facility] [address] [id number] [address] [place] [address], [place] [address] Feb, [facility] [address] [id number] [address] [place] [address], [place] [address] January, [facility] [address] [id number] [address] [place] [address], [place] [address] January, [facility] [address] [id number] [address] [place] [address], [place] [address] January, [facility] [address] [id number] [address] [place] [address], [place] [address] January, [facility] [address] [id number] [address] [place] [address], [place] [address] January, [facility] [address] [id number] [address] [place] [address], [place] [address] Dec, [facility] [address] [id number] [address] [place] [address], [place] [address] Dec, [facility] [address] [id number] [address] [place] [address], [place] [address] Dec, [facility] [address] [id number] [address] [place] [address], [place] [address] Nov, [facility] [address] [id number] [address] [place] [address] [address] Oct, [facility] [address] [id number] [address] [place] [address], [place] [address] Sep, [facility] [address] [id number] [address] [place] [address], [place] [address] Jul, [facility] [address] [id number] [address] [place] [address], [place] [address] Aug, [facility] [address] [id number] [address] [place] [address], [place] [address] Jul, [facility] [address] [id number] [address] [place] [address], [place] [address] Jun, [facility] [address] [id number] [address] [place] [address], [place] [address] Jun, [facility] [address] [id number] [address] [place] [address], [place] [address] Jul, [facility] [address] [id number] [address] [place] [address] Jul, [facility] [address] [id number] [address] [place] [address], [place] [address] Aug, [facility] [address] [id number] [address] [place] [address] Aug, [facility] [address] [id number] [address] [place] [address] Jul, [facility] [address] [id number] [address] [place] [address] Jul, [facility] [address] [id number] [address] [place] [address] Apr, [facility] [address] [id number] [address] [place] [address] Oct, [facility] [address] [id number] [address] [place] [address] Jul, [facility] [address] [id number] [address] [place] [address] Apr, IMMUNIZATIONS No Known Immunizations SOCIAL HISTORY [...]
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
== END 2020-03-04 21:23 | disposition home or self-care (01) ==
LOC: EDUNIT# 20:08 → ER 20:09
DX: S91.331A Puncture wound without foreign body, right foot, initial encounter (principal); E89.0 Postprocedural hypothyroidism; Z23 Encounter for immunization; Z79.890 Hormone replacement therapy; Z82.49 Family history of ischemic heart disease and other diseases of the circulatory system; Z91.041 Radiographic dye allergy status; Z80.8 Family history of malignant neoplasm of other organs or systems; W46.0XXA Contact with hypodermic needle, initial encounter
CPT/HCPCS: 73630; 90715